=== PATIENT | female | born 1950 | race Caucasian/White ===

== ENCOUNTER → 2017-01-24 | Outpatient (CLI) | payer OTHER ==
[~2017-01-24] MED LIST: CEFD300C3 PO; CHOL2000 PO; DIGO0.122 PO; DOCU100C31 PO; DXY100 PO; FRRG PO; FRRS300 PO; FRS/40 PO; FURO-85 PO; INSUINJ13 SC; LISI-725 PO; LNX125 PO; LSN20 PO; LSX20 PO; LSX40 PO; MRLP17X PO; MULT-506 PO; NVLG SQ; NVLGI7030 SC; OMEG10007 PO; RIVA1TAB4 PO; TRAM-10 PO; TRAZ50TA35 PO; ULT50 PO; ULT50X PO; XRL20 PO
[2017-01-24 18:49] LABS: ALT/SGPT 28 U/L (12-78); AST/SGOT 14 U/L (15-37); BLOOD UREA NITROGEN 12 mg/dl (7-18); BUN/CREATININE RATIO 15.2 (10-20); CALCIUM 9.9 mg/dl (8.5-10.1); CARBON DIOXIDE 28 mmol/L (21-32); CHLORIDE 106 mmol/L (98-107); CREATININE 0.81 mg/dl (0.60-1.20); GLUCOSE 103 mg/dl (70-99); POTASSIUM 3.9 mmol/L (3.5-5.1); SODIUM 141 mmol/L (136-145)
[2017-01-24 19:00] LABS: ALKALINE PHOSPHATASE 111 U/L (45-117); CHOLESTEROL 243 mg/dl (0-200); CHOLESTEROL/HDL RATIO 4.2; HDL CHOLESTEROL 58 mg/dl; LDL CHOLESTEROL CALCULATED 152 mg/dl; TRIGLYCERIDES 167 mg/dl (0-150); VERY LOW DENSITY LIPOPROT CALC 33 mg/dl
[2017-01-25 06:51] LABS: ESTIMATED AVERAGE GLUCOSE 212 mg/dl; HA1C FLAG Normal (Normal)
== END | disposition home or self-care (01) ==
LOC: C.LABPBG 12:40
PROVIDERS: ATTEND Nurse Practitioner Family
DX: E11.65 Type 2 diabetes mellitus with hyperglycemia (principal); E78.5 Hyperlipidemia, unspecified

== ENCOUNTER → 2017-02-13 | Outpatient (CLI) | payer OTHER ==
[~2017-02-13] MED LIST changes: -FRRG PO
[2017-02-13 13:58] LABS: BLOOD UREA NITROGEN 14 mg/dl (7-18); BUN/CREATININE RATIO 18.6 (10-20); CALCIUM 9.4 mg/dl (8.5-10.1); CARBON DIOXIDE 28 mmol/L (21-32); CHLORIDE 104 mmol/L (98-107); CREATININE 0.74 mg/dl (0.60-1.20); GLUCOSE 120 mg/dl (70-99); POTASSIUM 4.2 mmol/L (3.5-5.1); SODIUM 140 mmol/L (136-145)
== END | disposition home or self-care (01) ==
LOC: C.LAB1850 11:51
PROVIDERS: ATTEND Internal Medicine Interventional Cardiology
DX: R60.0 Localized edema (principal)

== ENCOUNTER → 2017-02-20 | Outpatient (CLI) | payer OTHER ==
[2017-02-20 11:58] LABS: BLOOD UREA NITROGEN 27 mg/dl (7-18); BUN/CREATININE RATIO 31.9 (10-20); CALCIUM 9.2 mg/dl (8.5-10.1); CARBON DIOXIDE 32 mmol/L (21-32); CHLORIDE 102 mmol/L (98-107); CREATININE 0.86 mg/dl (0.60-1.20); GLUCOSE 118 mg/dl (70-99); POTASSIUM 3.8 mmol/L (3.5-5.1); SODIUM 140 mmol/L (136-145)
== END | disposition home or self-care (01) ==
LOC: C.LAB 10:09
PROVIDERS: ATTEND Physician Assistant
DX: R60.0 Localized edema (principal)

== ENCOUNTER 2017-03-01 05:12 | Inpatient (IN) | payer OTHER ==
[2017-01-30 11:38] VITALS: BMI 34.0
--- NOTE | 2017-01-30 11:58 | PAT Medication Instructions ---
Service Date Jan 30, 2017. Current Home Medication List Cholecalciferol (Vitamin D3), 1 CAP PO QAM Digoxin (Lanoxin), 0.125 MG PO QAM Fish Oil ([place]-3), 1 CAP PO QAM Furosemide (Lasix), 20 MG PO QAM Insulin Aspart 70/30 (Novolog Mix 70/30), 16 SC BID Lisinopril (Zestril), 20 MG PO QAM Multivitamin (Multivitamin), 1 TAB PO QAM Rivaroxaban (Xarelto), 20 MG PO QAM Tramadol (Ultram), 50 MG PO Q8H PRN for Pain Medication Instructions For Your Scheduled Surgery - Hold the following medications 2 weeks prior to surgery: Fish Oil ([place]-3), 1 CAP PO QAM - Hold the following medications 3 days prior to surgery per Cardiology instructions: Rivaroxaban (Xarelto), 20 MG PO QAM - Hold the following medications the morning of surgery: Cholecalciferol (Vitamin D3), 1 CAP PO QAM Furosemide (Lasix), 20 MG PO QAM Lisinopril (Zestril), 20 MG PO QAM Multivitamin (Multivitamin), 1 TAB PO QAM - Take the following medications the morning of surgery with a sip of water OTHERWISE NOTHING TO EAT OR DRINK AFTER MIDNIGHT: Digoxin (Lanoxin), 0.125 MG PO QAM Tramadol (Ultram), 50 MG PO Q8H PRN for Pain (may take if needed up to 4 hours prior to surgery) - For Insulin Dependent Diabetic patients: Test blood sugar A.M. of surgery. - If Blood Sugar is GREATER THAN 150, take HALF of your regular dose of: Insulin Aspart 70/30 (Novolog Mix 70/30) - If Blood Sugar is LESS THAN 150, do not take any: Insulin Aspart 70/30 (Novolog Mix 70/30) - Take the following medications as scheduled the night before surgery: Tramadol (Ultram), 50 MG PO Q8H PRN for Pain Insulin Aspart 70/30 (Novolog Mix 70/30), 16 SC BID If you have any questions please call us at [phone] or [phone] or [phone]
[2017-01-30 12:39] LABS: BASO % 0.3 %; BASO ABS # 0.02 K/uL (0-0.2); COMPLETE YES; EOS % 3.8 %; HEMATOCRIT 37.7 % (37-47); IG% 0.4 %; LYMPH ABS # 1.69 K/uL (1.2-3.4); MEAN CELL VOLUME 84.3 fL (80-100); MEAN CORPUSCULAR HGB CONC 33.2 g/dl (32-36); MEAN PLATELET VOLUME 9.2 fL (7.4-10.4); MONO % 7.6 %; NEUT % 64.9 %; PLATELET COUNT 278 K/uL (130-400); RED BLOOD COUNT 4.47 M/uL (4.2-5.4); WHITE BLOOD COUNT 7.36 K/uL (4.8-10.8)
[2017-01-30 12:49] LABS: INR 1.1 (0.9-1.1); PARTIAL THROMBOPLASTIN RATIO 1.1; PROTHROMBIN TIME (PATIENT) 11.5 SECONDS (9.0-12.0)
[2017-01-30 14:16] LABS: ESTIMATED AVERAGE GLUCOSE 223 mg/dl; HA1C FLAG Normal (Normal)
--- NOTE | 2017-02-22 19:09 | HISTORY & PHYSICAL EXAMINATION ---
DATE OF ADMISSION: 03/01/2017 CHIEF COMPLAINT: Right hip pain. HISTORY OF PRESENT ILLNESS: The patient is a 66-year-old female with multiple underlying medical comorbidities who is now about 5 months out from a left hip replacement. Her left hip is doing great. She has not had any pain since the day we put it in. She continues to be disabled by right hip pain and discomfort. She uses a walker as a result. She has some knee pain as well but the hip is most bothersome for her. She would really like to have her right hip replaced. The patient does have a history of chronic A fib with chronic lower extremity swelling heart failure and diabetes. She is followed by Dr. Xiong. She did lose a lot of weight, about 70 pounds or so, but still significantly obese. PAST MEDICAL HISTORY: 1. Chronic atrial fibrillation followed by Dr. Xiong and on Xarelto. 2. Hypertension. 3. Elevated cholesterol. 4. Congestive heart failure. 5. Diabetes on insulin. 6. Sleep apnea with CPAP machine 7. Low back pain. 8. Obesity with a BMI of 35. ALLERGIES: SULFA AND PENICILLIN. Rash is the reaction. PAST SURGICAL HISTORY: Left hip replacement on 09/11/2016. CURRENT MEDICINES: 1. Xarelto 20 mg. 2. Januvia 100 mg b.i.d. 3. Digoxin 125 mcg a day. 4. Lantus insulin 25 units once a day. 5. Tramadol. SOCIAL HISTORY: 66-year-old white female. She lives by herself. Does not smoke. FAMILY HISTORY: Significant for heart disease and diabetes. REVIEW OF SYSTEMS: Significant for diabetes. Denies any current chest pain or shortness of breath. No history of DVT or PE. She is on Xarelto. PHYSICAL EXAMINATION: GENERAL: Elderly female who looks older than her stated age. HEENT: Benign. NECK: Supple. No lymphadenopathy. LUNGS: Clear to auscultation. HEART: Has an irregularly irregular rhythm. ABDOMEN: Soft, nontender, nondistended. EXTREMITIES: Grossly neurovascularly intact except as follows. Examination of the right hip reveals the patient walks with a walker. She has a significant limp on the right side. Leg lengths are pretty equal. She has stiffness and pain with any type of hip motion. Very minimal hip motion. X-RAYS: X-rays of the right hip reveal advanced arthritis. She has complete loss of her joint space. She has cystic change to the femoral head and acetabulum. ASSESSMENT: 66-year-old white female with multiple comorbidities with a history of A fib with advanced right hip arthritis status post left total hip replacement 5 months ago and doing well. She would like to have her right hip replaced. PLAN: We are going to take her to the operating room and do a right total hip replacement. The risks and benefits of this procedure were explained to the patient including but not limited to DVT, PE, , infection, neurological injury, vascular injury, bleeding problem, pain, limited range of motion, stiffness, dislocation, fracture, leg length inequality, nerve palsy, etc. The patient understands and desires to proceed. Informed consent was obtained. We talked about her holding her Xarelto 3-5 days preop old holding the lisinopril the morning of surgery. She will take her digoxin. Will cover with sliding scale insulin coverage. Will consult Dr. Xiong to follow her in the hospital. Will start her back on her Xarelto 24 hours postop. She should bring his CPAP machine to the hospital. I will see her back 2 weeks postop. As far as discharge plans, she is hoping to be discharged to rehab.
[2017-03-01] VITALS (10 sets, daily range): BP systolic 107–178; BP diastolic 66–80; PULSE 72–96; TEMP 36.4–37.6; O2SAT 94–100; Ht 160 cm; Wt 88.7 kg
[~2017-03-01] VITALS: Ht 160 cm; Wt 88.7 kg
[~2017-03-01 05:12] MED LIST changes: -CEFD300C3 PO; -CHOL2000 PO; -DOCU100C31 PO; -DXY100 PO; -FRRS300 PO; -FRS/40 PO; -INSUINJ13 SC; -LNX125 PO; -LSN20 PO; -LSX20 PO; -LSX40 PO; -MRLP17X PO; -MULT-506 PO; -NVLG SQ; -OMEG10007 PO; -TRAZ50TA35 PO; -ULT50 PO; -ULT50X PO; -XRL20 PO
[2017-03-01] MEDS ORDERED: GABAPENTIN 300 MG CAP PO SCH (06:00)
[2017-03-01] MEDS ORDERED: METOCLOPRAMIDE HCL 10 MG TAB PO SCH (06:00)
[2017-03-01] MEDS ORDERED: LACTATED RINGER'S 1000ML 500 ML IV ONE (06:00)
[2017-03-01] MEDS ORDERED: FAMOTIDINE 20 MG TAB PO SCH (06:00)
[2017-03-01] MEDS ORDERED: TRANEXAMIC ACID INJ 1,000 MG in SODIUM CHLORIDE 0.9% 100ML 100 ML IV SCH (06:00)
[2017-03-01] MEDS ORDERED: SCOPOLAMINE 1.5 MG TDSY TD SCH (06:00)
[2017-03-01] MEDS ORDERED: LACTATED RINGER'S 1000ML 1,000 ML IV SCH ×2 (06:00)
[2017-03-01] MEDS ORDERED: ACETAMINOPHEN 500 MG TAB PO SCH (06:00)
[2017-03-01] MEDS ORDERED: CLINDAMYCIN 600 MG/54 ML D5W 54 ML IV SCH (06:00)
[2017-03-01] MEDS ORDERED: FRS/40 PO (06:04)
[2017-03-01] MEDS ORDERED: FENTANYL CITRATE INJ 50 MCG/1 ML 2 ML VIAL ONE ×2 (06:11→08:33)
[2017-03-01] MEDS ORDERED: MIDAZOLAM HCL 1 MG/ML 2ML VIAL ONE ×4 (06:14→09:29)
[2017-03-01] MEDS ORDERED: MoRPHine SULFATE PF 1 MG/ML 10 ML AMP/VIAL ONE (06:19)
[2017-03-01] MEDS ORDERED: BACITRACIN 50000 UNIT VIAL ONE ×2 (06:28→09:57)
[2017-03-01] MEDS ORDERED: BUPIVACAINE/EPINEPHRINE 0.5% MPF 1:200,000 30 ML VIAL ONE (06:28)
[2017-03-01] MEDS ORDERED: BUPIVACAINE 0.5 % 5 MG/1 ML PF 10ML VIAL ONE (06:34)
--- NOTE | 2017-03-01 06:46 | History & Physical Bridge Note ---
H&P Re-Evaluation Bridge Note: I have examined the patient, reviewed the History & Physical and in the interval since the performance of the History & Physical I have noted the following changes of clinical significance: No changes noted
[2017-03-01] MEDS ORDERED: EpHEDrine SULFATE 50MG/5ML SYR ONE (07:24)
[2017-03-01] MEDS ORDERED: SODIUM CHLORIDE 0.9% 1000ML 1,000 ML IV PRN (08:13)
[2017-03-01] MEDS ORDERED: NALOXONE HCL INJ 0.08 MG in SYRINGE 1.8 ML IV PRN (08:13)
[2017-03-01] MEDS ORDERED: NALOXONE HCL INJ 1 MG in SODIUM CHLORIDE 0.9% 1000ML 1,000 ML IV PRN ×4 (08:13)
[2017-03-01] MEDS ORDERED: LACTATED RINGER'S 1000ML 500 ML IV PRN (08:13)
[2017-03-01] MEDS ORDERED: NO NARCOTICS OR SEDATIVES SCH (08:15)
[2017-03-01] MEDS ORDERED: MoRPHine SULFATE PF 1 MG/ML 10 ML AMP/VIAL EPI PRN (08:15)
[2017-03-01] MEDS ORDERED: DiphenhydrAMINE HCL 50 MG/ML VIAL IV PRN (08:15)
[2017-03-01] MEDS ORDERED: ONDANSETRON INJ 2 MG/ML 2 ML VIAL IV PRN ×3 (08:15→10:45)
[2017-03-01] MEDS ORDERED: ATROPINE SULFATE 0.1 MG/ML 5ML SYR IV PRN (08:15)
[2017-03-01] MEDS ORDERED: PROMETHAZINE HCL INJ 12.5 MG in SODIUM CHLORIDE 0.9% 50ML 50 ML IV PRN ×4 (08:15)
[2017-03-01] MEDS ORDERED: MEPERIDINE HCL 25 MG/ML CARP IV PRN ×2 (08:15)
[2017-03-01] MEDS ORDERED: EpHEDrine SULFATE INJ 50 MG/ML AMP IV PRN (08:15)
[2017-03-01] MEDS ORDERED: NALOXONE HCL 0.4 MG/1 ML VIAL/CARP IV PRN (08:15)
[2017-03-01] MEDS ORDERED: CLINDAMYCIN PHOS 150 MG/ML 2 ML VIAL ONE (10:17)
--- NOTE | 2017-03-01 10:23 | DIAGNOSTIC IMAGING REPORT ---
INTRAOPERATIVE RIGHT FEMUR 7 VIEWS CLINICAL HISTORY: Fracture COMPARISON STUDY: None FLUOROSCOPY TIME: 20 seconds. 7 fluoroscopic spot images are provided for interpretation.. FINDINGS: There are postsurgical changes of a right hip arthroplasty. The proximal aspect of the femoral prosthesis and acetabulum are not included on the study. There is a lateral femoral metallic plate with multiple proximal cerclage wires and transversely oriented distal screws. IMPRESSION: Intraoperative radiographs as described above. Electronically signed by: Terrell Garcia M.D. 03/01/2017 10:22 AM Dictated Date/Time: 03/01/2017 10:20 AM
--- NOTE | 2017-03-01 10:43 | [facility] Post Operative Brief Note ---
Immediate Operative Summary Operative Date March 01, 2017. Pre-Operative Diagnosis Right Hip Degenerative Joint Disease Post-Operative Diagnosis Same as preop Procedure(s) Performed Right Total Hip Arthroplasty Uncemented + Open Reduction Internal Fixation of Periprosthetic Femur Fracture Surgeon Dr. Zhong Support Manager Surgeon(s) Aadm Rudd PA-C Estimated Blood Loss 500 ml Findings Right Hip DJD Fluids (cc crystalloids) 1300 cc Specimens A. Right Femoral Head Drains HMV Right Hip and thigh Anesthesia Spinal Complication(s) None
[2017-03-01] MEDS ORDERED: GLUCOSE 10 TABS/TUBE PO PRN (10:45)
[2017-03-01] MEDS ORDERED: METOCLOPRAMIDE HCL INJ 5 MG/ML 2 ML VIAL IV PRN (10:45)
[2017-03-01] MEDS ORDERED: BISACODYL 10 MG SUPP PR PRN (10:45)
[2017-03-01] MEDS ORDERED: ALUMINUM/MAGNESIUM/SIMETH (MAALOX MAX) 30 ML UDC PO PRN (10:45)
[2017-03-01] MEDS ORDERED: GLUCOSE 40% GEL 15 GM TUBE PO PRN (10:45)
[2017-03-01] MEDS ORDERED: MAGNESIUM HYDROXIDE SUSP 30 ML UDC PO PRN (10:45)
[2017-03-01] MEDS ORDERED: ZOLPIDEM TARTRATE 5 MG TAB PO PRN (10:45)
[2017-03-01] MEDS ORDERED: GLUCAGON FOR INJ 1 MG VIAL SQ PRN (10:45)
[2017-03-01] MEDS ORDERED: DEXTROSE 50% 50 ML SYR IV PRN (10:45)
[2017-03-01] MEDS ORDERED: TRAMADOL HCL 50 MG TAB PO PRN (10:45)
--- NOTE | 2017-03-01 11:25 | DIAGNOSTIC IMAGING REPORT ---
SINGLE VIEW PELVIS; 2 VIEWS RIGHT FEMUR CLINICAL HISTORY: Postoperative examination. FINDINGS: An AP portable view of the pelvis with AP and crosstable lateral views of the right femur are compared to studies dated 08/09/2015 and pelvic x-ray dated 09/11/2016. The skeletal structures are osteopenic. The bony pelvis appears intact. Bilateral hip arthroplasties are in near-anatomic alignment. There as been buttress plate fixation of a spiral fracture through the mid femoral shaft at and below the level of the tip of the femoral arthroplasty. The buttress plate is along the lateral cortex, and the fracture fragments are in near-anatomic alignment. There are cerclage wires around the proximal aspect of the buttress plate. At least 6 cortical lag screw transfixes the distal aspect of the buttress plate. There are expected postoperative changes in the right thigh including skin clips, subcutaneous gas, soft tissue edema, and surgical drains. The right knee joint appears maintained noting arthritic change. Atherosclerotic calcification is noted in the femoral artery bilaterally. A Wang catheter is in place. Sclerotic change is present in the sacroiliac joints. IMPRESSION: 1. There are postoperative changes from buttress plate fixation of a right femoral diaphyseal fracture as detailed above. The fragments are in near-anatomic alignment in the orthopedic hardware appears intact. 2. No new fracture is seen. 3. Bilateral hip arthroplasties are in near-anatomic alignment. Electronically signed by: Abel Aguayo M.D. 03/01/2017 11:24 AM Dictated Date/Time: 03/01/2017 11:19 AM
--- NOTE | 2017-03-01 11:36 | Anesthesiology Progress Note ---
Anesthesia Post Op Note Date & Time March 01, 2017 at 11:35 Vital Signs Pain Intensity: 0 Vital Signs Past 12 Hours Date Time Temp Pulse Resp B/P Pulse Ox O2 Delivery O2 Flow Rate FiO2 03/01/17 11:21 131/58 03/01/17 11:19 73 16 03/01/17 11:19 73 16 98 03/01/17 11:18 36.3 76 16 131/58 100 Nasal Cannula 2 03/01/17 11:16 132/57 03/01/17 11:14 74 12 100 03/01/17 11:14 74 12 03/01/17 11:11 125/60 03/01/17 11:09 78 10 99 03/01/17 11:09 77 10 03/01/17 11:06 138/68 03/01/17 11:04 78 23 03/01/17 11:04 78 23 99 03/01/17 11:03 77 25 03/01/17 11:03 77 25 100 03/01/17 11:01 133/55 03/01/17 10:58 76 13 100 03/01/17 10:58 77 13 03/01/17 10:56 105/80 03/01/17 10:53 80 14 100 03/01/17 10:53 79 14 03/01/17 10:51 97/62 03/01/17 10:48 81 13 03/01/17 10:48 80 13 100 03/01/17 10:46 105/66 03/01/17 10:44 97/60 03/01/17 10:43 79 15 100 03/01/17 10:43 79 15 03/01/17 10:43 36.2 78 15 97/60 100 Mask 10 03/01/17 05:38 37.0 89 20 178/66 98 Room Air Notes Mental Status: alert / awake / arousable, participated in evaluation Pt Amnestic to Procedure: Yes Nausea / Vomiting: adequately controlled Pain: adequately controlled Airway Patency, RR, SpO2: stable & adequate BP & HR: stable & adequate Hydration State: stable & adequate Anesthetic Complications: no major complications apparent
[2017-03-01] MEDS: SODIUM CHLORIDE 0.9% 1000ML 1,000 ML IV SCH ×2 (11:50→22:10)
--- NOTE | 2017-03-01 12:52 | Medical Consult ---
Consultation Date of Consultation: March 01, 2017. Attending Physician: Art Zhong M.D. Reason for Consultation: Medical Management History of Present Illness Ms. Yates is a 66 y/o female with PMHx of Paroxysmal Atrial Fibrillation, T2DM - IDDM, Possible Diastolic CHF with Chronic Lower Extremity Edema (possible mixed etiology of lymphedema and insufficiency, HTN, HLD, SANDRA on CPAP who is S/ P R MIGUEL with intraoperative ORIF 2/[address] Zhong on 03/01. HPI limited as patient is still drowsy from anesthesia. She awakes to tactile stimulation, makes eye contact, and falls back asleep. Per son, last surgery patient did not fully recover from anesthesia until the evening after surgery. Medical history confirmed by son at bedside. Xarelto has been held since 02/22 in preparation for surgery. He states he A Fib is controlled and predominantly in NSR. She is currently NSR with adequate rate control. Outpatient records reviewed as well, she had a recent Lasix increase from 20 to 40 mg daily for orthopnea and lower extremity edema. She did improve with increased dosing but suggest PND and SANDRA as culprit with chronic insufficiency and lymphedema as cause of edema. She was previously on Januvia for DM control but this interfered with her A Fib per son and is only on insulin 70/30 with 18 units AMPM. She follows with endocrinology for DM maintenance. Past Medical/Surgical History 1. Paroxysmal Atrial Fibrillation 2. HTN 3. HLD 4. T2DM IDDM 5. SANDRA on CPAP Family History Deferred as patient sleeping and cannot contribute to exam. Social History Smoking Status: Never Smoker Drug Use: none Marital Status: Occupation Status: retired Allergies Coded Allergies: Acetaminophen (Verified Allergy, Mild, MUSCLE SHAKES AND PASSES OUT, ) Codeine (Verified Allergy, Mild, MUSCLE SHAKES AND PASSES OUT, 03/01/17) Adhesives (Verified Allergy, Unknown, local skin irritation, 03/01/17) paper tape is okay per pt Carvedilol (Unverified Allergy, Unknown, per cardio note , 03/01/17) Diltiazem (Unverified Allergy, Unknown, MUSCLE SHAKES AND CANT WALK, ) Meloxicam (Verified Allergy, Unknown, MUSCLE CRAMPS AND SHAKE AND CANT WALK, 03/01/17) Metoprolol (Unverified Allergy, Unknown, per cardio note , 03/01/17) Omeprazole (Unverified Allergy, Unknown, per cardio note , 03/01/17) Penicillins (Verified Allergy, Unknown, FEVER, 03/01/17) Sulfa Antibiotics (Unverified Allergy, Unknown, per cardio note , 03/01/17) Metformin (Verified Adverse Reaction, Unknown, DIARRHEA/ HAIR FELL OUT, ) Current Inpatient Medications Current Inpatient Medications Medications (Trade) Dose Ordered Sig/Isaac Route Start Time Stop Time Status Last Admin Dose Admin Lactated Ringer's 1,000 ml @ 15 mls/hr Q24H IV 03/01/17 06:00 03/01/17 18:00 03/01/17 06:26 15 MLS/HR Lactated Ringer's 1,000 ml @ 60 mls/hr [id number] IV 03/01/17 06:00 03/01/17 22:39 Clindamycin Phosphate (Cleocin 600mg/ 54ml D5W) 54 ml @ 100 mls/hr PREOP IV 03/01/17 06:00 03/01/17 18:00 03/01/17 06:57 100 MLS/HR Famotidine (Pepcid Tab) 20 mg PREOP PO 03/01/17 06:00 03/01/17 18:00 03/01/17 06:24 20 MG Gabapentin (Neurontin Cap) 300 mg PREOP PO 03/01/17 06:00 03/01/17 18:00 03/01/17 06:24 300 MG Metoclopramide HCl (Reglan Tab) 10 mg PREOP PO 03/01/17 06:00 03/01/17 18:00 03/01/17 06:24 10 MG Scopolamine (Transderm-Scop Patch) 1.5 mg PREOP TD 03/01/17 06:00 03/01/17 15:00 03/01/17 06:24 1.5 MG Miscellaneous (Remove Transderm-Scop Patch) 1 ea Q72H N/A 03/04/17 06:00 03/04/17 06:01 Miscellaneous Information (Check Scopolamine Patch Placement) 1 ea QS N/A 03/01/17 16:00 03/03/17 05:59 Ondansetron HCl (Zofran Inj) 4 mg ONE PRN IV 03/01/17 08:15 03/01/17 13:00 Atropine Sulfate (Atropine Sulfate 0.1MG/Ml Inj) 0.5 mg Q1M PRN IV 03/01/17 08:15 03/01/17 13:00 Meperidine HCl 25 mg 25 mg Q10M PRN IV 03/01/17 08:15 03/01/17 13:00 Promethazine HCl/ Sodium Chloride (Phenergan Inj/ Nss 50ml) 50.5 ml @ 202 mls/hr ONE PRN IV 03/01/17 08:15 03/01/17 13:00 Naloxone HCl (Narcan Inj) 0.1 mg UD PRN IV 03/01/17 08:15 03/02/17 00:00 Diphenhydramine HCl 12.5 mg 12.5 mg Q6H PRN IV 03/01/17 08:15 03/02/17 00:00 Naloxone HCl/ Sodium Chloride (Narcan Inj/Nss 1000ml) 1,002.5 ml @ 50 mls/hr Q20H3M PRN IV 03/01/17 08:13 03/02/17 00:00 Ondansetron HCl 4 mg 4 mg Q6H PRN IV 03/01/17 08:15 03/02/17 00:00 Promethazine HCl 12.5 mg/Sodium Chloride 50.5 ml @ 200 mls/hr Q6H PRN IV 03/01/17 08:15 03/02/17 00:00 Naloxone HCl/ Sodium Chloride (Narcan Inj/Nss 1000ml) 1,002.5 ml @ 50 mls/hr Q20H3M PRN IV 03/01/17 08:13 03/02/17 00:00 Meperidine HCl (Demerol Inj) 25 mg Q15M PRN IV 03/01/17 08:15 03/02/17 00:00 Miscellaneous Information (Dc Intraspinal Morphine) 1 ea TODAY@0000 N/A 03/02/17 00:00 03/02/17 00:01 Miscellaneous Information 1 ea 1 ea UD N/A 03/01/17 08:15 03/02/17 00:00 Naloxone HCl 0.08 mg/Syringe 2 ml @ 1 mls/min Q2M PRN IV 03/01/17 08:13 03/02/17 00:00 Lactated Ringer's (Lr 1000ml) 500 ml @ 999 mls/hr Q31M PRN IV 03/01/17 08:13 03/02/17 00:00 Ephedrine Sulfate (EpHEDrine SULFATE INJ) 10 mg Q5M PRN IV 03/01/17 08:15 03/02/17 00:00 Morphine Sulfate TODAY PRN EPI 03/01/17 08:15 03/02/17 00:00 Sodium Chloride 1,000 ml @ 15 mls/hr Q24H PRN IV 03/01/17 08:13 03/02/17 00:00 Sodium Chloride 1,000 ml @ 125 mls/hr Q8H IV 03/01/17 10:43 03/02/17 10:42 03/01/17 11:50 125 MLS/HR Clindamycin Phosphate/Dextrose (Cleocin Iv/ Dextrose Add-[place] 50ML) 54 ml @ 100 mls/hr Q8H IV 03/01/17 18:00 03/02/17 02:33 Acetaminophen (Tylenol Tab) 1,000 mg Q8H PO 03/01/17 14:00 03/31/17 13:59 Magnesium Hydroxide (Milk Of Magnesia Susp) 30 ml Q6H PRN PO 03/01/17 10:45 03/31/17 10:44 Bisacodyl (Dulcolax Supp) 10 mg DAILY PRN NE 03/01/17 10:45 03/31/17 10:44 Docusate Sodium (coLACE CAP) 100 mg BID PO 03/01/17 21:00 03/31/17 20:59 Al Hydrox/Mg Hydrox/Simethicone (Maalox Max Susp) 15 ml Q4H PRN PO 03/01/17 10:45 03/31/17 10:44 Zolpidem Tartrate (Ambien Tab) 5 mg HSZ PRN PO 03/01/17 10:45 03/31/17 10:44 Future hold Multivitamins (Multivitamin Tab) 1 tab QAM PO 03/02/17 09:00 04/01/17 08:59 Ondansetron HCl (Zofran Inj) 4 mg Q6H PRN IV 03/01/17 10:45 03/31/17 10:44 Future hold Metoclopramide HCl (Reglan Inj) 10 mg Q6H PRN IV 03/01/17 10:45 03/31/17 10:44 Ferrous Gluconate (Ferrous Gluconate Tab) 324 mg TIDM PO 03/01/17 12:30 03/31/17 12:29 Pantoprazole Sodium (Protonix Tab) 40 mg QAM PO 03/02/17 09:00 04/01/17 08:59 Tramadol HCl (Ultram Tab) 1 TABLET FOR PAIN RATING... Q4H PRN PO 03/02/17 00:00 04/01/17 00:00 Digoxin (Lanoxin Tab) 0.125 mg DAILY@1600 PO 03/01/17 16:00 03/31/17 15:59 Furosemide (Lasix Tab) 40 mg DAILY PO 03/02/17 09:00 04/01/17 08:59 Cholecalciferol (Vitamin D Tab) 2,000 inter.unit QAM PO 03/02/17 09:00 04/01/17 08:59 Insulin Human Regular (novoLIN-R) SLIDING SCALE ACHS SC 03/01/17 12:45 03/31/17 12:44 Glucose (Glucose 40% Gel) 15-30 GRAMS 15 GRAMS... UD PRN PO 03/01/17 10:45 03/31/17 10:44 Glucose (Glucose Chew Tab) 4-8 Tablets 4 Tabl... UD PRN PO 03/01/17 10:45 03/31/17 10:44 Dextrose (Dextrose 50% 50ML Syringe) 25-50ML OF 50% DW IV FOR... UD PRN IV 03/01/17 10:45 03/31/17 10:44 Glucagon (Glucagon Inj) 1 mg UD PRN SQ 03/01/17 10:45 03/31/17 10:44 Rivaroxaban (Xarelto Tab) 10 mg DAILY PO 03/02/17 11:00 04/01/17 10:59 UNV Hydromorphone HCl (Dilaudid Inj) 1 mg Q1H PRN IV 03/02/17 00:00 03/16/17 00:00 Review of Systems ROS deferred as patient currently drowsy after surgery. She responds to verbal and tactile stimulation but quickly falls back asleep. Physical Exam Date Time Temp Pulse Resp B/P Pulse Ox O2 Delivery O2 Flow Rate FiO2 03/01/17 12:33 36.4 72 16 114/68 100 Nasal Cannula 2.0 03/01/17 12:26 100 Nasal Cannula 2.0 03/01/17 12:19 74 16 107/70 94 2.0 03/01/17 11:21 131/58 03/01/17 11:19 73 16 03/01/17 11:19 73 16 98 03/01/17 11:18 36.3 76 16 131/58 100 Nasal Cannula 2 03/01/17 11:16 132/57 03/01/17 11:14 74 12 100 03/01/17 11:14 74 12 03/01/17 11:11 125/60 03/01/17 11:09 78 10 99 03/01/17 11:09 77 10 03/01/17 11:06 138/68 03/01/17 11:04 78 23 03/01/17 11:04 78 23 99 03/01/17 11:03 77 25 03/01/17 11:03 77 25 100 03/01/17 11:01 133/55 03/01/17 10:58 76 13 100 03/01/17 10:58 77 13 03/01/17 10:56 105/80 03/01/17 10:53 80 14 100 03/01/17 10:53 79 14 03/01/17 10:51 97/62 03/01/17 10:48 81 13 03/01/17 10:48 80 13 100 03/01/17 10:46 105/66 03/01/17 10:44 97/60 03/01/17 10:43 79 15 100 03/01/17 10:43 79 15 03/01/17 10:43 36.2 78 15 97/60 100 Mask 10 03/01/17 05:38 37.0 89 20 178/66 98 Room Air General Appearance: WD/WN, no apparent distress Head: normocephalic, atraumatic Eyes: sclerae normal Neck: supple, no JVD, trachea midline Respiratory/Chest: lungs clear, no respiratory distress, no accessory muscle use, + decreased breath sounds, + pertinent finding (difficulty exam as patient is drowsy/asleep; currently snoring which alters proper examination) Cardiovascular: regular rate, rhythm, no gallop, no murmur Abdomen/GI: normal bowel sounds, non tender (no withdrawaling or grimacing with palpation), soft Extremities/Musculoskelatal: + swelling (bilateral lower extremity edema appears mixed nonpitting and pitting 1-2+; adequate cap refill; normal temperature; R hip with drain with blood - dressing clean/dry/intact) Neurologic/Psych: + pertinent finding (drowsy/sedated) Skin: normal color, warm/dry Laboratory Results Last 24 Hours Test 03/01/17 05:48 03/01/17 10:51 Bedside Glucose 133 mg/dl 194 mg/dl Assessment & Plan Ms. Yates is a 66 y/o female with PMHx of Paroxysmal Atrial Fibrillation, T2DM - IDDM, Possible Diastolic CHF with Chronic Lower Extremity Edema (possible mixed etiology of lymphedema and insufficiency, HTN, HLD, SANDRA on CPAP who is S/ P R MIGUEL with intraoperative ORIF 2/[address] Zhong on 03/01. S/P R MIGUEL with ORIF 2/2 Periprosthetic Fx - Dr. Zhong on 03/01: - Pain Management, PT/OT, DVT prophylaxis per primary -- Did decrease fluids to 75 mL/hr to gently hydrate overnight and continue Lasix in AM if kidney function supports - no signs of failure currently but low threshold for diuretic use if necessary - DVT Prophylaxis: Xarelto 10 mg daily Paroxysmal Atrial Fibrillation on Xarelto: Currently NSR with Rate Control - Will await AM BMP to evaluate kidney function - CHADSVASC score 5 - would recommend therapeutic dosing for Xarelto given co- morbidities that places her at high stroke risk -- However must be balanced with bleeding risk post-surgery - will discuss with Dr. Zhong - Digoxin 125 mcg daily - per cards note has failed BB therapy as she was unable to maintain rate control with it T2DM - IDDM: - Hold 70/30 insulin - SSI goal 120-160, correction factor 35, carb ratio 12 - BSG Q6H with lethargic/not eating then resume ACHS Possible Diastolic CHF with Chronic Lower Extremity Edema: - Echo - 2014 - EF 60-65% with no wall motion abnormality - does have edema and orthopnea prior to admission - question multifactorial etiologies - Lasix 40 mg daily to start tomorrow - as long as BP supports this SANDRA on CPAP: Patient may use own CPAP HTN: - Hold Lisinopril at this time - may be resumed in AM pending labs Disposition: Per Primary Thank you for the consultation. We will continue to follow Pt seen/examined independently - orders and consultation reviewed and discussed with PA Post hop hip replacement with intraop femoral fracture Pt w/Hx DM and PAF - questionable history of diastolic CHF OE Pt is somnolent post sedation S1,2 R Poor effort - limited lung exam - no wheezing/crackles NT, NT Pulses palpable in LEs P: Sliding scale Q6H - change to ACHS when meal schedule is regular IVF provided post - op - watch vol status due to possible CHF histroy - can resume Lasix in 24 H if labs unchanged and pt is euvolemic Regarding her PAF - resume Xarelto at earliest time post-op
[2017-03-01] MEDS ORDERED: HydrALAZINE HCL 20 MG/ML VIAL IV. PRN (13:30)
[2017-03-01] MEDS: ACETAMINOPHEN 500 MG TAB PO SCH ×2 (14:00→22:00)
[2017-03-01] MEDS: FERROUS GLUCONATE 324 MG TAB PO SCH ×2 (14:06→19:33)
[2017-03-01] MEDS: INSULIN HUMAN REGULAR SC SCH ×3 (14:07→22:36)
--- NOTE | 2017-03-01 15:48 | OPERATIVE REPORT ---
DATE OF OPERATION: 03/01/2017 SURGEON: Art Zhong MD [employer] AGENT: CAYLA [place] PREOPERATIVE DIAGNOSIS: Right hip degenerative joint disease. POSTOPERATIVE DIAGNOSES: 1. Right hip degenerative joint disease. 2. Right periprosthetic femur fracture. PROCEDURES PERFORMED: 1. Right uncemented total hip arthroplasty. 2. ORIF of right periprosthetic femur fracture. COMPLICATIONS: Right periprosthetic femur fracture. ESTIMATED BLOOD LOSS: 500 mL. FLUID REPLACEMENT: 1300 mL crystalloid fluid replacement. ANESTHESIA: Spinal. DRAINS: A Hemovac right hip and leg x2. OPERATIVE INDICATIONS: The patient is a 66-year-old, debilitated lady who has had a long history of bilateral hip DJD. She had been using a walker for the past 2+ years. She underwent a left hip replacement 5-6 months ago and has done extremely well. She is limited by her right hip. X-rays reveal advanced hip DJD and she elected to proceed with operative treatment. OPERATIVE FINDINGS: Operative findings revealed advanced right hip DJD. She had grade 4 [id number] disease of the femoral head and acetabulum. She had extensive arthritic change. The cancellous bone density seemed quite poor, but the cortical bone appeared quite thick. OPERATIVE IMPLANTS: Total hip implants consisted of: 1. A Biomet G7 size 50 mm acetabular shell. 2. An apex hole eliminator. 3. A 6.5 cancellous acetabular screws, 1 of 35 mm length and 1 of 20 mm in length. 4. A highly cross-linked polyethylene liner with a 50 mm outer diameter and another 32 mm inner diameter. 5. A DePuy size 13.5 small stature AML femoral stem. 6. A +5/32 mm metal articular ball. ORIF of the femur implants consisted of: 1. A Synthes 16 hole curved broad-based 4.5 LCDC Locking plate. 2. A 4.5 fully threaded cortical screws x2. 3. A 5.0 locking screws x4. 4. Synthes 1.7 mm cables x8. 5. Synthes buttons x6. OPERATIVE PROCEDURE: The patient taken to the operating room, identified and placed on the operating table in supine position. All contact areas were appropriately padded. IV antibiotics were provided by anesthesia team. A spinal anesthetic had been implemented in the holding area. Wang catheter was placed in a sterile fashion. The patient was then placed in the left lateral decubitus position. An axillary roll was placed. Stlberg hip positioner was used for positioning. The right hip and leg were then prepped and draped in the usual sterile fashion. A posterolateral approach to the right hip was then performed through a curvilinear incision centered over the greater trochanter. Sharp dissection was carried out through the subcutaneous tissues down to the level of the IT band and gluteal fascia. The IT band and gluteal fascia was incised longitudinally in line with skin incision. The underlying greater trochanteric bursa was excised. The piriformis and external rotators were tagged and taken off the posterior aspect of the femur. Great care was taken throughout the procedure to protect the sciatic nerve at all times. Posterior capsulotomy was then performed leaving a large flap for later repair. Hip was internally rotated and dislocated. Femoral neck osteotomy cut was made with final cut about 7 mm above the lesser trochanter. Femoral head was removed and sent for pathology. The femur was retracted anteriorly. Attention was then drawn to the acetabulum. The acetabular labrum was excised. The pulvinar fat was excised. Sequential reaming of the acetabulum was then performed beginning with a size 43 and progressing up to 49. A 50 mm Biomet G7 acetabular shell was then placed in about 40 degrees of lateral opening and 20 degrees of anteversion. It was fixed with two 6.5 cancellous acetabular screws. A trial liner was placed. Attention was then drawn to the femur. The proximal femur was entered with a cookie cutter followed by canal finder and lateralizing reamer. The cancellous bone was quite soft. We began reaming at a size 10. We started getting pretty good chatter at 12. I reamed up to a 13. I broached beginning with a size 10.5 small broach and progressing up to 13.5 small broach. I could still countersink this. I contemplated using a large, but I placed this in the femur without attempting even to place it and it just seemed like it would be too large and risk fracture. Therefore, we went back to the 13.5 small broach and countersink it slightly. I did resect a little bit more the neck and then used the calcar reamer to use to smoothen off the calcar. We then trialed the hip and the +5 articular ball provided full stability and full extension and external rotation and flexion to 90 degrees, internal rotation to 50+ degrees. Leg lengths appeared appropriately. We elected to place these implants. All trial implants were removed. An apex hole eliminator was placed. Highly cross-linked polyethylene liner was placed. A 13.5 small stature AML femoral stem was placed. We impacted this into position. Upon internally rotating the femur to put the head on, the femur cracked. There was clear rotation of the upper component and it was no longer stable. X-ray was brought and on x-ray the fracture appeared to be just at the tip of the stem. I spent some time considering how to best address this situation. Considering that the femoral component looked to be extremely well fixed and impacted and the fracture was distal to the stem and at the isthmus I did not feel taking the implant out and planning for a longer stem implant would likely provide clear definitive beneficial fixation. Considering this, we elected to proceed with ORIF of the femur fracture with plate and screws. I felt I had good fixation in the proximal femur with the implant. The lateral exposure was then extended distally. The IT band incision was extended distally. The vastus lateralis was retracted anteriorly. I was then able to anatomically reduce the fracture and hold it with some reduction clamps. I placed 2 Synthes 1.7 mm cables around this to hold it reduced. I then contoured an 18 holed curved Synthes locking plate to the lateral aspect of the femur. I fixed it distally with two 4.5 fully threaded cortical screws. I then fixed it proximally with a single 4.5 cortical screw. I then fixed the femur fracture to the proximal plate with 4 additional cerclage cables placed through Synthes buttons. I then removed the cortical screw as it was no longer tight and placed another Synthes button with an additional 1.7 mm cable. I then fixed the fracture distally with four 5.0 fully threaded locking screws. I then placed 1 cable around the mid aspect of this construct which was right at the mid portion of the fracture line to just provide some additional stability. This was also placed through a button. Some final x-rays were obtained. Attention was then drawn toward closing. The fracture was anatomically aligned and reduced. The wound was irrigated with copious amounts of normal saline. I did inject locally with 60 mL of 0.5% Marcaine with epinephrine. I did place 2 Hemovac drains in the depth of the wound. The posterior capsule and external rotators were repaired through drill holes in the posterior trochanter with #2 Ti-Cron suture. The IT band and was then closed with #1 PDS suture in a running fashion. The subcutaneous tissues were then closed in 2 layers with #1 Vicryl suture in a buried interrupted fashion followed by 2-0 Dexon suture in a subcuticular fashion. The skin was then stapled. Sterile dressing of Xeroform, 4 x 4, sterile ABD pad and Medipore tape was applied. The patient was then transferred to the recovery room in stable condition. The patient tolerated the procedure well with no complications. All needle and sponge counts were correct at the end of the operation. I attest to the content of the Intraoperative Record and any orders documented therein. Any exceptions are noted below. CARLEYD
[2017-03-01] MEDS: CHECK SCOPOLAMINE PATCH PLACEMENT SCH ×2 (16:08→22:10)
[2017-03-01] MEDS: DIGOXIN 0.125 MG TAB PO SCH (16:09)
--- NOTE | 2017-03-01 17:48 | PROGRESS NOTE ---
DATE: 03/01/2017 SUBJECTIVE: A 66-year-old white female postop from a right total hip replacement complicated by periprosthetic femur fracture treated with plate and cables. She is doing well. She denies any pain. She is awake, alert, appropriate and oriented. No chest pain or shortness of breath. Remarkably denies any leg pain. OBJECTIVE: VITAL SIGNS: Temperature 36.6. Vital signs stable. PHYSICAL EXAMINATION: GENERAL: Reveals a pleasant elderly female. I did have to wake her when I went, but she was easily arousable, alert and oriented. LUNGS: Clear to auscultation. HEART: Regular rate and rhythm. ABDOMEN: Soft, nontender, nondistended. EXTREMITIES: Grossly neurologically intact except as follows: Examination of the right leg reveals the leg to be well aligned. Leg lengths 3 equal. Hip is located. She can dorsiflex and plantarflex her foot appropriately. She is neurologically intact. X-RAYS: X-rays of the right femur and hip from the recovery room were reviewed. It shows an uncemented total hip arthroplasty. The hip is located. The fracture looks to be well fixed with the plate and cables. ASSESSMENT: A 66-year-old white female with multiple underlying comorbidities including atrial fibrillation and diabetes postop from a right total hip replacement complicated by periprosthetic femur fracture and treated with a plate and cerclage cables. She is doing well. Remarkably, she did not have any pain. She is neurologically intact. Hip is located. I did have in-depth discussion with her son in the recovery room regarding the fracture and the treatment. I once again had a discussion with the patient along with her son/significant other was in a wheelchair in the room this afternoon. The patient was completely unfazed regarding the issue and certainly seems to understand and all questions were answered. PLAN: 1. DVT prophylaxis including thigh-high TEDs, SCDs, and we will put her back on her Xarelto starting tomorrow. We will start her on prophylactic dose. She is not in AFib now, but we will put her back on it. We will resume her standard dose over the next couple days. 2. PT/OT. She has been nonweightbearing right leg. It would be okay for her to touch weightbear slightly for the next 6 weeks. 3. IV antibiotics x24 hours. 4. Pain control, doing well with current pain regimen. 5. Mild hypertension. We will check her meds and make sure she is back on all her meds. 6. Diabetes. We will resume insulin sliding scale coverage. 7. Disposition. She went to [facility] last time. She will hope to go there again this time. ADDENDUM: Regarding this patient's periprosthetic femur fracture at the time of surgery, I think were probably multiple confounding variables, although I feel it was completely unpredictable. Looking at her x-rays, her cortices were thick on both the anterior and posterior aspects. Most likely when we machined the femur to fit the implant, we did ream some of the bone and weakened in that fashion. We did not excessively ream this as we only reamed about a millimeter of bone. Her cancellous bone was fairly porous at the time of surgery, but x-rays showed her cortical thickening to be remarkably strong. She has clearly been limited weightbearing for the last 2 years as she has had to use a walker to get around due to arthritis and likely contributed to her bone fragility. Once again, I think this is extremely difficult to predict based on her radiographs. In addition, she had a similar surgery with the same implant size on her other side without a problem. Once again, this was discussed with the patient and her significant other/son, I believe who was in a wheelchair and all questions were answered. DEANGELO
[2017-03-01] MEDS: CLINDAMYCIN IV 600 MG in DEXTROSE 5% ADD-VANTAGE 50ML 50 ML IV SCH (19:33)
[2017-03-01] MEDS: DOCUSATE SODIUM 100 MG CAP PO SCH (20:34)
[2017-03-02] VITALS (9 sets, daily range): BP systolic 110–155; BP diastolic 65–90; PULSE 87–101; TEMP 36.6–37.7; O2SAT 94–99
[2017-03-02] MEDS ORDERED: HYDROmorphone INJ 0.5 MG/0.5 ML SYR IV PRN
[2017-03-02] MEDS ORDERED: DC INTRASPINAL MORPHINE SCH
[2017-03-02] MEDS: CLINDAMYCIN IV 600 MG in DEXTROSE 5% ADD-VANTAGE 50ML 50 ML IV SCH (01:09)
[2017-03-02] MEDS: HYDROmorphone INJ 1 MG/ML SYR IV PRN ×2 (01:45→05:20)
[2017-03-02] MEDS: ACETAMINOPHEN 500 MG TAB PO SCH ×4 (05:15→21:15)
[2017-03-02 05:40] LABS: BASO % 0.2 %; BASO ABS # 0.02 K/uL (0-0.2); EOS % 0.1 %; HEMATOCRIT 30.5 % (37-47); IG% 0.6 %; LYMPH % 8.6 %; LYMPH ABS # 1.08 K/uL (1.2-3.4); MEAN CELL VOLUME 87.1 fL (80-100); MEAN CORPUSCULAR HGB CONC 32.1 g/dl (32-36); MEAN PLATELET VOLUME 9.6 fL (7.4-10.4); MONO % 9.2 %; NEUT % 81.3 %; PLATELET COUNT 236 K/uL (130-400); WHITE BLOOD COUNT 12.54 K/uL (4.8-10.8)
[2017-03-02 06:05] LABS: BUN/CREATININE RATIO 15.3 (10-20); CALCIUM 7.6 mg/dl (8.5-10.1); CREATININE 0.77 mg/dl (0.60-1.20); POTASSIUM 4.2 mmol/L (3.5-5.1)
[2017-03-02 06:16] LABS: COMPLETE YES
--- NOTE | 2017-03-02 08:35 | PROGRESS NOTE ---
DATE: 03/02/2017 DATE: 03/02/2017. SUBJECTIVE: A 66-year-old white female postop day 1 from a right total hip replacement complicated by periprosthetic fracture and ORIF. She is doing pretty well. Has started having some pain in her thigh. She took some pain pills and seems to be doing okay. No chest pain or shortness of breath. Not feeling dizzy or lightheaded. OBJECTIVE: VITAL SIGNS: Temperature 37.7. Vital signs stable. PHYSICAL EXAMINATION: GENERAL: Reveals a healthy pleasant, middle-aged female. She is sitting up in bed, looks reasonably comfortable. LUNGS: Clear to auscultation. HEART: Regular rate and rhythm. ABDOMEN: Soft, nontender, nondistended. EXTREMITY EXAMINATION: Grossly neurovascularly intact as follows: Examination of the right leg reveals the dressing to be clean, dry and intact. Leg is well aligned. She can dorsiflex and plantarflex her foot appropriately. LABORATORY DATA: Hemoglobin 9.8, hematocrit 30.5. White cell count 12.54. Electrolytes are stable. ASSESSMENT: A 66-year-old white female postop day 1 from right total hip replacement complicated by periprosthetic femur fracture. She is doing pretty well. Pain seems to be pretty well controlled. She is anemic, but asymptomatic. We will continue to follow her H\T\H. PLAN: 1. DVT prophylaxis including thigh-high TEDs, SCDs. We will start her back on prophylaxis Xarelto today. We will likely bump that up on discharge to a therapeutic dose, but for the next day or two we will stick with prophylactic dose. If she goes into Afib we may increase the dose sooner. 2. PT/OT. She is really touch weightbearing only in the right lower extremity. 3. Pain control. Doing pretty well with current pain regimen. 4. Disposition. She is hoping to be discharged to [facility] for a brief rehab stay after recovery in the hospital.
[2017-03-02] MEDS: FUROSEMIDE 40 MG TAB PO SCH (08:37)
[2017-03-02] MEDS: PANTOprazole SOD 40 MG TAB PO SCH (08:37)
[2017-03-02] MEDS: CHECK SCOPOLAMINE PATCH PLACEMENT SCH ×3 (08:37→22:21)
[2017-03-02] MEDS: DOCUSATE SODIUM 100 MG CAP PO SCH ×2 (08:38→20:34)
[2017-03-02] MEDS: RIVAROXABAN 10 MG TAB PO SCH (08:38)
[2017-03-02] MEDS: FERROUS GLUCONATE 324 MG TAB PO SCH ×3 (08:38→17:45)
[2017-03-02] MEDS: LISINOPRIL 20 MG TAB PO SCH (08:38)
[2017-03-02] MEDS: CHOLECALCIFEROL 1000 INTER.UNIT TAB PO SCH (08:40)
[2017-03-02] MEDS: MULTIVITAMIN TAB PO SCH (08:40)
[2017-03-02] MEDS: INSULIN HUMAN REGULAR SC SCH (08:52)
[2017-03-02] MEDS: TRAMADOL HCL 50 MG TAB PO PRN ×3 (08:53→20:35)
[2017-03-02] MEDS ORDERED: MULTIVITAMIN TAB PO SCH (09:00)
[2017-03-02] MEDS ORDERED: INSULIN GLARGINE SOLOSTAR 100 UNITS/ML 3 ML PEN SQ ONE (13:22)
[2017-03-02] MEDS: INSULIN ASPART 100 UNITS/ML 3 ML PEN SC SCH ×3 (13:39→20:51)
[2017-03-02] MEDS ORDERED: INSULIN GLARGINE SOLOSTAR 100 UNITS/ML 3 ML PEN SC ONE (16:00)
[2017-03-02] MEDS: DIGOXIN 0.125 MG TAB PO SCH (16:25)
--- NOTE | 2017-03-02 19:56 | Progress Note ---
Subjective Date of Service: March 02, 2017. Subjective Pt evaluation today including: conversation w/ patient, physical exam, chart review, lab review, review of inpatient medication list having some pain but notes that it's reasonably controlled doesn't want escalation in dosing or anything of that sort we were asked to revisit due to high sugars. notes that sugars have been high lately - uses 70/30 and dosing increased from 16 BID to 18 BID. notes that she tends to run high frequently. current A1c reviewed with pt. notes taht previously she had it around 7.4. then she ran into lots of troubles with low sugars on the 70/30. extensive discussion on normal insulin physiology and pharmacology of different insulins Review of Systems ros otherwise negative except for as above Objective Vital Signs Date Time Temp Pulse Resp B/P Pulse Ox O2 Delivery O2 Flow Rate FiO2 03/02/17 18:58 36.6 101 16 155/90 94 Room Air 03/02/17 16:25 88 03/02/17 16:00 Room Air 03/02/17 15:56 36.8 96 27 140/70 96 Room Air 03/02/17 11:53 37.1 87 22 152/66 95 Room Air 03/02/17 10:33 99 03/02/17 09:20 97 Room Air 03/02/17 09:04 95 Room Air 03/02/17 09:00 Room Air CPAP 03/02/17 08:32 37.6 96 24 110/65 97 Nasal Cannula 2.5 03/02/17 03:30 37.7 94 15 141/75 99 Nasal Cannula 2.0 03/01/17 23:20 37.6 96 20 129/72 99 Nasal Cannula 2.0 03/01/17 22:05 Nasal Cannula 03/01/17 20:36 37.5 95 18 124/72 99 Nasal Cannula 2.0 Physical Exam General Appearance: no apparent distress Eyes: EOMI ENT: hearing grossly normal Neck: trachea midline Respiratory/Chest: no respiratory distress, no accessory muscle use Neurologic/Psychiatric: electorate officer II-XII nml as tested, alert, normal mood/affect Skin: normal color, warm/dry Laboratory Results Last 24 Hours Test 03/01/17 22:24 03/02/17 05:20 03/02/17 08:06 03/02/17 11:49 Bedside Glucose 285 mg/dl 233 mg/dl 289 mg/dl White Blood Count 12.54 K/uL Red Blood Count 3.50 M/uL Hemoglobin 9.8 g/dL Hematocrit 30.5 % Mean Corpuscular Volume 87.1 fL Mean Corpuscular Hemoglobin 28.0 pg Mean Corpuscular Hemoglobin Concent 32.1 g/dl Platelet Count 236 K/uL Mean Platelet Volume 9.6 fL Neutrophils (%) (Auto) 81.3 % Lymphocytes (%) (Auto) 8.6 % Monocytes (%) (Auto) 9.2 % Eosinophils (%) (Auto) 0.1 % Basophils (%) (Auto) 0.2 % Neutrophils # (Auto) 10.21 K/uL Lymphocytes # (Auto) 1.08 K/uL Monocytes # (Auto) 1.15 K/uL Eosinophils # (Auto) 0.01 K/uL Basophils # (Auto) 0.02 K/uL RDW Standard Deviation 49.5 fL RDW Coefficient of Variation 15.4 % Immature Granulocyte % (Auto) 0.6 % Immature Granulocyte # (Auto) 0.07 K/uL Sodium Level 137 mmol/L Potassium Level 4.2 mmol/L Chloride Level 106 mmol/L Carbon Dioxide Level 25 mmol/L Anion Gap 6.0 mmol/L Blood Urea Nitrogen 12 mg/dl Creatinine 0.77 mg/dl Est Creatinine Clear Calc Drug Dose 74.9 ml/min Estimated GFR () 92.6 Estimated GFR (Non- 79.9 BUN/Creatinine Ratio 15.3 Random Glucose 206 mg/dl Calcium Level 7.6 mg/dl Test 03/02/17 17:14 Bedside Glucose 305 mg/dl Assessment and Plan S/P R MIGUEL with ORIF 2/2 Periprosthetic Fx - Dr. Zhong on 03/01: - Pain Management, PT/OT, DVT prophylaxis per primary - DVT Prophylaxis: Xarelto 10 mg daily - pain under reasonable control Paroxysmal Atrial Fibrillation on Xarelto: Currently NSR with Rate Control - CHADSVASC score 5 - would recommend therapeutic dosing for Xarelto for assisted; currently dosing per orthopedics to best balance need for anticoagulation against risk of bleeding -- that said once possible, would move to full dosing given afib and chads-vasc risk - Digoxin 125 mcg daily - per cards note has failed BB therapy as she was unable to maintain rate control with it - rates acceptable T2DM - IDDM: - extensive discussion with pt - has been on 70/30 mostly because that's what she's been on. is open to basal/bolus and more physiologic regimen. discussed four shots a day w basal bolus vs two w 70/30 but she notes that she has to get up at 5am for her first dose anyway, and when she was under better control she had lows (typically seemed to be around when the long acting portion would peak ) -- given that she's amenable and has a reasonable understanding of the rationale - will give trial to basal bolus while still inpatient - was on 36 total units a day - and uncontrolled A1c - will increase to 30 basal (lantus) and log w carb ratio 1:8 (rule of 500 for 60 total units would be 1:8.33 -- suspect that she'll need tighter carb ratio but this will be a reasonable starting point) - at discharge would anticipate a transition to "soft carb counting" with postprandial glucoses as judgement on efficacy of mealtime insulin; if still on about 60 total units a day, would then put the "center point" for carb counting at about 10 units AC Possible Diastolic CHF with Chronic Lower Extremity Edema: - Echo - 2015 - EF 60-65% with no wall motion abnormality - does have edema and orthopnea prior to admission - question multifactorial etiologies - Lasix 40 mg daily - tolerating well SANDRA on CPAP: CPAP HS HTN: - resumed lisinopril. BP still somewhat up, but does appear to be having some pain (she doesnt want anything more done for this, but may be driving BP some) - continue to follow Disposition: Per Primary
[2017-03-02] MEDS ORDERED: ULT50X PO (20:48)
--- NOTE | 2017-03-02 20:51 | Discharge Instructions ---
Discharge Instructions Date of Service March 02, 2017. Admission Reason for Admission: Right Hip Osteoarthritis Discharge Discharge Diagnosis / Problem: Right Hip Replacment + ORIF Right Dawn- prosthetic Femur Fracture Discharge Goals Goal(s): Decrease discomfort, Improve function, Increase independence, Improve disease control, Therapeutic intervention Activity Recommendations Activity Level: Assistance Required Therapies: Physical Therapy, Occupational Therapy Weightbearing Status: Right toe touch (Toe-touch WB right leg for 6 weeks) . Additional Information Patient informed of condition: Yes Advance Directives: No DNR: No Level of Care: Acute Rehab Communicable Disease: No Prognosis: Improving Instructions / Follow-Up Instructions / Follow-Up Follow-up with Ortho 2 weeks Post-op Total Hip Precautions TTWB right leg for 6 weeks Current Hospital Diet Patient's current hospital diet: Diabetes Type 2 Diet Discharge Diet Recommended Diet: Diabetes Type 2 Diet Procedures Procedures Performed: Right Total Hip Arthroplasty Uncemented + Open Reduction Internal Fixation of Periprosthetic Femur Fracture Pending Studies Studies pending at discharge: no Laboratory Results Hemoglobin A1c Test 01/30/17 12:13 Range/Units Estimated Average Glucose 223 mg/dl Hemoglobin A1c 9.4 H 4.5-5.6 % Lipid Panel Test 01/24/17 12:43 Range/Units Triglycerides Level 167 H 0-150 mg/dl Cholesterol Level 243 H 0-200 mg/dl HDL Cholesterol 58 mg/dl Cholesterol/HDL Ratio 4.2 LDL Cholesterol, Calculated 152 mg/dl Medical Emergencies . Who to Call and When: Medical Emergencies: If at any time you feel your situation is an emergency, please call 911 immediately. . Non-Emergent Contact Non-Emergency issues call your: Surgeon . . "Provider Documentation" section prepared by Art Zhong. . Core Measure Problem Core Measures: None
[2017-03-03] MEDS: TRAMADOL HCL 50 MG TAB PO PRN ×4 (02:10→20:44)
[2017-03-03 06:54] LABS: HEMATOCRIT 26.9 % (37-47); MEAN CELL VOLUME 83.5 fL (80-100); MEAN CORPUSCULAR HEMOGLOBIN 28.6 pg (25-34); MEAN CORPUSCULAR HGB CONC 34.2 g/dl (32-36); MEAN PLATELET VOLUME 9.8 fL (7.4-10.4); PLATELET COUNT 256 K/uL (130-400); RED BLOOD COUNT 3.22 M/uL (4.2-5.4); WHITE BLOOD COUNT 15.22 K/uL (4.8-10.8)
[2017-03-03 06:55] VITALS: BP 153/73; PULSE 95; TEMP 36.8; O2SAT 97
[2017-03-03 08:05] VITALS: BP 159/79; PULSE 93
[2017-03-03 08:19] VITALS: O2SAT 97
--- NOTE | 2017-03-03 08:29 | PROGRESS NOTE ---
DATE: 03/03/2017 SUBJECTIVE: A 66-year-old white female postop day #2 from right total hip replacement complicated by periprosthetic fracture and ORIF. She is doing pretty well. Some pain but manageable. No chest pain or shortness of breath. Not feeling dizzy or lightheaded. OBJECTIVE: VITAL SIGNS: Temperature 36.8. Vital signs stable. PHYSICAL EXAMINATION: GENERAL: Reveals a pleasant elderly female. She was sitting on a bedside commode when I visited her this morning. EXTREMITIES: Examination of the right hip and leg reveals the leg lengths to be equal. Her incisions are all well approximated. There is no significant drainage. She can dorsiflex and plantarflex her foot appropriately. She is neurologically intact. LABORATORY DATA: Hemoglobin 9.2, hematocrit 26.9. White cell count 15.22. ASSESSMENT: A 66-year-old white female postop day #2 from a right total knee replacement complicated by periprosthetic femur fracture and open reduction internal fixation of the femur. She is doing pretty well. She is anemic, but relatively asymptomatic. She continued to be in sinus rhythm on exam today. PLAN: 1. DVT prophylaxis including thigh-high TEDs, SCDs, and Xarelto. We will keep her on prophylactic dose for now. We will discharge her on the full strength dose likely when she leaves. 2. PT and OT. She is touch weightbearing only right lower extremity. 3. Pain control, doing pretty well with current pain regimen. 4. Medical management as per the medicine service. 5. Disposition. She is hoping to be discharged to [facility] for a very brief rehab stay. 6. Anemia. She is relatively asymptomatic, we will continue iron supplementation. Try and avoid blood transfusion if possible. MTDD
[2017-03-03] MEDS: PANTOprazole SOD 40 MG TAB PO SCH (08:49)
[2017-03-03] MEDS: DOCUSATE SODIUM 100 MG CAP PO SCH ×2 (08:50→20:43)
[2017-03-03] MEDS: MULTIVITAMIN TAB PO SCH (08:50)
[2017-03-03] MEDS: LISINOPRIL 20 MG TAB PO SCH (08:50)
[2017-03-03] MEDS: FERROUS GLUCONATE 324 MG TAB PO SCH ×3 (08:50→18:08)
[2017-03-03] MEDS: FUROSEMIDE 40 MG TAB PO SCH (08:50)
[2017-03-03] MEDS: CHOLECALCIFEROL 1000 INTER.UNIT TAB PO SCH (08:50)
[2017-03-03] MEDS: INSULIN ASPART 100 UNITS/ML 3 ML PEN SC SCH ×4 (08:55→20:48)
[2017-03-03] MEDS: INSULIN GLARGINE SOLOSTAR 100 UNITS/ML 3 ML PEN SQ SCH ×2 (08:56→20:47)
[2017-03-03] MEDS ORDERED: INSULIN GLARGINE SOLOSTAR 100 UNITS/ML 3 ML PEN SQ SCH (09:00)
[2017-03-03 10:17] VITALS: BP 146/77
[2017-03-03] MEDS: RIVAROXABAN 10 MG TAB PO SCH (11:09)
[2017-03-03] MEDS: ACETAMINOPHEN 500 MG TAB PO SCH ×2 (12:38→18:44)
[2017-03-03] MEDS ORDERED: POLYETHYLENE (MIRALAX) 17 GM PACK PO ONE (13:15)
[2017-03-03] MEDS ORDERED: POLYETHYLENE (MIRALAX) 17 GM PACK PO PRN (13:15)
[2017-03-03] MEDS ORDERED: INSULIN GLARGINE SOLOSTAR 100 UNITS/ML 3 ML PEN SC ONE (13:15)
--- NOTE | 2017-03-03 13:23 | Progress Note ---
Subjective Date of Service: March 03, 2017. Subjective Pt evaluation today including: conversation w/ patient, physical exam, chart review, lab review, review of inpatient medication list ongoing pain - notes that it's mostly incisional and then cramping kind of pain because it hurts to move so then she keeps the leg still but then it hurts because of being still. notes (and family reiterates) that she's probably not asking for pain meds as often as she needs. feeling some nausea as well, not eating as much ros otherwise negative except for as above Review of Systems ros otherwise negative except for as above Objective Vital Signs Date Time Temp Pulse Resp B/P Pulse Ox O2 Delivery O2 Flow Rate FiO2 03/03/17 08:19 97 Nasal Cannula 2.0 03/03/17 08:05 93 159/79 03/03/17 06:55 36.8 95 17 153/73 97 Nasal Cannula 2.0 03/02/17 23:35 36.6 89 18 135/72 97 Nasal Cannula 2.0 03/02/17 19:58 Room Air 03/02/17 18:58 36.6 101 16 155/90 94 Room Air 03/02/17 16:25 88 03/02/17 16:00 Room Air 03/02/17 15:56 36.8 96 27 140/70 96 Room Air Physical Exam General Appearance: no apparent distress Eyes: EOMI ENT: hearing grossly normal Neck: trachea midline Respiratory/Chest: no respiratory distress, no accessory muscle use Extremities: + pertinent finding (RLE long incision c/d/i no erythema) 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, alert Skin: normal color, warm/dry Laboratory Results Last 24 Hours Test 03/02/17 17:14 03/02/17 20:34 03/03/17 02:08 03/03/17 06:06 Bedside Glucose 305 mg/dl 261 mg/dl 235 mg/dl White Blood Count 15.22 K/uL Red Blood Count 3.22 M/uL Hemoglobin 9.2 g/dL Hematocrit 26.9 % Mean Corpuscular Volume 83.5 fL Mean Corpuscular Hemoglobin 28.6 pg Mean Corpuscular Hemoglobin Concent 34.2 g/dl RDW Standard Deviation 46.2 fL RDW Coefficient of Variation 14.9 % Platelet Count 256 K/uL Mean Platelet Volume 9.8 fL Test 03/03/17 08:09 03/03/17 12:01 Bedside Glucose 240 mg/dl 262 mg/dl Assessment and Plan S/P R MIGUEL with ORIF 2/2 Periprosthetic Fx - Dr. 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 is open to basal/bolus and more physiologic regimen. discussed four shots a day w basal bolus vs two w 70/30 but she notes that she has to get up at 5am for her first dose anyway, and when she was under better control she had lows (typically seemed to be around when the long acting portion would peak) -- given that she's amenable and has a reasonable understanding of the rationale - will give trial to basal bolus while still inpatient - transitioned to 30 lantus, 1:8 carb for log (with probable 10 units as " center point" for soft carb counting after discharge) -- but hasn't been eating much, therefore not nearly 50/50 between basal and bolus right now - and sugars running too high --> for now while poor PO will increase basal for sugar control , but once she's eating better, would likely stay with around 30 units basal and ~1:6-8 carb (or a center point of 10 AC for soft carb counting) and follow - adjust as necessary - 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 BP continues to be somewhat up, but does appear to be having some pain - continue to follow - if BP still up when pain better, will need to adjust meds nausea -likely multifactorial w pain/meds/situation - but also no BM since admission - miralax, follow pain -is using pain meds some, but appearing to try to hold off a reasonable amount as well, reiterated importance of staying ahead of pain hypocalcemia -check vitamin D leukocytosis -likely steroid effect and stress effect, no s/s infection - continue to follow anemia -asymptomatic, continue to follow Disposition: Per Primary
[2017-03-03 15:27] VITALS: BP 138/67; PULSE 92; TEMP 36.9; O2SAT 96
[2017-03-03] MEDS: DIGOXIN 0.125 MG TAB PO SCH (15:30)
[2017-03-03 22:55] VITALS: BP 124/60; PULSE 91; TEMP 36.9; O2SAT 94
[2017-03-04] VITALS (8 sets, daily range): BP systolic 103–153; BP diastolic 60–74; PULSE 84–120; TEMP 36.4–36.9; O2SAT 94–97
[2017-03-04 05:08] LABS: COMPLETE YES; EOS % 0.5 %; HEMATOCRIT 27.6 % (37-47); IG% 0.3 %; LYMPH % 10.9 %; LYMPH ABS # 1.36 K/uL (1.2-3.4); MEAN CELL VOLUME 83.6 fL (80-100); MEAN CORPUSCULAR HEMOGLOBIN 28.8 pg (25-34); MEAN CORPUSCULAR HGB CONC 34.4 g/dl (32-36); MEAN PLATELET VOLUME 9.4 fL (7.4-10.4); MONO % 8.4 %; NEUT % 79.9 %; PLATELET COUNT 258 K/uL (130-400); WHITE BLOOD COUNT 12.43 K/uL (4.8-10.8)
[2017-03-04 05:36] LABS: BUN/CREATININE RATIO 22.4 (10-20); CALCIUM 8.4 mg/dl (8.5-10.1); CREATININE 0.65 mg/dl (0.60-1.20); POTASSIUM 3.5 mmol/L (3.5-5.1)
--- NOTE | 2017-03-04 08:00 | PROGRESS NOTE ---
DATE: 03/04/2017 SUBJECTIVE: A 66-year-old white female postop day 3 from a right total hip replacement complicated by periprosthetic femur fracture with ORIF. She is doing pretty well. Pain seems to be getting better. No new complaints. No chest pain or shortness of breath. OBJECTIVE: VITAL SIGNS: Temperature 36.9. Vital signs stable. GENERAL: Reveals a pleasant, elderly female. She is lying in bed and looks comfortable. EXTREMITIES: Examination of the right leg reveals the leg to be well aligned. Her incision is clean, dry and intact. No significant drainage. Some moderate swelling. She is neurologically intact. LABORATORY DATA: Hemoglobin 9.5, hematocrit 27.6. White cell count 12.43. Electrolytes are stable. ASSESSMENT: A 66-year-old white female postop day 3 from a right total hip replacement complicated by periprosthetic femur fracture, doing pretty well. Pain is controlled. Hemoglobin is stable. She is neurologically intact. PLAN: 1. DVT prophylaxis including thigh-high TEDs, SCDs, and Xarelto. We will keep at this prophylactic dose until discharge. 2. PT/OT. She is touch weightbearing only right lower extremity. Total hip precautions. 3. Pain control, doing well with current pain regimen. 4. Medical management as per the medicine service. 5. Disposition: Plan to discharge to rehab.
[2017-03-04] MEDS: DOCUSATE SODIUM 100 MG CAP PO SCH ×2 (08:23→21:43)
[2017-03-04] MEDS: FERROUS GLUCONATE 324 MG TAB PO SCH ×3 (08:24→17:47)
[2017-03-04] MEDS: CHOLECALCIFEROL 1000 INTER.UNIT TAB PO SCH (08:24)
[2017-03-04] MEDS: LISINOPRIL 20 MG TAB PO SCH (08:25)
[2017-03-04] MEDS: FUROSEMIDE 40 MG TAB PO SCH (08:26)
[2017-03-04] MEDS: MULTIVITAMIN TAB PO SCH (08:26)
[2017-03-04] MEDS: PANTOprazole SOD 40 MG TAB PO SCH (08:26)
[2017-03-04] MEDS: INSULIN GLARGINE SOLOSTAR 100 UNITS/ML 3 ML PEN SQ SCH ×2 (08:33→21:44)
[2017-03-04] MEDS: INSULIN ASPART 100 UNITS/ML 3 ML PEN SC SCH ×4 (08:33→21:38)
[2017-03-04] MEDS ORDERED: POLYETHYLENE (MIRALAX) 17 GM PACK PO SCH (09:00)
[2017-03-04] MEDS ORDERED: POTASSIUM CHLORIDE 10 MEQ TABCR PO STA (09:11)
[2017-03-04] MEDS: TRAMADOL HCL 50 MG TAB PO PRN ×3 (09:29→23:51)
[2017-03-04] MEDS ORDERED: ERGOCALCIFEROL 50,000 INTER.UNIT CAP PO SCH (09:30)
[2017-03-04] MEDS: RIVAROXABAN 10 MG TAB PO SCH (11:26)
[2017-03-04] MEDS: ACETAMINOPHEN 500 MG TAB PO SCH ×2 (13:39→21:45)
[2017-03-04] MEDS: DIGOXIN 0.125 MG TAB PO SCH (15:59)
--- NOTE | 2017-03-04 16:25 | DIAGNOSTIC IMAGING REPORT ---
KUB HISTORY: Abdominal distention. ileus? COMPARISON: None. FINDINGS: Mildly distended gas-filled loops of large and small bowel seen throughout the abdomen. Bilateral total hip arthroplasties. Moderate stool within the proximal colon. No renal calculi. No ureteral calculi. No pneumoperitoneum or pneumatosis. IMPRESSION: Mildly distended gas-filled loops of large and small bowel seen throughout the abdomen. This favors an ileus. Electronically signed by: Asael Putnam M.D. 03/04/2017 4:24 PM Dictated Date/Time: 03/04/2017 4:23 PM
[2017-03-04] MEDS ORDERED: BISACODYL 5 MG TABEC PO SCH (16:30)
[2017-03-04] MEDS: POLYETHYLENE (MIRALAX) 17 GM PACK PO SCH (21:43)
--- NOTE | 2017-03-05 01:02 | Progress Note ---
Subjective Date of Service: March 04, 2017. Subjective Pt evaluation today including: conversation w/ patient, physical exam, chart review, lab review, review of studies (KUB x-ray), conversation w/ vocational rehab consultant ( ortho - Dr. Zhong), review of inpatient medication list Pain: hip pain; abdominal fullness PO Intake: tolerated breakfast, but could not eat lunch due to fullness/early satiety Voiding: no voiding problems no vomiting today but had such yesterday some nausea today early satiety, abdominal bloating and fullness passing flatus but no BM since prior to surgery this AM had rapid heart beat typical for past episodes of PAF Review of Systems Constitutional: No fever Respiratory: No dyspnea on exertion, No shortness of breath Cardiac: No chest pain Abdomen: + constipation, + see HPI, No GI bleeding Objective Vital Signs Date Time Temp Pulse Resp B/P Pulse Ox O2 Delivery O2 Flow Rate FiO2 03/04/17 22:44 36.9 84 17 103/62 96 Room Air 03/04/17 15:59 88 03/04/17 15:50 94 Room Air 03/04/17 15:30 36.4 84 18 117/69 94 Room Air 03/04/17 07:51 36.9 95 16 97 Room Air CPAP 03/04/17 07:20 95 03/04/17 07:10 112 03/04/17 07:05 97 Room Air CPAP 03/04/17 07:05 120 Physical Exam General Appearance: no apparent distress ENT: pharynx normal Neck: no JVD Respiratory/Chest: lungs clear, no respiratory distress, no accessory muscle use Cardiovascular: regular rate, rhythm, no gallop, no murmur Abdomen: normal bowel sounds, non tender, no organomegaly, + distended ( moderate, with tympany to percussion ) Extremities: no pedal edema Neurologic/Psychiatric: alert, oriented x 3 Laboratory Results Last 24 Hours Test 03/04/17 05:01 03/04/17 08:07 03/04/17 11:44 03/04/17 16:57 White Blood Count 12.43 K/uL Red Blood Count 3.30 M/uL Hemoglobin 9.5 g/dL Hematocrit 27.6 % Mean Corpuscular Volume 83.6 fL Mean Corpuscular Hemoglobin 28.8 pg Mean Corpuscular Hemoglobin Concent 34.4 g/dl Platelet Count 258 K/uL Mean Platelet Volume 9.4 fL Neutrophils (%) (Auto) 79.9 % Lymphocytes (%) (Auto) 10.9 % Monocytes (%) (Auto) 8.4 % Eosinophils (%) (Auto) 0.5 % Basophils (%) (Auto) 0.0 % Neutrophils # (Auto) 9.93 K/uL Lymphocytes # (Auto) 1.36 K/uL Monocytes # (Auto) 1.04 K/uL Eosinophils # (Auto) 0.06 K/uL Basophils # (Auto) 0.00 K/uL RDW Standard Deviation 46.8 fL RDW Coefficient of Variation 15.0 % Immature Granulocyte % (Auto) 0.3 % Immature Granulocyte # (Auto) 0.04 K/uL Sodium Level 140 mmol/L Potassium Level 3.5 mmol/L Chloride Level 105 mmol/L Carbon Dioxide Level 28 mmol/L Anion Gap 7.0 mmol/L Blood Urea Nitrogen 15 mg/dl Creatinine 0.65 mg/dl Est Creatinine Clear Calc Drug Dose 88.7 ml/min Estimated GFR () 106.5 Estimated GFR (Non- 91.9 BUN/Creatinine Ratio 22.4 Random Glucose 106 mg/dl Calcium Level 8.4 mg/dl Magnesium Level 2.3 mg/dl 25-Hydroxy Vitamin D Total 15.5 ng/ml Bedside Glucose 118 mg/dl 163 mg/dl 142 mg/dl Test 03/04/17 20:45 Bedside Glucose 130 mg/dl Assessment and Plan 66yo female - 1. abd distension 2nd to ileus - cut diet to clears. gave supplemental K to increase K level to near 4. mag was normal. increase miralax to BID dosing. dulcolax suppos was not effective; gave dulcolax po x 1 this afternoon. ambulate as tolerated. 2. tachycardia - EKG w/o a. fib or other dysrhythmia. cont digoxin. 3. vitamin D def - ergocalciferol 31354 U twice weekly x 8 weeks. 4. T2DM - controlled 5. HTN - controlled 6. mild acute blood loss anemia - cont ferrous sulfate supplementation 7. DVT proph - xarelto spoke with Dr. Zhong re: ileus agree with decision to keep patient hospitalized for further monitoring Continued [facility] stay due to: inadequate po fluid intake, ambulation difficulties , other (ileus ) Discharge planning: rehab hospital
[2017-03-05] MEDS: ACETAMINOPHEN 500 MG TAB PO SCH ×3 (05:18→21:12)
[2017-03-05] MEDS: TRAMADOL HCL 50 MG TAB PO PRN ×2 (05:28→13:31)
[2017-03-05 07:01] LABS: BUN/CREATININE RATIO 25.3 (10-20); CALCIUM 8.4 mg/dl (8.5-10.1); CREATININE 0.52 mg/dl (0.60-1.20)
[2017-03-05 07:07] VITALS: BP 125/69; PULSE 86; TEMP 36.4; O2SAT 95
[2017-03-05 07:40] VITALS: O2SAT 95
[2017-03-05] MEDS: DOCUSATE SODIUM 100 MG CAP PO SCH ×2 (08:54→21:02)
[2017-03-05] MEDS: MULTIVITAMIN TAB PO SCH (08:54)
[2017-03-05] MEDS: LISINOPRIL 20 MG TAB PO SCH (08:54)
[2017-03-05] MEDS: FUROSEMIDE 40 MG TAB PO SCH (08:54)
[2017-03-05] MEDS: FERROUS GLUCONATE 324 MG TAB PO SCH ×3 (08:54→18:11)
[2017-03-05] MEDS: PANTOprazole SOD 40 MG TAB PO SCH (08:55)
[2017-03-05] MEDS: CHOLECALCIFEROL 1000 INTER.UNIT TAB PO SCH (08:56)
[2017-03-05] MEDS: POLYETHYLENE (MIRALAX) 17 GM PACK PO SCH ×2 (08:56→21:02)
[2017-03-05] MEDS ORDERED: BISACODYL 5 MG TABEC PO ONE (09:00)
[2017-03-05] MEDS: INSULIN ASPART 100 UNITS/ML 3 ML PEN SC SCH ×4 (09:07→21:11)
[2017-03-05] MEDS: INSULIN GLARGINE SOLOSTAR 100 UNITS/ML 3 ML PEN SQ SCH (09:08)
--- NOTE | 2017-03-05 10:27 | Hospitalist Progress Note ---
Hospitalist Progress Note Date of Service March 05, 2017. (Carolina Jaffe ., URSULAC) Subjective Pt evaluation today including: conversation w/ patient, physical exam, chart review, lab review, review of studies, review of inpatient medication list Voiding: no voiding problems, no incontinence Patient admits to mild right hip pain- she worked w/ PT this AM. She admits to flatus, but no BM yet. She admits to mild abdominal discomfort. She is tolerating clear liquid diet. Patient denies any fever, chills, sweats, lightheadedness, dizziness, vision changes, CP, palpitations, edema, SOB, wheezing, cough, nausea, vomiting, diarrhea, urinary symptoms, melena, numbness/ tingling, weakness, anxiety/depression, active bleeding, or new skin discoloration/changes. (Carolina Jaffe ., CAYLA-C) Medications Current Inpatient Medications Medications (Trade) Dose Ordered Sig/Isaac Route Start Time Stop Time Status Last Admin Dose Admin Acetaminophen (Tylenol Tab) 1,000 mg Q8H PO 03/01/17 14:00 03/31/17 13:59 Magnesium Hydroxide (Milk Of Magnesia Susp) 30 ml Q6H PRN PO 03/01/17 10:45 03/31/17 10:44 03/05/17 05:28 30 ML Bisacodyl (Dulcolax Supp) 10 mg DAILY PRN DC 03/01/17 10:45 03/31/17 10:44 03/04/17 13:04 10 MG Docusate Sodium (coLACE CAP) 100 mg BID PO 03/01/17 21:00 03/31/17 20:59 03/05/17 08:54 100 MG Al Hydrox/Mg Hydrox/Simethicone (Maalox Max Susp) 15 ml Q4H PRN PO 03/01/17 10:45 03/31/17 10:44 Zolpidem Tartrate (Ambien Tab) 5 mg HSZ PRN PO 03/01/17 10:45 03/31/17 10:44 Future hold Multivitamins (Multivitamin Tab) 1 tab QAM PO 03/02/17 09:00 04/01/17 08:59 03/05/17 08:54 1 TAB Ondansetron HCl (Zofran Inj) 4 mg Q6H PRN IV 03/01/17 10:45 03/31/17 10:44 Future hold 03/02/17 17:51 4 MG Metoclopramide HCl (Reglan Inj) 10 mg Q6H PRN IV 03/01/17 10:45 03/31/17 10:44 Ferrous Gluconate (Ferrous Gluconate Tab) 324 mg TIDM PO 03/01/17 12:30 03/31/17 12:29 03/05/17 08:54 324 MG Pantoprazole Sodium (Protonix Tab) 40 mg QAM PO 03/02/17 09:00 04/01/17 08:59 03/05/17 08:55 40 MG Tramadol HCl (Ultram Tab) 1 TABLET FOR PAIN RATING... Q4H PRN PO 03/02/17 00:00 04/01/17 00:00 03/05/17 05:28 50 MG Digoxin (Lanoxin Tab) 0.125 mg DAILY@1600 PO 03/01/17 16:00 03/31/17 15:59 03/04/17 15:59 0.125 MG Furosemide (Lasix Tab) 40 mg DAILY PO 03/02/17 09:00 04/01/17 08:59 03/05/17 08:54 40 MG Cholecalciferol (Vitamin D Tab) 2,000 inter.unit QAM PO 03/02/17 09:00 04/01/17 08:59 03/05/17 08:56 2,000 INTER.UNIT Glucose (Glucose 40% Gel) 15-30 GRAMS 15 GRAMS... UD PRN PO 03/01/17 10:45 03/31/17 10:44 Glucose (Glucose Chew Tab) 4-8 Tablets 4 Tabl... UD PRN PO 03/01/17 10:45 03/31/17 10:44 Dextrose (Dextrose 50% 50ML Syringe) 25-50ML OF 50% DW IV FOR... UD PRN IV 03/01/17 10:45 03/31/17 10:44 Glucagon (Glucagon Inj) 1 mg UD PRN SQ 03/01/17 10:45 03/31/17 10:44 Rivaroxaban (Xarelto Tab) 10 mg DAILY@1100 PO 03/02/17 11:00 04/01/17 10:59 03/04/17 11:26 10 MG Hydromorphone HCl (Dilaudid Inj) 1 mg Q1H PRN IV 03/02/17 00:00 03/16/17 00:00 03/02/17 05:20 1 MG Hydralazine HCl (HydrALAZINE INJ) 10 mg Q6 PRN IV. 03/01/17 13:30 03/31/17 13:29 Lisinopril (Zestril Tab) 20 mg QAM PO 03/02/17 09:00 04/01/17 08:59 03/05/17 08:54 20 MG Insulin Aspart (novoLOG ASPART) SLIDING SCALE G... ACHS SC 03/02/17 17:15 04/01/17 17:14 03/05/17 09:07 4 UNITS Insulin Glargine (Lantus Solostar Pen) 30 unit DAILY SQ 03/03/17 09:00 04/02/17 08:59 03/05/17 09:08 30 UNIT Insulin Glargine (Lantus Solostar Pen) 10 unit HS SQ 03/03/17 21:00 04/02/17 20:59 03/04/17 21:44 10 UNIT Polyethylene (Miralax Powder Packet) 17 gm DAILY PRN PO 03/03/17 13:15 04/02/17 13:14 Ergocalciferol (Vitamin D Cap) 50,000 interunit MoTh@0900 PO 03/04/17 09:30 04/03/17 09:29 03/04/17 10:02 50,000 INTERUNIT Polyethylene (Miralax Powder Packet) 17 gm BID PO 03/04/17 21:00 04/03/17 20:59 03/05/17 08:56 17 GM (Carolina Jaffe, RSIHI) Objective Vital Signs Date Time Temp Pulse Resp B/P Pulse Ox O2 Delivery O2 Flow Rate FiO2 03/05/17 07:40 95 Room Air CPAP 03/05/17 07:07 36.4 86 15 125/69 95 Room Air 03/04/17 23:20 Room Air 03/04/17 22:44 36.9 84 17 103/62 96 Room Air 03/04/17 15:59 88 03/04/17 15:50 94 Room Air 03/04/17 15:30 36.4 84 18 117/69 94 Room Air (Carolina Jaffe ., PA-C) Physical Exam General Appearance: no apparent distress Eyes: normal inspection, PERRL ENT: hearing grossly normal Neck: supple Respiratory/Chest: lungs clear, no respiratory distress, no accessory muscle use Cardiovascular: regular rate, rhythm Abdomen: + abnormal bowel sounds (high pitch ), + distended Extremities: no pedal edema, no calf tenderness, + pertinent finding (SCDs on ) Neurologic/Psychiatric: alert, normal mood/affect, oriented x 3 Skin: normal color, warm/dry, no rash (Carolina Jaffe, PA-C) Laboratory Results Last 24 Hours Test 03/04/17 11:44 03/04/17 16:57 03/04/17 20:45 03/05/17 06:10 Bedside Glucose 163 mg/dl 142 mg/dl 130 mg/dl Sodium Level 138 mmol/L Potassium Level 4.0 mmol/L Chloride Level 105 mmol/L Carbon Dioxide Level 27 mmol/L Anion Gap 6.0 mmol/L Blood Urea Nitrogen 13 mg/dl Creatinine 0.52 mg/dl Est Creatinine Clear Calc Drug Dose 110.9 ml/min Estimated GFR () 114.6 Estimated GFR (Non- 98.9 BUN/Creatinine Ratio 25.3 Random Glucose 70 mg/dl Calcium Level 8.4 mg/dl Test 03/05/17 08:22 Bedside Glucose 80 mg/dl (Carolina Jaffe ., PA-C) Assessment and Plan Ms. Yates is a 66 y/o female with PMHx of Paroxysmal Atrial Fibrillation, T2DM - IDDM, Possible Diastolic CHF with Chronic Lower Extremity Edema (possible mixed etiology of lymphedema and insufficiency, HTN, HLD, SANDRA on CPAP who is S/ P R MIGUEL with intraoperative ORIF 2/[address] Zhong on 03/01. Postop ileus: - KUB 03/04- Mildly distended gas-filled loops of large and small bowel seen throughout the abdomen. This favors an ileus. - MiraLX BID, Colace 100 mg BID, Dulcolax 10 mg daily PRN, Milk of Mag q6 hrs PRN - Liquid diet- will advance as tolerated S/P R MIGUEL with ORIF 2/2 Periprosthetic Fx - Dr. Zhong on 03/01: Pain Management , PT/OT, DVT prophylaxis per primary team Hypokalemia- RESOLVED: Repleted w/ 40 mEq KCL supplement T2DM- CONTROLLED: Lantus 30 u daily and 10 u HS w/ sliding insulin scale Possible diastolic CHF with chronic lower extremity edema: - Echo - 2015 - EF 60-65% with no wall motion abnormality - does have edema and orthopnea prior to admission - question multifactorial etiologies - Lasix 40 mg daily h/o paroxysmal a.fib- RATE CONTROLLED: Digoxin 125 mcg daily and Xarelto 20 mg daily SANDRA: CPAP HS HTN- CONTROLLED: - Lisinopril 20 mg daily - Hydralazine 10 mg IV PRN Hypocalcemia - Vitamin D level low - Ergocalciferol 98068 U twice weekly x 8 weeks. Leukocytosis: No s/s of infection Anemia- STABLE: Continue Ferrous Sulfate supplement GI Prophylaxis: Maalox PRN, IV Zofran PRN, Colace and/or Milk of Mag PRN, MiraLAX DVT Prophylaxis: Xarelto Code Status: LEVEL I, FULL Disposition: Per primary team- planning for [facility] (Carolina Jaffe ., PA-C) Attending Attestation: Pt seen/examined, chart reviewed, care plan d/w CAYLA Jaffe. I agree w/ the bee components of her documentation. Passing flatus but no BM. No vomiting. Occasional nausea. Tolerating clears. Staff report she is reluctant to get OOB. VSS no fever gen - nad abd - distended - about the same as yesterday; BS+; NT, no HSM A/P: Post-op ileus - no significant change with exception of more flatus today. Cont dulcolax BID. Cont miralax and colace BID. AMBULATE as much as possible. Keep K and mag normal. Cont clears. Will follow. Brandt You MD (Brandt You MD)
[2017-03-05] MEDS: RIVAROXABAN 10 MG TAB PO SCH (12:09)
--- NOTE | 2017-03-05 13:33 | PROGRESS NOTE ---
DATE: 03/05/2017 SUBJECTIVE: A 66-year-old white female postop day #4 from a right total hip replacement, complicated by periprosthetic femur fracture and a subsequent ORIF. She is doing pretty well. Pain is controlled. She has not had a bowel movement yet. Very minimal abdominal discomfort. She says she is passing gas, a lot of it. OBJECTIVE: VITAL SIGNS: Temperature 36.4. Vital signs stable. GENERAL: Physical examination reveals a pleasant elderly female. She is lying in bed and looks comfortable. ABDOMEN: She does have a large abdomen. No significant tenderness to palpation of her abdomen. EXTREMITIES: Examination of the right leg reveals the dressing to be clean, dry and intact. There is no drainage. Leg is well aligned. She is neurologically intact. Hip is located. ASSESSMENT: A 66-year-old white female 4 days out from right total hip replacement, complicated by periprosthetic femur fracture and ORIF. She is doing pretty well orthopedically. She is ready for discharge, but has not had a bowel movement yet. Medicine service feels that she has an ileus and needs further management for that. PLAN: 1. DVT prophylaxis including thigh-high TEDs, SCDs, and she is on Xarelto. 2. PT/OT. She is to touch weightbearing only, right lower extremity. Total hip precautions. 3. Medical management as per the medicine service. 4. Disposition: She is orthopedically stable and acceptable for discharge any time if medically stable. Her abdominal exam is fairly benign. We will leave that up to the medicine service's judgment.
[2017-03-05] MEDS ORDERED: BISACODYL 5 MG TABEC PO PRN (14:00)
[2017-03-05 15:11] VITALS: BP 145/77; PULSE 97; TEMP 37.3; O2SAT 94
[2017-03-05 15:30] VITALS: O2SAT 94
[2017-03-05] MEDS: DIGOXIN 0.125 MG TAB PO SCH (16:19)
[2017-03-05 22:55] VITALS: BP 145/73; PULSE 92; TEMP 36.9; O2SAT 93
[2017-03-06] MEDS: TRAMADOL HCL 50 MG TAB PO PRN ×2 (00:13→10:23)
[2017-03-06] MEDS: ACETAMINOPHEN 500 MG TAB PO SCH ×2 (04:52→12:41)
[2017-03-06 07:15] VITALS: BP 146/71; PULSE 94; TEMP 37.1; O2SAT 92
[2017-03-06] MEDS ORDERED: BISACODYL 5 MG TABEC PO ONE (07:45)
[2017-03-06] MEDS: DOCUSATE SODIUM 100 MG CAP PO SCH (08:40)
[2017-03-06] MEDS: FERROUS GLUCONATE 324 MG TAB PO SCH ×3 (08:40→17:16)
[2017-03-06] MEDS: FUROSEMIDE 40 MG TAB PO SCH (08:41)
[2017-03-06] MEDS: POLYETHYLENE (MIRALAX) 17 GM PACK PO SCH (08:41)
[2017-03-06] MEDS: MULTIVITAMIN TAB PO SCH (08:42)
[2017-03-06] MEDS: PANTOprazole SOD 40 MG TAB PO SCH (08:42)
[2017-03-06] MEDS: CHOLECALCIFEROL 1000 INTER.UNIT TAB PO SCH (08:42)
[2017-03-06] MEDS: INSULIN ASPART 100 UNITS/ML 3 ML PEN SC SCH ×3 (08:44→17:16)
[2017-03-06] MEDS ORDERED: INSULIN GLARGINE SOLOSTAR 100 UNITS/ML 3 ML PEN SQ SCH (09:00)
--- NOTE | 2017-03-06 09:15 | DIAGNOSTIC IMAGING REPORT ---
KUB HISTORY: postop ileus f/u COMPARISON: KUB 03/02/2017. FINDINGS: Bilateral total hip arthroplasties. Slight improvement in the mildly distended gas-filled loops largest small bowel seen throughout the abdomen. This suggests a resolving ileus. No renal calculi. No ureteral calculi. No pneumoperitoneum or pneumatosis. IMPRESSION: Improvement in the suspected ileus. Electronically signed by: Asael Putnam M.D. 03/06/2017 9:14 AM Dictated Date/Time: 03/06/2017 9:13 AM
[2017-03-06] MEDS: LISINOPRIL 20 MG TAB PO SCH (10:04)
--- NOTE | 2017-03-06 10:05 | Hospitalist Progress Note ---
Hospitalist Progress Note Date of Service March 06, 2017. (Carolina Jaffe ., PABonnieC) Subjective Pt evaluation today including: conversation w/ patient, physical exam, chart review, lab review, review of studies, review of inpatient medication list Voiding: no voiding problems, no incontinence Patient states she is feeling well this AM. She just completed physical therapy ; states she did well. Minimal pain. She is tolerating clear liquid diet. Her abdominal pain is improving; less distention and discomfort. She continues to pass flatus, no BM postop. KUB on showing improvement. Patient complains of RLE calf discomfort. Moderate tenderness to palpation of distal/medial calf region. +ttp of anterior RLE plata region. Patient states pain feels like muscle spasms. Discomfort/tightness improves w/ movement. No swelling/color changes noted. No history of DVT/PE. Low suspicion of DVT given patient have been receiving Xarelto postop, pain decreases w/ movement, and no swelling/color changes of extremity. Patient denies any fever, chills, sweats, lightheadedness, dizziness, vision changes, CP, palpitations, edema, SOB, wheezing, cough, abdominal pain, nausea, vomiting, diarrhea, urinary symptoms, melena, numbness/tingling, weakness, anxiety/depression, active bleeding, or new skin discoloration/changes. (Carolina Jaffe ., PA-C) Medications Current Inpatient Medications Medications (Trade) Dose Ordered Sig/Isaac Route Start Time Stop Time Status Last Admin Dose Admin Acetaminophen (Tylenol Tab) 1,000 mg Q8H PO 03/01/17 14:00 03/31/17 13:59 Magnesium Hydroxide (Milk Of Magnesia Susp) 30 ml Q6H PRN PO 03/01/17 10:45 03/31/17 10:44 03/05/17 05:28 30 ML Bisacodyl (Dulcolax Supp) 10 mg DAILY PRN AK 03/01/17 10:45 03/31/17 10:44 03/04/17 13:04 10 MG Docusate Sodium (coLACE CAP) 100 mg BID PO 03/01/17 21:00 03/31/17 20:59 03/06/17 08:40 100 MG Al Hydrox/Mg Hydrox/Simethicone (Maalox Max Susp) 15 ml Q4H PRN PO 03/01/17 10:45 03/31/17 10:44 Zolpidem Tartrate (Ambien Tab) 5 mg HSZ PRN PO 03/01/17 10:45 03/31/17 10:44 Future hold Multivitamins (Multivitamin Tab) 1 tab QAM PO 03/02/17 09:00 04/01/17 08:59 03/06/17 08:42 1 TAB Ondansetron HCl (Zofran Inj) 4 mg Q6H PRN IV 03/01/17 10:45 03/31/17 10:44 Future hold 03/02/17 17:51 4 MG Metoclopramide HCl (Reglan Inj) 10 mg Q6H PRN IV 03/01/17 10:45 03/31/17 10:44 Ferrous Gluconate (Ferrous Gluconate Tab) 324 mg TIDM PO 03/01/17 12:30 03/31/17 12:29 03/06/17 08:40 324 MG Pantoprazole Sodium (Protonix Tab) 40 mg QAM PO 03/02/17 09:00 04/01/17 08:59 03/06/17 08:42 40 MG Tramadol HCl (Ultram Tab) 1 TABLET FOR PAIN RATING... Q4H PRN PO 03/02/17 00:00 04/01/17 00:00 03/06/17 00:13 100 MG Digoxin (Lanoxin Tab) 0.125 mg DAILY@1600 PO 03/01/17 16:00 03/31/17 15:59 03/05/17 16:19 0.125 MG Furosemide (Lasix Tab) 40 mg DAILY PO 03/02/17 09:00 04/01/17 08:59 03/06/17 08:41 40 MG Cholecalciferol (Vitamin D Tab) 2,000 inter.unit QAM PO 03/02/17 09:00 04/01/17 08:59 03/06/17 08:42 2,000 INTER.UNIT Glucose (Glucose 40% Gel) 15-30 GRAMS 15 GRAMS... UD PRN PO 03/01/17 10:45 03/31/17 10:44 Glucose (Glucose Chew Tab) 4-8 Tablets 4 Tabl... UD PRN PO 03/01/17 10:45 03/31/17 10:44 Dextrose (Dextrose 50% 50ML Syringe) 25-50ML OF 50% DW IV FOR... UD PRN IV 03/01/17 10:45 03/31/17 10:44 Glucagon (Glucagon Inj) 1 mg UD PRN SQ 03/01/17 10:45 03/31/17 10:44 Rivaroxaban (Xarelto Tab) 10 mg DAILY@1100 PO 03/02/17 11:00 04/01/17 10:59 03/05/17 12:09 10 MG Hydromorphone HCl (Dilaudid Inj) 1 mg Q1H PRN IV 03/02/17 00:00 03/16/17 00:00 03/02/17 05:20 1 MG Hydralazine HCl (HydrALAZINE INJ) 10 mg Q6 PRN IV. 03/01/17 13:30 03/31/17 13:29 Lisinopril (Zestril Tab) 20 mg QAM PO 03/02/17 09:00 04/01/17 08:59 03/05/17 08:54 20 MG Insulin Aspart (novoLOG ASPART) SLIDING SCALE G... ACHS SC 03/02/17 17:15 04/01/17 17:14 03/05/17 21:11 1 UNITS Insulin Glargine (Lantus Solostar Pen) 10 unit HS SQ 03/03/17 21:00 04/02/17 20:59 Future Hold 03/04/17 21:44 10 UNIT Polyethylene (Miralax Powder Packet) 17 gm DAILY PRN PO 03/03/17 13:15 04/02/17 13:14 Ergocalciferol (Vitamin D Cap) 50,000 interunit MoTh@0900 PO 03/04/17 09:30 04/03/17 09:29 03/04/17 10:02 50,000 INTERUNIT Polyethylene (Miralax Powder Packet) 17 gm BID PO 03/04/17 21:00 04/03/17 20:59 03/06/17 08:41 17 GM Bisacodyl (Dulcolax Tab) 5 mg TID PRN PO 03/05/17 14:00 04/04/17 13:59 Insulin Glargine (Lantus Solostar Pen) 20 unit DAILY SQ 03/06/17 09:00 04/05/17 08:59 03/06/17 08:47 20 UNIT (Carolina Jaffe PA-C) Objective Vital Signs Date Time Temp Pulse Resp B/P Pulse Ox O2 Delivery O2 Flow Rate FiO2 03/06/17 07:40 Room Air 03/06/17 07:15 37.1 94 17 146/71 92 Room Air 03/06/17 00:05 Room Air 03/05/17 22:55 36.9 92 16 145/73 93 Room Air 03/05/17 16:19 88 03/05/17 15:30 94 Room Air 03/05/17 15:11 37.3 97 16 145/77 94 Room Air (Carolina Jaffe PA-C) Physical Exam General Appearance: no apparent distress, + obese Eyes: normal inspection, PERRL ENT: hearing grossly normal Neck: supple Respiratory/Chest: lungs clear, no respiratory distress, no accessory muscle use Cardiovascular: regular rate, rhythm Abdomen: normal bowel sounds, non tender, soft Extremities: no pedal edema, + calf tenderness (ttp noted to distal/medial right calf region ), + pertinent finding (ttp noted to anterior right plata region) Neurologic/Psychiatric: alert, normal mood/affect, oriented x 3 Skin: normal color, warm/dry, no rash (Carolina Jaffe, CAYLA-C) Laboratory Results Last 24 Hours Test 03/05/17 11:34 03/05/17 17:18 03/05/17 21:07 03/06/17 02:08 Bedside Glucose 108 mg/dl 98 mg/dl 190 mg/dl 121 mg/dl Test 03/06/17 08:03 Bedside Glucose 113 mg/dl (Carolina Jafef PA-C) Assessment and Plan Ms. Yates is a 66 y/o female with PMHx of Paroxysmal Atrial Fibrillation, T2DM - IDDM, Possible Diastolic CHF with Chronic Lower Extremity Edema (possible mixed etiology of lymphedema and insufficiency, HTN, HLD, SANDRA on CPAP who is S/ P R MIGUEL with intraoperative ORIF 2/[address] Zhong on 03/01. Postop ileus: - KUB 03/04- Mildly distended gas-filled loops of large and small bowel seen throughout the abdomen. This favors an ileus. -- Repeat KUB 03/06- Improvement in the suspected ileus. - MiraLX BID, Colace 100 mg BID, Dulcolax 10 mg daily PRN, Milk of Mag q6 hrs PRN - Dulcolax suppository x1 on 03/06 - Liquid diet- advance as tolerated RLE discomfort, likely secondary to muscle spasm vs. DVT: Will touch base w/ Dr. Zhong w/ opinion on Venous US S/P R MIGUEL with ORIF 2/2 Periprosthetic Fx - Dr. Zhong on 03/01: Pain Management , PT/OT, DVT prophylaxis per primary team Hypokalemia- RESOLVED: Repleted w/ 40 mEq KCL supplement T2DM- CONTROLLED INPATIENT: - Lantus 30 u daily and 10 u HS w/ sliding insulin scale -- Titrating Lantus coverage as needed for liquid diet- resume above once diet tolerated - ha1c 9.4% on 01/30 Possible diastolic CHF with chronic lower extremity edema: - Echo - 2014 - EF 60-65% with no wall motion abnormality - does have edema and orthopnea prior to admission - question multifactorial etiologies - Lasix 40 mg daily h/o paroxysmal a.fib- RATE CONTROLLED: - Digoxin 125 mcg daily - Xarelto 20 mg daily decreased to 10 mg daily per orthopedics recommendations-- > resume 20 mg when OK by orthopedics SANDRA: CPAP HS HTN- CONTROLLED: - Lisinopril 20 mg daily - Hydralazine 10 mg IV PRN Hypocalcemia - Vitamin D level low - Ergocalciferol 58925 U twice weekly x 8 weeks (started on 03/04) Leukocytosis: No s/s of infection Anemia- STABLE: Continue Ferrous Sulfate supplement GI Prophylaxis: Maalox PRN, IV Zofran PRN, Colace and/or Milk of Mag PRN, MiraLAX DVT Prophylaxis: Xarelto Code Status: LEVEL I, FULL Disposition: Per primary team- [facility] - If patient has BM this afternoon and tolerates advancing diet, she will be stable for discharge. (Carolina Jaffe ., PABonnieC) Attending Attestation: Pt seen/examined, chart reviewed, care plan d/w CAYLA Jaffe. I agree w/ the bee components of her documentation. Pt finally had a large BM this afternoon. Denies nausea/emesis Tolerating diet No other complaints VSS no fever gen - nad abd - distension much better, BS+, NT, no HSM, soft ext - mild edema of right thigh, but b/l calves symmetric; no palpable cords in either calf; pulses 2+ b/l A/P: Post-op ileus - resolved. Upon transfer to rehab recommend aggressive bowel regimen. Can advance diet as tolerated. Cramps of right calf - already improved w/o intervention. Exam is stable. From medical standpoint can d/c to rehab. Brandt You MD (Brandt You MD)
[2017-03-06] MEDS: RIVAROXABAN 10 MG TAB PO SCH (10:23)
[2017-03-06] MEDS ORDERED: BISACODYL 10 MG SUPP PR ONE (11:45)
--- NOTE | 2017-03-06 13:39 | Consultant Recommendations ---
Gas Plant Dispatcher Recommendations Date of Service March 06, 2017. Gas Plant Dispatcher Recommendations Ms. Yates is a 66 y/o female with PMHx of Paroxysmal Atrial Fibrillation, T2DM - IDDM, Possible Diastolic CHF with Chronic Lower Extremity Edema (possible mixed etiology of lymphedema and insufficiency, HTN, HLD, SANDRA on CPAP who is S/ P R MIGUEL with intraoperative ORIF 2/[address] Zhong on 03/01. S/P R MIGUEL with ORIF 2/2 Periprosthetic Fx - Dr. Zhong on 03/01: Management/ recommendations per ortho Postop ileus- RESOLVED- large BM on 03/06 and advanced to full diet RLE discomfort, likely secondary to muscle spasm vs. DVT: - No indication for venous US- unlikely DVT given presentation and already on DVT prophylaxis/treatment of Xarelto- Discussed w/ Dr. Zhong T2DM- CONTROLLED INPATIENT: - Lantus 30 u daily and 10 u HS w/ sliding insulin scale -- Titrating Lantus coverage as needed for liquid diet- resume above once diet tolerated - ha1c 9.4% on 01/30 Possible diastolic CHF with chronic lower extremity edema: Lasix 40 mg daily h/o paroxysmal a.fib- RATE CONTROLLED: - Digoxin 125 mcg daily - Xarelto 20 mg daily decreased to 10 mg daily per orthopedics recommendations-- > resume 20 mg when OK by orthopedics SANDRA: CPAP HS HTN- CONTROLLED: Lisinopril 20 mg daily Hypocalcemia - Vitamin D level low - Ergocalciferol 66762 U twice weekly x 8 weeks (started on 03/04) Anemia- STABLE: Continue Ferrous Sulfate supplement Attending Attestation: I agree with these safety consultant recommendations as outlined by CAYLA Jaffe. Brandt You MD
[2017-03-06 15:19] VITALS: BP 153/74; PULSE 92; TEMP 36.4; O2SAT 96
[2017-03-06] MEDS: DIGOXIN 0.125 MG TAB PO SCH (15:51)
--- NOTE | 2017-03-06 18:54 | PROGRESS NOTE ---
DATE: 03/06/2017 SUBJECTIVE: A 66-year-old white female postop day 5 from a right total hip replacement complicated by periprosthetic femur fracture. She is doing well. Pain seems to be getting better daily. Therapy is going reasonably well. She did have a bowel movement this afternoon. OBJECTIVE: VITAL SIGNS: Temperature 36.4. Vital signs stable. PHYSICAL EXAMINATION: GENERAL: Reveals a pleasant, middle-aged female. The patient is lying in bed, looks pretty comfortable. EXTREMITIES: Examination of the right leg reveals the wound to be clean, dry and intact. There is no drainage. Her leg lengths are equal. She is neurologically intact. ASSESSMENT: A 66-year-old white female postoperative day 5 from a right total hip replacement complicated by periprosthetic femur fracture. The patient has been in the hospital for the past 2 days due to concerns with ileus. She has had a bowel movement. She is passing quite a bit of gas. PLAN: 1. DVT prophylaxis including thigh-high TEDs, SCDs, and she is back on as Xarelto. We will put her back up to her therapeutic dose discharge. 2. PT/OT. She is touch weightbearing only right lower extremity. 3. Pain control, doing well with current pain regimen. 4. Medical management as per the medicine service. 5. Disposition: Plan to discharge to [facility], I believe, later this evening.
--- NOTE | 2017-03-13 11:06 | DISCHARGE SUMMARY ---
ADMITTING PHYSICIAN AND SURGEON: Dr. Zhong. ADMITTING DIAGNOSIS: Right hip degenerative joint disease. SURGERY PERFORMED: 1. Right total hip arthroplasty. 2. ORIF of a right periprosthetic femur fracture. SECONDARY DIAGNOSES: Chronic atrial fibrillation, hypertension, elevated cholesterol, congestive heart failure, diabetes, sleep apnea, low back pain, obesity. CONSULTS: Dr. Avila postoperative medical management. HISTORY AND PHYSICAL EXAMINATION: Well documented in the patient's chart. HOSPITAL COURSE: The patient was admitted on 03/01/2017 underwent total hip arthroplasty. This was complicated by an intraoperative periprosthetic femur fracture which she did undergo open reduction internal fixation of. She tolerated this procedure well. She was transferred to the PACU postoperatively and later to the orthopedic floor for further care. She was given clindamycin for antibiotic prophylaxis, NOAH stockings, SCDs and Xarelto for DVT prophylaxis. Her hemoglobin, hematocrit and vital signs were monitored throughout her hospital stay and remained stable. She developed some postoperative anemia, did not require any blood transfusions. On postoperative day 3, she had not had a bowel movement yet. Medicine service felt that she had an ileus and she remained in the hospital at that time 2 more days until she did have a bowel movement. There were no further complications during her hospital stay. By postoperative day 5, she was tolerating a diabetic diet. Pain was controlled with oral pain medicine. She was participating in physical therapy and had no signs or symptoms of deep vein thrombosis. On postop day 5, she was transferred to a rehab facility. She was given postoperative and instructions including concluding to continue her home medication, continue physical therapy. She was given instructions to be toe touch weightbearing right lower extremity for 6 weeks postoperatively. She should continue total hip precautions, NOAH stockings. Follow up in 10-12 days or sooner if any problems or concerns.
[2017-06-03] MEDS ORDERED: CHOL2000 PO (09:52)
[2017-06-03] MEDS ORDERED: OMEG10007 PO (16:03)
[2017-06-03] MEDS ORDERED: MULT-506 PO (16:03)
[2017-07-10] MEDS ORDERED: LSX20 PO (12:22)
[2017-07-10] MEDS ORDERED: INSUINJ13 SC (12:22)
[2017-07-10] MEDS ORDERED: XRL20 PO (12:22)
[2017-07-10] MEDS ORDERED: DXY100 PO (12:22)
[2017-07-10] MEDS ORDERED: CEFD300C3 PO (12:22)
[2017-07-10] MEDS ORDERED: FRRS300 PO (12:22)
[2017-07-10] MEDS ORDERED: DOCU100C31 PO (12:29)
[2017-07-10] MEDS ORDERED: MRLP17X PO (12:29)
== END 2017-03-06 19:55 | DRG 470 ==
LOC: ENRESERVTM → ENRESERVDT → C.ACU 05:12 → C.3E 06:35
PROVIDERS: ADMIT Orthopaedic Surgery Sports Medicine; ATTEND Orthopaedic Surgery Sports Medicine
PROC: 0QS604Z Reposition Right Upper Femur with Internal Fixation Device, Open Approach (ICD-10-PCS; principal; 2017-03-01 07:00)
PROC: 0SR902Z Replacement of Right Hip Joint with Metal on Polyethylene Synthetic Substitute, Open Approach (ICD-10-PCS; principal; 2017-03-01 07:00)
DX: M16.11 Unilateral primary osteoarthritis, right hip (principal); M96.661 Fracture of femur following insertion of orthopedic implant, joint prosthesis, or bone plate, right leg; I50.30 Unspecified diastolic (congestive) heart failure; K56.7 Ileus, unspecified; D62 Acute posthemorrhagic anemia; I48.2 Chronic atrial fibrillation; E11.9 Type 2 diabetes mellitus without complications; I10 Essential (primary) hypertension; Z79.4 Long term (current) use of insulin; E66.9 Obesity, unspecified; Z68.35 Body mass index [BMI] 35.0-35.9, adult; Z96.642 Presence of left artificial hip joint; Z88.0 Allergy status to penicillin; Z88.2 Allergy status to sulfonamides; E78.5 Hyperlipidemia, unspecified; G47.33 Obstructive sleep apnea (adult) (pediatric); I48.0 Paroxysmal atrial fibrillation; E83.51 Hypocalcemia; E87.6 Hypokalemia; Y79.2 Prosthetic and other implants, materials and accessory orthopedic devices associated with adverse incidents; Y92.234 Operating room of hospital as the place of occurrence of the external cause

== ENCOUNTER → 2017-05-09 | Outpatient (CLI) | payer OTHER ==
[~2017-05-09] MED LIST changes: +CEFD300C3 PO; +CHOL2000 PO; +DOCU100C31 PO; +DXY100 PO; +FRRS300 PO; +FRS/40 PO; -FURO-85 PO; +INSUINJ13 SC; +LNX125 PO; +LSN20 PO; +LSX20 PO; +LSX40 PO; +MRLP17X PO; +MULT-506 PO; +OMEG10007 PO; +TRAZ50TA35 PO; +ULT50 PO; +ULT50X PO; +XRL20 PO
[2017-05-09 16:00] LABS: BLOOD UREA NITROGEN 17 mg/dl (7-18); BUN/CREATININE RATIO 18.7 (10-20); CARBON DIOXIDE 30 mmol/L (21-32); CHLORIDE 102 mmol/L (98-107); GLUCOSE 177 mg/dl (70-99); POTASSIUM 4.4 mmol/L (3.5-5.1); SODIUM 140 mmol/L (136-145)
[2017-05-10 08:20] LABS: ESTIMATED AVERAGE GLUCOSE 203 mg/dl; HA1C FLAG Normal (Normal)
== END | disposition home or self-care (01) ==
LOC: C.LAB1850 13:38
PROVIDERS: ATTEND Nurse Practitioner Family
DX: E11.65 Type 2 diabetes mellitus with hyperglycemia (principal); I10 Essential (primary) hypertension; E55.9 Vitamin D deficiency, unspecified

== ENCOUNTER 2017-06-03 19:09 | Emergency (ER) | payer OTHER ==
[~2017-06-03] VITALS: Ht 160 cm; Wt 90.7 kg
[~2017-06-03 19:09] MED LIST changes: -CEFD300C3 PO; -DOCU100C31 PO; -DXY100 PO; -FRRS300 PO; -INSUINJ13 SC; -LNX125 PO; -LSN20 PO; -LSX20 PO; -LSX40 PO; -MRLP17X PO; -TRAZ50TA35 PO; -ULT50 PO; -XRL20 PO
[2017-06-03 19:20] VITALS: TEMP 36.4
[2017-06-03] MEDS ORDERED: FUROSEMIDE 40 MG/4 ML VIAL IV STA (20:39)
[2017-06-03 21:07] VITALS: Ht 160 cm; Wt 90.7 kg
--- NOTE | 2017-06-03 21:12 | DIAGNOSTIC IMAGING REPORT ---
CHEST ONE VIEW PORTABLE HISTORY: Short of breath. COMPARISON: Chest 09/11/2016. FINDINGS: No focal lung consolidations to suggest pneumonia. No evidence for pulmonary edema. No pleural effusions. No pneumothorax. The heart is normal in size. Slight prominence to the superior mediastinum remains unchanged and is likely due to the normal vascular structures. IMPRESSION: No significant change compared to the prior study. No acute process. Electronically signed by: Asael Putnam M.D. 06/03/2017 9:11 PM Dictated Date/Time: 06/03/2017 9:10 PM
--- NOTE | 2017-06-03 21:19 | EMERGENCY ROOM VISIT NOTE ---
History Report prepared by Delfina: Elana Barajas Under the Supervision of: Dr. Arash Luong M.D. First contact with patient: 20:34 Chief Complaint: SWELLING TO EXTREMITY Stated Complaint: FLUID IN THE LEGS History of Present Illness The patient is a 67 year old female who presents to the Emergency Room with complaints of constant bilateral leg swelling beginning 1 week ago. The patient states that she had hip surgery recently and began noticing leg swelling last week that has worsened. She complains of redness to the legs and shortness of breath with laying down. She notes that she is on Xarelto and Lasix. The patient states that her Digoxin dose was recently increased to 125mcg. Source of History: patient Onset: 1 week ago Position: leg (bilateral) Quality: other (swelling) Timing: constant Modifying Factors (Worsening): other (laying down) Associated Symptoms: + SOB Note: Pt complains of leg redness. Review of Systems See HPI for pertinent positives & negatives. A total of 10 systems reviewed and were otherwise negative. 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 Family History No significant family history Social History Smoking Status: Never Smoker Alcohol Use: none Drug Use: none Marital Status: Occupation Status: retired Current/Historical Medications Scheduled Cholecalciferol (Vitamin D3), 2,000 INTER.UNIT PO QAM Digoxin (Digoxin), 0.125 MG PO QAM Fish Oil ([place]-3), 1 CAP PO QAM Furosemide (Furosemide), 40 MG PO DAILY Insulin Aspart Protamine & Asp (Novolog Mix 70/30 Prefill), 18 UNITS SC BID Lisinopril (Lisinopril), 20 MG PO QAM Multivitamin (Multivitamin), 1 TAB PO QAM Rivaroxaban (Xarelto), 20 MG PO QAM Scheduled PRN Tramadol HCl (Tramadol HCl), 50-100 MG PO Q4H PRN for Pain Allergies Coded Allergies: Adhesives (Verified Allergy, Unknown, local skin irritation, 06/03/17) paper tape is okay per pt Carvedilol (Unverified Allergy, Unknown, per cardio note , 06/03/17) Diltiazem (Unverified Allergy, Unknown, MUSCLE SHAKES AND CANT WALK, ) Meloxicam (Verified Allergy, Unknown, MUSCLE CRAMPS AND SHAKE AND CANT WALK, 06/03/17) Metoprolol (Unverified Allergy, Unknown, per cardio note , 06/03/17) Omeprazole (Unverified Allergy, Unknown, per cardio note , 06/03/17) Penicillins (Verified Allergy, Unknown, FEVER, 06/03/17) Sulfa Antibiotics (Unverified Allergy, Unknown, per cardio note , 06/03/17) Codeine (Verified Adverse Reaction, Mild, MUSCLE SHAKES AND PASSES OUT, ) Metformin (Verified Adverse Reaction, Unknown, DIARRHEA/ HAIR FELL OUT, ) Physical Exam Vital Signs Date Time Temp Pulse Resp B/P (MAP) Pulse Ox O2 Delivery O2 Flow Rate FiO2 06/04/17 00:29 90 18 183/88 97 06/03/17 23:28 86 18 175/87 96 Room Air 06/03/17 22:44 95 Room Air 06/03/17 22:00 75 19 175/87 95 06/03/17 19:20 36.4 90 20 189/74 95 Room Air Physical Exam GENERAL: Patient is a healthy-appearing well-nourished female HEAD: Normocephalic atraumatic EYES: Ocular movements intact pupils equal and react to light OROPHARYNX mucous membranes are moist no exudates present no erythema or edema present NECK: Supple no nuchal rigidity CHEST: Good equal expansion LUNGS: Clear and equal to auscultation CARDIAC: Normal S1 and S2 ABDOMEN: Soft nontender no guarding BACK: No CVA tenderness EXTREMITIES: No pain upon palpation normal muscle strength in all groups no clubbing cyanosis. 2+ pitting edema up to the mid thigh. NEURO: Patient is following commands and answering questions appropriately. Alert and oriented x3 Cranial Nerves 2-12 grossly intact Medical Decision & Procedures ER Provider Diagnostic Interpretation: Radiology results as stated below per my review and radiologist interpretation: CHEST ONE VIEW PORTABLE FINDINGS: No focal lung consolidations to suggest pneumonia. No evidence for pulmonary edema. No pleural effusions. No pneumothorax. The heart is normal in size. Slight prominence to the superior mediastinum remains unchanged and is likely due to the normal vascular structures. IMPRESSION: No significant change compared to the prior study. No acute process. Electronically signed by: Asael Putnam M.D. 06/03/2017 9:11 PM Dictated Date/Time: 06/03/2017 9:10 PM US VENOUS BILATERAL LOWER EXTREMITIES: Study limited by body habitus. Calf veins not well seen likely due to edema. No evidence of DVT within the right or left lower extremity. Laboratory Results 06/03/17 22:25 Red Blood Count 4.35, Mean Corpuscular Volume 80.2, Mean Corpuscular Hemoglobin 26.7, Mean Corpuscular Hemoglobin Concent 33.2, Mean Platelet Volume 9.2, Neutrophils (%) (Auto) 70.6, Lymphocytes (%) (Auto) 19.8, Monocytes (%) (Auto) 7.5, Eosinophils (%) (Auto) 1.4, Basophils (%) (Auto) 0.1, Neutrophils # (Auto) 5.94, Lymphocytes # (Auto) 1.67, Monocytes # (Auto) 0.63, Eosinophils # (Auto) 0.12, Basophils # (Auto) 0.01 06/03/17 22:25 Test 06/03/17 21:42 06/03/17 22:25 Urine Color YELLOW Urine Appearance CLEAR (CLEAR) Urine pH 6.5 (4.5-7.5) Urine Specific [place] 1.013 (1.000-1.030) Urine Protein NEG (NEG) Urine Glucose (UA) 3+ (NEG) Urine Ketones NEG (NEG) Urine Occult Blood TRACE (NEG) Urine Nitrite NEG (NEG) Urine Bilirubin NEG (NEG) Urine Urobilinogen NEG (NEG) Urine Leukocyte Esterase TRACE (NEG) Urine WBC (Auto) 10-30 /hpf (0-5) Urine RBC (Auto) 0-4 /hpf (0-4) Urine Hyaline Casts (Auto) 0 /lpf (0-5) Urine Epithelial Cells (Auto) >30 /lpf (0-5) Urine Bacteria (Auto) 1+ (NEG) White Blood Count 8.42 K/uL (4.8-10.8) Red Blood Count 4.35 M/uL (4.2-5.4) Hemoglobin 11.6 g/dL (12.0-16.0) Hematocrit 34.9 % (37-47) Mean Corpuscular Volume 80.2 fL (80-100) Mean Corpuscular Hemoglobin 26.7 pg (25-34) Mean Corpuscular Hemoglobin Concent 33.2 g/dl (32-36) Platelet Count 296 K/uL (130-400) Mean Platelet Volume 9.2 fL (7.4-10.4) Neutrophils (%) (Auto) 70.6 % Lymphocytes (%) (Auto) 19.8 % Monocytes (%) (Auto) 7.5 % Eosinophils (%) (Auto) 1.4 % Basophils (%) (Auto) 0.1 % Neutrophils # (Auto) 5.94 K/uL (1.4-6.5) Lymphocytes # (Auto) 1.67 K/uL (1.2-3.4) Monocytes # (Auto) 0.63 K/uL (0.11-0.59) Eosinophils # (Auto) 0.12 K/uL (0-0.5) Basophils # (Auto) 0.01 K/uL (0-0.2) RDW Standard Deviation 43.8 fL (36.4-46.3) RDW Coefficient of Variation 14.8 % (11.5-14.5) Immature Granulocyte % (Auto) 0.6 % Immature Granulocyte # (Auto) 0.05 K/uL (0.00-0.02) Anion Gap 7.0 mmol/L (3-11) Est Creatinine Clear Calc Drug Dose 72.9 ml/min Estimated GFR () 89.1 Estimated GFR (Non- 76.9 BUN/Creatinine Ratio 18.7 (10-20) Calcium Level 8.8 mg/dl (8.5-10.1) Total Bilirubin 0.1 mg/dl (0.2-1) Aspartate Amino Transf (AST/SGOT) 11 U/L (15-37) Alanine Aminotransferase (ALT/SGPT) 18 U/L (12-78) Alkaline Phosphatase 154 U/L (45-117) Total Creatine Kinase 48 U/L (26-192) Creatine Kinase MB 0.5 ng/ml (0.5-3.6) Creatine Kinase MB Ratio 1.0 (0-3.0) Troponin I < 0.015 ng/ml (0-0.045) Pro-B-Type Natriuretic Peptide 171 pg/ml (0-900) Total Protein 7.1 gm/dl (6.4-8.2) Albumin 3.1 gm/dl (3.4-5.0) Globulin 4.0 gm/dl (2.5-4.0) Albumin/Globulin Ratio 0.8 (0.9-2) Digoxin Level 0.6 ng/ml (0.8-2.0) Labs reviewed by ED physician. Medications Administered Medications (Trade) Dose Ordered Sig/Isaac Route Start Time Stop Time Status Last Admin Dose Admin Furosemide (Lasix Inj) 40 mg NOW STAT IV 06/03/17 20:39 06/03/17 20:42 DC 06/03/17 22:37 40 MG ECG Indication: SOB/dyspnea Rate (beats per minute): 89 Rhythm: sinus rhythm Findings: no acute ischemic change, no ectopy ED Course 2033: Past medical records reviewed. The patient was evaluated in room B10. A complete history and physical examination was performed. 2038: Lasix Inj 40mg IV. 2226: I reevaluated and updated the patient 0017: Upon reexamination the patient is doing well. I discussed results and treatment plan with the patient. She verbalizes agreement and understanding. The patient is ready for discharge. Medical Decision Differential diagnosis: Etiologies such as infections, reactive airway disease, pneumonia, pneumothorax , COPD, CHF, cardiac ischemia, pulmonary embolism, musculoskeletal, gastrointestinal, as well as others were entertained. This is a 67-year-old female who presents emergency department complaining of bilateral leg swelling. On my examination the patient does not have any evidence of cellulitis and in addition is afebrile and does not have an elevation in her white blood count cell count. She has no evidence of congestive heart failure on chest x-ray and is not hypoxic and is not requiring oxygen. Based on these findings I felt the patient could be safely discharged home for follow-up with her primary care physician. Both patient and family were in agreement with the treatment plan. Medication Reconcilliation Current Medication List: was personally reviewed by me Blood Pressure Screening Patient's blood pressure: Elevated blood pressure Blood pressure disposition: Referred to PCP Impression Primary Impression: Localized swelling of both lower legs Scribe Attestation The scribe's documentation has been prepared under my direction and personally reviewed by me in its entirety. I confirm that the note above accurately reflects all work, treatment, procedures, and medical decision making performed by me. Departure Information Dispostion Home / Self-Care Referrals Dane Valerio M.D. (PCP) Forms HOME CARE DOCUMENTATION FORM, IMPORTANT VISIT INFORMATION, WORK / SCHOOL INSTRUCTIONS Patient Instructions ED Leg Swelling Bilateral, My [facility] Additional Instructions Follow up with DR Balderas's office You were found to have an elevated blood pressure today (>120 sytolic or >90 diastolic). Per medicare guidelines, you need to follow up with this blood pressure screening with your Primary Care Physician (PCP). For a new PCP call [phone]. You have been examined and treated today on an emergency basis only. This is not a substitute for, or an effort to provide, complete comprehensive medical care. It is impossible to recognize and treat all injuries or illnesses in a single emergency department visit. It is therefore important that you follow up closely with Dr Valerio. Call as soon as possible for an appointment. Thank you for your time and consideration. I look forward to speaking with you again soon. Please don't hesitate to call us if you have any questions.
[2017-06-03] MEDS ORDERED: INSUINJ13 SC (22:01)
[2017-06-03] MEDS ORDERED: ULT50 PO (22:01)
[2017-06-03] MEDS ORDERED: XRL20 PO (22:01)
[2017-06-03] MEDS ORDERED: LNX125 PO (22:01)
[2017-06-03] MEDS ORDERED: LSN20 PO (22:01)
[2017-06-03] MEDS ORDERED: LSX40 PO (22:01)
[2017-06-03 22:16] LABS: URINE APPEARANCE CLEAR (CLEAR); URINE BILIRUBIN NEG (NEG); URINE COLOR YELLOW; URINE NITRITE NEG (NEG); URINE PH 6.5 (4.5-7.5); URINE SPECIFIC GRAVITY 1.013 (1.000-1.030); UROBILINOGEN NEG (NEG)
[2017-06-03 22:17] LABS: MANUAL MICROSCOPIC REQUIRED? NO; REVIEW REQ? YES
[2017-06-03 22:26] LABS: URINE EPITHELIAL CELL AUTO >30 /lpf (0-5)
[2017-06-03 22:34] LABS: BASO % 0.1 %; BASO ABS # 0.01 K/uL (0-0.2); COMPLETE YES; EOS % 1.4 %; HEMATOCRIT 34.9 % (37-47); IG% 0.6 %; LYMPH % 19.8 %; LYMPH ABS # 1.67 K/uL (1.2-3.4); MEAN CELL VOLUME 80.2 fL (80-100); MEAN CORPUSCULAR HEMOGLOBIN 26.7 pg (25-34); MEAN CORPUSCULAR HGB CONC 33.2 g/dl (32-36); MEAN PLATELET VOLUME 9.2 fL (7.4-10.4); MONO % 7.5 %; NEUT % 70.6 %; PLATELET COUNT 296 K/uL (130-400); RED BLOOD COUNT 4.35 M/uL (4.2-5.4); WHITE BLOOD COUNT 8.42 K/uL (4.8-10.8)
[2017-06-03 22:44] VITALS: O2SAT 95
[2017-06-03 22:52] LABS: ALT/SGPT 18 U/L (12-78); BLOOD UREA NITROGEN 15 mg/dl (7-18); BUN/CREATININE RATIO 18.7 (10-20); CALCIUM 8.8 mg/dl (8.5-10.1); CARBON DIOXIDE 27 mmol/L (21-32); CHLORIDE 102 mmol/L (98-107); CREATININE 0.79 mg/dl (0.60-1.20); GLUCOSE 270 mg/dl (70-99); POTASSIUM 4.3 mmol/L (3.5-5.1); SODIUM 136 mmol/L (136-145)
[2017-06-03 22:57] LABS: ALB/GLOB RATIO 0.8 (0.9-2); ALKALINE PHOSPHATASE 154 U/L (45-117); AST/SGOT 11 U/L (15-37)
[2017-06-04 00:29] VITALS: BP 183/88; PULSE 90; O2SAT 97
--- NOTE | 2017-06-04 06:51 | DIAGNOSTIC IMAGING REPORT ---
BILATERAL LOWER EXTREMITY VENOUS DOPPLER HISTORY: Pt c/o b/l leg swelling. Symptoms are acute in nature. COMPARISON STUDY: None. FINDINGS: There is normal compressibility, flow, and augmentation within the bilateral lower extremity deep venous systems. This study however is somewhat limited secondary to patient body habitus. Additionally, the calf vessels are not well seen bilaterally secondary to soft tissue swelling. IMPRESSION: Mildly limited exam as above without sonographic evidence of deep venous thrombosis identified within either lower extremity. Mild nonspecific soft tissue swelling involves the lower legs bilaterally. Electronically signed by: Manoj Avelar M.D. 06/04/2017 6:49 AM Dictated Date/Time: 06/04/2017 6:47 AM
[2017-07-10] MEDS ORDERED: XRL20 PO (12:22)
[2017-07-10] MEDS ORDERED: CEFD300C3 PO (12:22)
[2017-07-10] MEDS ORDERED: DXY100 PO (12:22)
[2017-07-10] MEDS ORDERED: INSUINJ13 SC (12:22)
[2017-07-10] MEDS ORDERED: LSX20 PO (12:22)
[2017-07-10] MEDS ORDERED: FRRS300 PO (12:22)
[2017-07-10] MEDS ORDERED: MRLP17X PO (12:29)
[2017-07-10] MEDS ORDERED: DOCU100C31 PO (12:29)
== END 2017-06-04 00:30 | disposition home or self-care (01) ==
LOC: C.EDB 19:10
DX: R22.43 Localized swelling, mass and lump, lower limb, bilateral (principal); I48.91 Unspecified atrial fibrillation; M16.0 Bilateral primary osteoarthritis of hip; Z79.899 Other long term (current) drug therapy; Z88.2 Allergy status to sulfonamides; Z88.5 Allergy status to narcotic agent; Z88.8 Allergy status to other drugs, medicaments and biological substances

== ENCOUNTER 2017-07-07 09:52 | Inpatient (IN) | payer OTHER ==
[~2017-07-07] VITALS: Ht 160 cm; Wt 86.6 kg
[~2017-07-07 09:52] MED LIST changes: -DIGO0.122 PO; -FRS/40 PO; +INSUINJ13 SC; -LISI-725 PO; +LNX125 PO; +LSN20 PO; +LSX40 PO; -NVLGI7030 SC; -RIVA1TAB4 PO; -TRAM-10 PO; +ULT50 PO; -ULT50X PO; +XRL20 PO
[2017-07-07] MEDS ORDERED: TRAZ50TA35 PO (10:12)
[2017-07-07] MEDS ORDERED: FUROSEMIDE 40 MG/4 ML VIAL IV STA (10:30)
--- NOTE | 2017-07-07 10:38 | EMERGENCY ROOM VISIT NOTE ---
History Report prepared by Delfina: Ronnie Lynne Under the Supervision of: Dr. Peterson Nunes M.D. First contact with patient: 10:25 Chief Complaint: SHORTNESS OF BREATH Stated Complaint: A-FIB, SWELLING TO LEGS, LEG PAIN Nursing Triage Summary: triage note: pt reports for the past two days she has had shortness of breath and bilat leg swelling. History of Present Illness The patient is a 67 year old female who presents to the Emergency Room with complaints of shortness of breath that began 2 days ago. Her shortness of breath worsens when she lies down. She has a history of pedal edema that never moves past her ankles, for which she takes Lasix. However, a couple of days ago , her legs began to worsen with the swelling moving up to her knees. The patient notes that her abdomen is swollen as well. She is also experiencing leg pain secondary to the swelling. She started Trazodone 2 weeks ago. 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 She is also taking Xarelto for her atrial fibrillation. She denies any chest pain or fevers. Source of History: patient Onset: 2 days ago Position: other (Respiratory System) Symptom Intensity: moderate Quality: other (Shortness of breath) Timing: worsening Modifying Factors (Worsening): rest (Lying flat) Associated Symptoms: No fevers, No chest pain Note: She is having swelling to her abdomen and bilateral lower extremities. She is also having bilateral leg pain. Review of Systems All systems have been listed, reviewed, and are negative other than those previously mentioned. Please see Additional Medical History Sheet. 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 Family History No significant family history Social History Smoking Status: Never Smoker Smokeless Tobacco Use: No Alcohol Use: none Drug Use: none Marital Status: Occupation Status: retired Current/Historical Medications Scheduled Cholecalciferol (Vitamin D3), 2,000 INTER.UNIT PO QAM Digoxin (Digoxin), 0.125 MG PO QAM Fish Oil ([place]-3), 1 CAP PO QAM Furosemide (Furosemide), 40 MG PO DAILY Insulin Aspart Protamine & Asp (Novolog Mix 70/30 Prefill), 18 UNITS SC BID Lisinopril (Lisinopril), 20 MG PO QAM Multivitamin (Multivitamin), 1 TAB PO QAM Rivaroxaban (Xarelto), 20 MG PO QAM Trazodone Hcl (Trazodone), 25 MG PO HS Scheduled PRN Tramadol HCl (Tramadol HCl), 50-100 MG PO Q4H PRN for Pain Allergies Coded Allergies: Adhesives (Verified Allergy, Unknown, local skin irritation, 06/03/17) paper tape is okay per pt Carvedilol (Verified Allergy, Unknown, per cardio note , 07/07/17) Diltiazem (Verified Allergy, Unknown, MUSCLE SHAKES AND CANT WALK, 07/07/17 ) Meloxicam (Verified Allergy, Unknown, MUSCLE CRAMPS AND SHAKE AND CANT WALK, 06/03/17) Metoprolol (Verified Allergy, Unknown, per cardio note , 07/07/17) Omeprazole (Verified Allergy, Unknown, per cardio note , 07/07/17) Penicillins (Verified Allergy, Unknown, FEVER, 06/03/17) Sulfa Antibiotics (Verified Allergy, Unknown, per cardio note , 07/07/17) Codeine (Verified Adverse Reaction, Mild, MUSCLE SHAKES AND PASSES OUT, ) Metformin (Verified Adverse Reaction, Unknown, DIARRHEA/ HAIR FELL OUT, ) Physical Exam Vital Signs Date Time Temp Pulse Resp B/P (MAP) Pulse Ox O2 Delivery O2 Flow Rate FiO2 07/07/17 11:50 95 Room Air 07/07/17 11:27 88 18 151/68 95 Room Air 07/07/17 11:22 78 26 07/07/17 11:17 76 22 07/07/17 11:12 78 23 07/07/17 11:07 87 20 07/07/17 11:02 82 22 07/07/17 10:57 84 21 07/07/17 10:52 81 26 94 07/07/17 10:47 82 28 94 07/07/17 10:42 83 22 97 07/07/17 10:37 83 22 95 07/07/17 10:32 83 16 97 07/07/17 10:27 85 20 99 07/07/17 10:22 80 26 95 07/07/17 10:19 83 07/07/17 09:58 36.6 83 20 175/67 97 Room Air Physical Exam GENERAL: Patient awake, alert, oriented x 3. Patient follows commands. Patient does not appear toxic. Patient is adequately hydrated and well- nourished. SKIN: No erythema, pallor, cyanosis or rash HEENT: Normal head, pupils equal, reactive to light and accommodation. Ears normal. Oral cavity and posterior pharynx appear normal. Neck: Without adenopathy, no neck vein distention. LUNGS: Clear to auscultation. No wheezes, no rales, no rhonchi. HEART: No murmurs. No gallops. No rubs ABDOMEN: Soft and nontender. Small inguinal hernia. EXTREMITIES: 4+ pretibial edema to above her bilateral knees. Well healed scar to the lateral aspect of the right upper leg. Some mild tenderness to her bilateral legs. No signs of trauma. NEUROLOGIC: Cranial nerves II-XII within normal limits. No gross motor sensory function deficits. Medical Decision & Procedures ER Provider Diagnostic Interpretation: Radiology results as stated below per my review and radiologist interpretation: CHEST 2 VIEWS ROUTINE CLINICAL HISTORY: CHF dyspnea COMPARISON STUDY: 06/03/2017 FINDINGS: The bones soft tissues and hemidiaphragms are normal. The cardiomediastinal silhouette is normal. The lungs are clear. The pulmonary vasculature is normal. IMPRESSION: Negative chest. The above report was generated using voice recognition software. It may contain grammatical, syntax or spelling errors. Electronically signed by: Dony Juarez M.D. 07/07/2017 11:52 AM Dictated Date/Time: 07/07/2017 11:52 AM Laboratory Results 07/07/17 11:05 Red Blood Count 4.54, Mean Corpuscular Volume 78.9, Mean Corpuscular Hemoglobin 26.2, Mean Corpuscular Hemoglobin Concent 33.2, Mean Platelet Volume 9.3, Neutrophils (%) (Auto) 67.2, Lymphocytes (%) (Auto) 21.6, Monocytes (%) (Auto) 8.2, Eosinophils (%) (Auto) 2.2, Basophils (%) (Auto) 0.4, Neutrophils # (Auto) 4.48, Lymphocytes # (Auto) 1.44, Monocytes # (Auto) 0.55, Eosinophils # (Auto) 0.15, Basophils # (Auto) 0.03 07/07/17 11:05 07/07/17 12:03 Test 9/24/17 11:05 07/07/17 11:30 07/07/17 12:01 07/07/17 12:03 White Blood Count 6.68 K/uL (4.8-10.8) Red Blood Count 4.54 M/uL (4.2-5.4) Hemoglobin 11.9 g/dL (12.0-16.0) Hematocrit 35.8 % (37-47) Mean Corpuscular Volume 78.9 fL (80-100) Mean Corpuscular Hemoglobin 26.2 pg (25-34) Mean Corpuscular Hemoglobin Concent 33.2 g/dl (32-36) Platelet Count 305 K/uL (130-400) Mean Platelet Volume 9.3 fL (7.4-10.4) Neutrophils (%) (Auto) 67.2 % Lymphocytes (%) (Auto) 21.6 % Monocytes (%) (Auto) 8.2 % Eosinophils (%) (Auto) 2.2 % Basophils (%) (Auto) 0.4 % Neutrophils # (Auto) 4.48 K/uL (1.4-6.5) Lymphocytes # (Auto) 1.44 K/uL (1.2-3.4) Monocytes # (Auto) 0.55 K/uL (0.11-0.59) Eosinophils # (Auto) 0.15 K/uL (0-0.5) Basophils # (Auto) 0.03 K/uL (0-0.2) RDW Standard Deviation 48.3 fL (36.4-46.3) RDW Coefficient of Variation 16.7 % (11.5-14.5) Immature Granulocyte % (Auto) 0.4 % Immature Granulocyte # (Auto) 0.03 K/uL (0.00-0.02) Anion Gap 7.0 mmol/L (3-11) Est Creatinine Clear Calc Drug Dose 78.4 ml/min Estimated GFR () 96.5 Estimated GFR (Non- 83.2 BUN/Creatinine Ratio 20.1 (10-20) Calcium Level 9.1 mg/dl (8.5-10.1) Total Bilirubin 0.4 mg/dl (0.2-1) Alanine Aminotransferase (ALT/SGPT) 19 U/L (12-78) Alkaline Phosphatase 182 U/L (45-117) Troponin I < 0.015 ng/ml (0-0.045) Total Protein 7.6 gm/dl (6.4-8.2) Albumin 3.4 gm/dl (3.4-5.0) Globulin 4.2 gm/dl (2.5-4.0) Albumin/Globulin Ratio 0.8 (0.9-2) Hepatitis C Antibody Screen NEG (NEG) Urine Color YELLOW Urine Appearance CLEAR (CLEAR) Urine pH 7.0 (4.5-7.5) Urine Specific [place] 1.014 (1.000-1.030) Urine Protein NEG (NEG) Urine Glucose (UA) TRACE (NEG) Urine Ketones NEG (NEG) Urine Occult Blood NEG (NEG) Urine Nitrite NEG (NEG) Urine Bilirubin NEG (NEG) Urine Urobilinogen NEG (NEG) Urine Leukocyte Esterase SMALL (NEG) Urine WBC (Auto) 1-5 /hpf (0-5) Urine RBC (Auto) 0-4 /hpf (0-4) Urine Hyaline Casts (Auto) 0 /lpf (0-5) Urine Epithelial Cells (Auto) >30 /lpf (0-5) Urine Bacteria (Auto) NEG (NEG) Prothrombin Time 10.3 SECONDS (9.0-12.0) Prothromb Time International Ratio 1.0 (0.9-1.1) Activated Partial Thromboplast Time 28.0 SECONDS (21.0-31.0) Partial Thromboplastin Ratio 1.1 Aspartate Amino Transf (AST/SGOT) 13 U/L (15-37) C-Reactive Protein 1.99 mg/dl (0-0.29) Thyroid Stimulating Hormone (TSH) 2.230 uIu/ml (0.300-4.500) Laboratory results as stated above per my review. Medications Administered Medications (Trade) Dose Ordered Sig/Isaac Route Start Time Stop Time Status Last Admin Dose Admin Furosemide (Lasix Inj) 40 mg NOW STAT IV 07/07/17 10:30 07/07/17 10:33 DC 07/07/17 11:00 40 MG ECG Indication: SOB/dyspnea Rate (beats per minute): 81 Rhythm: normal sinus Findings: no acute ischemic change, no ectopy ED Course 1025: Past medical records reviewed. The patient was evaluated in room C6. A complete history and physical examination was performed. 1030: Ordered Lasix Inj 40 mg IV 1224: Upon reevaluation, the patient is resting. I discussed today's findings with her. She verbalized agreement of the treatment plan. I spoke with Dr. Barron of the [facility] to evaluate the patient for further management. Medical Decision I considered multiple diagnoses including congestive heart failure, peripheral edema, and metabolic disorder. The patient is here with marked peripheral edema. Multiple labs, EKG and imaging were obtained. Please see above. The patient does not have rales and her chest x-ray does not reveal significant failure. The patient was given IV Lasix. The patient is unable to walk without significant distress. I believe this requires further evaluation in the hospital. She will probably require further IV diuretics. I discussed care with the patient, her and with the hospitalist. Medication Reconcilliation Current Medication List: was personally reviewed by me Blood Pressure Screening Patient's blood pressure: Elevated blood pressure The patient's blood pressure will be addressed during her inpatient stay. Consults Time Called: 1220 Consulting Physician: Dr. Barron - [facility] [place] Returned Call: 1224 Discussed the patient's case with him. The patient will be evaluated for further management. Impression Primary Impression: Peripheral edema Scribe Attestation The scribe's documentation has been prepared under my direction and personally reviewed by me in its entirety. I confirm that the note above accurately reflects all work, treatment, procedures, and medical decision making performed by me. Departure Information Dispostion Being Evaluated By Hospitalist Referrals Dane Valerio M.D. (PCP) Patient Instructions My [facility]
[2017-07-07 11:24] LABS: BASO % 0.4 %; BASO ABS # 0.03 K/uL (0-0.2); COMPLETE YES; EOS % 2.2 %; HEMATOCRIT 35.8 % (37-47); IG% 0.4 %; LYMPH % 21.6 %; LYMPH ABS # 1.44 K/uL (1.2-3.4); MEAN CELL VOLUME 78.9 fL (80-100); MEAN CORPUSCULAR HEMOGLOBIN 26.2 pg (25-34); MEAN CORPUSCULAR HGB CONC 33.2 g/dl (32-36); MEAN PLATELET VOLUME 9.3 fL (7.4-10.4); MONO % 8.2 %; NEUT % 67.2 %; PLATELET COUNT 305 K/uL (130-400); RED BLOOD COUNT 4.54 M/uL (4.2-5.4); WHITE BLOOD COUNT 6.68 K/uL (4.8-10.8)
--- NOTE | 2017-07-07 11:54 | DIAGNOSTIC IMAGING REPORT ---
CHEST 2 VIEWS ROUTINE CLINICAL HISTORY: CHF dyspnea COMPARISON STUDY: 06/03/2017 FINDINGS: The bones soft tissues and hemidiaphragms are normal. The cardiomediastinal silhouette is normal. The lungs are clear. The pulmonary vasculature is normal. IMPRESSION: Negative chest. The above report was generated using voice recognition software. It may contain grammatical, syntax or spelling errors. Electronically signed by: Dony Juarez M.D. 07/07/2017 11:52 AM Dictated Date/Time: 07/07/2017 11:52 AM
[2017-07-07 11:57] LABS: URINE APPEARANCE CLEAR (CLEAR); URINE BILIRUBIN NEG (NEG); URINE COLOR YELLOW; URINE EPITHELIAL CELL AUTO >30 /lpf (0-5); URINE NITRITE NEG (NEG); URINE SPECIFIC GRAVITY 1.014 (1.000-1.030); UROBILINOGEN NEG (NEG); ZZURINE CULT IF INDIC CATH NO
[2017-07-07 12:02] LABS: ALB/GLOB RATIO 0.8 (0.9-2); ALKALINE PHOSPHATASE 182 U/L (45-117); ALT/SGPT 19 U/L (12-78); BLOOD UREA NITROGEN 15 mg/dl (7-18); BUN/CREATININE RATIO 20.1 (10-20); CALCIUM 9.1 mg/dl (8.5-10.1); CARBON DIOXIDE 29 mmol/L (21-32); CHLORIDE 100 mmol/L (98-107); CREATININE 0.74 mg/dl (0.60-1.20); GLUCOSE 202 mg/dl (70-99); SODIUM 136 mmol/L (136-145)
[2017-07-07 12:05] LABS: MANUAL MICROSCOPIC REQUIRED? NO; REVIEW REQ? NO
[2017-07-07 12:35] LABS: PARTIAL THROMBOPLASTIN RATIO 1.1; PROTHROMBIN TIME (PATIENT) 10.3 SECONDS (9.0-12.0)
[2017-07-07 12:36] LABS: POTASSIUM 4.3 mmol/L (3.5-5.1)
[2017-07-07] MEDS ORDERED: ONDANSETRON INJ 2 MG/ML 2 ML VIAL IV PRN (12:45)
[2017-07-07] MEDS ORDERED: ACETAMINOPHEN 325 MG TAB PO PRN (12:45)
[2017-07-07] MEDS ORDERED: ENOXAPARIN 40 MG/0.4 ML SYR SQ SCH (12:45)
[2017-07-07] MEDS ORDERED: DEXTROSE 50% 50 ML SYR IV PRN (13:00)
[2017-07-07] MEDS ORDERED: GLUCOSE 40% GEL 15 GM TUBE PO PRN (13:00)
[2017-07-07] MEDS ORDERED: GLUCOSE 10 TABS/TUBE PO PRN (13:00)
[2017-07-07] MEDS ORDERED: GLUCAGON FOR INJ 1 MG VIAL SQ PRN (13:00)
--- NOTE | 2017-07-07 13:08 | History and Physical ---
History & Physical Date & Time of Service: Jul 07, 2017 at 12:51 Chief Complaint: A-Fib, Swelling To Legs, Leg Pain Primary Care Physician: Dane Valerio M.D. History of Present Illness Source: patient, family (son) Pt is a 67 yo female who presents to the ER with complaints of worsening bilateral lower extremity edema for past 3 days. Pt does states she has a hx of swelling in both legs but states it has almost doubled in size in past 3 days. Pt denies any falls, trauma to her legs. Pt has had right hip surgery in her right leg in February 2017. Pt reports also pain in both legs as well in addition to worsening shortness of breath. Pt denies any long car trips. Pt is still taking her xarelto for her atrial fibrillation. Pt states some chills but denies chest pain, palpitations, N/V/D, abd pain. Past Medical/Surgical History Medical Problems: (1) Arthritis Status: Chronic (2) Atrial fibrillation Status: Chronic Family History No significant family history Social History Smoking Status: Never Smoker Smokeless Tobacco Use: No Alcohol Use: none Drug Use: none Marital Status: Housing status: lives alone Occupational Status: retired Multi-Drug Resistant Organisms History of MDRO: No Allergies Coded Allergies: Adhesives (Verified Allergy, Unknown, local skin irritation, 06/03/17) paper tape is okay per pt Carvedilol (Verified Allergy, Unknown, per cardio note , 07/07/17) Diltiazem (Verified Allergy, Unknown, MUSCLE SHAKES AND CANT WALK, 07/07/17 ) Meloxicam (Verified Allergy, Unknown, MUSCLE CRAMPS AND SHAKE AND CANT WALK, 06/03/17) Metoprolol (Verified Allergy, Unknown, per cardio note , 07/07/17) Omeprazole (Verified Allergy, Unknown, per cardio note , 07/07/17) Penicillins (Verified Allergy, Unknown, FEVER, 06/03/17) Sulfa Antibiotics (Verified Allergy, Unknown, per cardio note , 07/07/17) Codeine (Verified Adverse Reaction, Mild, MUSCLE SHAKES AND PASSES OUT, ) Metformin (Verified Adverse Reaction, Unknown, DIARRHEA/ HAIR FELL OUT, ) Home Medications Scheduled Cholecalciferol (Vitamin D3), 2,000 INTER.UNIT PO QAM Digoxin (Digoxin), 0.125 MG PO QAM Fish Oil (Surveyor-3), 1 CAP PO QAM Furosemide (Furosemide), 40 MG PO DAILY Insulin Aspart Protamine & Asp (Novolog Mix 70/30 Prefill), 18 UNITS SC BID Lisinopril (Lisinopril), 20 MG PO QAM Multivitamin (Multivitamin), 1 TAB PO QAM Rivaroxaban (Xarelto), 20 MG PO QAM Trazodone Hcl (Trazodone), 25 MG PO HS Scheduled PRN Tramadol HCl (Tramadol HCl), 50-100 MG PO Q4H PRN for Pain Review of Systems Constitutional: + chills, + weakness, No fever, No sweats Respiratory: + shortness of breath, + dyspnea on exertion, No cough, No sputum , No wheezing Cardiovascular: + edema, No chest pain, No orthopnea, No PND Abdomen: No pain, No nausea, No vomiting, No diarrhea Musculoskeletal: + swelling, + calf pain, No joint pain, No muscle pain Genitourinary - Female: No dysuria, No urinary frequency, No urinary urgency, No urinary incontinence Neurologic: No memory loss, No paralysis, No numbness/tingling Psychiatric: No depression symptoms, No anhedonism, No anxiety, No insomnia Endocrine: No fatigue, No excessive thirst Hematologic / Lymphatic: No abnormal bleeding/bruising, No clotting problems Integumentary: No rash, No itch Allergic / Immunologic: No environmental allergies, No seasonal allergies, No pet sensitivities, No food allergies Physical Exam Vital Signs Date Time Temp Pulse Resp B/P (MAP) Pulse Ox O2 Delivery O2 Flow Rate FiO2 07/07/17 11:50 95 Room Air 07/07/17 10:19 83 07/07/17 09:58 36.6 83 20 175/67 97 Room Air General Appearance: WD/WN, no apparent distress Head: normocephalic, atraumatic Eyes: normal inspection, PERRL, EOMI, sclerae normal Neck: supple, no adenopathy, thyroid normal, no JVD Respiratory/Chest: chest non-tender, lungs clear, normal breath sounds, no respiratory distress Cardiovascular: regular rate, rhythm, no gallop, no JVD, no murmur Abdomen/GI: normal bowel sounds, non tender, soft, no organomegaly Back: normal inspection, no CVA tenderness, no muscle spasm, normal range of motion Extremities/Musculoskelatal: normal inspection, no calf tenderness, normal capillary refill, + pedal edema Neurologic/Psych: no motor/sensory deficits, alert, normal mood/affect, oriented x 3 Skin: normal color, warm/dry, no rash Lymphatic: no adenopathy Diagnostics Laboratory Results Results Past 24 Hours Test 07/07/17 11:05 07/07/17 11:30 07/07/17 12:01 07/07/17 12:03 Range/Units White Blood Count 6.68 4.8-10.8 K/uL Red Blood Count 4.54 4.2-5.4 M/uL Hemoglobin 11.9 12.0-16.0 g/dL Hematocrit 35.8 37-47 % Mean Corpuscular Volume 78.9 80-100 fL Mean Corpuscular Hemoglobin 26.2 25-34 pg Mean Corpuscular Hemoglobin Concent 33.2 32-36 g/dl Platelet Count 305 130-400 K/uL Mean Platelet Volume 9.3 7.4-10.4 fL Neutrophils (%) (Auto) 67.2 % Lymphocytes (%) (Auto) 21.6 % Monocytes (%) (Auto) 8.2 % Eosinophils (%) (Auto) 2.2 % Basophils (%) (Auto) 0.4 % Neutrophils # (Auto) 4.48 1.4-6.5 K/uL Lymphocytes # (Auto) 1.44 1.2-3.4 K/uL Monocytes # (Auto) 0.55 0.11-0.59 K/uL Eosinophils # (Auto) 0.15 0-0.5 K/uL Basophils # (Auto) 0.03 0-0.2 K/uL RDW Standard Deviation 48.3 36.4-46.3 fL RDW Coefficient of Variation 16.7 11.5-14.5 % Immature Granulocyte % (Auto) 0.4 % Immature Granulocyte # (Auto) 0.03 0.00-0.02 K/uL Sodium Level 136 136-145 mmol/L Potassium Level 4.3 3.5-5.1 mmol/L Chloride Level 100 98-107 mmol/L Carbon Dioxide Level 29 21-32 mmol/L Anion Gap 7.0 3-11 mmol/L Blood Urea Nitrogen 15 7-18 mg/dl Creatinine 0.74 0.60-1.20 mg/dl Est Creatinine Clear Calc Drug Dose 78.4 ml/min Estimated GFR () 96.5 Estimated GFR (Non- 83.2 BUN/Creatinine Ratio 20.1 10-20 Random Glucose 202 70-99 mg/dl Calcium Level 9.1 8.5-10.1 mg/dl Total Bilirubin 0.4 0.2-1 mg/dl Aspartate Amino Transf (AST/SGOT) 13 15-37 U/L Alanine Aminotransferase (ALT/SGPT) 19 12-78 U/L Alkaline Phosphatase 182 45-117 U/L Troponin I < 0.015 0-0.045 ng/ml Total Protein 7.6 6.4-8.2 gm/dl Albumin 3.4 3.4-5.0 gm/dl Globulin 4.2 2.5-4.0 gm/dl Albumin/Globulin Ratio 0.8 0.9-2 Urine Color YELLOW Urine Appearance CLEAR CLEAR Urine pH 7.0 4.5-7.5 Urine Specific [place] 1.014 1.000-1.030 Urine Protein NEG NEG Urine Glucose (UA) TRACE NEG Urine Ketones NEG NEG Urine Occult Blood NEG NEG Urine Nitrite NEG NEG Urine Bilirubin NEG NEG Urine Urobilinogen NEG NEG Urine Leukocyte Esterase SMALL NEG Urine WBC (Auto) 1-5 0-5 /hpf Urine RBC (Auto) 0-4 0-4 /hpf Urine Hyaline Casts (Auto) 0 0-5 /lpf Urine Epithelial Cells (Auto) >30 0-5 /lpf Urine Bacteria (Auto) NEG NEG Prothrombin Time 10.3 9.0-12.0 SECONDS Prothromb Time International Ratio 1.0 0.9-1.1 Activated Partial Thromboplast Time 28.0 21.0-31.0 SECONDS Partial Thromboplastin Ratio 1.1 Test 07/07/17 12:49 Range/Units Impression Assessment and Plan Pt is a 67 yo female who presents to ER with worsening bilateral lower extremity edema x 3 days with associated chills and shortness of breath Bilateral lower extremity edema likely element of chronic venous insufficiency vs developing cellulitis No leukocytosis or fevers noted Will start on doxycycline 100 mg IV BID Will get US lower ext to rule out DVT, but unlikely in both extremities Pt can not tolerate compression stockings at this time, unlikely diuretics to be helpful Atrial fibrillation Currently in NSR Cont home meds of xarelto and digoxin HTN uncontrolled Cont lisinopril Start hydralazine 10 mg IV q 4 hrs PRN DM II Start on ISS SANDRA Cont CPAP at night Pt is DNR VTE Prophylaxis VTE Risk Assessment Done? Y/N: Yes Risk Level: Moderate
[2017-07-07] MEDS ORDERED: HydrALAZINE HCL 20 MG/ML VIAL IV. PRN (13:15)
[2017-07-07 13:18] LABS: C-REACTIVE PROTEIN 1.99 mg/dl (0-0.29); THYROID STIMULATING HORMONE 2.23 uIu/ml (0.300-4.500)
[2017-07-07 13:21] VITALS: O2SAT 95; BMI 35.9
--- NOTE | 2017-07-07 14:11 | DIAGNOSTIC IMAGING REPORT ---
VENOUS DOPPLER LW EXT BILA HISTORY: Pain. Edema. extensive swelling both legs COMPARISON STUDY: 06/03/2017 FINDINGS: There is normal compressibility, flow, and augmentation within the bilateral lower extremity deep venous systems. IMPRESSION: No DVT within the right or left lower extremity. Soft tissue edema The above report was generated using voice recognition software. It may contain grammatical, syntax or spelling errors. Electronically signed by: Dony Juarez M.D. 07/07/2017 2:10 PM Dictated Date/Time: 07/07/2017 2:09 PM
[2017-07-07] MEDS ORDERED: IV FLUIDS COMPLETED PRN (15:45)
[2017-07-07] MEDS: DOXYCYCLINE IV 100 MG in DEXTROSE 5% 100ML 100 ML IV SCH (15:55)
[2017-07-07] MEDS: TRAMADOL HCL 50 MG TAB PO PRN (15:55)
[2017-07-07 16:17] VITALS: BP 166/70; PULSE 66; TEMP 36.6; O2SAT 95
[2017-07-07] MEDS: INSULIN ASPART 100 UNITS/ML 3 ML PEN SC SCH ×2 (17:18→20:33)
[2017-07-07] MEDS: TRAZODONE HCL 50 MG TAB PO SCH (20:33)
[2017-07-07] MEDS ORDERED: DOXYCYCLINE HYCLATE 100 MG CAP PO SCH (21:00)
[2017-07-08 00:18] VITALS: BP 124/68; PULSE 96; TEMP 36.8; O2SAT 94
[2017-07-08] MEDS: TRAMADOL HCL 50 MG TAB PO PRN (01:17)
[2017-07-08] MEDS: DOXYCYCLINE IV 100 MG in DEXTROSE 5% 100ML 100 ML IV SCH ×2 (04:45→16:21)
[2017-07-08 07:18] LABS: ESTIMATED AVERAGE GLUCOSE 260 mg/dl; HA1C FLAG Normal (Normal)
[2017-07-08 07:49] VITALS: BP 137/67; PULSE 88; TEMP 36.5; O2SAT 92
[2017-07-08] MEDS: MULTIVITAMIN TAB PO SCH (08:02)
[2017-07-08] MEDS: LISINOPRIL 20 MG TAB PO SCH (08:03)
[2017-07-08] MEDS: CHOLECALCIFEROL 1000 INTER.UNIT TAB PO SCH (08:04)
[2017-07-08] MEDS: INSULIN ASPART 100 UNITS/ML 3 ML PEN SC SCH ×4 (08:08→21:05)
[2017-07-08] MEDS ORDERED: FUROSEMIDE 40 MG TAB PO SCH (09:00)
[2017-07-08] MEDS ORDERED: PERFLUTREN LIPID MICROSPHERE (DEFINITY) IV ONE (10:04)
[2017-07-08 10:21] VITALS: BMI 35.9
[2017-07-08 10:49] LABS: BASO % 0.1 %; BASO ABS # 0.01 K/uL (0-0.2); COMPLETE YES; EOS % 2.1 %; IG% 0.3 %; LYMPH % 25.5 %; MEAN CELL VOLUME 79.8 fL (80-100); MEAN CORPUSCULAR HEMOGLOBIN 25.9 pg (25-34); MEAN CORPUSCULAR HGB CONC 32.5 g/dl (32-36); MEAN PLATELET VOLUME 9.5 fL (7.4-10.4); MONO % 8.8 %; NEUT % 63.2 %; PLATELET COUNT 310 K/uL (130-400); RED BLOOD COUNT 4.01 M/uL (4.2-5.4); WHITE BLOOD COUNT 7.46 K/uL (4.8-10.8)
[2017-07-08 11:04] LABS: BUN/CREATININE RATIO 22.8 (10-20); CALCIUM 8.6 mg/dl (8.5-10.1); CREATININE 0.7 mg/dl (0.60-1.20); MAGNESIUM 2.1 mg/dl (1.8-2.4); POTASSIUM 4.3 mmol/L (3.5-5.1)
[2017-07-08 11:33] VITALS: BP 138/78; PULSE 87; O2SAT 93
[2017-07-08] MEDS ORDERED: INSULIN GLARGINE SOLOSTAR 100 UNITS/ML 3 ML PEN SC SCH (12:30)
[2017-07-08] MEDS ORDERED: FUROSEMIDE INJ 20 MG in SYRINGE 0 ML IV ONE (12:30)
[2017-07-08] MEDS: CEFTRIAXONE SOD INJ 1 GM in DEXTROSE 5% ADD-VANTAGE 50ML 50 ML IV SCH ×2 (12:39→16:13)
[2017-07-08 13:00] LABS: FERRITIN 35.1 ng/ml (8.0-388.0)
[2017-07-08 14:56] VITALS: BP 155/71; PULSE 86; TEMP 36.5; O2SAT 96
--- NOTE | 2017-07-08 15:34 | Medical Student: [facility] ---
Med Student Progress Note Date of Service Jul 08, 2017. Subjective Pt evaluation today including: conversation w/ patient, physical exam, chart review, lab review, review of studies, review of inpatient medication list Pain: legs PO Intake: normal Voiding: no voiding problems This is 67 year-old female with hx of Afib, HTN, DM type 2, and SANDRA presented to the ER on 07/07 with worsening bilateral lower extremity edema for the past 3 days. Pt has hx of leg swelling but never this bad. Pt denies falls or trauma except for the right hip surgery in February 2017. She also complained of SOB especially with lying down or walking up ramp. She also had some episodes of feeling chills and warm but denies fever, n/v, or abd pain. CXR was negative, Doppler was negative for DVT and positive for soft tissue edema. In addition to home meds, patient was started on doxy to cover cellulitis, and hydralazine was added to help with elevated BP. Today, pt stated that she felt better, and the swelling is significantly better. Still have leg pain, which gets better with walking. She still has SOB and dry cough with laying down or walking up ramp/stairs. She has a chill bout last night which last for 1 hour. No documented fever. ROS is negative for ALSTON, chest pain, abd pain, normal bm (1 yesterday, no blood), and normal urination. Review of Systems Constitutional: + chills, No fever Respiratory: + cough, + shortness of breath (with laying down), + dyspnea on exertion, No sputum Cardiac: No chest pain Abdomen: No nausea, No vomiting, No diarrhea, No constipation Female : No dysuria Objective Vital Signs Date Time Temp Pulse Resp B/P (MAP) Pulse Ox O2 Delivery O2 Flow Rate FiO2 07/08/17 11:33 87 93 07/08/17 08:00 Room Air 07/08/17 07:49 36.5 88 18 137/67 (90) 92 Room Air 07/08/17 00:18 36.8 96 18 124/68 (86) 94 Room Air 07/08/17 00:05 Room Air 07/07/17 20:05 Room Air 07/07/17 16:17 36.6 66 18 166/70 (102) 95 07/07/17 16:00 Room Air Physical Exam General Appearance: no apparent distress, + obese Respiratory/Chest: lungs clear, normal breath sounds, no respiratory distress Cardiovascular: regular rate, rhythm, no murmur Abdomen: non tender, soft, + pertinent finding (ventral hernia) Extremities: + swelling (erythematous, warm to touch.) Neurologic/Psychiatric: alert, normal mood/affect, oriented x 3 Skin: warm/dry Laboratory Results Last 24 Hours Test 07/07/17 16:27 07/08/17 05:25 07/08/17 05:45 07/08/17 07:41 Bedside Glucose 201 mg/dl 211 mg/dl Sodium Level 140 mmol/L Potassium Level 4.3 mmol/L Chloride Level 105 mmol/L Carbon Dioxide Level 32 mmol/L Anion Gap 3.0 mmol/L Blood Urea Nitrogen 16 mg/dl Creatinine 0.70 mg/dl Est Creatinine Clear Calc Drug Dose 82.8 ml/min Estimated GFR () 103.2 Estimated GFR (Non- 89.0 BUN/Creatinine Ratio 22.8 Random Glucose 200 mg/dl Estimated Average Glucose 260 mg/dl Hemoglobin A1c 10.7 % Calcium Level 8.6 mg/dl Magnesium Level 2.1 mg/dl Total Bilirubin 0.4 mg/dl Direct Bilirubin 0.1 mg/dl Aspartate Amino Transf (AST/SGOT) 12 U/L Alanine Aminotransferase (ALT/SGPT) 17 U/L Alkaline Phosphatase 146 U/L Total Protein 6.1 gm/dl Albumin 2.7 gm/dl White Blood Count 7.46 K/uL Red Blood Count 4.01 M/uL Hemoglobin 10.4 g/dL Hematocrit 32.0 % Mean Corpuscular Volume 79.8 fL Mean Corpuscular Hemoglobin 25.9 pg Mean Corpuscular Hemoglobin Concent 32.5 g/dl Platelet Count 310 K/uL Mean Platelet Volume 9.5 fL Neutrophils (%) (Auto) 63.2 % Lymphocytes (%) (Auto) 25.5 % Monocytes (%) (Auto) 8.8 % Eosinophils (%) (Auto) 2.1 % Basophils (%) (Auto) 0.1 % Neutrophils # (Auto) 4.71 K/uL Lymphocytes # (Auto) 1.90 K/uL Monocytes # (Auto) 0.66 K/uL Eosinophils # (Auto) 0.16 K/uL Basophils # (Auto) 0.01 K/uL RDW Standard Deviation 48.8 fL RDW Coefficient of Variation 16.7 % Immature Granulocyte % (Auto) 0.3 % Immature Granulocyte # (Auto) 0.02 K/uL Test 07/08/17 11:33 07/08/17 11:58 07/08/17 12:50 Bedside Glucose 224 mg/dl Iron Level 71 mcg/dl Total Iron Binding Capacity 300 mcg/dl Transferrin 224 mg/dl Transferrin % Saturation 23 % Ferritin 35.1 ng/ml Pro-B-Type Natriuretic Peptide 1361 pg/ml Vitamin B12 Level 1241 pg/mL Folate 19.20 ng/mL Digoxin Level 0.5 ng/ml Medications Current Inpatient Medications Medications (Trade) Dose Ordered Sig/Isaac Route Start Time Stop Time Status Last Admin Dose Admin Acetaminophen (Tylenol Tab) 650 mg Q4H PRN PO 07/07/17 12:45 08/06/17 12:44 Ondansetron HCl (Zofran Inj) 4 mg Q6H PRN IV 07/07/17 12:45 08/06/17 12:44 Insulin Aspart (novoLOG ASPART) SLIDING SCALE If C... ACHS SC 07/07/17 16:30 08/06/17 16:29 07/08/17 12:41 4 UNITS Glucose (Glucose 40% Gel) 15-30 GRAMS 15 GRAMS... UD PRN PO 07/07/17 13:00 08/06/17 12:59 Glucose (Glucose Chew Tab) 4-8 Tablets 4 Tabl... UD PRN PO 07/07/17 13:00 08/06/17 12:59 Dextrose (Dextrose 50% 50ML Syringe) 25-50ML OF 50% DW IV FOR... UD PRN IV 07/07/17 13:00 08/06/17 12:59 Glucagon (Glucagon Inj) 1 mg UD PRN SQ 07/07/17 13:00 08/06/17 12:59 Digoxin (Lanoxin Tab) 0.125 mg DAILY@1600 PO 07/08/17 16:00 08/07/17 15:59 Furosemide (Lasix Tab) 40 mg DAILY PO 07/08/17 09:00 08/07/17 08:59 07/08/17 08:03 40 MG Lisinopril (Zestril Tab) 20 mg QAM PO 07/08/17 09:00 08/07/17 08:59 07/08/17 08:03 20 MG Multivitamins (Multivitamin Tab) 1 tab QAM PO 07/08/17 09:00 08/07/17 08:59 07/08/17 08:02 1 TAB Rivaroxaban (Xarelto Tab) 20 mg QDD PO 07/08/17 17:00 08/07/17 16:59 Trazodone HCl (Desyrel Tab) 25 mg HS PO 07/07/17 21:00 08/06/17 20:59 07/07/17 20:33 25 MG Cholecalciferol (Vitamin D Tab) 2,000 inter.unit QAM PO 07/08/17 09:00 08/07/17 08:59 07/08/17 08:04 2,000 INTER.UNIT Doxycycline Hyclate 100 mg/ Dextrose 110 ml @ 50 mls/hr Q12H IV 07/07/17 16:00 07/17/17 15:59 07/08/17 04:45 50 MLS/HR Hydralazine HCl (HydrALAZINE INJ) 10 mg Q4 PRN IV. 07/07/17 13:15 08/06/17 13:14 Miscellaneous (Iv Fluids Completed) 1 ea PRN PRN N/A 07/07/17 15:45 07/07/18 15:44 Ceftriaxone Sodium 1 gm/ Dextrose 50 ml @ 100 mls/hr Q24H IV 07/08/17 12:30 07/18/17 12:14 07/08/17 12:39 100 MLS/HR Insulin Glargine (Lantus Solostar Pen) 10 units DAILY SC 07/08/17 12:30 08/07/17 12:29 07/08/17 12:41 10 UNITS Tramadol HCl (Ultram Tab) 100 mg Q4H PRN PO 07/08/17 12:45 08/06/17 12:59 Assessment and Plan Assessment and Plan: This is 67 year-old female with hx of Afib, HTN, DM type 2, and SANDRA presented to the ER on 07/07 with worsening bilateral lower extremity edema for the past 3 days. Patient also has SOB and cough with laying down and with exertion. Ddx for SOB with swelling extremities b/l - heart problem (CHF), cellulitis, chronic venous insufficiency.None of these ddx is ruled out based on patient's presentations. Fluid overload - CHF? I/O net -2710. Symptoms improved. - Repeat Echo - pending result. Last echo was in 2014 which showed normal ventricle with normal systolic function. - Check pBNP - Continue Lasix 40mg PO. Add Lasix 20mg injection. Cellulitis vs. chronic venous insufficiency Swelling improved. Pt has chills but no fever or elevated WBC. Pt is following Dr. Araujo as outpt for chronic venous insufficiency - Continue doxy. Add rocephin to cover strep - MRSA nasal swab - Consult cardiology. - Recommend feet elevation and stocking. Anemia Hgb is 11.9. Since surgery in February 2017, pt hgb is never back to baseline - Check iron studies -Fe, TIBC. - Check B12 and folate. - Check fecal Hemoccult Paroxysmal Afib Normal EKG - sinus rhythm, regular rate. - Continue home med- digoxin and xarelto - digoxin level checked - 0.5 (low) HTN - Continue lisinopril and hydralazine DMII not well-controlled. A1C is 10.7 - Continue novolog sliding scale
[2017-07-08 16:00] VITALS: O2SAT 96
[2017-07-08] MEDS: DIGOXIN 0.125 MG TAB PO SCH (16:23)
[2017-07-08] MEDS: RIVAROXABAN 20 MG TAB PO SCH (16:57)
--- NOTE | 2017-07-08 17:06 | ECHOCARDIOGRAM REPORT ---
*NOTICE TO RECEIVING DEMOCRAT AGENCY This information is strictly Confidential and protected under [place] law. [place] law prohibits you from making any further disclosure of this information unless further disclosure is expressly permitted by the written consent of the person to whom it pertains or is authorized by law. A general authorization for the release of medical or other information is not sufficient for this purpose. Hospital accepts no responsibility if the information is made available to any other person, INCLUDING THE PATIENT. Interpretation Summary * Name: LINDSEY HESS Study Date: 07/08/2017 09:26 AM BP: 137/67 mmHg * Patient Location: [facility]\S\N282\S\1 HR: 88 * : 1950 (M/d/yyyy) Gender: Female Height: 63 in * Age: 67 yrs Ethnicity: CA Weight: 202 lb * Ordering Physician: Chayo Snow * Performed By: Jeannie Long * * Reason For Study: CHF * BSA: 1.9 m2 * -- Conclusions -- * 1. Normal LV size, mild concentric LVH. * 2. Normal LV function. LVEF 65-70%. No regional wall motion abnormalities. * 3. Normal RV size and function * 4. No significant valvular pathology. * 5. Compared with prior study on 01/14/2015: No significant changes. Procedure Details * A complete two-dimensional transthoracic echocardiogram was performed (2D, M-mode, Doppler and color flow Doppler). * A contrast injection of Definity was performed to improve assessment of LV function. * Contrast was injected into an intravenous site in the left arm. * One vial of Definity ultrasound contrast was diluted in normal saline to a total volume of 10 ml. A total of '2' ml of solution was administered during imaging. * Lot # [id number] of Definity utilized for procedure. * Expiration date 07/31. * The attending nurse who injected the contrast agent was MUNA ANN RN. Left Ventricle * The left ventricle is normal in size. * There is mild concentric left ventricular hypertrophy. * Ejection Fraction = 65-70%. Right Ventricle * The right ventricle is grossly normal size. * The right ventricular systolic function is normal as assessed by tricuspid annular plane systolic excursion (TAPSE) (normal >1.5 cm). Atria * The left atrial size is normal. * Right atrial size is normal. * No ASD detected; PFO is not assessed. Mitral Valve * There is mild mitral annular calcification. * There is no mitral valve stenosis. * Significant mitral regurgitation is absent. Tricuspid Valve * Significant tricuspid regurgitation is absent. Aortic Valve * The aortic valve opens well. * No hemodynamically significant valvular aortic stenosis. * There is no significant aortic regurgitation. Pulmonic Valve * The pulmonary valve is inadequately visualized, but the Doppler data is adequate for interpretation. * Pulmonic stenosis is absent. * There is no significant pulmonary regurgitation. Great Vessels * The aortic root and proximal ascending aorta are normal sized. Pericardium/Pleural * There is no pericardial effusion. Great Vessels * IVC < 2.1, <50% change with respiration. Est RA 8 mmHg MMode 2D Measurements and Calculations IVSd 1.2 cm IVSs 1.2 cm LVIDd 3.4 cm LVIDs 1.9 cm LVPWd 1.0 cm LVPWs 1.7 cm IVS/LVPW 1.1 FS 45.5 % EDV(Teich) 47.3 ml ESV(Teich) 10.4 ml EF(Teich) 77.9 % EDV(cubed) 39.1 ml ESV(cubed) 6.3 ml EF(cubed) 83.8 % % IVS thick 1.9 % % LVPW thick 66.8 % LV mass(C)d 115.4 grams LV mass(C)dI 59.4 grams/m\S\2 LV mass(C)s 86.5 grams LV mass(C)sI 44.5 grams/m\S\2 SV(Teich) 36.9 ml SI(Teich) 19.0 ml/m\S\2 SV(cubed) 32.8 ml SI(cubed) 16.9 ml/m\S\2 ACS 1.4 cm asc Aorta Diam 2.6 cm LVOT diam 1.8 cm LVOT area 2.5 cm\S\2 LVAd ap4 31.9 cm\S\2 LVLd ap4 8.1 cm EDV(MOD-sp4) 102.2 ml EDV(sp4-el) 106.6 ml LVAs ap4 13.2 cm\S\2 LVLs ap4 6.1 cm ESV(MOD-sp4) 23.3 ml ESV(sp4-el) 24.2 ml EF(MOD-sp4) 77.2 % EF(sp4-el) 77.3 % LVAd ap2 33.4 cm\S\2 LVLd ap2 8.1 cm EDV(MOD-sp2) 111.4 ml EDV(sp2-el) 117.2 ml LVAs ap2 14.3 cm\S\2 LVLs ap2 6.4 cm ESV(MOD-sp2) 25.7 ml ESV(sp2-el) 26.9 ml EF(MOD-sp2) 77.0 % EF(sp2-el) 77.0 % LVLd %diff -0.54 % EDV(MOD-bp) 106.9 ml LVLs %diff 4.8 % ESV(MOD-bp) 25.2 ml EF(MOD-bp) 76.4 % SV(MOD-sp4) 78.9 ml SI(MOD-sp4) 40.6 ml/m\S\2 SV(MOD-sp2) 85.7 ml SI(MOD-sp2) 44.1 ml/m\S\2 SV(MOD-bp) 81.6 ml SI(MOD-bp) 42.0 ml/m\S\2 SV(sp4-el) 82.4 ml SI(sp4-el) 42.4 ml/m\S\2 SV(sp2-el) 90.3 ml SI(sp2-el) 46.5 ml/m\S\2 Doppler Measurements and Calculations MV E max cora 125.1 cm/sec MV A max cora 97.6 cm/sec MV E/A 1.3 MV dec time 0.23 sec Ao V2 max 150.1 cm/sec Ao max PG 9.0 mmHg Ao max PG (full) 2.2 mmHg LUIS MANUEL(V,A) 2.1 cm\S\2 LUIS MANUEL(V,D) 2.1 cm\S\2 LV V1 max PG 6.8 mmHg LV V1 max 130.7 cm/sec PA V2 max 84.7 cm/sec PA max PG 2.9 mmHg
--- NOTE | 2017-07-08 18:09 | Cardiology Consultation ---
Cardiology Consultation Date of Consultation: Jul 08, 2017. Attending Physician: Gwendolyn Reason for Consultation: Lower extremity edema Pt evaluation today including: conversation w/ patient, physical exam, chart review, lab review, review of studies, review of inpatient medication list History of Present Illness Mrs. Yates is a pleasant 67-year-old woman with a history of paroxysmal atrial fibrillation on anticoagulation, hypertension, morbid obesity, obstructive sleep apnea on CPAP, type 2 diabetes on insulin here today, osteoarthritis post right MIGUEL 02/2017, and chronic lower extremity edema here with worsened lower extremity swelling over last several days. as a new Patient known to me from outpatient setting. Seen last 01/2017 due to her lower extremity swelling. Trial of increased diuretics, compression stockings and reflux ultrasound to evaluate for CVI recommended. Difficulty tolerating compression stockings. Has not been able to get venous reflux ultrasound to date. Walking almost everyday 75-100 feet post her MIGUEL. Patient also followed by Dr. Xiong for her atrial fibrillation and has been tried on multiple rate control agents, now maintained on digoxin with Xarelto for anticoagulation. Her prior cardiac workup includes an echocardiogram in January 2015 which showed normal biventricular function with an EF of 60-65% and a normal estimated CVP at that time. Lower extremity ultrasound in June of 2015 was negative for DVT and a dobutamine stress echo was negative for ischemia at 88% max predicted heart rate in March of 2015. Patient readmitted yesterday after states that size of her legs "tripled" over a few days. This was associated with increased redness and pain. Denies shortness of breath, chest pain, palpitations. Denies fevers, chills. Started on IV abx for possible cellulitis, continued home lasix. Venous reflux ultrasound negative for DVT. Echo from today unchanged from prior. 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 Family History No significant family history No family history blood clots, premature coronary artery disease sudden cardiac Social History Smoking Status: Never Smoker History of Alcohol Use: No Review of Systems Respiratory: + cough, + shortness of breath (with laying down), + dyspnea on exertion, No sputum Cardiac: No chest pain 10 point review of systems was completed and was otherwise negative unless stated in HPI Allergies Coded Allergies: Adhesives (Verified Allergy, Unknown, local skin irritation, 8/21/17) paper tape is okay per pt Carvedilol (Verified Allergy, Unknown, per cardio note , 07/07/17) Diltiazem (Verified Allergy, Unknown, MUSCLE SHAKES AND CANT WALK, 07/07/17 ) Meloxicam (Verified Allergy, Unknown, MUSCLE CRAMPS AND SHAKE AND CANT WALK, 06/03/17) Metoprolol (Verified Allergy, Unknown, per cardio note , 07/07/17) Omeprazole (Verified Allergy, Unknown, per cardio note , 07/07/17) Penicillins (Verified Allergy, Unknown, FEVER, 06/03/17) Sulfa Antibiotics (Verified Allergy, Unknown, per cardio note , 07/07/17) Codeine (Verified Adverse Reaction, Mild, MUSCLE SHAKES AND PASSES OUT, ) Metformin (Verified Adverse Reaction, Unknown, DIARRHEA/ HAIR FELL OUT, ) Medications Current Inpatient Medications Medications (Trade) Dose Ordered Sig/Isaac Route Start Time Stop Time Status Last Admin Dose Admin Acetaminophen (Tylenol Tab) 650 mg Q4H PRN PO 07/07/17 12:45 08/06/17 12:44 Ondansetron HCl (Zofran Inj) 4 mg Q6H PRN IV 07/07/17 12:45 08/06/17 12:44 Insulin Aspart (novoLOG ASPART) SLIDING SCALE If C... ACHS SC 07/07/17 16:30 08/06/17 16:29 07/08/17 17:30 11 UNITS Glucose (Glucose 40% Gel) 15-30 GRAMS 15 GRAMS... UD PRN PO 07/07/17 13:00 08/06/17 12:59 Glucose (Glucose Chew Tab) 4-8 Tablets 4 Tabl... UD PRN PO 07/07/17 13:00 08/06/17 12:59 Dextrose (Dextrose 50% 50ML Syringe) 25-50ML OF 50% DW IV FOR... UD PRN IV 07/07/17 13:00 08/06/17 12:59 Glucagon (Glucagon Inj) 1 mg UD PRN SQ 07/07/17 13:00 08/06/17 12:59 Digoxin (Lanoxin Tab) 0.125 mg DAILY@1600 PO 07/08/17 16:00 08/07/17 15:59 07/08/17 16:23 0.125 MG Furosemide (Lasix Tab) 40 mg DAILY PO 07/08/17 09:00 08/07/17 08:59 07/08/17 08:03 40 MG Lisinopril (Zestril Tab) 20 mg QAM PO 07/08/17 09:00 08/07/17 08:59 07/08/17 08:03 20 MG Multivitamins (Multivitamin Tab) 1 tab QAM PO 07/08/17 09:00 08/07/17 08:59 07/08/17 08:02 1 TAB Rivaroxaban (Xarelto Tab) 20 mg QDD PO 07/08/17 17:00 08/07/17 16:59 07/08/17 16:57 20 MG Trazodone HCl (Desyrel Tab) 25 mg HS PO 07/07/17 21:00 08/06/17 20:59 07/07/17 20:33 25 MG Cholecalciferol (Vitamin D Tab) 2,000 inter.unit QAM PO 07/08/17 09:00 08/07/17 08:59 07/08/17 08:04 2,000 INTER.UNIT Doxycycline Hyclate 100 mg/ Dextrose 110 ml @ 50 mls/hr Q12H IV 07/07/17 16:00 07/17/17 15:59 07/08/17 16:21 50 MLS/HR Hydralazine HCl (HydrALAZINE INJ) 10 mg Q4 PRN IV. 07/07/17 13:15 08/06/17 13:14 Miscellaneous (Iv Fluids Completed) 1 ea PRN PRN N/A 07/07/17 15:45 07/07/18 15:44 Ceftriaxone Sodium 1 gm/ Dextrose 50 ml @ 100 mls/hr Q24H IV 07/08/17 12:30 07/18/17 12:14 07/08/17 16:13 100 MLS/HR Insulin Glargine (Lantus Solostar Pen) 10 units DAILY SC 07/08/17 12:30 08/07/17 12:29 07/08/17 12:41 10 UNITS Tramadol HCl (Ultram Tab) 100 mg Q4H PRN PO 07/08/17 12:45 08/06/17 12:59 Physical Exam Vital Signs Past 12 Hours Date Time Temp Pulse Resp B/P (MAP) Pulse Ox O2 Delivery O2 Flow Rate FiO2 07/08/17 16:23 76 07/08/17 14:56 36.5 86 18 155/71 (99) 96 Room Air 07/08/17 11:33 87 93 07/08/17 08:00 Room Air 07/08/17 07:49 36.5 88 18 137/67 (90) 92 Room Air General: Comfortable, no acute distress, obese Eyes: Sclerae anicteric, extraocular movements intact HENT: Oropharynx clear mucous membranes moist Neck: Supple, no lymphadenopathy, no thyromegaly. Lungs: Few crackles at bases which cleared with deep inspiration, no rhonchi or wheezes Cardiac: Regular rate and rhythm, no murmurs, rubs or gallops. JVD difficult to assess. 2-3+ lower extremity edema to knees bilaterally. Positive telangiectasias and reticular veins most notable at the feet. Mild erythema bilaterally right>left to mid plata Vascular: Normal carotid upstrokes, no bruits. 2+ radial DP pulses palpable. Abdomen: Soft, nontender, nondistended positive bowel sounds. No hepatosplenomegaly Musculoskeletal: Normal gait. No joint deformities Skin: No rashes or lesions. Neuro: Cranial nerves 2-12 grossly intact, remainder exam nonfocal Psych: Alert orient x3, normal affect and mood Data Laboratory Results: Last 24 Hours Test 07/08/17 05:25 07/08/17 05:45 07/08/17 07:41 07/08/17 11:33 Sodium Level 140 mmol/L Potassium Level 4.3 mmol/L Chloride Level 105 mmol/L Carbon Dioxide Level 32 mmol/L Anion Gap 3.0 mmol/L Blood Urea Nitrogen 16 mg/dl Creatinine 0.70 mg/dl Est Creatinine Clear Calc Drug Dose 82.8 ml/min Estimated GFR () 103.2 Estimated GFR (Non- 89.0 BUN/Creatinine Ratio 22.8 Random Glucose 200 mg/dl Estimated Average Glucose 260 mg/dl Hemoglobin A1c 10.7 % Calcium Level 8.6 mg/dl Magnesium Level 2.1 mg/dl Total Bilirubin 0.4 mg/dl Direct Bilirubin 0.1 mg/dl Aspartate Amino Transf (AST/SGOT) 12 U/L Alanine Aminotransferase (ALT/SGPT) 17 U/L Alkaline Phosphatase 146 U/L Total Protein 6.1 gm/dl Albumin 2.7 gm/dl White Blood Count 7.46 K/uL Red Blood Count 4.01 M/uL Hemoglobin 10.4 g/dL Hematocrit 32.0 % Mean Corpuscular Volume 79.8 fL Mean Corpuscular Hemoglobin 25.9 pg Mean Corpuscular Hemoglobin Concent 32.5 g/dl Platelet Count 310 K/uL Mean Platelet Volume 9.5 fL Neutrophils (%) (Auto) 63.2 % Lymphocytes (%) (Auto) 25.5 % Monocytes (%) (Auto) 8.8 % Eosinophils (%) (Auto) 2.1 % Basophils (%) (Auto) 0.1 % Neutrophils # (Auto) 4.71 K/uL Lymphocytes # (Auto) 1.90 K/uL Monocytes # (Auto) 0.66 K/uL Eosinophils # (Auto) 0.16 K/uL Basophils # (Auto) 0.01 K/uL RDW Standard Deviation 48.8 fL RDW Coefficient of Variation 16.7 % Immature Granulocyte % (Auto) 0.3 % Immature Granulocyte # (Auto) 0.02 K/uL Bedside Glucose 211 mg/dl 224 mg/dl Test 07/08/17 11:58 07/08/17 12:50 07/08/17 16:32 Iron Level 71 mcg/dl Total Iron Binding Capacity 300 mcg/dl Transferrin 224 mg/dl Transferrin % Saturation 23 % Ferritin 35.1 ng/ml Pro-B-Type Natriuretic Peptide 1361 pg/ml Vitamin B12 Level 1241 pg/mL Folate 19.20 ng/mL Digoxin Level 0.5 ng/ml Bedside Glucose 270 mg/dl Imaging: Venous Duplex - No DVT Echo - Normal LV/RV size and function. Est CVP ~8 EKG: Normal sinus rhythm Assessment & Plan 1. Bilateral lower extremity edema 2. Suspected chronic venous insufficiency 3. Possible cellulitis versus stasis dermatitis 4. Paroxysmal atrial fibrillation 5. Type 2 DM 6. Morbid obesity/SANDRA Lower extremity edema is chronic and today after antibiotics/home diuretics does not appear to be that far off from baseline. No evidence of DVT or new heart failure to explain acute worsening. Chronic edema seems secondary to a mix of venous insufficiency and lymphedema. Going forward -- -- CVP borderline-elevated on Echo -- would give an extra dose of lasix today. -- Continue abx for possible cellulitis per primary team -- As an outpatient resume prior compression stockings -- Venous reflux ultrasound as an outpatient. -- Following that study follow-up with me to discuss possible venous ablation and/or referral for lymphedema PT/pump From a cardiovascular standpoint OK for discharge when medical issues stable.
[2017-07-08] MEDS: TRAZODONE HCL 50 MG TAB PO SCH (21:06)
--- NOTE | 2017-07-08 23:23 | Hospitalist Progress Note ---
Hospitalist Progress Note Date of Service Jul 08, 2017. Subjective Pt evaluation today including: conversation w/ patient, conversation w/ family Pt feeling much better today. Her leg swelling and redness has improved greatly with IV diuresis. Still with SOB with lying flat. Reports she is followed by Serge Garibay as an outpt for possible venous reflux vs lymphedema. She has been unable to get her compression stockings on due to problems with her hip/bending over. No CP. She reports need to move her legs constantly at bedtime for the last 2 months Constitutional: + chills, No fever Respiratory: + shortness of breath Cardiovascular: No chest pain All Other Systems: Reviewed and Negative Objective Vital Signs Date Time Temp Pulse Resp B/P (MAP) Pulse Ox O2 Delivery O2 Flow Rate FiO2 07/08/17 16:23 76 07/08/17 14:56 36.5 86 18 155/71 (99) 96 Room Air 07/08/17 11:33 87 93 07/08/17 08:00 Room Air 07/08/17 07:49 36.5 88 18 137/67 (90) 92 Room Air 07/08/17 00:18 36.8 96 18 124/68 (86) 94 Room Air 07/08/17 00:05 Room Air Physical Exam General Appearance: WD/WN, no apparent distress, + obese Eyes: normal inspection, sclerae normal ENT: hearing grossly normal Neck: trachea midline Respiratory/Chest: lungs clear, normal breath sounds, no respiratory distress, no accessory muscle use Cardiovascular: regular rate, rhythm, no murmur, + pertinent finding (3+ pitting edema legs to knees bilat with very mild erythema and warmth to legs) Abdomen: normal bowel sounds, non tender, soft (and obese) Extremities: no calf tenderness Neurologic/Psychiatric: alert, normal mood/affect, oriented x 3 Skin: no rash Laboratory Results Last 24 Hours Test 07/08/17 05:25 07/08/17 05:45 07/08/17 07:41 07/08/17 11:33 Sodium Level 140 mmol/L Potassium Level 4.3 mmol/L Chloride Level 105 mmol/L Carbon Dioxide Level 32 mmol/L Anion Gap 3.0 mmol/L Blood Urea Nitrogen 16 mg/dl Creatinine 0.70 mg/dl Est Creatinine Clear Calc Drug Dose 82.8 ml/min Estimated GFR () 103.2 Estimated GFR (Non- 89.0 BUN/Creatinine Ratio 22.8 Random Glucose 200 mg/dl Estimated Average Glucose 260 mg/dl Hemoglobin A1c 10.7 % Calcium Level 8.6 mg/dl Magnesium Level 2.1 mg/dl Total Bilirubin 0.4 mg/dl Direct Bilirubin 0.1 mg/dl Aspartate Amino Transf (AST/SGOT) 12 U/L Alanine Aminotransferase (ALT/SGPT) 17 U/L Alkaline Phosphatase 146 U/L Total Protein 6.1 gm/dl Albumin 2.7 gm/dl White Blood Count 7.46 K/uL Red Blood Count 4.01 M/uL Hemoglobin 10.4 g/dL Hematocrit 32.0 % Mean Corpuscular Volume 79.8 fL Mean Corpuscular Hemoglobin 25.9 pg Mean Corpuscular Hemoglobin Concent 32.5 g/dl Platelet Count 310 K/uL Mean Platelet Volume 9.5 fL Neutrophils (%) (Auto) 63.2 % Lymphocytes (%) (Auto) 25.5 % Monocytes (%) (Auto) 8.8 % Eosinophils (%) (Auto) 2.1 % Basophils (%) (Auto) 0.1 % Neutrophils # (Auto) 4.71 K/uL Lymphocytes # (Auto) 1.90 K/uL Monocytes # (Auto) 0.66 K/uL Eosinophils # (Auto) 0.16 K/uL Basophils # (Auto) 0.01 K/uL RDW Standard Deviation 48.8 fL RDW Coefficient of Variation 16.7 % Immature Granulocyte % (Auto) 0.3 % Immature Granulocyte # (Auto) 0.02 K/uL Bedside Glucose 211 mg/dl 224 mg/dl Test 07/08/17 11:58 07/08/17 12:50 07/08/17 16:32 07/08/17 20:59 Iron Level 71 mcg/dl Total Iron Binding Capacity 300 mcg/dl Transferrin 224 mg/dl Transferrin % Saturation 23 % Ferritin 35.1 ng/ml Pro-B-Type Natriuretic Peptide 1361 pg/ml Vitamin B12 Level 1241 pg/mL Folate 19.20 ng/mL Digoxin Level 0.5 ng/ml Bedside Glucose 270 mg/dl 176 mg/dl Assessment and Plan This is 67 year-old female with hx of Paroxysmal Afib on Xarelto, HTN, DM type 2, obesity, chronic venous insufficiency, and SANDRA who presented to the ER on with worsening bilateral lower extremity edema and pain worsening over the past 3 days. Patient also has SOB and cough with lying down and with exertion. She was admitted for peripheral edema, SOB, and bilateral leg cellulitis vs stasis dermatitis. Bilateral lower extremity edema likely element of chronic venous insufficiency vs developing cellulitis. ECHO not consistent with CHF, proBNP is slightly elevated, CXR no Pulm edema No leukocytosis or fevers noted Was started on doxycycline 100 mg IV BID and is improving, but is also diuresing which could be causing improvement -added on Rocephin to better cover for Strep US lower ext negative for DVTs bilaterally Pt can not tolerate compression stockings at this time -ECHO without evidence of CHF, is essentially normal -continue diuresis, elevation, compression stockings when able to -Appreciate Cardio consultation--> f/u as outpt and will get Venous reflux study Paroxysmal Atrial fibrillation Currently in NSR Cont home meds of xarelto for AC and digoxin for rate control -digoxin level here low at 0.5 HTN improved control today Cont lisinopril -hydralazine 10 mg IV q 4 hrs PRN DM II-HgbA1C here 10.7%, seen by CDE. -started Lantus while inpatient along with bolus SSI -needs improved control with Endo as outpt-moved up Endo appt for sooner after discharge SANDRA Cont CPAP at night Anemia-microcytic. Most likely Fe-deficient with low MCV and elevated RDW. Had colonoscopy about 3 yrs ago, not due for 2 more years Hgb is 11.9-->10.4 today. Since hip surgery in February 2017, pt hgb is never back to baseline - iron studies are normal - B12 and folate are normal - Check fecal Hemoccult -start low dose Fe supplementation upon dc RLS-newly diagnosed here -Fe supplementation may improve these symptoms DVT Proph- Xarelto Dispo- to home in 1-2 days DNR
[2017-07-08 23:32] VITALS: BP 133/57; PULSE 78; TEMP 36.8; O2SAT 96
[2017-07-09] MEDS: DOXYCYCLINE IV 100 MG in DEXTROSE 5% 100ML 100 ML IV SCH ×2 (04:27→15:34)
[2017-07-09 05:57] LABS: BASO % 0.4 %; BASO ABS # 0.03 K/uL (0-0.2); COMPLETE YES; EOS % 2.8 %; HEMATOCRIT 33.3 % (37-47); IG% 0.3 %; LYMPH % 27.1 %; LYMPH ABS # 2.03 K/uL (1.2-3.4); MEAN CELL VOLUME 79.5 fL (80-100); MEAN CORPUSCULAR HEMOGLOBIN 26.5 pg (25-34); MEAN CORPUSCULAR HGB CONC 33.3 g/dl (32-36); MEAN PLATELET VOLUME 9.1 fL (7.4-10.4); NEUT % 61.4 %; PLATELET COUNT 307 K/uL (130-400); RED BLOOD COUNT 4.19 M/uL (4.2-5.4); WHITE BLOOD COUNT 7.49 K/uL (4.8-10.8)
[2017-07-09 06:22] LABS: BUN/CREATININE RATIO 20.8 (10-20); CALCIUM 8.6 mg/dl (8.5-10.1); CREATININE 0.71 mg/dl (0.60-1.20); POTASSIUM 3.7 mmol/L (3.5-5.1)
[2017-07-09 07:50] VITALS: BP 149/73; PULSE 90; TEMP 36.7; O2SAT 94
[2017-07-09] MEDS: LISINOPRIL 20 MG TAB PO SCH (08:30)
[2017-07-09] MEDS: MULTIVITAMIN TAB PO SCH (08:30)
[2017-07-09] MEDS: CHOLECALCIFEROL 1000 INTER.UNIT TAB PO SCH (08:31)
[2017-07-09] MEDS: INSULIN ASPART 100 UNITS/ML 3 ML PEN SC SCH ×4 (08:37→21:08)
[2017-07-09] MEDS ORDERED: INSULIN GLARGINE SOLOSTAR 100 UNITS/ML 3 ML PEN SC SCH (09:00)
[2017-07-09] MEDS ORDERED: FUROSEMIDE INJ 40 MG in SYRINGE 0 ML IV SCH (09:00)
[2017-07-09 14:58] VITALS: BP 145/79; PULSE 108; TEMP 36.7; O2SAT 96
[2017-07-09] MEDS: DIGOXIN 0.125 MG TAB PO SCH (15:36)
[2017-07-09] MEDS: TRAMADOL HCL 50 MG TAB PO PRN ×3 (16:12→21:05)
[2017-07-09] MEDS: RIVAROXABAN 20 MG TAB PO SCH (17:41)
[2017-07-09] MEDS ORDERED: FERROUS SULFATE 325 MG TAB PO ONE (18:15)
--- NOTE | 2017-07-09 18:36 | Medical Student: [facility] ---
Med Student Progress Note Date of Service Jul 09, 2017. Subjective Pt evaluation today including: conversation w/ patient, physical exam, chart review, lab review, review of studies, review of inpatient medication list Pain: none PO Intake: normal Voiding: no voiding problems This is 67 year-old female with hx of Afib, HTN, DM type 2, and SANDRA presented to the ER on 07/07 with worsening bilateral lower extremity edema for the past 3 days along with SOB and cough when lying down. Today, pt was about to take a walk when I came in. Pt uses a cane to assist with walking. Gait is steady. Pt stated that she felt better. Swelling is better but not back to normal yet. Last night, she does not have a lot of pain and had a relatively good night. Pt stated that the SOB seems to resolve when she lays down. Pt had echo yesterday, which shows no change since 2014. Dr. Araujo also saw pt yesterday, who follow pt as outpatient for chronic venous insufficiency. Pt is well-diuresed. Denies ALSTON, chest pain, abd pain, normal bm ( 1 yesterday, no blood), and normal urination. Review of Systems Constitutional: No fever, No chills Respiratory: + dyspnea on exertion, No cough, No shortness of breath Cardiac: No chest pain Abdomen: No pain, No nausea, No vomiting Musculoskeletal: + joint pain, + swelling Female : No dysuria Objective Vital Signs Date Time Temp Pulse Resp B/P (MAP) Pulse Ox O2 Delivery O2 Flow Rate FiO2 07/09/17 07:50 36.7 90 18 149/73 (98) 94 Room Air 07/09/17 00:05 Room Air 07/08/17 23:32 36.8 78 18 133/57 (82) 96 Room Air 07/08/17 16:23 76 07/08/17 16:00 96 Room Air 07/08/17 14:56 36.5 86 18 155/71 (99) 96 Room Air 07/08/17 11:33 87 93 Physical Exam General Appearance: no apparent distress, + obese ENT: hearing grossly normal Respiratory/Chest: lungs clear, normal breath sounds, no respiratory distress Cardiovascular: regular rate, rhythm, no murmur Abdomen: non tender, soft, + hernia (ventral) Extremities: non-tender, + swelling (hard, 3+, no significant change compared to yesterday, warmth to touch, mild erythema), + pertinent finding (normal and equal pedal pulse bilaterally) Neurologic/Psychiatric: alert, normal mood/affect, oriented x 3 Laboratory Results Last 24 Hours Test 07/08/17 11:33 07/08/17 11:58 07/08/17 12:50 07/08/17 16:32 Bedside Glucose 224 mg/dl 270 mg/dl Iron Level 71 mcg/dl Total Iron Binding Capacity 300 mcg/dl Transferrin 224 mg/dl Transferrin % Saturation 23 % Ferritin 35.1 ng/ml Pro-B-Type Natriuretic Peptide 1361 pg/ml Vitamin B12 Level 1241 pg/mL Folate 19.20 ng/mL Digoxin Level 0.5 ng/ml Test 07/08/17 20:59 07/09/17 05:30 07/09/17 07:38 Bedside Glucose 176 mg/dl 171 mg/dl White Blood Count 7.49 K/uL Red Blood Count 4.19 M/uL Hemoglobin 11.1 g/dL Hematocrit 33.3 % Mean Corpuscular Volume 79.5 fL Mean Corpuscular Hemoglobin 26.5 pg Mean Corpuscular Hemoglobin Concent 33.3 g/dl Platelet Count 307 K/uL Mean Platelet Volume 9.1 fL Neutrophils (%) (Auto) 61.4 % Lymphocytes (%) (Auto) 27.1 % Monocytes (%) (Auto) 8.0 % Eosinophils (%) (Auto) 2.8 % Basophils (%) (Auto) 0.4 % Neutrophils # (Auto) 4.60 K/uL Lymphocytes # (Auto) 2.03 K/uL Monocytes # (Auto) 0.60 K/uL Eosinophils # (Auto) 0.21 K/uL Basophils # (Auto) 0.03 K/uL RDW Standard Deviation 48.4 fL RDW Coefficient of Variation 16.8 % Immature Granulocyte % (Auto) 0.3 % Immature Granulocyte # (Auto) 0.02 K/uL Sodium Level 137 mmol/L Potassium Level 3.7 mmol/L Chloride Level 102 mmol/L Carbon Dioxide Level 28 mmol/L Anion Gap 7.0 mmol/L Blood Urea Nitrogen 15 mg/dl Creatinine 0.71 mg/dl Est Creatinine Clear Calc Drug Dose 79.5 ml/min Estimated GFR () 101.4 Estimated GFR (Non- 87.5 BUN/Creatinine Ratio 20.8 Random Glucose 167 mg/dl Calcium Level 8.6 mg/dl Magnesium Level 2.0 mg/dl Medications Current Inpatient Medications Medications (Trade) Dose Ordered Sig/Isaac Route Start Time Stop Time Status Last Admin Dose Admin Acetaminophen (Tylenol Tab) 650 mg Q4H PRN PO 07/07/17 12:45 08/06/17 12:44 Ondansetron HCl (Zofran Inj) 4 mg Q6H PRN IV 07/07/17 12:45 08/06/17 12:44 Insulin Aspart (novoLOG ASPART) SLIDING SCALE If C... ACHS SC 07/07/17 16:30 08/06/17 16:29 07/08/17 21:05 2 UNITS Glucose (Glucose 40% Gel) 15-30 GRAMS 15 GRAMS... UD PRN PO 07/07/17 13:00 08/06/17 12:59 Glucose (Glucose Chew Tab) 4-8 Tablets 4 Tabl... UD PRN PO 07/07/17 13:00 08/06/17 12:59 Dextrose (Dextrose 50% 50ML Syringe) 25-50ML OF 50% DW IV FOR... UD PRN IV 07/07/17 13:00 08/06/17 12:59 Glucagon (Glucagon Inj) 1 mg UD PRN SQ 07/07/17 13:00 08/06/17 12:59 Digoxin (Lanoxin Tab) 0.125 mg DAILY@1600 PO 07/08/17 16:00 08/07/17 15:59 07/08/17 16:23 0.125 MG Lisinopril (Zestril Tab) 20 mg QAM PO 07/08/17 09:00 08/07/17 08:59 07/08/17 08:03 20 MG Multivitamins (Multivitamin Tab) 1 tab QAM PO 07/08/17 09:00 08/07/17 08:59 07/08/17 08:02 1 TAB Rivaroxaban (Xarelto Tab) 20 mg QDD PO 07/08/17 17:00 08/07/17 16:59 07/08/17 16:57 20 MG Trazodone HCl (Desyrel Tab) 25 mg HS PO 07/07/17 21:00 08/06/17 20:59 07/08/17 21:06 25 MG Cholecalciferol (Vitamin D Tab) 2,000 inter.unit QAM PO 07/08/17 09:00 08/07/17 08:59 07/08/17 08:04 2,000 INTER.UNIT Doxycycline Hyclate 100 mg/ Dextrose 110 ml @ 50 mls/hr Q12H IV 07/07/17 16:00 07/17/17 15:59 07/09/17 04:27 50 MLS/HR Hydralazine HCl (HydrALAZINE INJ) 10 mg Q4 PRN IV. 07/07/17 13:15 08/06/17 13:14 Miscellaneous (Iv Fluids Completed) 1 ea PRN PRN N/A 07/07/17 15:45 07/07/18 15:44 Ceftriaxone Sodium 1 gm/ Dextrose 50 ml @ 100 mls/hr Q24H IV 07/08/17 12:30 07/18/17 12:14 07/08/17 16:13 100 MLS/HR Tramadol HCl (Ultram Tab) 100 mg Q4H PRN PO 07/08/17 12:45 08/06/17 12:59 07/09/17 00:00 100 MG Furosemide 40 mg/ Syringe 4 ml @ 4 mls/min QAM IV 07/09/17 09:00 08/08/17 08:59 Insulin Glargine (Lantus Solostar Pen) 15 units DAILY SC 07/09/17 09:00 08/07/17 12:29 Assessment and Plan Assessment and Plan: This is 67 year-old female with hx of Afib, HTN, DM type 2, and SANDRA presented to the ER on 07/07 with worsening bilateral lower extremity edema for the past 3 days. Patient also has SOB and cough with laying down and with exertion. Ddx for SOB with swelling extremities b/l - heart problem (CHF), cellulitis, chronic venous insufficiency. Fluid overload - CHF? I/O net -1477. Symptoms improved. Echo repeated - no change from last echo in 2014 (normal LV and RV function and size, mild LV concentric hypertrophy). Last echo was in 2014 which showed normal ventricle with normal systolic function. No wall motion abnormalities. pBNP checked - elevated. CXR was negative for congestion. CHF seems unlikely. - Continue Lasix 40mg PO. Lasix 40mL IV BID. Plan on transition to Lasix PO tomorrow. Cellulitis vs. chronic venous insufficiency Swelling improved. No fever overnight, no WBC elevation. Pt is following Dr. Araujo as outpt for chronic venous insufficiency. PE of LE - hard, 3+ swelling, mild erythema and warmth to touch. Chronic venous insufficiency is most likely, however, could not rule out cellulitis due to pt's high risk. Dr. Araujo recommended resuming compression stockings as outpt and planing for venous reflux U/S outpt. - Continue doxy and Rocephin to cover staph and strep well. Plan on transition to Abx PO tomorrow. Anemia Hgb is 11.1 today (up from 10.4 yesterday). Since surgery in February 2017, pt hgb is never back to baseline. Iron studies checked - normal. B12 and folate are normal. - Continue monitor with daily CBC. - Start ferrous sulfate 325mg Paroxysmal Afib Monitor strip - sinus rhythm - Continue home med- digoxin and xarelto - digoxin level checked - 0.5 (low) HTN - Continue lisinopril and hydralazine prn DMII not well-controlled. A1C is 10.7. Discussed on round with Dr. Snow - Increase basal lantus to 18 units.
[2017-07-09] MEDS ORDERED: DOCUSATE SODIUM/SENNA 50/8.6MG TAB PO ONE (19:15)
[2017-07-09] MEDS: TRAZODONE HCL 50 MG TAB PO SCH (21:01)
[2017-07-09] MEDS: FUROSEMIDE INJ 40 MG in SYRINGE 0 ML IV SCH (21:02)
[2017-07-10 00:06] VITALS: BP 131/72; PULSE 88; TEMP 36.3; O2SAT 91
--- NOTE | 2017-07-10 00:54 | Hospitalist Progress Note ---
Hospitalist Progress Note Date of Service Jul 09, 2017. Subjective Pt evaluation today including: conversation w/ patient Pt feeling better, walking around halls today, not SOB. Leg swelling about the same. Requesting stool softener. Overall doing better Constitutional: No fever Cardiovascular: No chest pain All Other Systems: Reviewed and Negative Objective Vital Signs Date Time Temp Pulse Resp B/P (MAP) Pulse Ox O2 Delivery O2 Flow Rate FiO2 07/10/17 00:06 36.3 88 18 131/72 (91) 91 Room Air 07/10/17 00:00 Room Air 07/09/17 16:10 Room Air 07/09/17 15:36 98 07/09/17 14:58 36.7 108 18 145/79 (101) 96 Room Air 07/09/17 09:53 Room Air 07/09/17 07:50 36.7 90 18 149/73 (98) 94 Room Air Physical Exam General Appearance: WD/WN, no apparent distress, + obese Eyes: normal inspection, sclerae normal ENT: hearing grossly normal Neck: trachea midline Respiratory/Chest: lungs clear, normal breath sounds, no respiratory distress, no accessory muscle use Cardiovascular: regular rate, rhythm, + pertinent finding (2+ pitting edema legs to mid tibia bilat, improved from yesterday, very mild erythema and warmth of distal legs bilat improved from previous) Abdomen: normal bowel sounds, non tender, soft Extremities: no calf tenderness Neurologic/Psychiatric: alert, normal mood/affect Skin: warm/dry Laboratory Results Last 24 Hours Test 07/09/17 05:30 07/09/17 07:38 07/09/17 11:41 07/09/17 16:29 White Blood Count 7.49 K/uL Red Blood Count 4.19 M/uL Hemoglobin 11.1 g/dL Hematocrit 33.3 % Mean Corpuscular Volume 79.5 fL Mean Corpuscular Hemoglobin 26.5 pg Mean Corpuscular Hemoglobin Concent 33.3 g/dl Platelet Count 307 K/uL Mean Platelet Volume 9.1 fL Neutrophils (%) (Auto) 61.4 % Lymphocytes (%) (Auto) 27.1 % Monocytes (%) (Auto) 8.0 % Eosinophils (%) (Auto) 2.8 % Basophils (%) (Auto) 0.4 % Neutrophils # (Auto) 4.60 K/uL Lymphocytes # (Auto) 2.03 K/uL Monocytes # (Auto) 0.60 K/uL Eosinophils # (Auto) 0.21 K/uL Basophils # (Auto) 0.03 K/uL RDW Standard Deviation 48.4 fL RDW Coefficient of Variation 16.8 % Immature Granulocyte % (Auto) 0.3 % Immature Granulocyte # (Auto) 0.02 K/uL Sodium Level 137 mmol/L Potassium Level 3.7 mmol/L Chloride Level 102 mmol/L Carbon Dioxide Level 28 mmol/L Anion Gap 7.0 mmol/L Blood Urea Nitrogen 15 mg/dl Creatinine 0.71 mg/dl Est Creatinine Clear Calc Drug Dose 79.5 ml/min Estimated GFR () 101.4 Estimated GFR (Non- 87.5 BUN/Creatinine Ratio 20.8 Random Glucose 167 mg/dl Calcium Level 8.6 mg/dl Magnesium Level 2.0 mg/dl Bedside Glucose 171 mg/dl 220 mg/dl 157 mg/dl Test 07/09/17 20:20 Bedside Glucose 311 mg/dl Assessment and Plan This is 67 year-old female with hx of Paroxysmal Afib on Xarelto, HTN, DM type 2, obesity, chronic venous insufficiency, and SANDRA who presented to the ER on with worsening bilateral lower extremity edema and pain worsening over the past 3 days. Patient also has SOB and cough with lying down and with exertion. She was admitted for peripheral edema, SOB, and bilateral leg cellulitis vs stasis dermatitis. Bilateral lower extremity edema likely element of chronic venous insufficiency vs cellulitis. ECHO not consistent with CHF, proBNP is slightly elevated, CXR no Pulm edema No leukocytosis or fevers noted US lower ext negative for DVTs bilaterally Was started on doxycycline 100 mg IV BID and is improving, but is also diuresing which could be causing improvement -added on Rocephin to better cover for Strep--> will transition to po keflex and doxy tomorrow Pt can not tolerate compression stockings at this time -ECHO without evidence of CHF, is essentially normal -continue diuresis with IV lasix and increase to bid,continue limb elevation, compression stockings when able to -Appreciate Cardio consultation--> f/u as outpt and will get Venous reflux study Paroxysmal Atrial fibrillation Currently in NSR Cont home meds of xarelto for AC and digoxin for rate control -digoxin level here low at 0.5 HTN improved control today Cont lisinopril -hydralazine 10 mg IV q 4 hrs PRN DM II-HgbA1C here 10.7%, seen by CDE. -started Lantus while inpatient along with bolus SSI -needs improved control with Endo as outpt-moved up Endo appt for sooner after discharge--> should go out on Lantus if willing-will need education, pen needles SANDRA Cont CPAP at night Anemia-microcytic. Most likely Fe-deficient with low MCV and elevated RDW. Had colonoscopy about 3 yrs ago, not due for 2 more years Hgb is 11.9-->10.4 today. Since hip surgery in February 2017, pt hgb is never back to baseline - iron studies are normal which is not fitting with the picture, ferritin low normal at 35, doubt lead poisoning or thalassemia - B12 and folate are normal - Check fecal Hemoccult -start low dose Fe supplementation along with stool softener -follow CBC as outpt RLS-newly diagnosed here -Fe supplementation may improve these symptoms DVT Proph- Xarelto Dispo- to home likely tomorrow DNR
[2017-07-10] MEDS: DOXYCYCLINE IV 100 MG in DEXTROSE 5% 100ML 100 ML IV SCH (03:32)
[2017-07-10 07:19] VITALS: BP 139/72; PULSE 83; TEMP 36.5; O2SAT 93
[2017-07-10] MEDS ORDERED: FERROUS SULFATE 325 MG TAB PO SCH (08:00)
[2017-07-10 08:12] LABS: BASO % 0.3 %; BASO ABS # 0.02 K/uL (0-0.2); COMPLETE YES; EOS % 2.8 %; HEMATOCRIT 37.3 % (37-47); IG% 0.4 %; LYMPH % 24.2 %; LYMPH ABS # 1.82 K/uL (1.2-3.4); MEAN CORPUSCULAR HEMOGLOBIN 26.7 pg (25-34); MEAN CORPUSCULAR HGB CONC 33.8 g/dl (32-36); MONO % 7.4 %; NEUT % 64.9 %; PLATELET COUNT 331 K/uL (130-400); RED BLOOD COUNT 4.72 M/uL (4.2-5.4); WHITE BLOOD COUNT 7.52 K/uL (4.8-10.8)
[2017-07-10 08:37] LABS: BUN/CREATININE RATIO 19.6 (10-20); CALCIUM 9.4 mg/dl (8.5-10.1); CREATININE 0.81 mg/dl (0.60-1.20); MAGNESIUM 2.1 mg/dl (1.8-2.4)
[2017-07-10] MEDS ORDERED: INSULIN GLARGINE SOLOSTAR 100 UNITS/ML 3 ML PEN SC SCH (09:00)
[2017-07-10] MEDS: CHOLECALCIFEROL 1000 INTER.UNIT TAB PO SCH (09:27)
[2017-07-10] MEDS: LISINOPRIL 20 MG TAB PO SCH (09:27)
[2017-07-10] MEDS: MULTIVITAMIN TAB PO SCH (09:27)
[2017-07-10] MEDS: FUROSEMIDE INJ 40 MG in SYRINGE 0 ML IV SCH (09:28)
[2017-07-10] MEDS: INSULIN ASPART 100 UNITS/ML 3 ML PEN SC SCH ×2 (09:31→12:41)
[2017-07-10] MEDS ORDERED: FUROSEMIDE 40 MG TAB PO ONE (10:00)
[2017-07-10] MEDS ORDERED: CEFDINIR 300 MG CAP PO SCH (11:00)
[2017-07-10] MEDS ORDERED: FRRS300 PO (12:22)
[2017-07-10] MEDS ORDERED: CEFD300C3 PO (12:22)
[2017-07-10] MEDS ORDERED: XRL20 PO (12:22)
[2017-07-10] MEDS ORDERED: LSX20 PO (12:22)
[2017-07-10] MEDS ORDERED: DXY100 PO (12:22)
[2017-07-10] MEDS ORDERED: INSUINJ13 SC (12:22)
[2017-07-10 12:27] VITALS: Ht 160 cm; Wt 86.6 kg
--- NOTE | 2017-07-10 12:27 | Discharge Instructions ---
Discharge Instructions Date of Service Jul 10, 2017. Admission Reason for Admission: Leg swelling, cellulitis Discharge Discharge Diagnosis / Problem: Leg swelling, cellulitis legs Discharge Goals Goal(s): Improve disease control, Diagnostic testing, Therapeutic intervention Activity Recommendations Activity Limitations: as noted below Lifting Limitations: gradually increase as tolerated Shower/Bathe: no limitations . Instructions / Follow-Up Instructions / Follow-Up You were admitted with worsening leg swelling which is likely due to a problem with your veins in the legs. You were given lasix through the IV to help with the swelling and your home dose will be increased to lasix 40mg in AM and 20mg in the afternoon. You were also treated for a cellulitis or skin infection of th elegs which was related to your leg swelling. Please finish out the full course of two different antibiotics. Please wear your compression stockings daily. Follow up with your PCP within 1-2 weeks, and with Cardiology for a Venous reflux ultrasound of the legs followed by an office visit. Please also follow up with Endocrine for your uncontrolled diabetes. We increased your insulin to 20 units twice a day. Current Hospital Diet Patient's current hospital diet: AHA Diet (Heart Healthy), Diabetes Type 2 Diet Discharge Diet Recommended Diet: AHA Diet (Heart Healthy), Diabetes Type 2 Diet Procedures Procedures Performed: Echocardiogram-no heart failure Venous Doppler bilateral lower extremities-negative for DVT Chest xray-normal Pending Studies Studies pending at discharge: no Laboratory Results Last 24 Hours Test 07/09/17 16:29 07/09/17 20:20 07/10/17 07:40 07/10/17 07:54 Bedside Glucose 157 mg/dl 311 mg/dl 221 mg/dl White Blood Count 7.52 K/uL Red Blood Count 4.72 M/uL Hemoglobin 12.6 g/dL Hematocrit 37.3 % Mean Corpuscular Volume 79.0 fL Mean Corpuscular Hemoglobin 26.7 pg Mean Corpuscular Hemoglobin Concent 33.8 g/dl Platelet Count 331 K/uL Mean Platelet Volume 9.0 fL Neutrophils (%) (Auto) 64.9 % Lymphocytes (%) (Auto) 24.2 % Monocytes (%) (Auto) 7.4 % Eosinophils (%) (Auto) 2.8 % Basophils (%) (Auto) 0.3 % Neutrophils # (Auto) 4.88 K/uL Lymphocytes # (Auto) 1.82 K/uL Monocytes # (Auto) 0.56 K/uL Eosinophils # (Auto) 0.21 K/uL Basophils # (Auto) 0.02 K/uL RDW Standard Deviation 48.5 fL RDW Coefficient of Variation 16.8 % Immature Granulocyte % (Auto) 0.4 % Immature Granulocyte # (Auto) 0.03 K/uL Sodium Level 134 mmol/L Potassium Level 4.0 mmol/L Chloride Level 100 mmol/L Carbon Dioxide Level 26 mmol/L Anion Gap 8.0 mmol/L Blood Urea Nitrogen 16 mg/dl Creatinine 0.81 mg/dl Est Creatinine Clear Calc Drug Dose 69.3 ml/min Estimated GFR () 86.5 Estimated GFR (Non- 74.6 BUN/Creatinine Ratio 19.6 Random Glucose 203 mg/dl Calcium Level 9.4 mg/dl Magnesium Level 2.1 mg/dl Test 07/10/17 11:37 Bedside Glucose 222 mg/dl Hemoglobin A1c Test 07/08/17 05:25 Range/Units Estimated Average Glucose 260 mg/dl Hemoglobin A1c 10.7 H 4.5-5.6 % Medical Emergencies . Who to Call and When: Medical Emergencies: If at any time you feel your situation is an emergency, please call 911 immediately. . Non-Emergent Contact Non-Emergency issues call your: Primary Care Provider, Marine Consultant Call Non-Emergent contact if: you have a fever, your pain is not controlled, your pain is worsening, your pain is unusual for you, your pain is concerning you, you have any medication questions leg swelling worsens or you have worsening shortness of breath . . "Provider Documentation" section prepared by Chayo Snow. . VTE Core Measure Inpt VTE Proph given/why not?: Other Anticoagulation (Xarelto)
--- NOTE | 2017-07-10 12:27 | Medical Student: [facility] ---
Med Student Progress Note Date of Service Jul 10, 2017. Subjective Pt evaluation today including: conversation w/ patient, physical exam, chart review, lab review, review of studies, review of inpatient medication list Pain: none PO Intake: normal Voiding: no voiding problems This is 67 year-old female with hx of Afib, HTN, DM type 2, and SANDRA presented to the ER on 07/07 with worsening bilateral lower extremity edema for the past 3 days along with SOB and cough when lying down. Today, pt is happy that her swelling lessens and legs are back to their normal size. Pt uses a cane to assist with walking. Gait is steady. She still has cough when laying down with mild SOB. This morning while going to the bathroom, patient gets a coughing spell which brings up clear sputum. Denies dizziness with ambulation. Pt is well-diuresed. Denies ALSTON, chest pain, abd pain, and normal urination. No bm yet. Review of Systems Constitutional: No fever, No chills Respiratory: + cough, + sputum (clear) Cardiac: No chest pain Abdomen: + constipation, No pain, No nausea, No vomiting Female : No dysuria Objective Vital Signs Date Time Temp Pulse Resp B/P (MAP) Pulse Ox O2 Delivery O2 Flow Rate FiO2 07/10/17 09:48 Room Air 07/10/17 07:19 36.5 83 18 139/72 (94) 93 Room Air 07/10/17 00:06 36.3 88 18 131/72 (91) 91 Room Air 07/10/17 00:00 Room Air 07/09/17 16:10 Room Air 07/09/17 15:36 98 07/09/17 14:58 36.7 108 18 145/79 (101) 96 Room Air Physical Exam General Appearance: no apparent distress, + obese ENT: hearing grossly normal Respiratory/Chest: normal breath sounds, no respiratory distress, + crackles ( fine crackles on all lung rodríguez) Cardiovascular: regular rate, rhythm, no murmur Abdomen: normal bowel sounds, non tender, soft, + hernia (ventral) Extremities: + swelling (2+, better compared to yesterday, less erythematous and cool to touch.) Neurologic/Psychiatric: alert, normal mood/affect, oriented x 3 Skin: normal color Laboratory Results Last 24 Hours Test 07/09/17 11:41 07/09/17 16:29 07/09/17 20:20 07/10/17 07:40 Bedside Glucose 220 mg/dl 157 mg/dl 311 mg/dl 221 mg/dl Test 07/10/17 07:54 White Blood Count 7.52 K/uL Red Blood Count 4.72 M/uL Hemoglobin 12.6 g/dL Hematocrit 37.3 % Mean Corpuscular Volume 79.0 fL Mean Corpuscular Hemoglobin 26.7 pg Mean Corpuscular Hemoglobin Concent 33.8 g/dl Platelet Count 331 K/uL Mean Platelet Volume 9.0 fL Neutrophils (%) (Auto) 64.9 % Lymphocytes (%) (Auto) 24.2 % Monocytes (%) (Auto) 7.4 % Eosinophils (%) (Auto) 2.8 % Basophils (%) (Auto) 0.3 % Neutrophils # (Auto) 4.88 K/uL Lymphocytes # (Auto) 1.82 K/uL Monocytes # (Auto) 0.56 K/uL Eosinophils # (Auto) 0.21 K/uL Basophils # (Auto) 0.02 K/uL RDW Standard Deviation 48.5 fL RDW Coefficient of Variation 16.8 % Immature Granulocyte % (Auto) 0.4 % Immature Granulocyte # (Auto) 0.03 K/uL Sodium Level 134 mmol/L Potassium Level 4.0 mmol/L Chloride Level 100 mmol/L Carbon Dioxide Level 26 mmol/L Anion Gap 8.0 mmol/L Blood Urea Nitrogen 16 mg/dl Creatinine 0.81 mg/dl Est Creatinine Clear Calc Drug Dose 69.3 ml/min Estimated GFR () 86.5 Estimated GFR (Non- 74.6 BUN/Creatinine Ratio 19.6 Random Glucose 203 mg/dl Calcium Level 9.4 mg/dl Magnesium Level 2.1 mg/dl Medications Current Inpatient Medications Medications (Trade) Dose Ordered Sig/Isaac Route Start Time Stop Time Status Last Admin Dose Admin Acetaminophen (Tylenol Tab) 650 mg Q4H PRN PO 07/07/17 12:45 08/06/17 12:44 Ondansetron HCl (Zofran Inj) 4 mg Q6H PRN IV 07/07/17 12:45 08/06/17 12:44 Insulin Aspart (novoLOG ASPART) SLIDING SCALE If C... ACHS MA 07/07/17 16:30 08/06/17 16:29 07/10/17 09:31 8 UNITS Glucose (Glucose 40% Gel) 15-30 GRAMS 15 GRAMS... UD PRN PO 07/07/17 13:00 08/06/17 12:59 Glucose (Glucose Chew Tab) 4-8 Tablets 4 Tabl... UD PRN PO 07/07/17 13:00 08/06/17 12:59 Dextrose (Dextrose 50% 50ML Syringe) 25-50ML OF 50% DW IV FOR... UD PRN IV 07/07/17 13:00 08/06/17 12:59 Glucagon (Glucagon Inj) 1 mg UD PRN SQ 07/07/17 13:00 08/06/17 12:59 Digoxin (Lanoxin Tab) 0.125 mg DAILY@1600 PO 07/08/17 16:00 08/07/17 15:59 07/09/17 15:36 0.125 MG Lisinopril (Zestril Tab) 20 mg QAM PO 07/08/17 09:00 08/07/17 08:59 07/10/17 09:27 20 MG Multivitamins (Multivitamin Tab) 1 tab QAM PO 07/08/17 09:00 08/07/17 08:59 07/10/17 09:27 1 TAB Rivaroxaban (Xarelto Tab) 20 mg QDD PO 07/08/17 17:00 08/07/17 16:59 07/09/17 17:41 20 MG Trazodone HCl (Desyrel Tab) 25 mg HS PO 07/07/17 21:00 08/06/17 20:59 07/09/17 21:01 25 MG Cholecalciferol (Vitamin D Tab) 2,000 inter.unit QAM PO 07/08/17 09:00 08/07/17 08:59 07/10/17 09:27 2,000 INTER.UNIT Hydralazine HCl (HydrALAZINE INJ) 10 mg Q4 PRN IV. 07/07/17 13:15 08/06/17 13:14 Miscellaneous (Iv Fluids Completed) 1 ea PRN PRN N/A 07/07/17 15:45 07/07/18 15:44 Tramadol HCl (Ultram Tab) 100 mg Q4H PRN PO 07/08/17 12:45 10/24/17 12:59 07/09/17 21:05 100 MG Insulin Glargine (Lantus Solostar Pen) 17 units DAILY SC 07/10/17 09:00 08/07/17 12:29 07/10/17 09:32 17 UNITS Ferrous Sulfate (Feosol Tab) 325 mg BIDM PO 07/10/17 08:00 08/09/17 07:59 07/10/17 09:27 325 MG Furosemide (Lasix Tab) 40 mg QAM PO 07/11/17 09:00 08/10/17 08:59 Doxycycline Hyclate (Vibramycin Cap) 100 mg BID PO 07/10/17 21:00 07/20/17 20:59 Cefdinir (Omnicef Cap) 300 mg BID PO 07/10/17 11:00 07/20/17 10:59 07/10/17 11:01 300 MG Assessment and Plan Assessment and Plan: This is 67 year-old female with hx of Afib, HTN, DM type 2, and SANDRA presented to the ER on 07/07 with worsening bilateral lower extremity edema for 3 days prior. Patient also has SOB and cough with laying down and with exertion. Ddx for SOB with swelling extremities b/l - heart problem (CHF), cellulitis, chronic venous insufficiency. Fluid overload - CHF? I/O net -2975. Leg swelling is lessened. Patient feels like they are back to their normal size. Ambulation ok with the cane. Echo repeated - no change from last echo in 2014 (normal LV and RV function and size, mild LV concentric hypertrophy). Last echo was in 2014 which showed normal ventricle with normal systolic function. No wall motion abnormalities. pBNP checked - elevated. CXR was negative for congestion. CHF seems unlikely. - Transition Lasix IV to Lasix 40mg PO Am and 20mg PO pm daily. - Follow with Dr. Araujo and PCP as outpatient. Patient will have home nurse visit. Cellulitis vs. chronic venous insufficiency Legs swelling has improved. Patient feels like they are back to their normal size. Ambulation ok with the cane. LEs are less erythematous and cool to touch. No fever overnight, no WBC elevation. Pt is following Dr. Araujo as outpt for chronic venous insufficiency. Chronic venous insufficiency is most likely, however, could not rule out cellulitis due to pt's high risk. - Transition to Cefdinir 300mg BID and doxy 100mg BID for 4 more days for a total of 7days (started on abx on 07/07) - Dr. Araujo recommended resuming compression stockings as outpt and planing for venous reflux U/S outpt. Hyponatremia Sodium level drops to 134 (from 136 yesterday). Mg and Ca are normal. However, glucose is 202. Corrected sodium is 136. Anemia Hgb is back to normal 12.6 (from 11.1 yesterday). Since surgery in February 2017, pt hgb is never back to baseline. Iron studies checked - normal. B12 and folate are normal. - Continue ferrous sulfate 325mg. - Continue taking miralax and stool softener as outpatient for constipation. Paroxysmal Afib - stable - Continue home med- digoxin and xarelto - digoxin level checked - 0.5 (low) HTN - Continue lisinopril and hydralazine prn DMII not well-controlled. A1C is 10.7. Pt will follow up with PCP as outpatient for further medication adjustments. - During rounds, pt prefers to stay on novolog and increase home dose rather than switch to lantus. Will adjust home dose of novolog. - Patient will see family educator. Discharge planning: home with home health
[2017-07-10] MEDS ORDERED: MRLP17X PO (12:29)
[2017-07-10] MEDS ORDERED: DOCU100C31 PO (12:29)
[2017-07-10] MEDS ORDERED: NURSING VERBAL MED ORDER ONE (13:00)
[2017-07-10] MEDS ORDERED: INSULIN ASPART 100 UNITS/ML 3 ML PEN SC ONE (13:00)
[2017-07-10 13:09] VITALS: BP 139/72; PULSE 83; TEMP 36.5; O2SAT 93
[2017-07-10] MEDS ORDERED: FUROSEMIDE 20 MG TAB PO SCH (15:00)
[2017-07-10] MEDS ORDERED: DOXYCYCLINE HYCLATE 100 MG CAP PO SCH (21:00)
[2017-07-11] MEDS ORDERED: FUROSEMIDE 40 MG TAB PO SCH (09:00)
== END 2017-07-10 14:17 | disposition home or self-care (01) | DRG 300 ==
LOC: C.EDC 10:01 → C.MED 12:45 → ENRESERV 13:17 → OBSVTOIN 07-08 11:59
PROVIDERS: ADMIT Hospitalist; ATTEND Family Medicine
DX: I87.2 Venous insufficiency (chronic) (peripheral) (principal); L03.115 Cellulitis of right lower limb; L03.116 Cellulitis of left lower limb; Z66 Do not resuscitate; I48.91 Unspecified atrial fibrillation; M19.90 Unspecified osteoarthritis, unspecified site; I10 Essential (primary) hypertension; E11.9 Type 2 diabetes mellitus without complications; G47.33 Obstructive sleep apnea (adult) (pediatric); Z96.642 Presence of left artificial hip joint; E66.01 Morbid (severe) obesity due to excess calories; D50.9 Iron deficiency anemia, unspecified; G25.81 Restless legs syndrome; Z68.33 Body mass index [BMI] 33.0-33.9, adult

== ENCOUNTER → 2017-08-01 | Outpatient (CLI) | payer OTHER ==
[~2017-08-01] MED LIST changes: +CEFD300C3 PO; +DOCU100C31 PO; +DXY100 PO; +FRRS300 PO; +LSX20 PO; -LSX40 PO; +MRLP17X PO; +TRAZ50TA35 PO
[2017-08-01 18:03] LABS: BLOOD UREA NITROGEN 35 mg/dl (7-18); BUN/CREATININE RATIO 34.7 (10-20); CALCIUM 9.2 mg/dl (8.5-10.1); CARBON DIOXIDE 30 mmol/L (21-32); CHLORIDE 92 mmol/L (98-107); GLUCOSE 292 mg/dl (70-99); POTASSIUM 4.4 mmol/L (3.5-5.1); SODIUM 129 mmol/L (136-145)
== END | disposition home or self-care (01) ==
LOC: C.LABSPEC 16:44
PROVIDERS: ATTEND Internal Medicine
DX: I10 Essential (primary) hypertension (principal)

== ENCOUNTER → 2017-08-05 | Outpatient (CLI) | payer OTHER ==
[~2017-08-05] MED LIST changes: +FURO-85 PO
[2017-08-05 17:44] LABS: BLOOD UREA NITROGEN 21 mg/dl (7-18); BUN/CREATININE RATIO 23.6 (10-20); CALCIUM 8.7 mg/dl (8.5-10.1); CARBON DIOXIDE 28 mmol/L (21-32); CHLORIDE 94 mmol/L (98-107); CREATININE 0.87 mg/dl (0.60-1.20); GLUCOSE 347 mg/dl (70-99); POTASSIUM 4.4 mmol/L (3.5-5.1); SODIUM 130 mmol/L (136-145)
[2017-08-05 17:54] LABS: BETA-HYDROXYBUTYRATE 1.35 mg/dL (0.2-2.81)
== END | disposition home or self-care (01) ==
LOC: C.LABSPEC 15:25
PROVIDERS: ATTEND Internal Medicine
DX: R79.9 Abnormal finding of blood chemistry, unspecified (principal); I10 Essential (primary) hypertension

== ENCOUNTER 2017-08-27 11:27 | Observation (INO) | payer OTHER ==
[~2017-08-27] VITALS: Ht 160 cm; Wt 90.9 kg
[~2017-08-27 11:27] MED LIST changes: -DOCU100C31 PO; -FURO-85 PO
[2017-08-27] MEDS ORDERED: FURO-85 PO ×2 (12:12)
--- NOTE | 2017-08-27 12:21 | EMERGENCY ROOM VISIT NOTE ---
History Report prepared by Delfina: Kalli Ledezma Under the Supervision of: Dr. Mark Tinoco M.D. First contact with patient: 12:00 Chief Complaint: RESPIRATORY PROBLEMS Stated Complaint: HEART PROBLEMS, FLUID ON LEGS History of Present Illness The patient is a 67 year old white female with a past medical history of atrial fibrillation who presents to the ED with a cc of shortness of breath beginning this morning. Positive chills, shaking, nausea, heart fluttering, increased feet swelling, weight gain. She currently rates her discomfort as an 8/10 in severity. The patient states that she is on 4 mg of Lasix in the morning and 20 mg of Lasix in the afternoon. She denies taking any extra Lasix recently. The patient states that she is unable to walk very far without becoming short of breath. She denies any increased salt in her diet. The patient states that she has been compliant with her Xarelto use. Source of History: patient Onset: this morning Position: other (global) Symptom Intensity: 8/10 Quality: other (shortness of breath) Timing: other (persistent) Associated Symptoms: + chills, + nausea Note: Associated Symptoms: shaking, heart fluttering, increased feet swelling, weight gain. Review of Systems See HPI for pertinent positives and negatives. A total of ten systems were reviewed and were otherwise negative. 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 Family History No significant family history Social History Smoking Status: Never Smoker Alcohol Use: none Drug Use: none Marital Status: Occupation Status: retired Current/Historical Medications Scheduled Cholecalciferol (Vitamin D3), 2,000 INTER.UNIT PO QAM Digoxin (Digoxin), 0.125 MG PO QAM Ferrous Sulfate (Ferrous Sulfate), 325 MG PO BIDM Fish Oil ([place]-3), 1 CAP PO QAM Furosemide (Lasix), 20 MG PO UD Furosemide (Lasix), 40 MG PO QAM Insulin Aspart Protamine & Asp (Novolog Mix 70/30 Prefill), 20 UNITS SC BID Lisinopril (Lisinopril), 20 MG PO QAM Multivitamin (Multivitamin), 1 TAB PO QAM Rivaroxaban (Xarelto), 20 MG PO QDD Trazodone Hcl (Trazodone), 25 MG PO HS Scheduled PRN Polyethylene (Miralax), 17 GM PO DAILY PRN for Constipation Tramadol HCl (Tramadol HCl), 50-100 MG PO Q4H PRN for Pain Allergies Coded Allergies: Adhesives (Verified Allergy, Unknown, local skin irritation, 08/27/17) paper tape is okay per pt Carvedilol (Verified Allergy, Unknown, per cardio note , 08/27/17) Diltiazem (Verified Allergy, Unknown, MUSCLE SHAKES AND CANT WALK, ) Meloxicam (Verified Allergy, Unknown, MUSCLE CRAMPS AND SHAKE AND CANT WALK, 08/27/17) Metoprolol (Verified Allergy, Unknown, per cardio note , 08/27/17) Omeprazole (Verified Allergy, Unknown, per cardio note , 08/27/17) Penicillins (Verified Allergy, Unknown, FEVER, 08/27/17) Sulfa Antibiotics (Verified Allergy, Unknown, per cardio note , 08/27/17) Codeine (Verified Adverse Reaction, Mild, MUSCLE SHAKES AND PASSES OUT, ) Metformin (Verified Adverse Reaction, Unknown, DIARRHEA/ HAIR FELL OUT, ) Physical Exam Vital Signs Date Time Temp Pulse Resp B/P (MAP) Pulse Ox O2 Delivery O2 Flow Rate FiO2 08/27/17 13:42 92 20 145/49 99 Room Air 08/27/17 13:04 89 20 180/62 99 Room Air 08/27/17 12:13 91 08/27/17 12:00 99 Room Air 08/27/17 12:00 99 Room Air 08/27/17 11:29 36.5 88 20 181/81 99 Room Air Physical Exam GENERAL: Awake, alert, well-appearing, NAD HENT: Normocephalic, atraumatic. Poor dentition. EYES: Normal conjunctiva. Sclera non-icteric. NECK: Supple. No nuchal rigidity. FROM. RESPIRATORY: CTAB, no rhonchi, wheezing, crackles CARDIAC: RRR, no MRG ABDOMEN: Soft, NTND, BS+ MSK: No chest wall TTP, massive 4+ lower extremity pitting edema, compartments are soft. NEURO: GCS 15, CN 2-12 intact, moves all 4s on command SKIN: No rash or jaundice noted. Medical Decision & Procedures ER Provider Diagnostic Interpretation: X-ray: Per my interpretation, radiologist review. CHEST ONE VIEW PORTABLE HISTORY: EVALUATE RESPIRATORY DISTRESS.DYSPNEA COMPARISON: Chest 07/07/2017. FINDINGS: The lungs are clear. Cardiac silhouette is normal in size. No pleural effusions. No pneumothorax. IMPRESSION: No acute process. Electronically signed by: Asael Puntam M.D. 08/27/2017 12:49 PM Dictated Date/Time: 08/27/2017 12:38 PM Laboratory Results 08/27/17 12:05 Red Blood Count 4.15, Mean Corpuscular Volume 81.4, Mean Corpuscular Hemoglobin 26.7, Mean Corpuscular Hemoglobin Concent 32.8, Mean Platelet Volume 9.1, Neutrophils (%) (Auto) 71.6, Lymphocytes (%) (Auto) 18.7, Monocytes (%) (Auto) 7.7, Eosinophils (%) (Auto) 1.5, Basophils (%) (Auto) 0.2, Neutrophils # (Auto) 6.34, Lymphocytes # (Auto) 1.66, Monocytes # (Auto) 0.68, Eosinophils # (Auto) 0.13, Basophils # (Auto) 0.02 Test 08/27/17 11:53 08/27/17 12:05 08/27/17 12:15 Urine Color YELLOW Urine Appearance CLEAR (CLEAR) Urine pH 5.0 (4.5-7.5) Urine Specific [place] 1.014 (1.000-1.030) Urine Protein NEG (NEG) Urine Glucose (UA) NEG (NEG) Urine Ketones NEG (NEG) Urine Occult Blood NEG (NEG) Urine Nitrite NEG (NEG) Urine Bilirubin NEG (NEG) Urine Urobilinogen NEG (NEG) Urine Leukocyte Esterase MODERATE (NEG) Urine WBC (Auto) 5-10 /hpf (0-5) Urine RBC (Auto) 0-4 /hpf (0-4) Urine Hyaline Casts (Auto) 0 /lpf (0-5) Urine Epithelial Cells (Auto) >30 /lpf (0-5) Urine Bacteria (Auto) NEG (NEG) White Blood Count 8.86 K/uL (4.8-10.8) Red Blood Count 4.15 M/uL (4.2-5.4) Hemoglobin 11.1 g/dL (12.0-16.0) Hematocrit 33.8 % (37-47) Mean Corpuscular Volume 81.4 fL (80-100) Mean Corpuscular Hemoglobin 26.7 pg (25-34) Mean Corpuscular Hemoglobin Concent 32.8 g/dl (32-36) Platelet Count 328 K/uL (130-400) Mean Platelet Volume 9.1 fL (7.4-10.4) Neutrophils (%) (Auto) 71.6 % Lymphocytes (%) (Auto) 18.7 % Monocytes (%) (Auto) 7.7 % Eosinophils (%) (Auto) 1.5 % Basophils (%) (Auto) 0.2 % Neutrophils # (Auto) 6.34 K/uL (1.4-6.5) Lymphocytes # (Auto) 1.66 K/uL (1.2-3.4) Monocytes # (Auto) 0.68 K/uL (0.11-0.59) Eosinophils # (Auto) 0.13 K/uL (0-0.5) Basophils # (Auto) 0.02 K/uL (0-0.2) RDW Standard Deviation 49.7 fL (36.4-46.3) RDW Coefficient of Variation 16.7 % (11.5-14.5) Immature Granulocyte % (Auto) 0.3 % Immature Granulocyte # (Auto) 0.03 K/uL (0.00-0.02) Prothrombin Time 10.5 SECONDS (9.0-12.0) Prothromb Time International Ratio 1.0 (0.9-1.1) Activated Partial Thromboplast Time 27.0 SECONDS (21.0-31.0) Partial Thromboplastin Ratio 1.0 Total Bilirubin 0.4 mg/dl (0.2-1) Aspartate Amino Transf (AST/SGOT) 16 U/L (15-37) Alanine Aminotransferase (ALT/SGPT) 20 U/L (12-78) Alkaline Phosphatase 182 U/L (45-117) Troponin I < 0.015 ng/ml (0-0.045) Pro-B-Type Natriuretic Peptide 144 pg/ml (0-900) Total Protein 7.7 gm/dl (6.4-8.2) Albumin 3.5 gm/dl (3.4-5.0) Globulin 4.2 gm/dl (2.5-4.0) Albumin/Globulin Ratio 0.8 (0.9-2) Bedside Lactic Acid Venous 1.40 mmol/L (0.90-1.70) Laboratory results reviewed by me Medications Administered Medications (Trade) Dose Ordered Sig/Isaac Route Start Time Stop Time Status Last Admin Dose Admin Furosemide (Lasix Inj) 40 mg NOW STAT IV 08/27/17 13:17 08/27/17 13:18 DC 08/27/17 13:42 40 MG Tramadol HCl (Ultram Tab) 50 mg Q4H PRN PO 08/27/17 15:30 09/26/17 15:29 08/28/17 03:52 50 MG ECG Indication: SOB/dyspnea Rate (beats per minute): 90 Rhythm: normal sinus Findings: other (normal intervals, normal axis, no STS or TWI) ED Course 1213: The patient was evaluated in room C11B. A complete history and physical exam was performed. 1317: Ordered Lasix Inj 40 mg IV. 1324: I reevaluated the patient and she is resting. I discussed the exam findings with her and I discussed the treatment plan. She verbalized complete understanding and agreement. She will be evaluated for further treatment. 1340: I discussed the patients case with Dr. You [facility]. He is going to evaluate the patient for further treatment. Medical Decision Differential diagnosis: Etiologies such as infections, reactive airway disease, pneumonia, pneumothorax , COPD, CHF, cardiac ischemia, pulmonary embolism, musculoskeletal, gastrointestinal, as well as others were entertained. The patient is a 67 year old white female with a past medical history of atrial fibrillation who presents to the ED with a cc of shortness of breath beginning this morning. Patient was seen and evaluated the bedside. Patient was complaining of some fluttering her heart and feels that she is put on a fair amount of weight in her lower extremities. Patient is complaining some dyspnea on exertion which she says typically she 40 feet now struggles to get out of bed. Patient did have a recent admission for similar symptoms where she had a normal cardiac echo. Patient was supposed to continue with compression stockings as well as diuresis. Patient states that she takes 40 mg of Lasix in the morning and 20 in the evening. On exam patient is well-appearing does not require oxygen is not tachypneic. Patient does have very large lower extremities. She has 4+ pitting edema and legs that are very disproportionate to the rest of her body. Patient had blood work that was completed along with an EKG and a chest x-ray. Patient's EKG did show normal sinus this time. Patient does take Xarelto for history of A. fib. Patient's chest x-ray does not show any consolidation or edema. Patient's blood work fairly unremarkable this time. I did speak with the hospitalist given the concerns that the patient would likely not be suitable candidate for rehabilitation given her very large lower extremity swelling. They're agreeable with this plan of care and the patient was admitted for further evaluation and treatment. Medication Reconcilliation Current Medication List: was personally reviewed by me Blood Pressure Screening Patient's blood pressure: Elevated blood pressure Blood pressure disposition: Referred to PCP (to hospitalist) Consults Time Called: 1318 Consulting Physician: CARLOS Morel Returned Call: 1340 I discussed the patients case with CARLOS Morel. He is going to evaluate the patient for further treatment. Impression Primary Impression: Lymphedema of lower extremity Additional Impression: Dyspnea on exertion Scribe Attestation The scribe's documentation has been prepared under my direction and personally reviewed by me in its entirety. I confirm that the note above accurately reflects all work, treatment, procedures, and medical decision making performed by me. Departure Information Dispostion Being Evaluated By Hospitalist Referrals Dane Valerio M.D. (PCP) Problem Qualifiers Primary Impression: Lymphedema of lower extremity Laterality: bilateral Qualified Codes: I89.0 - Lymphedema, not elsewhere classified
[2017-08-27 12:36] LABS: BASO % 0.2 %; BASO ABS # 0.02 K/uL (0-0.2); COMPLETE YES; EOS % 1.5 %; HEMATOCRIT 33.8 % (37-47); IG% 0.3 %; LYMPH % 18.7 %; LYMPH ABS # 1.66 K/uL (1.2-3.4); MEAN CELL VOLUME 81.4 fL (80-100); MEAN CORPUSCULAR HEMOGLOBIN 26.7 pg (25-34); MEAN CORPUSCULAR HGB CONC 32.8 g/dl (32-36); MEAN PLATELET VOLUME 9.1 fL (7.4-10.4); MONO % 7.7 %; NEUT % 71.6 %; PLATELET COUNT 328 K/uL (130-400); RED BLOOD COUNT 4.15 M/uL (4.2-5.4); WHITE BLOOD COUNT 8.86 K/uL (4.8-10.8)
[2017-08-27 12:41] LABS: PROTHROMBIN TIME (PATIENT) 10.5 SECONDS (9.0-12.0)
[2017-08-27 12:43] LABS: ALT/SGPT 20 U/L (12-78); BLOOD UREA NITROGEN 16 mg/dl (7-18); BUN/CREATININE RATIO 19.7 (10-20); CALCIUM 9.3 mg/dl (8.5-10.1); CARBON DIOXIDE 26 mmol/L (21-32); CHLORIDE 99 mmol/L (98-107); CREATININE 0.81 mg/dl (0.60-1.20); GLUCOSE 207 mg/dl (70-99); POTASSIUM 3.9 mmol/L (3.5-5.1); SODIUM 135 mmol/L (136-145)
[2017-08-27 12:48] LABS: ALB/GLOB RATIO 0.8 (0.9-2); ALKALINE PHOSPHATASE 182 U/L (45-117); AST/SGOT 16 U/L (15-37)
--- NOTE | 2017-08-27 12:51 | DIAGNOSTIC IMAGING REPORT ---
CHEST ONE VIEW PORTABLE HISTORY: EVALUATE RESPIRATORY DISTRESS.DYSPNEA COMPARISON: Chest 07/07/2017. FINDINGS: The lungs are clear. Cardiac silhouette is normal in size. No pleural effusions. No pneumothorax. IMPRESSION: No acute process. Electronically signed by: Asael Putnam M.D. 08/27/2017 12:49 PM Dictated Date/Time: 08/27/2017 12:38 PM
[2017-08-27 13:09] LABS: URINE APPEARANCE CLEAR (CLEAR); URINE BILIRUBIN NEG (NEG); URINE COLOR YELLOW; URINE EPITHELIAL CELL AUTO >30 /lpf (0-5); URINE NITRITE NEG (NEG); URINE SPECIFIC GRAVITY 1.014 (1.000-1.030); UROBILINOGEN NEG (NEG)
[2017-08-27 13:13] LABS: MANUAL MICROSCOPIC REQUIRED? NO; REVIEW REQ? NO
[2017-08-27] MEDS ORDERED: FUROSEMIDE 40 MG/4 ML VIAL IV STA (13:17)
[2017-08-27] MEDS ORDERED: NITROGLYCERIN 0.4 MG SL PER TAB CHARGE SL PRN (15:30)
[2017-08-27] MEDS ORDERED: ACETAMINOPHEN 325 MG TAB PO PRN (15:30)
[2017-08-27] MEDS ORDERED: POLYETHYLENE (MIRALAX) 17 GM PACK PO PRN (15:30)
[2017-08-27] MEDS ORDERED: MAGNESIUM HYDROXIDE SUSP 30 ML UDC PO PRN (15:30)
[2017-08-27] MEDS ORDERED: ALUMINUM/MAGNESIUM/SIMETH (MAALOX MAX) 30 ML UDC PO PRN (15:30)
[2017-08-27] MEDS ORDERED: ONDANSETRON INJ 2 MG/ML 2 ML VIAL IV PRN (15:30)
--- NOTE | 2017-08-27 15:43 | History and Physical ---
History & Physical Date & Time of Service: Aug 27, 2017 at 15:02 Chief Complaint: Heart Problems, Fluid On Legs Primary Care Physician: Dane Valerio M.D. History of Present Illness Source: patient, family ([facility]), hospital records 67yo female with history of obesity and chronic LE edema presents with 1-2 weeks of worsening LE edema (on top of her baseline amount), 10-15 pounds of weight gain in the last 1-2 weeks, abdominal swelling, and dyspnea on exertion. She also reports orthopnea. This is despite taking lasix 40mg every AM and 20mg every PM. She was scheduled to see Dr. Araujo from cardiology for vein work on her legs but her appointment was apparently rescheduled to some time in the future. Her legs are so edematous & heavy that it is hard for her to walk. She reports compliance with her xarelto which she takes for paroxysmal a. fib. No prior h/ o VTE. Past Medical/Surgical History PMH: Paroxysmal Atrial fibrillation HTN DM type 2 Obesity Chronic venous insufficiency SANDRA Anemia-microcytic- Fe-deficient Restless legs syndrome PSH: b/l hip replacements Family History mother - CHF and [place] father - unknown health also with family h/o a. 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) Multi-Drug Resistant Organisms History of MDRO: No Allergies Coded Allergies: Adhesives (Verified Allergy, Unknown, local skin irritation, 08/27/17) paper tape is okay per pt Carvedilol (Verified Allergy, Unknown, per cardio note , 08/27/17) Diltiazem (Verified Allergy, Unknown, MUSCLE SHAKES AND CANT WALK, ) Meloxicam (Verified Allergy, Unknown, MUSCLE CRAMPS AND SHAKE AND CANT WALK, 08/27/17) Metoprolol (Verified Allergy, Unknown, per cardio note , 08/27/17) Omeprazole (Verified Allergy, Unknown, per cardio note , 08/27/17) Penicillins (Verified Allergy, Unknown, FEVER, 08/27/17) Sulfa Antibiotics (Verified Allergy, Unknown, per cardio note , 08/27/17) Codeine (Verified Adverse Reaction, Mild, MUSCLE SHAKES AND PASSES OUT, ) Metformin (Verified Adverse Reaction, Unknown, DIARRHEA/ HAIR FELL OUT, ) Home Medications Scheduled Cholecalciferol (Vitamin D3), 2,000 INTER.UNIT PO QAM Digoxin (Digoxin), 0.125 MG PO QAM Ferrous Sulfate (Ferrous Sulfate), 325 MG PO BIDM Fish Oil ([place]-3), 1 CAP PO QAM Furosemide (Lasix), 20 MG PO UD Furosemide (Lasix), 40 MG PO QAM Insulin Aspart Protamine & Asp (Novolog Mix 70/30 Prefill), 20 UNITS SC BID Lisinopril (Lisinopril), 20 MG PO QAM Multivitamin (Multivitamin), 1 TAB PO QAM Rivaroxaban (Xarelto), 20 MG PO QDD Trazodone Hcl (Trazodone), 25 MG PO HS Scheduled PRN Polyethylene (Miralax), 17 GM PO DAILY PRN for Constipation Tramadol HCl (Tramadol HCl), 50-100 MG PO Q4H PRN for Pain Review of Systems Constitutional: + chills, + fatigue, + problem reported (weight gain), No fever Eyes: No worsening of vision ENT: + nasal symptoms, No hearing loss, No sore throat, No trouble swallowing Respiratory: + dyspnea on exertion, No cough, No sputum, No wheezing, No dyspnea at rest, No hemoptysis Cardiovascular: + chest pain (occasional, when she leans downward), + orthopnea , + edema, No PND, No claudication, No palpitations Abdomen: + diarrhea (x 2 days), No pain, No nausea, No vomiting, No constipation, No GI bleeding Musculoskeletal: + swelling, No joint pain, No muscle pain Genitourinary - Female: + dysuria (1x a few days ago; none since) Neurologic: No memory loss, No numbness/tingling Psychiatric: + depression symptoms, + anxiety Endocrine: + fatigue Hematologic / Lymphatic: No abnormal bleeding/bruising Integumentary: + rash (on shins) Physical Exam Vital Signs Date Time Temp Pulse Resp B/P (MAP) Pulse Ox O2 Delivery O2 Flow Rate FiO2 08/27/17 13:42 92 20 145/49 99 Room Air 08/27/17 13:04 89 20 180/62 99 Room Air 08/27/17 12:13 91 08/27/17 12:00 99 Room Air 08/27/17 12:00 99 Room Air 08/27/17 11:29 36.5 88 20 181/81 99 Room Air General Appearance: no apparent distress, + obese Head: normocephalic, atraumatic Eyes: PERRL ENT: TMs normal, pharynx normal Neck: supple, no adenopathy, no JVD Respiratory/Chest: no respiratory distress, no accessory muscle use, + rales ( scant dry rales bases) Cardiovascular: regular rate, rhythm, no gallop, no murmur, normal peripheral pulses Abdomen/GI: normal bowel sounds, non tender, soft, no organomegaly, + hernia (? ventral vs diasthesis recti) Extremities/Musculoskelatal: + pedal edema, + swelling (severe swelling/ lymphedema of both legs, mildly worse on right; edema is severe especially from the ankles to the knees) Neurologic/Psych: no motor/sensory deficits, alert, normal reflexes, oriented x 3, + pertinent finding (throughout the visit it appeared she was having motor tics vs myoclonus) Skin: + pertinent finding (large scar, right lateral thigh; venous stasis changes with dermatitis/scale/pink skin covering much of the lower legs; varicose veins present on both legs) Diagnostics Laboratory Results Results Past 24 Hours Test 08/27/17 11:53 08/27/17 12:05 08/27/17 12:15 Range/Units Urine Color YELLOW Urine Appearance CLEAR CLEAR Urine pH 5.0 4.5-7.5 Urine Specific [place] 1.014 1.000-1.030 Urine Protein NEG NEG Urine Glucose (UA) NEG NEG Urine Ketones NEG NEG Urine Occult Blood NEG NEG Urine Nitrite NEG NEG Urine Bilirubin NEG NEG Urine Urobilinogen NEG NEG Urine Leukocyte Esterase MODERATE NEG Urine WBC (Auto) 5-10 0-5 /hpf Urine RBC (Auto) 0-4 0-4 /hpf Urine Hyaline Casts (Auto) 0 0-5 /lpf Urine Epithelial Cells (Auto) >30 0-5 /lpf Urine Bacteria (Auto) NEG NEG White Blood Count 8.86 4.8-10.8 K/uL Red Blood Count 4.15 4.2-5.4 M/uL Hemoglobin 11.1 12.0-16.0 g/dL Hematocrit 33.8 37-47 % Mean Corpuscular Volume 81.4 80-100 fL Mean Corpuscular Hemoglobin 26.7 25-34 pg Mean Corpuscular Hemoglobin Concent 32.8 32-36 g/dl Platelet Count 328 130-400 K/uL Mean Platelet Volume 9.1 7.4-10.4 fL Neutrophils (%) (Auto) 71.6 % Lymphocytes (%) (Auto) 18.7 % Monocytes (%) (Auto) 7.7 % Eosinophils (%) (Auto) 1.5 % Basophils (%) (Auto) 0.2 % Neutrophils # (Auto) 6.34 1.4-6.5 K/uL Lymphocytes # (Auto) 1.66 1.2-3.4 K/uL Monocytes # (Auto) 0.68 0.11-0.59 K/uL Eosinophils # (Auto) 0.13 0-0.5 K/uL Basophils # (Auto) 0.02 0-0.2 K/uL RDW Standard Deviation 49.7 36.4-46.3 fL RDW Coefficient of Variation 16.7 11.5-14.5 % Immature Granulocyte % (Auto) 0.3 % Immature Granulocyte # (Auto) 0.03 0.00-0.02 K/uL Prothrombin Time 10.5 9.0-12.0 SECONDS Prothromb Time International Ratio 1.0 0.9-1.1 Activated Partial Thromboplast Time 27.0 21.0-31.0 SECONDS Partial Thromboplastin Ratio 1.0 Sodium Level 135 136-145 mmol/L Potassium Level 3.9 3.5-5.1 mmol/L Chloride Level 99 98-107 mmol/L Carbon Dioxide Level 26 21-32 mmol/L Anion Gap 10.0 3-11 mmol/L Blood Urea Nitrogen 16 7-18 mg/dl Creatinine 0.81 0.60-1.20 mg/dl Est Creatinine Clear Calc Drug Dose 73.5 ml/min Estimated GFR () 86.5 Estimated GFR (Non- 74.6 BUN/Creatinine Ratio 19.7 10-20 Random Glucose 207 70-99 mg/dl Calcium Level 9.3 8.5-10.1 mg/dl Total Bilirubin 0.4 0.2-1 mg/dl Aspartate Amino Transf (AST/SGOT) 16 15-37 U/L Alanine Aminotransferase (ALT/SGPT) 20 12-78 U/L Alkaline Phosphatase 182 45-117 U/L Troponin I < 0.015 0-0.045 ng/ml Pro-B-Type Natriuretic Peptide 144 0-900 pg/ml Total Protein 7.7 6.4-8.2 gm/dl Albumin 3.5 3.4-5.0 gm/dl Globulin 4.2 2.5-4.0 gm/dl Albumin/Globulin Ratio 0.8 0.9-2 Bedside Lactic Acid Venous 1.40 0.90-1.70 mmol/L Diagnostic Radiology cxr - no pulmonary edema or other infiltrates EKG EKG - my reading - NSR, no ST segment changes Impression Assessment and Plan 67yo female with obesity, paroxysmal Atrial fibrillation on chronic xarelto, HTN, T2DM, venous insufficiency, and SANDRA who presents with worsening LE edema. This has been accompanied by orthopnea, PND, and dyspnea on exertion. She reports compliance with her lasix (40mg AM, 20mg afternoon) along with fluid /salt restriction. 1. LE edema - her exam seems most c/w severe lymphedema. I suspect venous insufficiency is playing a very large role. Despite her complaints of orthopnea /dyspnea her lung exam is normal, her chest x-ray is normal, and her O2 sats are high 90s in room air. She does not appear to be in acute CHF. Her most recent TSH was normal, she has no history of cirrhosis/liver disease, has no CKD , and has no proteinuria. Dopplers were checked today and showed no DVT either. She received lasix 40mg IV x 1 in the ER and will follow clinical response. Will resume IV lasix again tomorrow AM. I recommended she continue to see Dr. Araujo for potential work on her veins and also to see a lymphedema specialist. She mentioned she tried compression stockings but could not get them on. She will need custom fit ones. Of note - the patient had an admission in June to [facility] for similar fluid issues. ECHO at that time showed NORMAL IVC and RA pressure along with nl LV function and nl diastolic function. 2. h/o PAF - remains in NSR today. Cont xarelto. Cont digoxin. Recent dig level in June was acceptable. 3. T2DM - for easier administration hold the 70/30 insulin. In ivan use lantus 15 units BID + novolog with meals/HS. 4. DVT proph - xarelto. 5. HTN - controlled. 6. SANDRA - noted. 7. tic vs myoclonic jerking - during the exam today she had these frequently. She attributed this "to her heart." I explained that the tic/jerks were unrelated. She may need to see a neurologist for this in the future. 8. restless legs - her ferritin was only 35 in June 2017. She should continue to replace the iron as low iron stores will make restless legs worse. I am uncertain if this issue is contributing to #7 above or if it is separate. Level of Care Telemetry Resuscitation Status DO NOT RESUSCITATE VTE Prophylaxis Risk Level: Moderate Given or contraindicated: Other Anticoagulation Note patient placed on observation status Additional Copies To Dane Valerio M.D.; Spencer Araujo MD
[2017-08-27] MEDS ORDERED: DEXTROSE 50% 50 ML SYR IV PRN (15:45)
[2017-08-27] MEDS ORDERED: GLUCAGON FOR INJ 1 MG VIAL SQ PRN (15:45)
[2017-08-27] MEDS ORDERED: GLUCOSE 40% GEL 15 GM TUBE PO PRN (15:45)
[2017-08-27] MEDS ORDERED: GLUCOSE 10 TABS/TUBE PO PRN (15:45)
--- NOTE | 2017-08-27 16:38 | DIAGNOSTIC IMAGING REPORT ---
VENOUS DOPPLER LWR EXT BILA CLINICAL HISTORY: 67 years-old Female presenting with MASSIVE EDEMA; EVAL FOR DVT EITHER LEG. TECHNIQUE: Real-time grayscale and color and spectral Doppler ultrasound imaging of the veins of the bilateral lower extremities was performed. Compression and augmentation were also utilized. COMPARISON: 07/07/2017. FINDINGS: Right: Common femoral vein: Patent. Femoral vein: Patent. Greater saphenous vein: Patent. Popliteal vein: Patent. Calf veins: Limited visualization secondary to subcutaneous edema. Left: Common femoral vein: Patent. Femoral vein: Patent. Greater saphenous vein: Patent. Popliteal vein: Patent. Calf veins: Limited visualization secondary to subcutaneous edema. Other: None. IMPRESSION: No evidence of deep venous thrombosis. Electronically signed by: Dane Rodriguez M.D. 08/27/2017 4:36 PM Dictated Date/Time: 08/27/2017 4:34 PM
[2017-08-27] MEDS ORDERED: IV FLUIDS COMPLETED PRN (16:45)
[2017-08-27] MEDS: TRAMADOL HCL 50 MG TAB PO PRN ×2 (17:52→23:25)
[2017-08-27 17:56] VITALS: BP 169/88; PULSE 88; TEMP 36.5; O2SAT 97; Ht 160 cm; Wt 90.9 kg
[2017-08-27] MEDS: FERROUS SULFATE 325 MG TAB PO SCH (18:12)
[2017-08-27] MEDS: RIVAROXABAN 20 MG TAB PO SCH (18:12)
[2017-08-27] MEDS: INSULIN ASPART 100 UNITS/ML 3 ML PEN SC SCH ×2 (18:16→21:04)
[2017-08-27 20:00] VITALS: O2SAT 97
[2017-08-27 20:11] VITALS: BP 145/71; PULSE 89; TEMP 36.4; O2SAT 94
[2017-08-27] MEDS ORDERED: TRAZODONE HCL 50 MG TAB PO SCH (21:00)
[2017-08-27] MEDS: INSULIN GLARGINE SOLOSTAR 100 UNITS/ML 3 ML PEN SC SCH (21:05)
[2017-08-27 23:41] VITALS: BP 105/63; PULSE 82; TEMP 36.5; O2SAT 95
[2017-08-28] VITALS (7 sets, daily range): BP systolic 119–155; BP diastolic 72–78; PULSE 78–97; TEMP 36.4–36.8; O2SAT 93–97
[2017-08-28] MEDS: TRAMADOL HCL 50 MG TAB PO PRN ×2 (03:52→10:42)
[2017-08-28 06:27] LABS: BUN/CREATININE RATIO 20.1 (10-20); CALCIUM 8.5 mg/dl (8.5-10.1); CREATININE 0.75 mg/dl (0.60-1.20); MAGNESIUM 2.2 mg/dl (1.8-2.4); POTASSIUM 3.8 mmol/L (3.5-5.1)
[2017-08-28] MEDS: FERROUS SULFATE 325 MG TAB PO SCH ×2 (08:18→16:15)
[2017-08-28] MEDS: INSULIN ASPART 100 UNITS/ML 3 ML PEN SC SCH ×3 (08:22→17:22)
[2017-08-28] MEDS: INSULIN GLARGINE SOLOSTAR 100 UNITS/ML 3 ML PEN SC SCH (08:23)
[2017-08-28] MEDS ORDERED: FUROSEMIDE INJ 40 MG in SYRINGE 0 ML IV SCH (09:00)
[2017-08-28] MEDS ORDERED: CHOLECALCIFEROL 1000 INTER.UNIT TAB PO SCH (09:00)
[2017-08-28] MEDS ORDERED: LISINOPRIL 20 MG TAB PO SCH (09:00)
[2017-08-28] MEDS ORDERED: POTASSIUM CHLORIDE 20 MEQ TABCR PO SCH (09:00)
[2017-08-28] MEDS ORDERED: DIGOXIN 0.125 MG TAB PO SCH ×2 (09:00→16:00)
[2017-08-28] MEDS ORDERED: OMEGA-3 (PURIFIED FISH OIL) 1 GM CAP PO SCH (09:00)
[2017-08-28] MEDS ORDERED: MULTIVITAMIN TAB PO SCH (09:00)
--- NOTE | 2017-08-28 11:43 | Medical Student: [facility] ---
Med Student History & Physical Date & Time of Service: Aug 28, 2017 at 11:20 Chief Complaint: Dyspnea On Exertion, Lymphedema Of Lower Extremity Primary Care Physician: Dane Valerio M.D. History of Present Illness Source: patient Shawna is a 67-year-old woman with a history of chronic venous stasis and bilateral THAs who presented to the ED yesterday (08/27) with significant bilateral leg swelling. She states that this has been a problem intermittently for the past 6 months but got significantly worse starting about 2 weeks ago. At that point, her home health aid could not get her compression stockings on, and tried to wrap her legs, but this was uncomfortable as it "cut off circulation" in her feet. She says that she gained about 15 pounds since then, and her son finally convinced her to get seen at the ER. She has also had orthopnea as well as shortness of breath with exertion with palpitations. She was admitted for this same problem in late June, and she had a normal echo while she was here. Her CXR in the ED showed no signs of pleural effusion or pulmonary edema, with normal heart borders. US reveals no DVTs. EKG showed normal sinus rhythm. She is currently on Lasix BID, 40 mg AM and 20 PM, and she says she has taken her medications as instructed. She has Meals on Wheels and is on the low sodium plan, and states that she is very cautious about using salt when she cooks. Other pertinent medical history includes DMII, afib, and SANDRA. Today, she states that the swelling has gone down some. She is still feeling some slight shortness of breath when she walks, which she says is difficult to do because of the swelling. Admits to orthopnea but denies chest pain, nausea/ vomiting, fever/chills, palpitations. When I pressed her for more specifics on the timing of the swelling, she says it began after she had both of her hips replaced; L was 1 year ago, R was 6 months ago with complications. She was a bit vague when she described her use of compression hose and said that it is very difficult for her to put them on herself because she cannot bend over that far. 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) Allergies Coded Allergies: Adhesives (Verified Allergy, Unknown, local skin irritation, 08/27/17) paper tape is okay per pt Carvedilol (Verified Allergy, Unknown, per cardio note , 08/27/17) Diltiazem (Verified Allergy, Unknown, MUSCLE SHAKES AND CANT WALK, ) Meloxicam (Verified Allergy, Unknown, MUSCLE CRAMPS AND SHAKE AND CANT WALK, 08/27/17) Metoprolol (Verified Allergy, Unknown, per cardio note , 08/27/17) Omeprazole (Verified Allergy, Unknown, per cardio note , 08/27/17) Penicillins (Verified Allergy, Unknown, FEVER, 08/27/17) Sulfa Antibiotics (Verified Allergy, Unknown, per cardio note , 08/27/17) Codeine (Verified Adverse Reaction, Mild, MUSCLE SHAKES AND PASSES OUT, ) Metformin (Verified Adverse Reaction, Unknown, DIARRHEA/ HAIR FELL OUT, ) Medications Cholecalciferol (Vitamin D3), 2,000 INTER.UNIT PO QAM Digoxin (Digoxin), 0.125 MG PO QAM Ferrous Sulfate (Ferrous Sulfate), 325 MG PO BIDM Fish Oil ([place]-3), 1 CAP PO QAM Furosemide (Lasix), 20 MG PO UD Furosemide (Lasix), 40 MG PO QAM Insulin Aspart Protamine & Asp (Novolog Mix 70/30 Prefill), 20 UNITS SC BID Lisinopril (Lisinopril), 20 MG PO QAM Multivitamin (Multivitamin), 1 TAB PO QAM Polyethylene (Miralax), 17 GM PO DAILY PRN for Constipation Rivaroxaban (Xarelto), 20 MG PO QDD Tramadol HCl (Tramadol HCl), 50-100 MG PO Q4H PRN for Pain Trazodone Hcl (Trazodone), 25 MG PO HS Review of Systems Constitutional: + problem reported (weight gain), No fever, No chills Respiratory: + shortness of breath, + dyspnea on exertion, No cough, No wheezing Cardiovascular: + orthopnea, + edema, + palpitations (Had them in ED but not this morning), No chest pain, No claudication Abdomen: No nausea, No vomiting Musculoskeletal: + swelling, No calf pain Genitourinary - Female: No dysuria Neurologic: + numbness/tingling (Dorsum of feet bilaterally) Integumentary: No rash, No itch Physical Exam Vital Signs (24 Hours) Date Time Temp Pulse Resp B/P (MAP) Pulse Ox O2 Delivery O2 Flow Rate FiO2 08/28/17 07:21 36.5 82 18 152/72 (98) 95 Room Air 08/28/17 04:00 97 Room Air 08/28/17 03:22 36.4 85 16 153/72 (99) 93 Room Air 08/28/17 00:00 97 Room Air 08/27/17 23:41 36.5 82 18 105/63 (77) 95 Room Air 08/27/17 20:11 36.4 89 20 145/71 (95) 94 Room Air 08/27/17 20:00 97 Room Air 08/27/17 17:56 36.5 88 18 169/88 97 Room Air 08/27/17 15:50 83 18 179/85 97 Room Air 08/27/17 13:42 92 20 145/49 99 Room Air 08/27/17 13:04 89 20 180/62 99 Room Air 08/27/17 12:13 91 08/27/17 12:00 99 Room Air 08/27/17 12:00 99 Room Air 08/27/17 11:29 36.5 88 20 181/81 99 Room Air General Appearance: WD/WN, no apparent distress Head: normocephalic, atraumatic Eyes: normal inspection Neck: supple, no adenopathy Respiratory/Chest: chest non-tender, normal breath sounds, no respiratory distress, + wheezing (Slight wheeze in right lower lobe) Cardiovascular: regular rate, rhythm, no gallop Abdomen/GI: normal bowel sounds, non tender, soft Extremities/Musculoskelatal: + pedal edema, + pertinent finding (2-3+ pitting edema bilaterally, to mid-thigh) Neurologic/Psych: 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 as tested, alert, normal mood/affect Skin: warm/dry, no rash Diagnostics Laboratory Results Results Past 24 Hours Test 08/27/17 11:53 08/27/17 12:05 08/27/17 12:15 08/27/17 17:38 Range/Units Urine Color YELLOW Urine Appearance CLEAR CLEAR Urine pH 5.0 4.5-7.5 Urine Specific [place] 1.014 1.000-1.030 Urine Protein NEG NEG Urine Glucose (UA) NEG NEG Urine Ketones NEG NEG Urine Occult Blood NEG NEG Urine Nitrite NEG NEG Urine Bilirubin NEG NEG Urine Urobilinogen NEG NEG Urine Leukocyte Esterase MODERATE NEG Urine WBC (Auto) 5-10 0-5 /hpf Urine RBC (Auto) 0-4 0-4 /hpf Urine Hyaline Casts (Auto) 0 0-5 /lpf Urine Epithelial Cells (Auto) >30 0-5 /lpf Urine Bacteria (Auto) NEG NEG White Blood Count 8.86 4.8-10.8 K/uL Red Blood Count 4.15 4.2-5.4 M/uL Hemoglobin 11.1 12.0-16.0 g/dL Hematocrit 33.8 37-47 % Mean Corpuscular Volume 81.4 80-100 fL Mean Corpuscular Hemoglobin 26.7 25-34 pg Mean Corpuscular Hemoglobin Concent 32.8 32-36 g/dl Platelet Count 328 130-400 K/uL Mean Platelet Volume 9.1 7.4-10.4 fL Neutrophils (%) (Auto) 71.6 % Lymphocytes (%) (Auto) 18.7 % Monocytes (%) (Auto) 7.7 % Eosinophils (%) (Auto) 1.5 % Basophils (%) (Auto) 0.2 % Neutrophils # (Auto) 6.34 1.4-6.5 K/uL Lymphocytes # (Auto) 1.66 1.2-3.4 K/uL Monocytes # (Auto) 0.68 0.11-0.59 K/uL Eosinophils # (Auto) 0.13 0-0.5 K/uL Basophils # (Auto) 0.02 0-0.2 K/uL RDW Standard Deviation 49.7 36.4-46.3 fL RDW Coefficient of Variation 16.7 11.5-14.5 % Immature Granulocyte % (Auto) 0.3 % Immature Granulocyte # (Auto) 0.03 0.00-0.02 K/uL Prothrombin Time 10.5 9.0-12.0 SECONDS Prothromb Time International Ratio 1.0 0.9-1.1 Activated Partial Thromboplast Time 27.0 21.0-31.0 SECONDS Partial Thromboplastin Ratio 1.0 Sodium Level 135 136-145 mmol/L Potassium Level 3.9 3.5-5.1 mmol/L Chloride Level 99 98-107 mmol/L Carbon Dioxide Level 26 21-32 mmol/L Anion Gap 10.0 3-11 mmol/L Blood Urea Nitrogen 16 7-18 mg/dl Creatinine 0.81 0.60-1.20 mg/dl Est Creatinine Clear Calc Drug Dose 73.5 ml/min Estimated GFR () 86.5 Estimated GFR (Non- 74.6 BUN/Creatinine Ratio 19.7 10-20 Random Glucose 207 70-99 mg/dl Calcium Level 9.3 8.5-10.1 mg/dl Total Bilirubin 0.4 0.2-1 mg/dl Aspartate Amino Transf (AST/SGOT) 16 15-37 U/L Alanine Aminotransferase (ALT/SGPT) 20 12-78 U/L Alkaline Phosphatase 182 45-117 U/L Troponin I < 0.015 0-0.045 ng/ml Pro-B-Type Natriuretic Peptide 144 0-900 pg/ml Total Protein 7.7 6.4-8.2 gm/dl Albumin 3.5 3.4-5.0 gm/dl Globulin 4.2 2.5-4.0 gm/dl Albumin/Globulin Ratio 0.8 0.9-2 Bedside Lactic Acid Venous 1.40 0.90-1.70 mmol/L Bedside Glucose 209 70-90 mg/dl Test 08/27/17 20:32 08/28/17 05:36 08/28/17 07:24 Range/Units Bedside Glucose 179 185 70-90 mg/dl Sodium Level 138 136-145 mmol/L Potassium Level 3.8 3.5-5.1 mmol/L Chloride Level 106 98-107 mmol/L Carbon Dioxide Level 27 21-32 mmol/L Anion Gap 5.0 3-11 mmol/L Blood Urea Nitrogen 15 7-18 mg/dl Creatinine 0.75 0.60-1.20 mg/dl Est Creatinine Clear Calc Drug Dose 76.8 ml/min Estimated GFR () 94.9 Estimated GFR (Non- 81.9 BUN/Creatinine Ratio 20.1 10-20 Random Glucose 186 70-99 mg/dl Calcium Level 8.5 8.5-10.1 mg/dl Magnesium Level 2.2 1.8-2.4 mg/dl Impression Assessment and Plan Assessment/Plan: This is a 67-year-old female who presented to the ED 08/27 with severe bilateral lower extremity pitting edema. DDx includes venous stasis, lymphedema , complications from total hip replacements, CHF, SANDRA. Edema/venous stasis: -Compression hose as soon as able -Diuretics - currently on IV Lasix, consider switching to spironolactone? Diabetes: -Continue NovoLog - consider increasing dose as patient states she is not well- controlled on it -Continue Lantus, 15 units -Monitor blood glucose before meals A-fib: -Continue Xarelto -Repeat EKG SANDRA: -Continue CPAP and/or BiPAP use HTN: -Continue lisinopril Advanced Directives Existing Living Will: No Existing Power of System Software Developer: No Resuscitation Status DO NOT RESUSCITATE DVT Prophylaxis other (Xarelto)
[2017-08-28] MEDS: RIVAROXABAN 20 MG TAB PO SCH (16:15)
--- NOTE | 2017-08-28 16:38 | Discharge Instructions ---
Discharge Instructions Date of Service Aug 28, 2017. Admission Reason for Admission: Dyspnea On Exertion, Lymphedema Of Lower Extremity Discharge Discharge Diagnosis / Problem: venous stasis/lymphedema Discharge Goals Goal(s): Decrease discomfort, Learn about illness, Therapeutic intervention Activity Recommendations Activity Limitations: resume your previous activity (the more movement you're able to do the better) . Instructions / Follow-Up Instructions / Follow-Up venous stasis/lymphedema (for leg purposes, and for treatment/what this functionally means for you, the two terms can be used basically interchangeably) -as we discussed, venous stasis happens because veins are a low pressure system. to return blood to "central circulation" they get squeezed by muscle contractions, which moves blood upwards. as the blood moves up, one way valves keep the blood from flowing backwards. veins are mostly connective tissue and elastic tissue, with a little bit of muscle fiber mixed in. what happens with venous insufficiency is that due to a number of reasons (genetics, previous pregnancies, trauma that disrupts the veins) the elastic tissue in the hayes of the veins breaks down, and then the vein gets looser and floppier. because of that, the valves no longer touch, and fluid is able to "slosh" backwards when it is not getting squeezed up by muscles. as veins get stretched with more fluid, then they get leaky - and as they get leaky the fluid leaks out into the surrounding soft tissue causing the swelling you've been having -typically, and as you have noticed, diuretics don't do much to help with this, because diuretics work at the level of the kidney - which is at the far side of artery circulation. fluid from venous stasis is at the end of venous circulation. if i'm a drop of blood, to go from veins to kidneys, i have to go through progressively bigger veins, back to the right side of the heart when i then get pumped through the lungs, from the lungs to the left side of the heart , and from the left side of the heart out through arteries where i finally get to the kidneys. it's too much pull to be able to pull fluid that far forward - which is why you haven't seen much results from them (and why when you were on much higher dosing your kidneys also got upset -- it likely dried out the artery side but still wasn't really able to pull fluid forward much from the veins) ----since we're not seeing anything looking remotely like congestive heart failure, and you haven't seen any meaningful benefit from lasix (furosemide) - we'd suggest you stop it entirely for now. if you were to notice rapid weight gain, rapid worsening in swelling, or new shortness of breath (especially new shortness of breath with exertion or when you lay flat) - then it might be that you do truly need the diuretic (but this seems unlikely) -- if this were to happen we'd want you to resume the lasix and call dr ball or the ER ( depending on severity) right away management of venous stasis -the main management are modalities that get the fluid out of your legs and hold the veins together, and things that get the muscles to squeeze fluid forward: compression and movement compression -we'd recommend a more individualized regimen of compression for you since you' ve not been able to tolerate the "cookie cutter" approaches. most specifically , you'd likely benefit a lot from edema management with [facility] - the specific therapist recommended is Petrona Schrader -- [phone]. they usually do manual techniques to help move the fluid, and then compression wraps and taping individualized to you to help reduce "rebound" swelling -- over time this often is very helpful -if for whatever reason they're not able to see you, therapy clinics that specialize in edema management would be where you'd want to look movement -water walking actually combines compression (from the water pressure) and movement. further, with all your arthritis, the fact that being in water unweights you likely would allow you to move much better with less pain. definitely we would highly recommend that. typically [facility] that would be ideal. -outside of water walking, definitely the more walking/movement in general you' re able to do the more it will mobilize the fluids this will all take time, but be persistent. also once things start to get better, remember that you always have to "stay on it" with things like venous stasis, otherwise the situation usually backslides. Current Hospital Diet Patient's current hospital diet: Diabetes Type 2 Diet, Low Sodium Diet (2gm Na) Discharge Diet Recommended Diet: Low Sodium Diet (2gm Na), Diabetes Type 2 Diet Pending Studies Studies pending at discharge: no Laboratory Results Hemoglobin A1c Test 07/08/17 05:25 Range/Units Estimated Average Glucose 260 mg/dl Hemoglobin A1c 10.7 H 4.5-5.6 % Medical Emergencies . Who to Call and When: Medical Emergencies: If at any time you feel your situation is an emergency, please call 911 immediately. . Non-Emergent Contact Non-Emergency issues call your: Primary Care Provider . . "Provider Documentation" section prepared by Sherif Cruz. . VTE Core Measure Inpt VTE Proph given/why not?: Other Anticoagulation
--- NOTE | 2017-08-28 18:53 | Discharge Summary ---
Discharge Summary Date of Service Aug 28, 2017. Discharge Summary Admission Date: Aug 27, 2017 at 15:36 Discharge Date: Aug 28, 2017 Discharge Disposition: Home Principal Diagnosis: venous stasis edema Procedures: CXR without findings of CHF Last Resulted CBC 08/27/17 12:05 Red Blood Count 4.15, Mean Corpuscular Volume 81.4, Mean Corpuscular Hemoglobin 26.7, Mean Corpuscular Hemoglobin Concent 32.8, Mean Platelet Volume 9.1, Neutrophils (%) (Auto) 71.6, Lymphocytes (%) (Auto) 18.7, Monocytes (%) (Auto) 7.7, Eosinophils (%) (Auto) 1.5, Basophils (%) (Auto) 0.2, Neutrophils # (Auto) 6.34, Lymphocytes # (Auto) 1.66, Monocytes # (Auto) 0.68, Eosinophils # (Auto) 0.13, Basophils # (Auto) 0.02 Last Resulted BMP 08/28/17 05:36 recent echo reviewed without overtly abnormal findings Medication Reconciliation Continued Medications: Cholecalciferol (Vitamin D3) 2,000 Unit Cap 2000 INTER.UNIT PO QAM, CAP Digoxin (Digoxin) 0.125 Mg Tab 0.125 MG PO QAM Ferrous Sulfate (Ferrous Sulfate) 325 Mg Tab 325 MG PO BIDM for 30 Days, #60 TAB OTC Fish Oil ([place]-3) 1 Ea Cap 1 CAP PO QAM, CAP Insulin Aspart Protamine & Asp (Novolog Mix 70/30 Prefill) 1 Inj Inj 20 UNITS SC BID for 30 Days Lisinopril (Lisinopril) 20 Mg Tab 20 MG PO QAM Multivitamin (Multivitamin) Tab 1 TAB PO QAM, TAB Polyethylene (Miralax) 17 Gm Pow 17 GM PO DAILY PRN for Constipation for 30 Days Rivaroxaban (Xarelto) 20 Mg Tab 20 MG PO QDD for 30 Days should be taken with dinner Tramadol HCl (Tramadol HCl) 50 Mg Tab 50-100 MG PO Q4H PRN for Pain Trazodone Hcl (Trazodone) 50 Mg Tab 25 MG PO HS, TAB Discontinued Medications: Furosemide (Lasix) 20 Mg Tab 20 MG PO UD TAKES AT 1500 Furosemide (Lasix) 20 Mg Tab 40 MG PO QAM, TAB Discharge Exam Physical Exam: General Appearance: no apparent distress Eyes: EOMI ENT: hearing grossly normal Neck: trachea midline Respiratory/Chest: no respiratory distress, no accessory muscle use Extremities: + pedal edema (~3+ equal b/l no cords no erythema) 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 notes never had active CHF that she's aware of, and also recent echo reassuring from cardiomyopathy standpoint -notes that she's been on diuretics just for peripheral edema but she really doesn't notice it doing much - and notes that before when she was on higher dosing her creatinine would rise and/or she would feel really dehydrated -clinical situation/exam fits heavily w venous insufficiency/lymphedema -extensive d/w pt on pathophysiology, etiology, and management -movement (walking, water walking if at all possible) -compression (has not been able to tolerate regular Rx for compression - asked to refer to edema clinic - discussed how this would be different than prior compression and she expressed understnading and willingness to do this) -since no evidence of CHF and notes that diuretics have caused her problems before - will cautiously stop diuretics - outlined "red flag" symptoms to watch for, although doubt they will occur Total Time Spent: Greater than 30 minutes This includes examination of the patient, discharge planning, medication reconciliation, and communication with other providers. Discharge Instructions Please refer to the electronic Patient Visit Report (Discharge Instructions) for additional information. Additional Copies To Dane Valerio M.D.
== END 2017-08-28 17:30 | disposition home or self-care (01) ==
LOC: C.EDB 11:28 → C.MED 15:36 → ENRESERV 15:53
PROVIDERS: ADMIT Internal Medicine; ATTEND Family Medicine
DX: I87.2 Venous insufficiency (chronic) (peripheral) (principal); I48.0 Paroxysmal atrial fibrillation; I10 Essential (primary) hypertension; E11.9 Type 2 diabetes mellitus without complications; G47.33 Obstructive sleep apnea (adult) (pediatric); E66.9 Obesity, unspecified; Z79.899 Other long term (current) drug therapy; Z79.01 Long term (current) use of anticoagulants; Z96.643 Presence of artificial hip joint, bilateral; Z88.0 Allergy status to penicillin; Z88.5 Allergy status to narcotic agent; Z88.2 Allergy status to sulfonamides

== ENCOUNTER 2017-09-16 15:45 | Emergency (ER) | payer OTHER ==
[~2017-09-16] VITALS: Ht 160 cm; Wt 99.1 kg
[~2017-09-16 15:45] MED LIST changes: -CEFD300C3 PO; -DXY100 PO; -LSX20 PO
[2017-09-16 15:54] VITALS: TEMP 36.4; Ht 160 cm; Wt 99.1 kg
[2017-09-16] MEDS ORDERED: NVLG SQ (18:19)
--- NOTE | 2017-09-16 18:21 | EMERGENCY ROOM VISIT NOTE ---
History Report prepared by Delfina: Ariadna Méndez Under the Supervision of: Dr. Mark Tinoco M.D. First contact with patient: 17:28 Chief Complaint: SWELLING TO EXTREMITY Stated Complaint: SWELLING IN LEGS History of Present Illness The patient is a 67 year old white female with a past medical history of lymphedema, DVT on xarelto, DM2, a fib on digoxin who presents to the ED with a cc of worsening B/L LE swelling beginning this morning. She also has redness and some drainage of her right leg. The patient states she feels pressure and has fluid in her legs. She also notes the infections started traveling up her leg this morning. Was last seen here in August for similar symptoms. Denies SOB, CP. Patient does not use oxygen at home. Patient does have in home healthcare weekly to help. During her last stay she was assisted w/ obtaining custom fitted compression stockings to help. Source of History: patient Onset: this morning Position: leg (bilateral) Quality: other (swelling ) Timing: worsening Associated Symptoms: No chest pain, No SOB Note: redness and some drainage of her right leg. Review of Systems See HPI for pertinent positives and negatives. A total of ten systems were reviewed and were otherwise negative. Past Medical & Surgical Medical Problems: (1) A-fib (2) Arthritis (3) Atrial fibrillation (4) DM2 (diabetes mellitus, type 2) (5) DVT (deep venous thrombosis) (6) Left Hip DJD (7) Lymphedema (8) Right Hip DJD Family History No significant family history Social History Smoking Status: Never Smoker Alcohol Use: none Drug Use: none Marital Status: Occupation Status: retired Current/Historical Medications Scheduled Cholecalciferol (Vitamin D3), 2,000 INTER.UNIT PO QAM Digoxin (Digoxin), 0.125 MG PO QAM Ferrous Sulfate (Ferrous Sulfate), 325 MG PO BIDM Fish Oil ([place]-3), 1 CAP PO QAM Insulin Aspart (Novolog), 22 UNITS SQ DAILY Lisinopril (Lisinopril), 20 MG PO QAM Multivitamin (Multivitamin), 1 TAB PO QAM Rivaroxaban (Xarelto), 20 MG PO QDD Scheduled PRN Polyethylene (Miralax), 17 GM PO DAILY PRN for Constipation Tramadol HCl (Tramadol HCl), 50-100 MG PO Q4H PRN for Pain Allergies Coded Allergies: Adhesives (Verified Allergy, Unknown, local skin irritation, 09/16/17) paper tape is okay per pt Carvedilol (Verified Allergy, Unknown, per cardio note , 09/16/17) Diltiazem (Verified Allergy, Unknown, MUSCLE SHAKES AND CANT WALK, 09/16/17 ) Meloxicam (Verified Allergy, Unknown, MUSCLE CRAMPS AND SHAKE AND CANT WALK, 09/16/17) Metoprolol (Verified Allergy, Unknown, per cardio note , 09/16/17) Omeprazole (Verified Allergy, Unknown, per cardio note , 09/16/17) Penicillins (Verified Allergy, Unknown, FEVER, 09/16/17) Sulfa Antibiotics (Verified Allergy, Unknown, per cardio note , 09/16/17) Codeine (Verified Adverse Reaction, Mild, MUSCLE SHAKES AND PASSES OUT, ) Metformin (Verified Adverse Reaction, Unknown, DIARRHEA/ HAIR FELL OUT, ) Physical Exam Vital Signs Date Time Temp Pulse Resp B/P (MAP) Pulse Ox O2 Delivery O2 Flow Rate FiO2 09/16/17 20:46 89 18 158/75 97 Room Air 09/16/17 19:12 83 20 164/78 100 Room Air 09/16/17 19:08 87 09/16/17 18:30 86 18 98 Room Air 09/16/17 15:54 36.4 78 20 188/63 93 Room Air Physical Exam GENERAL: Awake, alert, well-appearing, NAD HENT: Normocephalic, atraumatic. EYES: Normal conjunctiva. Sclera non-icteric. NECK: Supple. No nuchal rigidity. FROM. RESPIRATORY: CTAB, no rhonchi, wheezing, crackles CARDIAC: RRR, no MRG ABDOMEN: Soft, NTND, BS+ MSK: No chest wall TTP. Severe nonpitting LE swelling with some trace redness to the medial aspects of the distal thighs. NEURO: GCS 15, CN 2-12 intact, moves all 4s on command SKIN: No rash or jaundice noted. Medical Decision & Procedures ER Provider Diagnostic Interpretation: Radiology results as stated below per my review and radiologist interpretation: SINGLE VIEW CHEST CLINICAL HISTORY: Generalized abdominal pain. FINDINGS: An AP, portable, upright chest radiograph is compared to study dated 08/27/2017. The examination is degraded by portable technique and apical lordotic positioning. The cardiomediastinal silhouette is unremarkable. There is mild atherosclerotic calcification of the thoracic aorta. The lungs and pleural spaces are clear. No pneumothorax is seen. The skeletal structures are osteopenic. Arthritic change is seen in the shoulders and thoracic spine. IMPRESSION: No active disease in the chest. Electronically signed by: Abel Aguayo M.D. 09/16/2017 6:24 PM Laboratory Results 09/16/17 20:15 Red Blood Count 3.98, Mean Corpuscular Volume 82.7, Mean Corpuscular Hemoglobin 26.9, Mean Corpuscular Hemoglobin Concent 32.5, Mean Platelet Volume 8.9, Neutrophils (%) (Auto) 73.0, Lymphocytes (%) (Auto) 18.4, Monocytes (%) (Auto) 7.1, Eosinophils (%) (Auto) 1.1, Basophils (%) (Auto) 0.2, Neutrophils # (Auto) 6.35, Lymphocytes # (Auto) 1.60, Monocytes # (Auto) 0.62, Eosinophils # (Auto) 0.10, Basophils # (Auto) 0.02 09/16/17 19:30 Test 09/16/17 19:00 09/16/17 19:30 09/16/17 20:15 Urine Color YELLOW Urine Appearance CLEAR (CLEAR) Urine pH 6.5 (4.5-7.5) Urine Specific [place] 1.010 (1.000-1.030) Urine Protein NEG (NEG) Urine Glucose (UA) NEG (NEG) Urine Ketones NEG (NEG) Urine Occult Blood NEG (NEG) Urine Nitrite NEG (NEG) Urine Bilirubin NEG (NEG) Urine Urobilinogen NEG (NEG) Urine Leukocyte Esterase SMALL (NEG) Urine WBC (Auto) 1-5 /hpf (0-5) Urine RBC (Auto) 0-4 /hpf (0-4) Urine Hyaline Casts (Auto) 0 /lpf (0-5) Urine Epithelial Cells (Auto) >30 /lpf (0-5) Urine Bacteria (Auto) NEG (NEG) Anion Gap 5.0 mmol/L (3-11) Est Creatinine Clear Calc Drug Dose 79.5 ml/min Estimated GFR () 93.4 Estimated GFR (Non- 80.6 BUN/Creatinine Ratio 15.9 (10-20) Calcium Level 9.2 mg/dl (8.5-10.1) Total Bilirubin 0.4 mg/dl (0.2-1) Direct Bilirubin mg/dl (0-0.2) Aspartate Amino Transf (AST/SGOT) U/L (15-37) Alanine Aminotransferase (ALT/SGPT) 25 U/L (12-78) Alkaline Phosphatase 150 U/L (45-117) Pro-B-Type Natriuretic Peptide 218 pg/ml (0-900) Total Protein 7.8 gm/dl (6.4-8.2) Albumin 3.2 gm/dl (3.4-5.0) Lipase 83 U/L (73-393) White Blood Count 8.71 K/uL (4.8-10.8) Red Blood Count 3.98 M/uL (4.2-5.4) Hemoglobin 10.7 g/dL (12.0-16.0) Hematocrit 32.9 % (37-47) Mean Corpuscular Volume 82.7 fL (80-100) Mean Corpuscular Hemoglobin 26.9 pg (25-34) Mean Corpuscular Hemoglobin Concent 32.5 g/dl (32-36) Platelet Count 303 K/uL (130-400) Mean Platelet Volume 8.9 fL (7.4-10.4) Neutrophils (%) (Auto) 73.0 % Lymphocytes (%) (Auto) 18.4 % Monocytes (%) (Auto) 7.1 % Eosinophils (%) (Auto) 1.1 % Basophils (%) (Auto) 0.2 % Neutrophils # (Auto) 6.35 K/uL (1.4-6.5) Lymphocytes # (Auto) 1.60 K/uL (1.2-3.4) Monocytes # (Auto) 0.62 K/uL (0.11-0.59) Eosinophils # (Auto) 0.10 K/uL (0-0.5) Basophils # (Auto) 0.02 K/uL (0-0.2) RDW Standard Deviation 48.1 fL (36.4-46.3) RDW Coefficient of Variation 15.8 % (11.5-14.5) Immature Granulocyte % (Auto) 0.2 % Immature Granulocyte # (Auto) 0.02 K/uL (0.00-0.02) Laboratory results reviewed by me Medications Administered Medications (Trade) Dose Ordered Sig/Isaac Route Start Time Stop Time Status Last Admin Dose Admin Acetaminophen/ Hydrocodone Bitart ([place] 5/325 Tab) 1 tab ONE STAT PO 09/16/17 20:27 09/16/17 20:28 DC 09/16/17 20:38 1 TAB Tramadol HCl (Ultram Tab) 50 mg NOW STAT PO 09/16/17 20:27 09/16/17 20:28 DC 09/16/17 20:38 50 MG ECG Indication: other (B/L LE swelling ) Rate (beats per minute): 84 Rhythm: normal sinus Findings: other (Normal axis. Normal intervals. No other STs or TWIs ) ED Course 1802: The patient was evaluated in room B3B. A complete history and physical exam was performed. 2134: I reevaluated the patient. Discussed results and discharge instructions: She verbalized understanding and agreement. The patient is ready for discharge. Medical Decision The patient is a 67 year old white female with a past medical history of lymphedema, DVT on Xarelto, DM2, a fib on digoxin who presents to the ED with a cc of worsening B/L LE swelling beginning this morning. Differential diagnosis: Etiologies such as DVT, musculoskeletal, infection, joint effusion, trauma, lymphedema, idiopathic, CHF, as well as others were entertained. Patient was seen and evaluated the bedside. Patient is 67-year-old who does have a prior history of DVT on Xarelto, diabetes type 2, A. fib on Xarelto and digoxin, hypertension who presents with a chief complaint of lower extremity swelling. Of note I did see this patient during her ED stay prior to her most recent hospital admission. I did discuss this patient with the hospitalist at that time as there was concern for very bad lower extremity swelling that made it difficult for the patient to walk. However, during the last visit in addition to the time before she was diagnosed with very bad venous insufficiency and lymphedema. Patient was given referrals and given additional instructions in order for her no help manage her symptoms at home. Patient is not tachypneic nor tachycardic nor hypoxic. Patient does not require any oxygen. Patient had a clear chest x-ray at that time. Patient's chest x-ray today is also clear. Patient was complaining of some mild redness to the lower extremities. I believe this is more related to the swelling as I do not believe it is cellulitic in nature. Patient did have blood work that was completed. Patient was given medications for pain control. WBC WNL. Did not believe that the patient required ultrasound studies the patient has chronic lymphedema and is currently on any blood thinning medication Xarelto. Given the patient's blood work and chest x-ray this is more likely related to venous insufficiency and lymphedema. I did discuss the patient with case management who recommended they further discuss her care with her and home health. I discussed with the patient and family member. Patient was agreeable to this plan of care. Furthermore I did discuss that the redness on her overlying skin did not believe to be cellulitic as of this is more related to the gross expansion of her subcutaneous tissue causing the redness. Patient was deemed suitable for outpatient follow-up and treatment. Patient was given strict follow -up, discharge, and return precautions. All questions were answered. Patient was deemed suitable for outpatient follow-up at this time. Patient agreed with the plan of care and was safely discharged home. Medication Reconcilliation Current Medication List: was personally reviewed by me Blood Pressure Screening Patient's blood pressure: Elevated blood pressure Blood pressure disposition: Referred to PCP Impression Primary Impression: Swelling of left extremity Additional Impressions: Swelling of right extremity Lymphedema Scribe Attestation The scribe's documentation has been prepared under my direction and personally reviewed by me in its entirety. I confirm that the note above accurately reflects all work, treatment, procedures, and medical decision making performed by me. Departure Information Dispostion Home / Self-Care Referrals Dane Valerio M.D. (PCP) Patient Instructions ED Lymphedema, My [facility] Additional Instructions Please return to the emergency department if you have worsening or recurrent symptoms not amenable to at-home treatment. Please call for a follow-up appointment with her primary care physician. Please take your medications as prescribed. If you have other concerns and/or complaints please feel free to also call your primary care physician's office or return the ED for further evaluation, management, and treatment. Please discuss with your in home health care about increasing your treatment to help with your lymphedema. You received narcotic or benzodiazepene medication while in the emergency room today. This is an addictive medication that may cause drowziness as well as constipation. Do not drive, operate heavy machinery, or drink alcohol under the influence of this medication. Take your medications as prescribed. You have been examined and treated today on an emergency basis only. This is not a substitute for, or an effort to provide, complete comprehensive medical care. It is impossible to recognize and treat all injuries or illnesses in a single emergency department visit. It is therefore important that you follow up closely with [facility], your PCP, and/or your specialist(s). Call as soon as possible for an appointment. Thank you for your time and consideration. I look forward to speaking with you again soon. Please don't hesitate to call us if you have any questions. Problem Qualifiers
--- NOTE | 2017-09-16 18:26 | DIAGNOSTIC IMAGING REPORT ---
SINGLE VIEW CHEST CLINICAL HISTORY: Generalized abdominal pain. FINDINGS: An AP, portable, upright chest radiograph is compared to study dated 08/27/2017. The examination is degraded by portable technique and apical lordotic positioning. The cardiomediastinal silhouette is unremarkable. There is mild atherosclerotic calcification of the thoracic aorta. The lungs and pleural spaces are clear. No pneumothorax is seen. The skeletal structures are osteopenic. Arthritic change is seen in the shoulders and thoracic spine. IMPRESSION: No active disease in the chest. Electronically signed by: Abel Aguayo M.D. 09/16/2017 6:24 PM Dictated Date/Time: 09/16/2017 6:24 PM
[2017-09-16 19:19] LABS: MANUAL MICROSCOPIC REQUIRED? NO; REVIEW REQ? NO; URINE APPEARANCE CLEAR (CLEAR); URINE BILIRUBIN NEG (NEG); URINE COLOR YELLOW; URINE EPITHELIAL CELL AUTO >30 /lpf (0-5); URINE NITRITE NEG (NEG); URINE PH 6.5 (4.5-7.5); UROBILINOGEN NEG (NEG)
[2017-09-16 20:26] LABS: BASO % 0.2 %; BASO ABS # 0.02 K/uL (0-0.2); COMPLETE YES; EOS % 1.1 %; HEMATOCRIT 32.9 % (37-47); IG% 0.2 %; LYMPH % 18.4 %; MEAN CELL VOLUME 82.7 fL (80-100); MEAN CORPUSCULAR HEMOGLOBIN 26.9 pg (25-34); MEAN CORPUSCULAR HGB CONC 32.5 g/dl (32-36); MEAN PLATELET VOLUME 8.9 fL (7.4-10.4); MONO % 7.1 %; PLATELET COUNT 303 K/uL (130-400); RED BLOOD COUNT 3.98 M/uL (4.2-5.4); WHITE BLOOD COUNT 8.71 K/uL (4.8-10.8)
[2017-09-16] MEDS ORDERED: TRAMADOL HCL 50 MG TAB PO STA (20:27)
[2017-09-16] MEDS ORDERED: HYDROCODONE/ACETAMOPHEN 5/325MG TAB PO STA (20:27)
[2017-09-16 20:56] LABS: ALKALINE PHOSPHATASE 150 U/L (45-117); ALT/SGPT 25 U/L (12-78); BLOOD UREA NITROGEN 12 mg/dl (7-18); BUN/CREATININE RATIO 15.9 (10-20); CALCIUM 9.2 mg/dl (8.5-10.1); CARBON DIOXIDE 25 mmol/L (21-32); CHLORIDE 101 mmol/L (98-107); CREATININE 0.76 mg/dl (0.60-1.20); GLUCOSE 140 mg/dl (70-99); SODIUM 131 mmol/L (136-145)
[2017-09-16 22:19] VITALS: BP 153/75; PULSE 86; O2SAT 98
== END 2017-09-16 22:21 | disposition home or self-care (01) ==
LOC: C.EDB 15:46
DX: R22.41 Localized swelling, mass and lump, right lower limb (principal); R22.42 Localized swelling, mass and lump, left lower limb; I89.0 Lymphedema, not elsewhere classified; I10 Essential (primary) hypertension; E11.9 Type 2 diabetes mellitus without complications; I48.91 Unspecified atrial fibrillation; Z86.718 Personal history of other venous thrombosis and embolism; Z79.4 Long term (current) use of insulin; Z79.899 Other long term (current) drug therapy; Z88.0 Allergy status to penicillin; Z88.2 Allergy status to sulfonamides; Z88.8 Allergy status to other drugs, medicaments and biological substances; Z91.09 Other allergy status, other than to drugs and biological substances

== ENCOUNTER 2017-09-27 04:40 | Emergency (ER) | payer OTHER ==
[~2017-09-27] VITALS: Ht 160 cm; Wt 102.3 kg
[~2017-09-27 04:40] MED LIST changes: -INSUINJ13 SC; +NVLG SQ; -TRAZ50TA35 PO
[2017-09-27 04:52] VITALS: TEMP 36.6; Ht 160 cm; Wt 102.3 kg
[2017-09-27] MEDS ORDERED: NVLG SQ ×2 (05:21→05:22)
[2017-09-27] MEDS ORDERED: POLY335019 PO (05:25)
[2017-09-27] MEDS ORDERED: FERR1TAB13 PO (05:28)
--- NOTE | 2017-09-27 05:31 | EMERGENCY ROOM VISIT NOTE ---
History Report prepared by Delfina: Radha Valdovinos Under the Supervision of: Dr. Andie Velasquez D.O. First contact with patient: 04:56 Chief Complaint: FALL Stated Complaint: RT. 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 The patient presents to the ED by EMS. The patient has a history of intermittent atrial fibrillation. She felt that she was in A fib tonight. She was sitting up on the sofa trying to calm herself down. When she stood up, her foot got caught on the sofa and she fell onto her right side onto carpet. She did feel a little lightheaded when she got up. She was able to walk herself to the bathroom with her cane, but had pain in her right hip. She also complains of pain in her right shoulder, arm, and leg. She denies any head injury or LOC. She denies any elbow pain, wrist pain, rib pain, back pain, neck pain, or abdominal pain. She has a history of arthritis. She has had bilateral hip replacements. She has a history of lymphedema. She is on Xarelto. She normally walks with a cane. 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 Pt denies elbow pain, wrist pain, rib pain. Review of Systems See HPI for pertinent positives & negatives. A total of 10 systems reviewed and were otherwise negative. Past Medical & Surgical Medical Problems: (1) A-fib (2) Arthritis (3) Atrial fibrillation (4) DM2 (diabetes mellitus, type 2) (5) DVT (deep venous thrombosis) (6) Left Hip DJD (7) Lymphedema (8) Right Hip DJD Family History No significant family history Social History Smoking Status: Never Smoker Alcohol Use: none Drug Use: none Marital Status: Occupation Status: retired Current/Historical Medications Scheduled Cholecalciferol (Vitamin D3), 2,000 INTER.UNIT PO QAM Digoxin (Digoxin), 0.125 MG PO QAM Ferrous Sulfate (Kp Ferrous Sulfate), 325 TAB PO BIDM Fish Oil (Everett-3), 1 CAP PO QAM Insulin Aspart (Novolog), 22 UNITS SQ QAM Insulin Aspart (Novolog), 24 UNITS SQ HS Lisinopril (Lisinopril), 20 MG PO QAM Multivitamin (Multivitamin), 1 TAB PO QAM Rivaroxaban (Xarelto), 20 MG PO QDD Scheduled PRN Polyethylene Glycol 3350 (Miralax), 17 GM PO DAILY PRN for Constipation Tramadol HCl (Tramadol HCl), 50-100 MG PO Q4H PRN for Pain Allergies Coded Allergies: Acetaminophen (Verified Allergy, Unknown, stomach sick, 09/27/17) Adhesives (Verified Allergy, Unknown, local skin irritation, 09/16/17) paper tape is okay per pt Carvedilol (Verified Allergy, Unknown, per cardio note , 09/16/17) Diltiazem (Verified Allergy, Unknown, MUSCLE SHAKES AND CANT WALK, 09/16/17 ) Meloxicam (Verified Allergy, Unknown, MUSCLE CRAMPS AND SHAKE AND CANT WALK, 09/16/17) Metoprolol (Verified Allergy, Unknown, per cardio note , 09/16/17) Omeprazole (Verified Allergy, Unknown, per cardio note , 09/16/17) Penicillins (Verified Allergy, Unknown, FEVER, 09/16/17) Sulfa Antibiotics (Verified Allergy, Unknown, per cardio note , 09/16/17) Codeine (Verified Adverse Reaction, Mild, MUSCLE SHAKES AND PASSES OUT, ) Metformin (Verified Adverse Reaction, Unknown, DIARRHEA/ HAIR FELL OUT, ) Physical Exam Vital Signs Date Time Temp Pulse Resp B/P (MAP) Pulse Ox O2 Delivery O2 Flow Rate FiO2 09/27/17 06:25 92 24 94 09/27/17 06:24 167/62 09/27/17 05:40 100 20 98 09/27/17 05:31 168/73 09/27/17 05:25 92 25 97 09/27/17 05:10 90 26 95 09/27/17 05:01 166/92 09/27/17 05:01 Room Air 09/27/17 04:55 89 27 98 Room Air 09/27/17 04:52 36.6 88 23 143/115 97 Room Air 09/27/17 04:50 143/115 09/27/17 04:50 89 Physical Exam GENERAL: alert, elderly appearing, well nourished, no distress, non-toxic EYE EXAM: normal conjunctiva, PERRL and EOM's grossly intact OROPHARYNX: no exudate, no erythema, lips, buccal mucosa, and tongue normal and mucous membranes are moist NECK: supple, no nuchal rigidity, no adenopathy, non-tender CHEST: No crepitus, no step off, no pain with palpation. LUNGS: Clear to auscultation. Normal chest wall mechanics HEART: regular, no murmurs, S1 normal and S2 normal ABDOMEN: abdomen soft, non-tender, normo-active bowel sounds, no masses, no rebound or guarding. BACK: Back is symmetrical on inspection and there is no deformity, no midline tenderness, no CVA tenderness. PELVIS: Stable. Pain over the lateral aspect of the right hip. No contusion or deformity. SKIN: no rashes and no bruising UPPER EXTREMITIES: Good pulses. No deformities. No effusions. Normal ROM with the exception of the right shoulder is mildly decreased secondary to pain. LOWER EXTREMITIES: Bilateral LE with chronic lymphedema. Mild erythema noted to bilateral distal lower extremities, chronic in appearance. No ulcers or sores. No vesicles. Normal pulses. No deformities or evidence of trauma in the lower extremities. NEURO EXAM: Normal sensorium, cranial nerves II-XII grossly intact, normal speech, no gross weakness of arms, no gross weakness of legs. Medical Decision & Procedures ER Provider Diagnostic Interpretation: Xray results have been interpreted by the radiologist and me. R SHOULDER MIN 2 VIEWS ROUTINE HISTORY: 67 years-old Female fall, pain acute right shoulder pain status post fall COMPARISON: Chest radiograph same day TECHNIQUE: 3 views of the right shoulder FINDINGS: The bones are mildly demineralized. Moderate to severe glenohumeral osteoarthritis with large marginal spur along the inferior margin of the head. Sclerosis with subcortical cystic change involves the greater tuberosity. Mild degenerative changes of the AC joint. No acute fracture or dislocation. Soft tissues are unremarkable. Imaged lung rodríguez appear clear. IMPRESSION: 1. Moderate to severe osteoarthritis of the glenohumeral joint without acute fracture or dislocation. 2. Mildly demineralized appearance of the bones. The above report was generated using voice recognition software. It may contain grammatical, syntax or spelling errors. Electronically signed by: Manoj Avelar M.D. 09/27/2017 6:28 AM Dictated Date/Time: 09/27/2017 6:26 AM CHEST ONE VIEW PORTABLE HISTORY: 67 years-old Female trauma acute chest trauma COMPARISON: Chest radiograph 09/16/2017 TECHNIQUE: Semiupright AP view of the chest FINDINGS: Cardiomediastinal and hilar silhouettes are within normal limits. No pneumothorax, pleural effusion, focal airspace consolidation or overt pulmonary edema. Minimal atelectasis/scarring of left lung base. Mild right hemidiaphragmatic elevation. Degenerative changes are seen within the bilateral shoulders and spine. Bones appear grossly intact. IMPRESSION: No acute process. The above report was generated using voice recognition software. It may contain grammatical, syntax or spelling errors. Electronically signed by: Manoj Avelar M.D. 09/27/2017 6:29 AM Dictated Date/Time: 09/27/2017 6:28 AM R PELVIS/UNILATERAL HIP 2-3VIEWS CLINICAL HISTORY: FALL, RIGHT HIP PAIN trauma. Pain. COMPARISON: 03/01/2017 DISCUSSION: Evidence for total bilateral hip arthroplasties. Longstem prosthetic right hip. Plate and multiple compression wires traversing a pre-existing oblique fracture mid femoral shaft. This appears to show partial healing compared to the prior study. There is no evidence for soft tissue swelling. No evidence for acetabular protrusion. IMPRESSION: Postoperative and degenerative change. Old partially healed fracture mid femoral shaft. No acute process specifically of the pelvis or hip. The above report was generated using voice recognition software. It may contain grammatical, syntax or spelling errors. Electronically signed by: Dony Juarez M.D. 09/27/2017 6:39 AM Dictated Date/Time: 09/27/2017 6:35 AM Laboratory Results 09/27/17 05:15 Red Blood Count 4.11, Mean Corpuscular Volume 82.5, Mean Corpuscular Hemoglobin 27.0, Mean Corpuscular Hemoglobin Concent 32.7, Mean Platelet Volume 9.3, Neutrophils (%) (Auto) 80.2, Lymphocytes (%) (Auto) 11.5, Monocytes (%) (Auto) 6.3, Eosinophils (%) (Auto) 1.2, Basophils (%) (Auto) 0.2, Neutrophils # (Auto) 8.83, Lymphocytes # (Auto) 1.27, Monocytes # (Auto) 0.69, Eosinophils # (Auto) 0.13, Basophils # (Auto) 0.02 09/27/17 05:15 Test 09/27/17 05:15 09/27/17 05:45 White Blood Count 11.01 K/uL (4.8-10.8) Red Blood Count 4.11 M/uL (4.2-5.4) Hemoglobin 11.1 g/dL (12.0-16.0) Hematocrit 33.9 % (37-47) Mean Corpuscular Volume 82.5 fL (80-100) Mean Corpuscular Hemoglobin 27.0 pg (25-34) Mean Corpuscular Hemoglobin Concent 32.7 g/dl (32-36) Platelet Count 372 K/uL (130-400) Mean Platelet Volume 9.3 fL (7.4-10.4) Neutrophils (%) (Auto) 80.2 % Lymphocytes (%) (Auto) 11.5 % Monocytes (%) (Auto) 6.3 % Eosinophils (%) (Auto) 1.2 % Basophils (%) (Auto) 0.2 % Neutrophils # (Auto) 8.83 K/uL (1.4-6.5) Lymphocytes # (Auto) 1.27 K/uL (1.2-3.4) Monocytes # (Auto) 0.69 K/uL (0.11-0.59) Eosinophils # (Auto) 0.13 K/uL (0-0.5) Basophils # (Auto) 0.02 K/uL (0-0.2) RDW Standard Deviation 46.4 fL (36.4-46.3) RDW Coefficient of Variation 15.3 % (11.5-14.5) Immature Granulocyte % (Auto) 0.6 % Immature Granulocyte # (Auto) 0.07 K/uL (0.00-0.02) Anion Gap 5.0 mmol/L (3-11) Est Creatinine Clear Calc Drug Dose 66.1 ml/min Estimated GFR () 73.2 Estimated GFR (Non- 63.1 BUN/Creatinine Ratio 14.8 (10-20) Calcium Level 9.0 mg/dl (8.5-10.1) Magnesium Level 2.0 mg/dl (1.8-2.4) Total Bilirubin 0.3 mg/dl (0.2-1) Aspartate Amino Transf (AST/SGOT) 13 U/L (15-37) Alanine Aminotransferase (ALT/SGPT) 17 U/L (12-78) Alkaline Phosphatase 144 U/L (45-117) Troponin I < 0.015 ng/ml (0-0.045) Total Protein 7.6 gm/dl (6.4-8.2) Albumin 3.2 gm/dl (3.4-5.0) Globulin 4.4 gm/dl (2.5-4.0) Albumin/Globulin Ratio 0.7 (0.9-2) Urine Color YELLOW Urine Appearance CLEAR (CLEAR) Urine pH 5.0 (4.5-7.5) Urine Specific Conroy 1.016 (1.000-1.030) Urine Protein NEG (NEG) Urine Glucose (UA) 2+ (NEG) Urine Ketones NEG (NEG) Urine Occult Blood NEG (NEG) Urine Nitrite NEG (NEG) Urine Bilirubin NEG (NEG) Urine Urobilinogen NEG (NEG) Urine Leukocyte Esterase NEG (NEG) Laboratory results per my review. Medications Administered Medications (Trade) Dose Ordered Sig/Isaac Route Start Time Stop Time Status Last Admin Dose Admin Fentanyl Citrate (Fentanyl Inj) 50 mcg NOW STAT IV 09/27/17 05:32 09/27/17 05:33 DC 09/27/17 05:52 50 MCG ECG Indication: palpitations Rate (beats per minute): 91 Rhythm: sinus rhythm Findings: PAC (occasional), no acute ischemic change, other (normal axis, normal intervals) ED Course 0458: The patient was evaluated in room B6. A complete history and physical exam was performed. 0532: Fentanyl Inj 50 mcg IV. 0735: Patient ambulatory to the bathroom with her cane under nursing supervision without difficulty. Patient states she is still having pain in her right hip and shoulder. Updated on all results area discussed with patient current living situation. Patient does live at home alone, has a therapist that comes in once a week to help with her lymphedema, however no other PT her home aids. Family is not close by. Patient does take tramadol daily for chronic pain, and states it does not work but she is uncomfortable taking any additional pain medication. Discussed with her concern for increased risk of recurrent fall given this environment, and that this is most concerning due to patient's use of Xarelto for her paroxysmal atrial fibrillation. Have a low suspicion for additional occult traumatic injury at this time, but do feel patient would benefit from additional help at home or placement in short-term rehabilitation. Asked case management to evaluate. 0800: Case management saw and discussed options with the patient and she is agreeable with placement in rehabilitation. Case management is going to contact the [facility] direct sales representative to come evaluate the patient when they arrive at 8:00. Medical Decision Differential diagnoses include major intracranial, cervical, spinal, thoracic, abdominal, pelvic and neurologic injury. Fracture, contusion, sprain, strain, laceration, abrasions included as well. Blood Pressure Screening Patient's blood pressure: Elevated blood pressure Blood pressure disposition: Elevated BP felt to be situational Impression Primary Impression: Fall Additional Impressions: Shoulder pain Hip pain Ambulatory dysfunction Accident due to mechanical fall without injury Lymphedema Scribe Attestation The scribe's documentation has been prepared under my direction and personally reviewed by me in its entirety. I confirm that the note above accurately reflects all work, treatment, procedures, and medical decision making performed by me. Departure Information Dispostion Still a Patient Referrals Dane Valerio M.D. (PCP) Patient Instructions My [facility] Problem Qualifiers Primary Impression: Fall Encounter type: initial encounter Qualified Codes: W19.XXXA - Unspecified fall, initial encounter Additional Impressions: Shoulder pain Chronicity: acute Laterality: right Qualified Codes: M25.511 - Pain in right shoulder Hip pain Laterality: right Qualified Codes: M25.551 - Pain in right hip Accident due to mechanical fall without injury Encounter type: initial encounter Qualified Codes: W19.XXXA - Unspecified fall, initial encounter
[2017-09-27] MEDS ORDERED: FENTANYL CITRATE INJ 50 MCG/1 ML 2 ML VIAL IV STA (05:32)
[2017-09-27 05:36] LABS: BASO % 0.2 %; BASO ABS # 0.02 K/uL (0-0.2); COMPLETE YES; EOS % 1.2 %; HEMATOCRIT 33.9 % (37-47); IG% 0.6 %; LYMPH % 11.5 %; LYMPH ABS # 1.27 K/uL (1.2-3.4); MEAN CELL VOLUME 82.5 fL (80-100); MEAN CORPUSCULAR HGB CONC 32.7 g/dl (32-36); MEAN PLATELET VOLUME 9.3 fL (7.4-10.4); MONO % 6.3 %; NEUT % 80.2 %; PLATELET COUNT 372 K/uL (130-400); RED BLOOD COUNT 4.11 M/uL (4.2-5.4); WHITE BLOOD COUNT 11.01 K/uL (4.8-10.8)
[2017-09-27 05:55] LABS: ALT/SGPT 17 U/L (12-78); AST/SGOT 13 U/L (15-37); BLOOD UREA NITROGEN 14 mg/dl (7-18); BUN/CREATININE RATIO 14.8 (10-20); CARBON DIOXIDE 28 mmol/L (21-32); CHLORIDE 98 mmol/L (98-107); CREATININE 0.93 mg/dl (0.60-1.20); GLUCOSE 280 mg/dl (70-99); POTASSIUM 4.4 mmol/L (3.5-5.1); SODIUM 131 mmol/L (136-145)
[2017-09-27 06:00] LABS: ALB/GLOB RATIO 0.7 (0.9-2); ALKALINE PHOSPHATASE 144 U/L (45-117)
[2017-09-27 06:18] LABS: URINE APPEARANCE CLEAR (CLEAR); URINE BILIRUBIN NEG (NEG); URINE COLOR YELLOW; URINE NITRITE NEG (NEG); URINE SPECIFIC GRAVITY 1.016 (1.000-1.030); UROBILINOGEN NEG (NEG)
[2017-09-27 06:22] LABS: MANUAL MICROSCOPIC REQUIRED? NO; REVIEW REQ? NO
--- NOTE | 2017-09-27 06:29 | DIAGNOSTIC IMAGING REPORT ---
R SHOULDER MIN 2 VIEWS ROUTINE HISTORY: 67 years-old Female fall, pain acute right shoulder pain status post fall COMPARISON: Chest radiograph same day TECHNIQUE: 3 views of the right shoulder FINDINGS: The bones are mildly demineralized. Moderate to severe glenohumeral osteoarthritis with large marginal spur along the inferior margin of the head. Sclerosis with subcortical cystic change involves the greater tuberosity. Mild degenerative changes of the AC joint. No acute fracture or dislocation. Soft tissues are unremarkable. Imaged lung rodríguez appear clear. IMPRESSION: 1. Moderate to severe osteoarthritis of the glenohumeral joint without acute fracture or dislocation. 2. Mildly demineralized appearance of the bones. The above report was generated using voice recognition software. It may contain grammatical, syntax or spelling errors. Electronically signed by: Manoj Avelar M.D. 09/27/2017 6:28 AM Dictated Date/Time: 09/27/2017 6:26 AM
--- NOTE | 2017-09-27 06:30 | DIAGNOSTIC IMAGING REPORT ---
CHEST ONE VIEW PORTABLE HISTORY: 67 years-old Female trauma acute chest trauma COMPARISON: Chest radiograph 09/16/2017 TECHNIQUE: Semiupright AP view of the chest FINDINGS: Cardiomediastinal and hilar silhouettes are within normal limits. No pneumothorax, pleural effusion, focal airspace consolidation or overt pulmonary edema. Minimal atelectasis/scarring of left lung base. Mild right hemidiaphragmatic elevation. Degenerative changes are seen within the bilateral shoulders and spine. Bones appear grossly intact. IMPRESSION: No acute process. The above report was generated using voice recognition software. It may contain grammatical, syntax or spelling errors. Electronically signed by: Manoj Avelar M.D. 09/27/2017 6:29 AM Dictated Date/Time: 09/27/2017 6:28 AM
[2017-09-27] MEDS ORDERED: ACETAMINOPHEN 325 MG TAB PO STA (06:33)
--- NOTE | 2017-09-27 06:40 | DIAGNOSTIC IMAGING REPORT ---
R PELVIS/UNILATERAL HIP 2-3VIEWS CLINICAL HISTORY: FALL, RIGHT HIP PAIN trauma. Pain. COMPARISON: 03/01/2017 DISCUSSION: Evidence for total bilateral hip arthroplasties. Longstem prosthetic right hip. Plate and multiple compression wires traversing a pre-existing oblique fracture mid femoral shaft. This appears to show partial healing compared to the prior study. There is no evidence for soft tissue swelling. No evidence for acetabular protrusion. IMPRESSION: Postoperative and degenerative change. Old partially healed fracture mid femoral shaft. No acute process specifically of the pelvis or hip. The above report was generated using voice recognition software. It may contain grammatical, syntax or spelling errors. Electronically signed by: Dony Juarez M.D. 09/27/2017 6:39 AM Dictated Date/Time: 09/27/2017 6:35 AM
[2017-09-27] MEDS ORDERED: NovoLIN-R INSULIN PER UNIT CHARGE SC STA (07:59)
[2017-09-27] MEDS ORDERED: LIDODERM (LIDOCAINE) PATCH 5% TD STA (07:59)
[2017-09-27 12:15] VITALS: PULSE 89; O2SAT 95
[2017-09-27 12:34] VITALS: BP 136/72
== END 2017-09-27 12:35 ==
LOC: EDBD 04:40 → C.EDB 04:42
DX: M25.511 Pain in right shoulder (principal); M25.551 Pain in right hip; W19.XXXA Unspecified fall, initial encounter; Y92.019 Unspecified place in single-family (private) house as the place of occurrence of the external cause; I89.0 Lymphedema, not elsewhere classified; R26.2 Difficulty in walking, not elsewhere classified; I48.0 Paroxysmal atrial fibrillation; M19.90 Unspecified osteoarthritis, unspecified site; E11.9 Type 2 diabetes mellitus without complications; Z86.718 Personal history of other venous thrombosis and embolism; Z79.01 Long term (current) use of anticoagulants; Z79.4 Long term (current) use of insulin; Z79.899 Other long term (current) drug therapy

== ENCOUNTER → 2017-10-09 | Outpatient (CLI) | payer OTHER ==
[~2017-10-09] MED LIST changes: +FERR1TAB13 PO; -FRRS300 PO; +LISI-726 PO; -LSN20 PO; -MRLP17X PO; +POLY335019 PO
--- NOTE | 2017-10-09 12:39 | DIAGNOSTIC IMAGING REPORT ---
CHEST 2 VIEWS ROUTINE CLINICAL HISTORY: 67 years-old Female presenting with R07.9 Chest [id number]. TECHNIQUE: PA and lateral views of the chest were obtained. COMPARISON: 09/27/2017 and 07/07/2017. FINDINGS: Atherosclerosis of the aortic arch. Cardiac silhouette normal in size. Lungs and pleural spaces clear. Anterior vertebral body height loss of one of the vertebral bodies at the thoracolumbar junction. This is unchanged from prior chest x-ray from June Upper abdomen normal. IMPRESSION: 1. No acute cardiopulmonary disease. Electronically signed by: Dane Rodriguez M.D. 10/09/2017 12:37 PM Dictated Date/Time: 10/09/2017 12:36 PM
[2017-10-10 04:42] LABS: HEMOGLOBIN A1C 9.9 % (4.5-5.6)
== END | disposition home or self-care (01) ==
LOC: C.RADBC 11:45
PROVIDERS: ATTEND Physician Assistant Medical
DX: E11.65 Type 2 diabetes mellitus with hyperglycemia (principal); R07.9 Chest pain, unspecified

== ENCOUNTER → 2017-11-13 | Outpatient (CLI) | payer OTHER ==
[~2017-11-13] MED LIST changes: -LISI-726 PO; +LSN20 PO
[2017-11-13 18:00] LABS: BLOOD UREA NITROGEN 20 mg/dl (7-18); CALCIUM 9.2 mg/dl (8.5-10.1); CARBON DIOXIDE 31 mmol/L (21-32); CREATININE 0.81 mg/dl (0.60-1.20); GLUCOSE 213 mg/dl (70-99); POTASSIUM 4.2 mmol/L (3.5-5.1); SODIUM 132 mmol/L (136-145)
[2017-11-13 18:04] LABS: BASO % 0.2 %; BASO ABS # 0.02 K/uL (0-0.2); EOS % 2.1 %; EOS ABS # 0.17 K/uL (0-0.5); HEMATOCRIT 39.5 % (37-47); HEMOGLOBIN 12.6 g/dL (12.0-16.0); IG# 0.02 K/uL (0.00-0.02); LYMPH % 20.1 %; LYMPH ABS # 1.66 K/uL (1.2-3.4); MEAN CELL VOLUME 82.3 fL (80-100); MEAN CORPUSCULAR HEMOGLOBIN 26.3 pg (25-34); MEAN CORPUSCULAR HGB CONC 31.9 g/dl (32-36); MEAN PLATELET VOLUME 9.7 fL (7.4-10.4); MONO % 7.4 %; MONO ABS # 0.61 K/uL (0.11-0.59); NEUT ABS # 5.79 K/uL (1.4-6.5); PLATELET COUNT 322 K/uL (130-400); RED CELL DISTRIBUTION WIDTH CV 15.9 % (11.5-14.5); RED CELL DISTRIBUTION WIDTH SD 47.7 fL (36.4-46.3); WHITE BLOOD COUNT 8.27 K/uL (4.8-10.8)
== END | disposition home or self-care (01) ==
LOC: C.LABSPEC 10:43
PROVIDERS: ATTEND Internal Medicine
DX: I10 Essential (primary) hypertension (principal); E11.9 Type 2 diabetes mellitus without complications; R06.09 Other forms of dyspnea

== ENCOUNTER → 2018-02-24 | Outpatient (CLI) | payer OTHER ==
[2018-02-24 17:00] LABS: ALBUMIN 3.3 gm/dl (3.4-5.0); ALT/SGPT 18 U/L (12-78); AST/SGOT 15 U/L (15-37); BLOOD UREA NITROGEN 16 mg/dl (7-18); CALCIUM 8.7 mg/dl (8.5-10.1); CARBON DIOXIDE 28 mmol/L (21-32); CREATININE 1.12 mg/dl (0.60-1.20); GLUCOSE 317 mg/dl (70-99); POTASSIUM 4.6 mmol/L (3.5-5.1); SODIUM 133 mmol/L (136-145)
[2018-02-24 17:05] LABS: ALKALINE PHOSPHATASE 160 U/L (45-117); CHOLESTEROL 200 mg/dl (0-200); LDL CHOLESTEROL CALCULATED 118 mg/dl; TOTAL PROTEIN 7.7 gm/dl (6.4-8.2)
[2018-02-24 17:53] LABS: CREATININE RANDOM URINE 73.7 mg/dl
[2018-02-25 06:36] LABS: HEMOGLOBIN A1C 12.9 % (4.5-5.6)
== END | disposition home or self-care (01) ==
LOC: C.LABPBG 14:04
PROVIDERS: ATTEND Nurse Practitioner Family
DX: I10 Essential (primary) hypertension (principal); E11.65 Type 2 diabetes mellitus with hyperglycemia; E55.9 Vitamin D deficiency, unspecified

== ENCOUNTER 2020-07-13 14:46 | Inpatient (IN) ==
[2020-07-13] MEDS ORDERED: SODIUM CHLORIDE 0.9% 1000ML 1,000 ML IV SCH (15:15)
[2020-07-13] MEDS ORDERED: OPTIRAY 320 125ml IV ONE (15:21)
--- NOTE | 2020-07-13 15:29 | CT Scan Report ---
CT SCAN OF THE BRAIN WITHOUT IV CONTRAST CLINICAL HISTORY: Change in mental status. Stroke like symptoms. COMPARISON STUDY: CT of the brain dated 08/09/2015. TECHNIQUE: Unenhanced axial CT scan of the brain is performed from the vertex to the skull base. A do se lowering technique was utilized adhering to the principles of ALARA. FINDINGS: Brain parenchyma: There are age-related involutional changes noting moderate subcortical and periven tricular microangiopathic change. There is no hemorrhage, mass effect, or evidence of acute territori al ischemia by CT criteria. Amador-white matter differentiation is preserved. No extra-axial fluid radha ection is seen. Ventricles, sulci, cisterns: Prominent secondary to involutional change. Intracranial vasculature: There is atherosclerotic calcification of the cavernous carotid arteries. Calvarium: Unremarkable. Sinuses and mastoids: There is evidence of previous paranasal sinus surgery. The visualized paranasal sinuses are clear. The mastoid air cells are well pneumatized. Orbits: The bony orbits are grossly intact. IMPRESSION: There is no hemorrhage, mass effect, or evidence of acute territorial ischemia by CT mily calixto. ACT 112: Negative or not required by law. Electronically signed by: Abel Aguayo M.D. 07/13/2020 3:27 PM
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
--- NOTE | 2020-07-13 15:33 | CT Scan Report ---
CT angio neck with con CLINICAL HISTORY: Stroke evaluation CONFUSION. COMPARISON STUDY: No previous studies for comparison. TECHNIQUE: CT angiography was performed from the aortic arch to the skull base. MIP imaging was perfo rmed. The patient was scanned in a dynamic helical fashion during intravenous administration of 119 c c of Optiray 320. A dose lowering technique was utilized adhering to the principles of ALARA. CT DOSE: 1200.78 mGy.cm Technique: CT angiogram of the carotid and vertebral arteries was obtained using intravenous contrast and 3-D reconstruction. NASCET criteria was utilized. Findings: The right carotid revealed no evidence of aneurysm and no evidence of dissection. There is no evidenc e of hemodynamic significant stenosis. The left carotid revealed no evidence of hemodynamic significant stenosis. There is no evidence of an eurysm. There is no evidence of dissection. Both internal carotids have a medial retropharyngeal course. There are mild atheromatous changes at b [facility] carotid bulbs. There is no evidence of hemodynamically significant vertebral stenosis. There is no evidence of verte bral dissection. Incidental note is made of a multinodular thyroid gland. IMPRESSION: No evidence of hemodynamically significant carotid or vertebral artery stenosis. No evidence of disse ction. ACT 112: Negative or not required by law. Electronically signed by: Terrell Garcia M.D. 07/13/2020 3:32 PM
--- NOTE | 2020-07-13 15:34 | CT Scan Report ---
CT ANGIOGRAM OF THE BRAIN CLINICAL HISTORY: Change in mental status. Stroke like symptoms. COMPARISON STUDY: Unenhanced CT of the brain performed concurrently on 07/13/2020. TECHNIQUE: Following the IV administration of 119 cc of Optiray 320, CT angiogram of the brain was pe rformed from the skull base to the vertex. Images are reviewed in the axial, sagittal, and coronal pl anes. 3-D MIPS images are created and assessed. IV contrast was administered without complication. A dose lowering technique was utilized adhering to the principles of ALARA. FINDINGS: Brain parenchyma: There is age-related involutional change noting moderate subcortical and periventri cular microangiopathic disease. There is no hemorrhage, mass effect, or evidence of acute territorial ischemia by CT criteria. There is no evidence of enhancing mass lesion on the angiogram phase images . No extra-axial fluid collection is seen. Amador-white matter differentiation is preserved. Ventricles, sulci, and cisterns: Prominent secondary to involutional change. CT angiogram of the brain: There is atherosclerotic calcification of the cavernous carotid arteries. There is a left posterior communicating artery. The internal carotid arteries are widely patent, as a re the anterior and middle cerebral arteries. The vertebrobasilar system and posterior cerebral arter ies are widely patent. The left vertebral artery is dominant. There is no aneurysm, high-grade stenos is, or focal vessel cutoff identified throughout the intracranial circulation. Dural sinuses: Clear as visualized. Orbits: The bony orbits are intact. The orbital contents are normal as visualized. Sinuses and mastoids: There is evidence of previous paranasal sinus surgery. There is trace mucosal t hickening within the maxillary antra. An 11 mm retention cyst is noted on the left. The mastoid air c ells are well pneumatized. Calvarium: Unremarkable. IMPRESSION: 1. There is no hemorrhage, mass effect, or evidence of acute territorial ischemia by CT criteria noti ng angiographic phase technique. 2. Unremarkable CT angiogram of the brain. ACT 112: Negative or not required by law. Electronically signed by: Abel Aguayo M.D. 07/13/2020 3:33 PM
[2020-07-13 15:48] LABS: Basophils # (auto) 0.02 K/uL (0-0.2); Basophils % (auto) 0.2 %; Eosinophils # (auto) 0.13 K/uL (0-0.5); Eosinophils % (auto) 1.3 %; Hematocrit (blood only) 38.6 % (37-47); Hemoglobin 12.9 g/dL (12.0-16.0); Immature Granulocytes # (auto) 0.03 K/uL (0.00-0.02); Immature Granulocytes % (auto) 0.3 %; Lymphocytes # (auto) 1.68 K/uL (1.2-3.4); Lymphocytes % (auto) 16.2 %; Mean Corpuscular Hemoglobin 28.8 pg (25-34); Mean Corpuscular Hgb Conc 33.4 g/dL (32-36); Mean Corpuscular Volume 86.2 fL (80-100); Mean Platelet Volume 9.8 fL (7.4-10.4); Monocytes # (auto) 0.71 K/uL (0.11-0.59); Monocytes % (auto) 6.9 %; Neutrophils # (auto) 7.77 K/uL (1.4-6.5); Neutrophils % (auto) 75.1 %; Platelet Count 236 K/uL (130-400); RDW Coefficient of Variation 14.8 % (11.5-14.5); RDW Standard Deviation 46.4 fL (36.4-46.3); Red Blood Count 4.48 M/uL (4.2-5.4); White Blood Count 10.34 K/uL (4.8-10.8)
[2020-07-13 16:01] LABS: Partial Thromboplastin Time 26.8 Seconds (21.0-31.0)
[2020-07-13 16:14] LABS: Alanine Aminotransferase 18 U/L (12-78); Albumin Globulin Ratio 0.7 (0.9-2); Albumin Level 2.8 gm/dl (3.4-5.0); Alkaline Phosphatase 122 U/L (45-117); Aspartate Aminotransferase 15 U/L (15-37); BUN Creatinine Ratio 21.4 (10-20); Bilirubin,Total 0.7 mg/dl (0.2-1); Blood Urea Nitrogen 19 mg/dl (7-18); Calcium 9.2 mg/dl (8.5-10.1); Carbon Dioxide 28 mmol/L (21-32); Chloride 101 mmol/L (98-107); Creatinine Clr Calc Pharmacy 66.8 ml/min; Est GFR (African American) 74.6; Est GFR (Non-African American) 64.3; Globulin 3.9 gm/dl (2.5-4.0); Glucose 309 mg/dl (70-99); Magnesium 2.1 mg/dl (1.8-2.4); Potassium 4.5 mmol/L (3.5-5.1); Sodium 134 mmol/L (136-145); Total Protein 6.7 gm/dl (6.4-8.2); Troponin I < 0.015 ng/ml (0-0.045)
[2020-07-13 16:28] LABS: Beta-Hydroxybutyrate 1.65 mg/dl (0.2-2.81)
--- NOTE | 2020-07-13 16:41 | XRay Report ---
XR chest 1V portable CLINICAL HISTORY: weak COMPARISON STUDY: December 06, 2019. FINDINGS: Lung volumes are normal. Lungs are clear. There is no pneumothorax or pleural effusion. Car diac size is stable. Mediastinal contours are normal. There is no evidence for pulmonary edema. IMPRESSION: No acute cardiopulmonary findings. ACT 112: Negative or not required by law. Electronically signed by: Juan Jose Gold M.D. 07/13/2020 4:40 PM
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
[2020-07-13] MEDS ORDERED: PHARMACIST DISCHARGE MED REC CONSULT PRN (17:46)
[2020-07-13] MEDS ORDERED: DEXTROSE 50% 50 ML SYRINGE IV PRN (17:46)
[2020-07-13] MEDS ORDERED: GLUCOSE 40% GEL 15 GM TUBE PO PRN (17:46)
[2020-07-13] MEDS ORDERED: GLUCAGON FOR INJ 1 MG VIAL SQ PRN (17:46)
[2020-07-13] MEDS ORDERED: GLUCOSE 10 TABS/TUBE PO PRN (17:46)
[2020-07-13] MEDS ORDERED: ACETAMINOPHEN 325 MG TAB PO PRN (17:46)
[2020-07-13] MEDS ORDERED: PHARMACY GLYCEMIC MGMT CONSULT PRN (18:25)
[2020-07-13] MEDS: SODIUM CHLORIDE 0.9% 1000ML 1,000 ML IV SCH (18:42)
[2020-07-13] MEDS ORDERED: ASPIRIN 81 MG CHEW PO ONE (19:00)
[2020-07-13] MEDS ORDERED: INSULIN HUMAN NPH SC ONE (19:15)
--- NOTE | 2020-07-13 20:26 | Magnetic Resonance Report ---
MRI OF THE BRAIN WITHOUT CONTRAST CLINICAL HISTORY: Stroke like S/S with normal CT/CTA head COMPARISON STUDY: Head CT and CTA of the head performed earlier today. TECHNIQUE: Utilizing a 1.5 [place]ita magnet and dedicated coil, multiplanar, multiecho imaging of the bra in was performed without IV contrast. FINDINGS: Exam is mildly compromised by motion artifact but remains diagnostic. Note is made of a sma ll to moderate size focus of restricted diffusion within the posterior left temporal lobe and the lef t parietal lobe. There is no mass effect. There is no hemorrhage. No additional foci of restricted di ffusion are noted. Ventricular system is unremarkable. The basilar cisterns are patent. There are no extra axial collections. Extensive white matter T2 hyperintense foci suggest small vessel disease. Ca lvarial signal is normal. There are postoperative findings within the sinuses. No intracranial masses are identified on this unenhanced examination. 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 No mass effect or hemorrhage. ACT 112: Negative or not required by law. Electronically signed by: Juan Jose Gold M.D. 07/13/2020 8:25 PM
[2020-07-13] MEDS: SOTALOL HCL 80 MG TAB PO SCH (20:50)
[2020-07-13] MEDS: INSULIN ASPART 100 UNITS/ML 3 ML PEN SC SCH ×2 (21:07→21:25)
[2020-07-14] MEDS: INSULIN ASPART 100 UNITS/ML 3 ML PEN SC SCH ×6 (00:56→21:34)
[2020-07-14] MEDS: SODIUM CHLORIDE 0.9% 1000ML 1,000 ML IV SCH ×2 (05:36→18:59)
--- NOTE | 2020-07-14 06:16 | Electrocardiogram Report ---
Test Reason : Blood Pressure : / mmHG Vent. Rate : 074 BPM Atrial Rate : 074 BPM P-R Int : 166 ms QRS Dur : 088 ms QT Int : 416 ms P-R-T Axes : -02 004 013 degrees QTc Int : 461 ms Normal sinus rhythm Normal ECG When compared with ECG of 06-DEC-2019 22:16, No significant change Confirmed by Asif Marcum ([id number]) on 07/14/2020 6:16:37 AM Referred By: REFERRED SELF Confirmed By:Asif Marcum
[2020-07-14 07:15] LABS: Basophils # (auto) 0.02 K/uL (0-0.2); Basophils % (auto) 0.2 %; Eosinophils # (auto) 0.18 K/uL (0-0.5); Eosinophils % (auto) 2.2 %; Hematocrit (blood only) 39.5 % (37-47); Hemoglobin 12.8 g/dL (12.0-16.0); Immature Granulocytes # (auto) 0.01 K/uL (0.00-0.02); Immature Granulocytes % (auto) 0.1 %; Lymphocytes # (auto) 1.69 K/uL (1.2-3.4); Lymphocytes % (auto) 20.7 %; Mean Corpuscular Hemoglobin 28.2 pg (25-34); Mean Corpuscular Hgb Conc 32.4 g/dL (32-36); Mean Platelet Volume 9.6 fL (7.4-10.4); Monocytes # (auto) 0.54 K/uL (0.11-0.59); Monocytes % (auto) 6.6 %; Neutrophils # (auto) 5.72 K/uL (1.4-6.5); Neutrophils % (auto) 70.2 %; Platelet Count 243 K/uL (130-400); RDW Standard Deviation 48.2 fL (36.4-46.3); Red Blood Count 4.54 M/uL (4.2-5.4); White Blood Count 8.16 K/uL (4.8-10.8)
[2020-07-14 08:11] LABS: BUN Creatinine Ratio 21.9 (10-20); Calcium 9.3 mg/dl (8.5-10.1); Creatinine Clr Calc Pharmacy 81.6 ml/min; Est GFR (Non-African American) 82.9; Potassium 3.9 mmol/L (3.5-5.1)
[2020-07-14] MEDS: CHOLECALCIFEROL 1,000 UNITS 25 MCG TAB PO SCH (08:24)
[2020-07-14] MEDS: MULTIVITAMIN TAB PO SCH (08:25)
[2020-07-14] MEDS: DIGOXIN 0.125 MG TAB PO SCH (08:26)
[2020-07-14] MEDS: TORSEMIDE 20 MG TAB PO SCH (08:26)
[2020-07-14] MEDS: SOTALOL HCL 80 MG TAB PO SCH ×2 (08:26→21:33)
[2020-07-14] MEDS: OMEGA-3 (PURIFIED FISH OIL) 1 GM CAP PO SCH (08:26)
[2020-07-14] MEDS: ATORVASTATIN 40 MG TAB PO SCH (08:26)
[2020-07-14] MEDS: ASPIRIN 81 MG ECTAB PO SCH (08:26)
[2020-07-14] MEDS: FLUTICASONE/VILANTEROL 100/25MCG 14 PUFFS/INHALER INH SCH (08:27)
[2020-07-14] MEDS ORDERED: lisinopriL 20 MG TAB PO SCH (09:00)
[2020-07-14 09:05] LABS: Estimated Average Glucose 258 mg/dl; Hemoglobin A1C 10.6 % (4.5-5.6)
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
[2020-07-14] MEDS: ALBUT/IPRATROP 3MG/0.5MG NEB 3 ML VIAL NEB PRN (13:37)
--- NOTE | 2020-07-14 14:38 | Pharmacy Report ---
Pharmacy Glycemic Short Note 2 - Date of Service July 14, 2020 - Glycemic Short BSG Results (Last 24 hours): 07/13/20 07/13/20 07/13/20 15:16 15:35 20:58 Glucose 309 H* POC Glucose 294 H 322 H* 07/13/20 07/13/20 07/14/20 21:00 21:03 00:26 Glucose POC Glucose 251 H 247 H 115 H 07/14/20 07/14/20 07/14/20 01:02 03:46 06:57 Glucose 114 H POC Glucose 106 H 145 H 07/14/20 07/14/20 07:24 11:42 Glucose POC Glucose 136 H 181 H OUTPATIENT ANTIDIABETIC REGIMEN: * Novolog 70/30 - 42 units with breakfast, 15 with lunch, 50 with dinner - per DM outpatient notes * 10.6% A1c 07/14/20 ASSESSMENT: * Patient with acute left posterior stroke, now with aphasia. Pharmacy consulted for glycemic management. Patient/family unable to verify home diabetes insulin regimen. Follows Endo outpatient and obtained insulin doses from their records * Fasting BSG this AM w/in range 145 mg/dL - only received 20 units of NPH yesterday * Lunch time BSG trending up as patient now eating - tightened. Will increase NPH to 30 units with dinner as I anticipate needs to increase with insulin. Will add overnight checks. Likely do BID dosing NPH tomorrow PLAN FOR INPATIENT GLYCEMIC CONTROL: * Hold outpatient oral diabetes medications * Basal insulin * NPH 30 units daily with dinner * Bolus insulin * NovoLog per scale ACHS or Q6hrs while NPO * Goal Range: Low 110 mg/dL - High 140 mg/dL * Correction Factor: 20 mg/dL/unit * Nutritional / Prandial insulin per carb ratio of 1 unit per 6 grams CHO consumed PLAN FOR DISCHARGE: * tbd
--- NOTE | 2020-07-14 15:39 | XCELERA ---
[id number]
--- NOTE | 2020-07-14 17:03 | Hospitalist Progress Note ---
Date of Service July 14, 2020 Assessment & Plan (1) Acute CVA (cerebrovascular accident): presented with altered mental status, she has expressive and receptive aphasia MRI brain shows left parietal stroke in MCA territory most likely etiology is ischemic but embolic cannot be ruled out risk factors are uncontrolled HTN, uncontrolled DM, dyslipidemia she takes Xarelto for afib for stroke protection echocardiogram with no intra-cardiac thrombus will ask cardiology tomorrow if Xarelto can be continued aspirin 81mg daily Lipitor 40mg daily, no role for high intensity statin better blood pressure control, she is on Lisinopril 20mg at home better DM control, HbA1c is 10.1, she is prescribed 70/30 Flexpen but it is expensive, she rations insulin to make it last longer PT/OT and speech therapy evaluations plan for rehab on discharge, could be ready by tomorrow (2) Aphasia due to acute stroke: consult speech therapy (3) Altered mental status: due to acute stroke mental status improved, she is not confused, she just has aphasia and gets frustrated (4) A-fib: continue Sotalol and digoxin continue Xarelto for anticoagulation etiology of stroke is ischemic, likely no need to change anticoagulation, ask cardiology tomorrow (5) DM2 (diabetes mellitus, type 2): needs better control will discuss options with DM educator and pharmacy at home she is on 70/30 flexpen that she says costs $600/month HbA1c is 10.1% (6) Hypertension: BP elevated in setting of acute stroke increase Lisinopril to 40mg tomorrow morning consider adding Norvasc 5mg daily if mean pressures still > 100 (7) Arthritis: (8) Lymphedema: (9) Polyneuropathy: (10) Obstructive sleep apnea: (11) Hyperlipidemia: (12) DVT prophylaxis: Admission and Anticipated Discharge Date Admission Date: July 13, 2020 Subjective patient still with receptive and expressive aphasia MRI brain shows left parietal infarct discussed with Dr. Batista, he feels this is ischemic, not embolic as even though she has afib she has been on Xarelto appropriately appreciate input from PT/OT, she needs rehab appreciate input from adaptive physical educator, she runs hyperglycemia because she rations insulin because it is so expensive will work on alternative insulin regimen that she can afford reviewed chart, reviewed labs, reviewed imaging Review of Systems Review of Systems: All systems reviewed & are unremarkable except as noted in Subjective Neurologic: + abnormal speech (receptive aphasia) Physical Exam Constitutional: WD/WN, vitals as above Eyes: PERRL, conjunctivae normal, anicteric sclerae ENMT: external ear and nose normal, oropharynx normal Neck: trachea midline, no thyromegaly Respiratory: normal respiratory effort, lungs clear to auscultation Cardiovascular: RRR, no murmur, no edema Gastrointestinal (Abdomen): normal bowel sounds, soft, nontender, no hepatosplenomegaly Musculoskeletal: no cyanosis or clubbing, extremities motor strength 5/5 Skin: no rashes, warm and dry Neurologic: CN's II-XI intact bilaterally, deep tendon reflexes 2+ bilaterally, moves all extremities and awake; no focal motor deficits Speech / Cognition: + abnormal speech, + expressive aphasia and + receptive aphasia Motor/Sensory: no tremor, normal movement and no pronator drift Psychiatric: Orientation: alert and oriented x 3 Lymphatic: no cervical or axillary lymphadenopathy Results & Data Results & Data ([facility]) Vital Signs (Past 12 Hours) Vital Signs Temp Pulse Pulse Resp BP Pulse Ox 07/14/20 15:20 36.8 C 62 24 157/56 H 95 07/14/20 13:38 18 97 07/14/20 12:22 36.7 C 62 20 165/74 H 96 07/14/20 08:26 61 07/14/20 07:57 36.7 C 61 16 160/80 H 98 07/14/20 07:49 63 Laboratory Results Laboratory Results - last 24 hr 07/14/20 07/14/20 07/14/20 00:26 01:02 03:46 WBC RBC Hgb Hct MCV MCH MCHC RDW Std Deviation RDW Coeff of Amish Plt Count MPV Immature Gran % (Auto) Neut % (Auto) Lymph % (Auto) [place] % (Auto) Eos % (Auto) Baso % (Auto) Neut # (Auto) Lymph # (Auto) [place] # (Auto) Eos # (Auto) Baso # (Auto) Immature Gran # (Auto) Sodium Potassium Chloride Carbon Dioxide Anion Gap BUN Creatinine Est Cr Clr Drug Dosing Est GFR ( Amer) Est GFR (Non-Af Amer) BUN/Creatinine Ratio Glucose POC Glucose 115 H 106 H 145 H Estimat Average Glucose Hemoglobin A1c Calcium Triglycerides Cholesterol LDL Cholesterol, Calc VLDL Cholesterol, Calc HDL Cholesterol Cholesterol/HDL Ratio Urine Color Urine Appearance Urine pH Ur Specific [place] Urine Protein Urine Glucose (UA) Urine Ketones Urine Blood Urine Nitrite Urine Bilirubin Urine Urobilinogen Ur Leukocyte Esterase Digoxin 07/14/20 07/14/20 07/14/20 06:57 06:57 06:57 WBC 8.16 RBC 4.54 Hgb 12.8 Hct 39.5 MCV 87.0 MCH 28.2 MCHC 32.4 RDW Std Deviation 48.2 H RDW Coeff of Amish 15.0 H Plt Count 243 MPV 9.6 Immature Gran % (Auto) 0.1 Neut % (Auto) 70.2 Lymph % (Auto) 20.7 [place] % (Auto) 6.6 Eos % (Auto) 2.2 Baso % (Auto) 0.2 Neut # (Auto) 5.72 Lymph # (Auto) 1.69 [place] # (Auto) 0.54 Eos # (Auto) 0.18 Baso # (Auto) 0.02 Immature Gran # (Auto) 0.01 Sodium 140 Potassium 3.9 Chloride 106 Carbon Dioxide 27 Anion Gap 7.0 BUN 16 Creatinine 0.73 Est Cr Clr Drug Dosing 81.6 Est GFR ( Amer) 96.0 Est GFR (Non-Af Amer) 82.9 BUN/Creatinine Ratio 21.9 H Glucose 114 H POC Glucose Estimat Average Glucose 258 Hemoglobin A1c 10.6 H Calcium 9.3 Triglycerides 73 Cholesterol 150 LDL Cholesterol, Calc 82 VLDL Cholesterol, Calc 15 HDL Cholesterol 53 Cholesterol/HDL Ratio 3 Urine Color Urine Appearance Urine pH Ur Specific [place] Urine Protein Urine Glucose (UA) Urine Ketones Urine Blood Urine Nitrite Urine Bilirubin Urine Urobilinogen Ur Leukocyte Esterase Digoxin 07/14/20 07/14/20 07/14/20 06:57 07:24 11:42 WBC RBC Hgb Hct MCV MCH MCHC RDW Std Deviation RDW Coeff of Amish Plt Count MPV Immature Gran % (Auto) Neut % (Auto) Lymph % (Auto) [place] % (Auto) Eos % (Auto) Baso % (Auto) Neut # (Auto) Lymph # (Auto) [place] # (Auto) Eos # (Auto) Baso # (Auto) Immature Gran # (Auto) Sodium Potassium Chloride Carbon Dioxide Anion Gap BUN Creatinine Est Cr Clr Drug Dosing Est GFR ( Amer) Est GFR (Non-Af Amer) BUN/Creatinine Ratio Glucose POC Glucose 136 H 181 H Estimat Average Glucose Hemoglobin A1c Calcium Triglycerides Cholesterol LDL Cholesterol, Calc VLDL Cholesterol, Calc HDL Cholesterol Cholesterol/HDL Ratio Urine Color Urine Appearance Urine pH Ur Specific [place] Urine Protein Urine Glucose (UA) Urine Ketones Urine Blood Urine Nitrite Urine Bilirubin Urine Urobilinogen Ur Leukocyte Esterase Digoxin < 0.1 L 07/14/20 07/14/20 07/14/20 16:10 16:57 21:01 WBC RBC Hgb Hct MCV MCH MCHC RDW Std Deviation RDW Coeff of Amish Plt Count MPV Immature Gran % (Auto) Neut % (Auto) Lymph % (Auto) [place] % (Auto) Eos % (Auto) Baso % (Auto) Neut # (Auto) Lymph # (Auto) [place] # (Auto) Eos # (Auto) Baso # (Auto) Immature Gran # (Auto) Sodium Potassium Chloride Carbon Dioxide Anion Gap BUN Creatinine Est Cr Clr Drug Dosing Est GFR ( Amer) Est GFR (Non-Af Amer) BUN/Creatinine Ratio Glucose POC Glucose 141 H 117 H Estimat Average Glucose Hemoglobin A1c Calcium Triglycerides Cholesterol LDL Cholesterol, Calc VLDL Cholesterol, Calc HDL Cholesterol Cholesterol/HDL Ratio Urine Color Yellow Urine Appearance Clear Urine pH 5.0 Ur Specific [place] 1.012 Urine Protein Negative Urine Glucose (UA) Negative Urine Ketones Negative Urine Blood Negative Urine Nitrite Negative Urine Bilirubin Negative Urine Urobilinogen Negative Ur Leukocyte Esterase Negative Digoxin Diagnostic Findings MRI brain IMPRESSION: Acute infarct within the posterior left MCA territory. No mass effect or hemorrhage. ECHOCARDIOGRAM EF normal, no valve disease, no intra-cardiac thrombus Medications Administered Current Inpatient Medications Acetaminophen (Acetaminophen 325 Mg Tab) 650 mg PO Q4H PRN PRN Reason: Pain or Fever Stop: 08/12/20 17:45 Albuterol (Albut/Ipratrop 3mg/0.5mg Neb 3 Ml Vial) 3 ml NEB Q2R PRN PRN Reason: Dyspnea Stop: 08/13/20 12:07 Last Admin: 07/14/20 13:37 Dose: 3 ml Documented by: Aspirin (Aspirin 81 Mg Ectab) 81 mg PO QAM [facility] Stop: 08/13/20 08:59 Last Admin: 07/14/20 08:26 Dose: 81 mg Documented by: Atorvastatin Calcium (Atorvastatin 40 Mg Tab) 40 mg PO QAM [facility] Stop: 08/13/20 08:59 Last Admin: 07/14/20 08:26 Dose: 40 mg Documented by: Dextrose (Dextrose 50% 50 Ml Syringe) 25 - 50 ml IV UD PRN; Protocol PRN Reason: Hypoglycemia Protocol Stop: 08/12/20 17:45 Digoxin (Digoxin 0.125 Mg Tab) 0.125 mg PO DAILY [facility] Stop: 08/13/20 08:59 Last Admin: 07/14/20 08:26 Dose: 0.125 mg Documented by: Fish Oil (Gaston-3 (Purified Fish Oil) 1 Gm Cap) 1 gm PO DAILY [facility] Stop: 08/13/20 08:59 Last Admin: 07/14/20 08:26 Dose: 1 gm Documented by: Fluticasone/Vilanterol (Fluticasone/Vilanterol 100/25mcg 14 Puffs/Inhaler) 1 puffs INH DAILY [facility]; Protocol Stop: 08/13/20 08:59 Last Admin: 07/14/20 08:27 Dose: 1 puffs Documented by: Glucagon (Glucagon For Inj 1 Mg Vial) 1 mg SQ UD PRN; Protocol PRN Reason: Hypoglycemia Protocol Stop: 08/12/20 17:45 Glucose (Glucose 10 Tabs/Tube) 4 - 8 tabs PO UD PRN; Protocol PRN Reason: Hypoglycemia Protocol Stop: 08/12/20 17:45 Glucose (Glucose 40% Gel 15 Gm Tube) 15 - 30 gm PO UD PRN; Protocol PRN Reason: Hypoglycemia Protocol Stop: 08/12/20 17:45 Sodium Chloride (Nss 1000ml) 1,000 mls @ 80 mls/hr IV .[id number] [facility] Stop: 08/12/20 17:45 Last Admin: 07/14/20 18:59 Dose: 80 mls/hr Documented by: Insulin Aspart (Insulin Aspart 100 Units/Ml 3 Ml Pen) 0 units SC ACHS [facility]; Protocol Stop: 08/12/20 19:04 Last Admin: 07/14/20 21:34 Dose: Not Given Documented by: Insulin Aspart (Insulin Aspart 100 Units/Ml 3 Ml Pen) 0 units SC 0000,0400 [facility]; Protocol Stop: 07/15/20 04:01 Insulin Human NPH (Insulin Human Nph) 30 units SC DAILY@1800 [facility]; Protocol Stop: 08/13/20 17:59 Last Admin: 07/14/20 18:58 Dose: 30 units Documented by: Lisinopril (Lisinopril 20 Mg Tab) 20 mg PO DAILY [facility] Stop: 08/13/20 08:59 Last Admin: 07/14/20 08:25 Dose: 20 mg Documented by: Miscellaneous (Carbohydrates For Hypoglycemia ) 15 - 30 gm PO UD PRN PRN Reason: Hypoglycemia Protocol Stop: 08/12/20 17:45 Miscellaneous Information (Pharmacy Glycemic Mgmt Consult) 1 ea N/A UD PRN; Protocol PRN Reason: Consult Stop: 08/12/20 18:24 Miscellaneous Information (Pharmacist Discharge Med Rec Consult) 1 ea N/A UD PRN PRN Reason: Consult Stop: 08/12/20 17:45 Multivitamins (Multivitamin Tab) 1 tab PO DAILY [facility] Stop: 08/13/20 08:59 Last Admin: 07/14/20 08:25 Dose: 1 tab Documented by: Sotalol HCl (Sotalol Hcl 80 Mg Tab) 120 mg PO Q12 [facility] Stop: 08/12/20 20:59 Last Admin: 07/14/20 21:33 Dose: 120 mg Documented by: Torsemide (Torsemide 20 Mg Tab) 40 mg PO QAM [facility] Stop: 08/13/20 08:59 Last Admin: 07/14/20 08:26 Dose: 40 mg Documented by: Vitamin D (Cholecalciferol 1,000 Units 25 Mcg Tab) 2,000 units PO DAILY [facility] Stop: 08/13/20 08:59 Last Admin: 07/14/20 08:24 Dose: 2,000 units Documented by: PG Care Time/CCT Total # of Minutes Spent Total Time Spent with Patient: Total time spent is greater than 50% in coordination of care (as documented) at patient's floor/unit and/or counseling patient: Coding Level of Care Code 47290 Subseq Hosp Care Lvl 3 Diagnoses Acute CVA (cerebrovascular accident) I63.9 Aphasia due to acute stroke I63.9; R47.01 Altered mental status R41.82 A-fib I48.21 Atrial fibrillation type: permanent DM2 (diabetes mellitus, type 2) E11.9 Hypertension I10 Hypertension type: essential hypertension Arthritis M19.90 Lymphedema I89.0 Polyneuropathy G62.9 Obstructive sleep apnea G47.33 Hyperlipidemia E78.5 DVT prophylaxis Z29.9 (1) A-fib Atrial fibrillation type: permanent Qualified Code(s): I48.21 - Permanent atrial fibrillation (2) Hypertension Hypertension type: essential hypertension Qualified Code(s): I10 - Essential (primary) hypertension
[2020-07-14 17:45] LABS: Appearance Urine Clear (Clear); Bilirubin Urine Negative (Negative); Blood Urine Negative (Negative); Color Urine Yellow; Glucose Urine UA Negative (Negative); Ketones Urine Negative (Negative); Leukocyte Esterase Urine Negative (Negative); Nitrite Urine Negative (Negative); Protein Urine Negative (Negative); Specific Gravity Urine 1.012 (1.000-1.030); Urobilinogen Urine Negative (Negative)
[2020-07-14] MEDS ORDERED: INSULIN HUMAN NPH SC SCH ×2 (18:00)
[2020-07-15] MEDS: CARBOHYDRATES FOR HYPOGLYCEMIA PO PRN ×2 (00:15→00:32)
[2020-07-15] MEDS: INSULIN ASPART 100 UNITS/ML 3 ML PEN SC SCH ×6 (00:22→21:34)
[2020-07-15 06:35] LABS: Basophils # (auto) 0.01 K/uL (0-0.2); Basophils % (auto) 0.1 %; Eosinophils # (auto) 0.19 K/uL (0-0.5); Hematocrit (blood only) 40.5 % (37-47); Hemoglobin 13.3 g/dL (12.0-16.0); Immature Granulocytes # (auto) 0.02 K/uL (0.00-0.02); Immature Granulocytes % (auto) 0.2 %; Lymphocytes # (auto) 2.25 K/uL (1.2-3.4); Lymphocytes % (auto) 23.5 %; Mean Corpuscular Hemoglobin 28.5 pg (25-34); Mean Corpuscular Hgb Conc 32.8 g/dL (32-36); Mean Corpuscular Volume 86.9 fL (80-100); Mean Platelet Volume 10.2 fL (7.4-10.4); Monocytes # (auto) 0.71 K/uL (0.11-0.59); Monocytes % (auto) 7.4 %; Neutrophils % (auto) 66.8 %; Platelet Count 249 K/uL (130-400); RDW Coefficient of Variation 14.9 % (11.5-14.5); RDW Standard Deviation 47.2 fL (36.4-46.3); Red Blood Count 4.66 M/uL (4.2-5.4); White Blood Count 9.58 K/uL (4.8-10.8)
[2020-07-15 07:11] LABS: BUN Creatinine Ratio 23.5 (10-20); Calcium 9.2 mg/dl (8.5-10.1); Creatinine Clr Calc Pharmacy 75.2 ml/min; Est GFR (African American) 88.6; Est GFR (Non-African American) 76.5; Potassium 3.6 mmol/L (3.5-5.1)
[2020-07-15] MEDS: FLUTICASONE/VILANTEROL 100/25MCG 14 PUFFS/INHALER INH SCH (09:04)
[2020-07-15] MEDS: SOTALOL HCL 80 MG TAB PO SCH ×2 (09:06→21:21)
[2020-07-15] MEDS: TORSEMIDE 20 MG TAB PO SCH (09:06)
[2020-07-15] MEDS: lisinopriL 40 MG TAB PO SCH (09:06)
[2020-07-15] MEDS: ATORVASTATIN 40 MG TAB PO SCH (09:07)
[2020-07-15] MEDS: OMEGA-3 (PURIFIED FISH OIL) 1 GM CAP PO SCH (09:07)
[2020-07-15] MEDS: CHOLECALCIFEROL 1,000 UNITS 25 MCG TAB PO SCH (09:07)
[2020-07-15] MEDS: ASPIRIN 81 MG ECTAB PO SCH (09:07)
[2020-07-15] MEDS: MULTIVITAMIN TAB PO SCH (09:07)
[2020-07-15] MEDS: DIGOXIN 0.125 MG TAB PO SCH (09:07)
[2020-07-15] MEDS: SODIUM CHLORIDE 0.9% 1000ML 1,000 ML IV SCH (10:00)
--- NOTE | 2020-07-15 10:30 | Neurology Progress Note ---
Date of Service July 15, 2020 Assessment & Plan (1) Acute CVA (cerebrovascular accident): (2) Aphasia due to acute stroke: (3) Hypertension: (4) Atrial fibrillation: (5) Diabetes mellitus type 2, uncontrolled: Patient had an acute left posterior parietal stroke July 13 leaving her with an aphasia. She has not have dysarthria and I believe her aphasia is a combination of some receptive and expressive components. It is improving She really does not have any receptive components left. The aphasia gave the impression that her memory was poor but I think her memory is Largely intact. right upper extremity clumsiness of the hand is improved today. She has some weakness in her left shoulder which is old and is likely secondary to a rotator cuff She has a history of atrial fibrillation on Xarelto. She has flipped from sinus rhythm back into atrial fibrillation during this hospitalization She is followed by Dr. Xiong. Echocardiogram was largely unremarkable and unchanged from previous She has risk factors for ischemic stroke including uncontrolled blood pressure, uncontrolled glucose, and dyslipidemia. The etiology of this stroke is likely ischemic although embolic cannot be excluded. Recommendations: 1. agree with 81 milligram aspirin tablet daily. 2. The patient probably needs an anticoagulant, but I would defer to Dr. Xiong to see if she needs to go back on Xarelto or switch to another agent. 4. speech therapy to evaluate the aphasia. 5. Physical and occupational therapy. 6. Control blood pressure aiming for a mean arterial pressure of 100 7. Controlled glucose trying to lower the hemoglobin A1c to less than 8. 8. Continue atorvastatin 40. Her lipid parameters are low enough that I do not believe she is a high dose lipid candidate. Overall, I spent a total of 35 minutes with this case including review of darren rds, direct evaluation the patient at bedside, and discussion of the case with the patient at bedside and Dr. Matrin, including differential diagnosis and treatment options. Admission and Anticipated Discharge Date Admission Date: July 13, 2020 Subjective not in any pain or having headache. She has improved with her movement and has been walking in the halls with physical therapy and a cane or walker. Her speech still has some issues. Echocardiogram was largely unremarkable and unchanged from 2017. Her cardiac monitoring as showed that yesterday she went from normal sinus rhythm and flipped into atrial fibrillation which she has remained in. CBC and Chem profile were unremarkable. Results & Data ([facility]) Vital Signs (Past 12 Hours) Vital Signs Temp Pulse Pulse Resp BP Pulse Ox 07/15/20 09:07 89 07/15/20 08:05 36.6 C 89 18 139/81 97 07/15/20 07:38 85 07/15/20 04:00 36.4 C L 95 H 20 129/78 97 07/14/20 23:16 36.9 C 70 18 147/86 H 95 Exam (Neuro) Physical Exam: She is awake and alert. Speech is not dysarthric and she comprehends well. She does have some word-finding and word substitution problems. She realizes that she has the problem. Extraocular eye muscles are intact without nystagmus. There is no facial droop. Coordination is normal in the arms without tremor or ataxia. She has better facility in the hands bilaterally and her strength is symmetrical except for some decreased strength in the left deltoid and left shoulder rotators. Stance sitting in the bed is and she was walking was poor. PG Care Time/CCT Total # of Minutes Spent Total Time Spent with Patient: Total time spent is greater than 50% in coordination of care (as documented) at patient's floor/unit and/or counseling patient: Coding Level of Care Code 80239 Subseq Hosp Care Lvl 3 Diagnoses Acute CVA (cerebrovascular accident) I63.9 Aphasia due to acute stroke I63.9; R47.01 Hypertension I10 Hypertension type: essential hypertension Atrial fibrillation I48.91 Diabetes mellitus type 2, uncontrolled E11.65 Time Spent (min) 35 (1) Hypertension Hypertension type: essential hypertension Qualified Code(s): I10 - Essential (primary) hypertension
[2020-07-15] MEDS: RIVAROXABAN 20 MG TAB PO SCH (11:16)
--- NOTE | 2020-07-15 12:26 | Pharmacy Report ---
Pharmacy Glycemic Short Note 2 - Date of Service July 15, 2020 - Glycemic Short BSG Results (Last 24 hours): 07/14/20 07/14/20 07/15/20 16:10 21:01 00:09 Glucose POC Glucose 141 H 117 H 58 L* 07/15/20 07/15/20 07/15/20 00:11 00:30 00:31 Glucose POC Glucose 59 L* 69 L* 62 L* 07/15/20 07/15/20 07/15/20 00:48 04:06 05:36 Glucose 80 POC Glucose 112 H 111 H 07/15/20 07/15/20 07:43 11:35 Glucose POC Glucose 72 158 H OUTPATIENT ANTIDIABETIC REGIMEN: * Novolog 70/30 - 42 units with breakfast, 15 with lunch, 50 with dinner - per DM outpatient notes * 10.6% A1c 07/14/20 ASSESSMENT: 07/15 * Patient received total of 51 units of insulin yesterday, fo which 30 were NPH * BSGs dropping overnight into 50-60s, likely related to too much basal insulin. Outpatient records of insulin much higher, unclear if this is what patient was actually taking. Patient with issues with speaking/writing and not able to confirm outpatient regimen * Will decrease NPH dose for today / also loosen CR to prevent hypoglycemia 07/14 * Patient with acute left posterior stroke, now with aphasia. Pharmacy consulted for glycemic management. Patient/family unable to verify home diabetes insulin regimen. Follows Endo outpatient and obtained insulin doses from their records * Fasting BSG this AM w/in range 145 mg/dL - only received 20 units of NPH yes terday * Lunch time BSG trending up as patient now eating - tightened. Will increase NPH to 30 units with dinner as I anticipate needs to increase with insulin. Will add overnight checks. Likely do BID dosing NPH tomorrow PLAN FOR INPATIENT GLYCEMIC CONTROL: * Hold outpatient oral diabetes medications * Basal insulin * NPH 10-20 units with dinner, based upon BSG value * Bolus insulin * NovoLog per scale ACHS or Q6hrs while NPO * Goal Range: Low 110 mg/dL - High 140 mg/dL * Correction Factor: 25 mg/dL/unit * Nutritional / Prandial insulin per carb ratio of 1 unit per 8 grams CHO consumed PLAN FOR DISCHARGE: * Insulin regimen definitely needs to be evaluated prior to discharge. Reported insulin dosing per outpatient DM provider much less than what was listed on medication list on arrival and also inpatient needs thus far. Was unable to confirm outpatient dosing with patient/family. Would make recommendations based upon inpatient insulin needs. Will follow to provide further detailed plan.
[2020-07-15] MEDS: ALBUT/IPRATROP 3MG/0.5MG NEB 3 ML VIAL NEB PRN (15:37)
--- NOTE | 2020-07-15 15:49 | Hospitalist Progress Note ---
Date of Service July 15, 2020 Assessment & Plan (1) Acute CVA (cerebrovascular accident): presented with altered mental status, she had expressive and receptive aphasia MRI brain shows left parietal stroke in MCA territory most likely etiology is ischemic but embolic cannot be ruled out risk factors are uncontrolled HTN, uncontrolled DM, dyslipidemia she takes Xarelto for afib for stroke protection echocardiogram with no intra-cardiac thrombus will ask cardiology tomorrow if Xarelto can be continued aspirin 81mg daily Lipitor 40mg daily, no role for high intensity statin blood pressure control, she is on Lisinopril 20mg at home Lisinopril increased to 40mg, better BP control today better DM control, HbA1c is 10.1, she is prescribed 70/30 Flexpen but it is expensive, she rations insulin to make it last longer will work on getting insulin at [facility] since it is less expensive PT/OT and speech therapy evaluations plan for rehab on discharge, hopeful for [facility] tomorrow (2) Aphasia due to acute stroke: consult speech therapy speech much improved today (3) Altered mental status: due to acute stroke mental status back to normal (4) A-fib: continue Sotalol and digoxin continue Xarelto for anticoagulation etiology of stroke is ischemic rates are controlled (5) DM2 (diabetes mellitus, type 2): needs better control will discuss options with DM educator and pharmacy at home she is on 70/30 flexpen that she says costs $600/month HbA1c is 10.1% (6) Hypertension: BP elevated in setting of acute stroke increase Lisinopril to 40mg, BP better today consider adding Norvasc 5mg daily if mean pressures still > 100 (7) Arthritis: (8) Lymphedema: (9) Polyneuropathy: (10) Obstructive sleep apnea: (11) Hyperlipidemia: (12) DVT prophylaxis: Admission and Anticipated Discharge Date Admission Date: July 15, 2020 Subjective patient is doing a lot better, her speech is much clearer, responses coming on quickly she says it is not 100% better but it is a lot better she is walking better but still weak she agrees to rehab, discussed with CM, might be able to go to [facility] tomorrow make her full admission because if she goes to SNF will need 3 midnights BP is better today, HR was elevated with afib when ambulating but then better labs are stable today Review of Systems Review of Systems: All systems reviewed & are unremarkable except as noted in Subjective Physical Exam Constitutional: WD/WN, vitals as above Eyes: PERRL, conjunctivae normal, anicteric sclerae ENMT: external ear and nose normal, oropharynx normal Neck: trachea midline, no thyromegaly Respiratory: normal respiratory effort, lungs clear to auscultation Cardiovascular: RRR, no murmur, no edema Gastrointestinal (Abdomen): normal bowel sounds, soft, nontender, no hepatosplenomegaly Musculoskeletal: no cyanosis or clubbing, extremities motor strength 5/5 Skin: no rashes, warm and dry Neurologic: CN's II-XI intact bilaterally, deep tendon reflexes 2+ bilaterally, moves all extremities and awake; no focal motor deficits Speech / Cognition: + receptive aphasia Motor/Sensory: no tremor, normal movement and no pronator drift Psychiatric: Orientation: alert and oriented x 3 Lymphatic: no cervical or axillary lymphadenopathy Results & Data Results & Data ([facility]) Vital Signs (Past 12 Hours) Vital Signs Temp Pulse Pulse Resp BP BP Pulse Ox 07/15/20 15:38 65 16 95 07/15/20 15:22 55 L 07/15/20 15:00 36.4 C L 79 20 132/77 99 07/15/20 11:24 36.7 C 94 H 18 143/78 H 97 07/15/20 09:07 89 07/15/20 08:05 36.6 C 89 18 139/81 97 07/15/20 07:38 85 07/15/20 04:00 36.4 C L 95 H 20 129/78 97 Laboratory Results Laboratory Results - last 24 hr 07/14/20 07/15/20 07/15/20 21:01 00:09 00:11 WBC RBC Hgb Hct MCV MCH MCHC RDW Std Deviation RDW Coeff of Amish Plt Count MPV Immature Gran % (Auto) Neut % (Auto) Lymph % (Auto) [place] % (Auto) Eos % (Auto) Baso % (Auto) Neut # (Auto) Lymph # (Auto) [place] # (Auto) Eos # (Auto) Baso # (Auto) Immature Gran # (Auto) Sodium Potassium Chloride Carbon Dioxide Anion Gap BUN Creatinine Est Cr Clr Drug Dosing Est GFR ( Amer) Est GFR (Non-Af Amer) BUN/Creatinine Ratio Glucose POC Glucose 117 H 58 L* 59 L* Calcium 07/15/20 07/15/20 07/15/20 00:30 00:31 00:48 WBC RBC Hgb Hct MCV MCH MCHC RDW Std Deviation RDW Coeff of Amish Plt Count MPV Immature Gran % (Auto) Neut % (Auto) Lymph % (Auto) [place] % (Auto) Eos % (Auto) Baso % (Auto) Neut # (Auto) Lymph # (Auto) [place] # (Auto) Eos # (Auto) Baso # (Auto) Immature Gran # (Auto) Sodium Potassium Chloride Carbon Dioxide Anion Gap BUN Creatinine Est Cr Clr Drug Dosing Est GFR ( Amer) Est GFR (Non-Af Amer) BUN/Creatinine Ratio Glucose POC Glucose 69 L* 62 L* 112 H Calcium 07/15/20 07/15/20 07/15/20 04:06 05:36 05:36 WBC 9.58 RBC 4.66 Hgb 13.3 Hct 40.5 MCV 86.9 MCH 28.5 MCHC 32.8 RDW Std Deviation 47.2 H RDW Coeff of Amish 14.9 H Plt Count 249 MPV 10.2 Immature Gran % (Auto) 0.2 Neut % (Auto) 66.8 Lymph % (Auto) 23.5 [place] % (Auto) 7.4 Eos % (Auto) 2.0 Baso % (Auto) 0.1 Neut # (Auto) 6.40 Lymph # (Auto) 2.25 [place] # (Auto) 0.71 H Eos # (Auto) 0.19 Baso # (Auto) 0.01 Immature Gran # (Auto) 0.02 Sodium 142 Potassium 3.6 Chloride 107 Carbon Dioxide 30 Anion Gap 5.0 BUN 18 Creatinine 0.78 Est Cr Clr Drug Dosing 75.2 Est GFR ( Amer) 88.6 Est GFR (Non-Af Amer) 76.5 BUN/Creatinine Ratio 23.5 H Glucose 80 POC Glucose 111 H Calcium 9.2 07/15/20 07/15/20 07/15/20 07:43 11:35 16:04 WBC RBC Hgb Hct MCV MCH MCHC RDW Std Deviation RDW Coeff of Amish Plt Count MPV Immature Gran % (Auto) Neut % (Auto) Lymph % (Auto) [place] % (Auto) Eos % (Auto) Baso % (Auto) Neut # (Auto) Lymph # (Auto) [place] # (Auto) Eos # (Auto) Baso # (Auto) Immature Gran # (Auto) Sodium Potassium Chloride Carbon Dioxide Anion Gap BUN Creatinine Est Cr Clr Drug Dosing Est GFR ( Amer) Est GFR (Non-Af Amer) BUN/Creatinine Ratio Glucose POC Glucose 72 158 H 237 H Calcium Medications Administered Current Inpatient Medications Acetaminophen (Acetaminophen 325 Mg Tab) 650 mg PO Q4H PRN PRN Reason: Pain or Fever Stop: 08/12/20 17:45 Albuterol (Albut/Ipratrop 3mg/0.5mg Neb 3 Ml Vial) 3 ml NEB Q2R PRN PRN Reason: Dyspnea Stop: 08/13/20 12:07 Last Admin: 07/15/20 15:37 Dose: 3 ml Documented by: Aspirin (Aspirin 81 Mg Ectab) 81 mg PO QAM BONNIE Stop: 08/13/20 08:59 Last Admin: 07/15/20 09:07 Dose: 81 mg Documented by: Atorvastatin Calcium (Atorvastatin 40 Mg Tab) 40 mg PO QAM BONNIE Stop: 08/13/20 08:59 Last Admin: 07/15/20 09:07 Dose: 40 mg Documented by: Dextrose (Dextrose 50% 50 Ml Syringe) 25 - 50 ml IV UD PRN; Protocol PRN Reason: Hypoglycemia Protocol Stop: 08/12/20 17:45 Digoxin (Digoxin 0.125 Mg Tab) 0.125 mg PO DAILY BONNIE Stop: 08/13/20 08:59 Last Admin: 07/15/20 09:07 Dose: 0.125 mg Documented by: Fish Oil ([place]-3 (Purified Fish Oil) 1 Gm Cap) 1 gm PO DAILY BONNIE Stop: 08/13/20 08:59 Last Admin: 07/15/20 09:07 Dose: 1 gm Documented by: Fluticasone/Vilanterol (Fluticasone/Vilanterol 100/25mcg 14 Puffs/Inhaler) 1 puffs INH DAILY BONNIE; Protocol Stop: 08/13/20 08:59 Last Admin: 07/15/20 09:04 Dose: 1 puffs Documented by: Glucagon (Glucagon For Inj 1 Mg Vial) 1 mg SQ UD PRN; Protocol PRN Reason: Hypoglycemia Protocol Stop: 08/12/20 17:45 Glucose (Glucose 10 Tabs/Tube) 4 - 8 tabs PO UD PRN; Protocol PRN Reason: Hypoglycemia Protocol Stop: 08/12/20 17:45 Glucose (Glucose 40% Gel 15 Gm Tube) 15 - 30 gm PO UD PRN; Protocol PRN Reason: Hypoglycemia Protocol Stop: 08/12/20 17:45 Insulin Aspart (Insulin Aspart 100 Units/Ml 3 Ml Pen) 0 units SC ACHS BONNIE; Protocol Stop: 08/12/20 19:04 Last Admin: 07/15/20 17:59 Dose: 7 units Documented by: Insulin Human NPH (Insulin Human Nph) 0 units SC DAILY@1800 BONNIE; Protocol Stop: 08/14/20 17:59 Last Admin: 07/15/20 18:00 Dose: 20 units Documented by: Lisinopril (Lisinopril 40 Mg Tab) 40 mg PO DAILY BONNIE Stop: 08/14/20 08:59 Last Admin: 07/15/20 09:06 Dose: 40 mg Documented by: Miscellaneous (Carbohydrates For Hypoglycemia ) 15 - 30 gm PO UD PRN PRN Reason: Hypoglycemia Protocol Stop: 08/12/20 17:45 Last Admin: 07/15/20 00:32 Dose: 30 gm Documented by: Miscellaneous Information (Pharmacy Glycemic Mgmt Consult) 1 ea N/A UD PRN; Protocol PRN Reason: Consult Stop: 08/12/20 18:24 Miscellaneous Information (Pharmacist Discharge Med Rec Consult) 1 ea N/A UD PRN PRN Reason: Consult Stop: 08/12/20 17:45 Multivitamins (Multivitamin Tab) 1 tab PO DAILY BONNIE Stop: 08/13/20 08:59 Last Admin: 07/15/20 09:07 Dose: 1 tab Documented by: Rivaroxaban (Rivaroxaban 20 Mg Tab) 20 mg PO DAILY BONNIE Stop: 08/14/20 09:59 Last Admin: 07/15/20 11:16 Dose: 20 mg Documented by: Sotalol HCl (Sotalol Hcl 80 Mg Tab) 120 mg PO Q12 BONNIE Stop: 08/12/20 20:59 Last Admin: 07/15/20 09:06 Dose: 120 mg Documented by: Torsemide (Torsemide 20 Mg Tab) 40 mg PO QAM BONNIE Stop: 08/13/20 08:59 Last Admin: 07/15/20 09:06 Dose: 40 mg Documented by: Vitamin D (Cholecalciferol 1,000 Units 25 Mcg Tab) 2,000 units PO DAILY [facility] Stop: 08/13/20 08:59 Last Admin: 07/15/20 09:07 Dose: 2,000 units Documented by: PG Care Time/CCT Total # of Minutes Spent Total Time Spent with Patient: Total time spent is greater than 50% in coordination of care (as documented) at patient's floor/unit and/or counseling patient: Coding Level of Care Code 98941 Subseq Hosp Care Lvl 3 Diagnoses Acute CVA (cerebrovascular accident) I63.9 Aphasia due to acute stroke I63.9; R47.01 Altered mental status R41.82 A-fib I48.21 Atrial fibrillation type: permanent DM2 (diabetes mellitus, type 2) E11.9 Hypertension I10 Hypertension type: essential hypertension Arthritis M19.90 Lymphedema I89.0 Polyneuropathy G62.9 Obstructive sleep apnea G47.33 Hyperlipidemia E78.5 DVT prophylaxis Z29.9 (1) A-fib Atrial fibrillation type: permanent Qualified Code(s): I48.21 - Permanent atrial fibrillation (2) Hypertension Hypertension type: essential hypertension Qualified Code(s): I10 - Essential (primary) hypertension
[2020-07-15] MEDS ORDERED: INSULIN HUMAN NPH SC SCH (18:00)
[2020-07-16] MEDS: ALBUT/IPRATROP 3MG/0.5MG NEB 3 ML VIAL NEB PRN (03:26)
[2020-07-16 06:21] LABS: Basophils # (auto) 0.02 K/uL (0-0.2); Basophils % (auto) 0.2 %; Eosinophils # (auto) 0.22 K/uL (0-0.5); Eosinophils % (auto) 2.6 %; Hematocrit (blood only) 41.6 % (37-47); Hemoglobin 13.3 g/dL (12.0-16.0); Immature Granulocytes # (auto) 0.02 K/uL (0.00-0.02); Immature Granulocytes % (auto) 0.2 %; Lymphocytes # (auto) 2.03 K/uL (1.2-3.4); Lymphocytes % (auto) 24.4 %; Mean Corpuscular Hemoglobin 27.8 pg (25-34); Mean Corpuscular Volume 86.8 fL (80-100); Mean Platelet Volume 10.2 fL (7.4-10.4); Monocytes # (auto) 0.82 K/uL (0.11-0.59); Monocytes % (auto) 9.9 %; Neutrophils # (auto) 5.21 K/uL (1.4-6.5); Neutrophils % (auto) 62.7 %; Platelet Count 273 K/uL (130-400); RDW Coefficient of Variation 14.9 % (11.5-14.5); RDW Standard Deviation 47.6 fL (36.4-46.3); Red Blood Count 4.79 M/uL (4.2-5.4); White Blood Count 8.32 K/uL (4.8-10.8)
[2020-07-16 06:45] LABS: BUN Creatinine Ratio 27.2 (10-20); Calcium 8.9 mg/dl (8.5-10.1); Creatinine Clr Calc Pharmacy 63.1 ml/min; Est GFR (African American) 72.6; Est GFR (Non-African American) 62.6; Potassium 3.7 mmol/L (3.5-5.1)
[2020-07-16] MEDS ORDERED: INSULIN HUMAN NPH SC SCH (08:00)
[2020-07-16] MEDS: INSULIN ASPART 100 UNITS/ML 3 ML PEN SC SCH ×2 (08:11→11:58)
[2020-07-16] MEDS: FLUTICASONE/VILANTEROL 100/25MCG 14 PUFFS/INHALER INH SCH (08:12)
[2020-07-16] MEDS: DIGOXIN 0.125 MG TAB PO SCH (08:13)
[2020-07-16] MEDS: ASPIRIN 81 MG ECTAB PO SCH (08:13)
[2020-07-16] MEDS: ATORVASTATIN 40 MG TAB PO SCH (08:13)
[2020-07-16] MEDS: RIVAROXABAN 20 MG TAB PO SCH (08:13)
[2020-07-16] MEDS: MULTIVITAMIN TAB PO SCH (08:13)
[2020-07-16] MEDS: SOTALOL HCL 80 MG TAB PO SCH (08:13)
[2020-07-16] MEDS: CHOLECALCIFEROL 1,000 UNITS 25 MCG TAB PO SCH (08:13)
[2020-07-16] MEDS: TORSEMIDE 20 MG TAB PO SCH (08:13)
[2020-07-16] MEDS: lisinopriL 40 MG TAB PO SCH (08:13)
[2020-07-16] MEDS: OMEGA-3 (PURIFIED FISH OIL) 1 GM CAP PO SCH (11:27)
--- NOTE | 2020-07-16 13:36 | Pharmacy Report ---
Pharmacy Glycemic Short Note 2 - Date of Service July 16, 2020 - Glycemic Short BSG Results (Last 24 hours): 07/15/20 07/15/20 07/16/20 16:04 20:51 05:45 Glucose 113 H POC Glucose 237 H 230 H 07/16/20 07/16/20 07:20 11:24 Glucose POC Glucose 126 H 131 H OUTPATIENT ANTIDIABETIC REGIMEN: * Novolog 70/30 - 42 units with breakfast, 15 with lunch, 50 with dinner - per DM outpatient notes * 10.6% A1c 07/14/20 ASSESSMENT: 07/16: * Shawna received 36 units of insulin yesterday with poor BSG control * 20 units basal and 16 units of bolus * BSGs became elevated into the mid 200s with dinner and HS * Hyperglycemia later in the day may be due to lack of basal insulin. The patient has been receiving NPH with dinner therefore the effect is wearing off after 12ish hours. I will add an AM dose of NPH to her regimen. * Will keep Novolog parameters the same for now per I expect addition of am NPH to improve BSGs throughout the day. 07/15 * Patient received total of 51 units of insulin yesterday, fo which 30 were NPH * BSGs dropping overnight into 50-60s, likely related to too much basal insulin. Outpatient records of insulin much higher, unclear if this is what patient was actually taking. Patient with issues with speaking/writing and not able to confirm outpatient regimen * Will decrease NPH dose for today / also loosen CR to prevent hypoglycemia 07/14 * Patient with acute left posterior stroke, now with aphasia. Pharmacy consulted for glycemic management. Patient/family unable to verify home diabetes insulin regimen. Follows Endo outpatient and obtained insulin doses from their records * Fasting BSG this AM w/in range 145 mg/dL - only received 20 units of NPH yesterday * Lunch time BSG trending up as patient now eating - tightened. Will increase NPH to 30 units with dinner as I anticipate needs to increase with insulin. Will add overnight checks. Likely do BID dosing NPH tomorrow PLAN FOR INPATIENT GLYCEMIC CONTROL: * Hold outpatient oral diabetes medications * Basal insulin * NPH 10-20 units with dinner, based upon BSG value * Bolus insulin * NovoLog per scale ACHS or Q6hrs while NPO * Goal Range: Low 110 mg/dL - High 140 mg/dL * Correction Factor: 25 mg/dL/unit * Nutritional / Prandial insulin per carb ratio of 1 unit per 8 grams CHO consumed PLAN FOR DISCHARGE: * Alc of 10.6% indicates poor outpatient glycemic control * Possible causes: rationing insulin due to high cost, holding insulin doses when BSG is Less than 140 mg/dL, poor diet at home * It is very difficult to determine outpatient needs since patient has required significantly less insulin while admitted (95 units at home versus 36-51 units here). Dietary differences likely has a big part in this. Since patient is being discharged to rehab, I would recommend starting with doses similar to inpatient needs which can be titrated as needed prior to return to home. * Novolog 70/30 mix: 25 units prior to breakfast and 20 units prior to dinner
[2020-07-16] MEDS ORDERED: STROKE PATIENT DISCHARGE STA (13:53)
--- NOTE | 2020-07-18 21:56 | Discharge Summary ---
Date of Service July 18, 2020 Admission HPI Per Admitting Provider Attending: Dr. Rivera This is a 70-year-old female with a past medical history including atrial fibrillation on chronic anti-coagulants using Xarelto, polyneuropathy, diabetes mellitus type 2 insulin-dependent, SANDRA, nocturnal hypoxemia, hyperlipidemia, lymphedema of bilateral lower extremities, chronic venous insufficiency, polyarthritis, hypertension, history of DVT, obesity. Patient's last known well was 1 PM today. She was taken to her grease and tallow pumper's office and was found to have difficulties with word disassociation, word finding, confusion. Her son Trevin was called by the provider and patient was transported to the emergency department across the parking lot from the office by personal vehicle. Patient was triaged in the emergency department found to have an NIH of 4. She continued with difficulty with word finding. She could not identify a pen. She could not identify a watch. She cannot identify colors. She could not identify gloves. She did know her name and she knew her date of . She knew the town that she lives in with her ZIP Code but did not know her telephone number or her Street number. She was able to give me her son's name but not any other information. He reported that typically she knows his telephone number. She cannot recite that to me. She did follow simple commands but had difficulty following other commands such as [id number], [id number], evaluation for pronator drift. She was able to sit up on command. Strength was found to be equal and appropriate with upper and lower extremities. The patient has significant lower extremity lymphedema without pain. This reportedly is from a prior fracture. The patient denies headache. She denies blurred vision. She denies double vision. Her tongue is midline. She has no facial droop. She seems pleasant and tracks appropriately. The son reports that the patient has had no recent illness. She has not complained of any dysuria or hematuria. She is not complained of fever or ch ills. She has not had any recent travel. She has no contact with any COVID positive patients or visitors from endemic areas. Son was unable to provide more details on her past medical history. I did discuss CODE STATUS with the son inasmuch as the patient was not able to cognitively have this discussion. He called his brother on his cell phone and informed me that they wish that their mother be a DNR/DNI with no heroic measures in the event of cardiopulmonary arrest. Principal Diagnosis Acute ischemic stroke causing expressive and receptive aphasia Discharge Exam Constitutional WD/WN, vitals as above Eyes PERRL, conjunctivae normal, anicteric sclerae ENMT external ear and nose normal, oropharynx normal Neck trachea midline, no thyromegaly Respiratory normal respiratory effort, lungs clear to auscultation Cardiovascular RRR, no murmur, no edema Gastrointestinal (Abdomen) normal bowel sounds, soft, nontender, no hepatosplenomegaly Musculoskeletal no cyanosis or clubbing, extremities motor strength 5/5 Skin no rashes, warm and dry Neurologic CN's II-XI intact bilaterally, deep tendon reflexes 2+ bilaterally, moves all extremities and awake; no focal motor deficits Motor/Sensory: no tremor, normal movement and no pronator drift Psychiatric Orientation: alert and oriented x 3 Lymphatic no cervical or axillary lymphadenopathy Discharge Data Allergies Allergy/AdvReac Type Severity Reaction Status Date / Time meloxicam Allergy Severe MUSCLE Verified 07/13/20 13:31 CRAMPS AND SHAKE AND CANT WALK adhesive Allergy Mild local skin Verified 07/13/20 13:31 irritation carvedilol Allergy Unknown per cardio Verified 07/13/20 13:31 note metoprolol Allergy Unknown per cardio Verified 07/13/20 13:31 note omeprazole Allergy Unknown per cardio Verified 07/13/20 13:31 note Sulfa (Sulfonamide Allergy Unknown per cardio Verified 07/13/20 13:31 Antibiotics) note codeine AdvReac Severe MUSCLE Verified 07/13/20 13:31 SHAKES AND PASSES OUT diltiazem AdvReac Severe MUSCLE Verified 07/13/20 13:31 SHAKES AND CANT WALK metformin AdvReac Intermediate DIARRHEA/ Verified 07/13/20 13:31 HAIR FELL OUT Penicillins AdvReac Intermediate FEVER Verified 07/13/20 13:31 acetaminophen AdvReac Mild stomach Verified 07/13/20 13:31 sick UNKNOWN LOTION AdvReac Intermediate BURNING TO Uncoded 07/13/20 13:31 AREA, SKIN BLISTERED/SLOUGHED OFF LEGS. Consultations 07/13/20 15:51 ED Decision to Admit Stat 07/13/20 17:46 Consult Case Management - Discharge Planning Routine Consult Neurology Routine Ordered Studies 07/13/20 15:11 CT angio head w con Stat CT angio neck with con Stat CT head/brain wo con Stat 07/13/20 17:46 MR brain wo con Stat Diabetes Follow up Diabetes Follow-up Needed for HgbA1c >9% Hospital Course (1) Acute CVA (cerebrovascular accident): presented with altered mental status, she had expressive and receptive aphasia MRI brain shows left parietal stroke in MCA territory most likely etiology is ischemic but embolic cannot be ruled out risk factors are uncontrolled HTN, uncontrolled DM, dyslipidemia she takes Xarelto for afib for stroke protection echocardiogram with no intra-cardiac thrombus continue on Xarelto, this is not considered failure of Xarelto, more likely thrombotic disease in small vessel continue aspirin 81mg daily Lipitor 40mg daily, no role for high intensity statin blood pressure control, she is on Lisinopril 20mg at home Lisinopril increased to 40mg, BP is better controlled better DM control, HbA1c is 10.1, she is prescribed 70/30 Flexpen but it is expensive, she rations insulin to make it last longer will work on getting insulin at [facility] since it is less expensive pharmacy recommends 25 units in morning prior to breakfast and 20 units in evening prior to dinner PT/OT and speech therapy evaluations plan for rehab on discharge, go to [facility] today (2) Aphasia due to acute stroke: consult speech therapy speech much improved the past two days, patient feels it is close to baseline but not quite there (3) Altered mental status: due to acute stroke mental status back to normal for two days in reality, her confusion was more likely her aphasia (4) A-fib: continue Sotalol and digoxin continue Xarelto for anticoagulation etiology of stroke is ischemic rates are controlled note that she sometimes has very brief episodes of RVR but they resolve after about 30 seconds (5) DM2 (diabetes mellitus, type 2): needs better control at home she is on 70/30 flexpen that she says costs $600/month HbA1c is 10.1% DM educator talked with patient about options, she can get 70/30 at [facility] for $40 will discharge on 25 units in the morning, 20 units in the evening, this is conservative, could likely be titrated at [facility] if needed (6) Hypertension: BP elevated in setting of acute stroke increased Lisinopril to 40mg, BP better (7) Arthritis: (8) Lymphedema: (9) Polyneuropathy: (10) Obstructive sleep apnea: (11) Hyperlipidemia: (12) DVT prophylaxis: Total Time Total Time Spent Total Time Spent (In Minutes): 35 minutes Total Time Includes: Examination of the Patient, Discharge Planning, Medication Reconciliation, Communication With Other Providers (Dr. Batista) and Other (discussed insulin regimen with pharmacy) Discharge Plan Discharge Items Patient Disposition: Transfer Inpatient Rehab Fac Reason For Visit: CVA SYMPTOMS Discharge Diagnosis: Left parietal stroke in MCA distribution Receptive and expressive aphasia, improving DM type II, poorly controlled Atrial fibrillation on Xarelto Condition on Discharge: Good Goals: improve speech, strength, mobility improve glucose control Activity: Resume your previous activity Weightbearing: Full weightbearing Non-emergency contact: Primary Care Provider and Neurologist Call non-emergency contact if: you have any medication questions and your symptoms worsen Follow-up/Referrals: Dane Valerio MD [Primary Care Provider] - (one week after discharge from rehab) Aguila Batista MD [Physician] - (6-8 weeks) Diet: Carb Consistent or DM2 and Heart Healthy Addtl Attending Provider Instructions: Medications: - ASPIRIN: 81mg daily for stroke prevention - LIPITOR: 40mg daily for lipid control and stroke prevention - LISINOPRIL: dose INCREASED to 40mg from 20mg for better blood pressure control - INSULIN: 70/30 with 25 units at breakfast and 20 units at dinner Acute left parietal stroke causing altered mental status, aphasia speech much improved cause of stroke most likely small vessel ischemia, she has afib but appropriately anticoagulated on Xarelto neurology recommends aspirin, Lipitor, blood pressure control, diabetes control and continue Xarelto she is rapidly improving, go to [facility] for further rehab Atrial fibrillation: long standing, follows with Dr. Xiong her HR will go up with activity, sometimes up to 140's but very brief and drops back down to normal rates continue Sotalol and Digoxin and continue Xarelto DM type II: poorly controlled, she was rationing her insulin due to cost at [facility], new script will be sent to [facility] since it is affordable pharmacy here at [facility] developed a conservative plan for her insulin that can be further titrated the next week at [facility] will continue 70/30 and will use 25 units prior to breakfast and 20 units prior to dinner if sugars are running high it can be titrated up, please clarify with patient at time of discharge from [facility] and have her follow up with PCP Risk Factors for Stroke: You can reduce your chances of stroke by working with your medical provider to adopt a healthy lifestyle. Some specific ways to lower your chance of stroke are: * If you are a smoker, now is the time to stop smoking cigarettes * If you are diabetic, improve the control of your blood sugars * Avoid excessive amounts of alcohol * Control high blood pressure * Lose weight if you are overweight * Be sure to lead an active lifestyle * Eat a healthy diet low in salt, cholesterol and fat You should know about other risk factors for stroke that you are unable to control. These include: * Age 55 years or older * Male gender * Certain racial groups: , or / * Family History of Stroke, Mini stroke or Heart Attack * Sickle Cell Disease Follow Up: It is important for you to keep your follow up appointments with your medical provider. Who to Call and When: Medical Emergencies: Call 911 immediately if you experience any of the following warning signs and symptoms of Stroke: * Sudden numbness or weakness of the face, arm or leg, especially on one side of the body * Sudden confusion, trouble speaking or understanding * Sudden trouble seeing in one or both eyes * Sudden trouble walking, dizziness, loss of balance or coordination * Sudden severe headache with no cause Do not delay calling 911 if you experience any warning signs or symptoms of a stroke. Delay in seeking medical attention may affect what treatments can be given to you. . Pending Studies at Discharge: No Stand-Alone Forms: My [facility] Skilled Items Patient informed of condition?: Yes DNR: Yes Discharge Level of Care: Acute rehab Communicable Disease: No Discharge Prognosis: Stable Lines: None Urinary Catheter: No Medications and DC Order Prescriptions: New atorvastatin 40 mg Tablet 40 mg PO QAM 30 Days Qty: 30 RF: 3 aspirin 81 mg Tablet,Delayed Release (Dr/Ec) 81 mg PO QAM 30 Days Qty: 30 RF: 3 lisinopril [Zestril] 40 mg Tablet 40 mg PO DAILY 30 Days Qty: 30 RF: 3 insulin asp prt-insulin aspart [Novolog Mix 70-30 U-100 Insuln] 100 unit/mL (70-30) solution 20 unit subcut QPM 30 Days Qty: 6 RF: 3 Continued Xarelto 20 mg tablet 20 mg PO DAILY Qty: 90 RF: 3 nystatin 100,000 unit/gram powder 1 appln topical TID PRN (Reason: infection) Qty: 3 RF: 2 torsemide 20 mg tablet 40 mg PO QAM Qty: 180 RF: 3 budesonide-formoterol [Symbicort] 80-4.5 mcg/actuation HFA aerosol inhaler 2 puffs INH BID Qty: 1 RF: 2 digoxin 125 mcg (0.125 mg) tablet See Rx Instructions .ROUTE .COMPLEX Qty: 90 RF: 3 sotalol 120 mg tablet 120 mg PO Q12H Qty: 180 RF: 3 albuterol sulfate 90 mcg/actuation HFA aerosol inhaler 1 puffs INH QID PRN (Reason: shortness of breath or wheezing) Qty: 8.5 RF: 2 multivitamin tablet 1 tab PO DAILY RF: 0 omega-3 fatty acids 1,000 mg capsule 1,000 mg PO DAILY RF: 0 cholecalciferol (vitamin D3) 2,000 unit capsule 2,000 units PO DAILY RF: 0 Changed insulin asp prt-insulin aspart [Novolog Mix 70-30FlexPen U-100] 100 unit/mL (70-30) Insulin Pen 25 unit SUBCUT QAM 30 Days Qty: 15 RF: 0 Discontinued lisinopril 20 mg tablet 20 mg PO DAILY Qty: 90 RF: 3 Discharge Orders: Discharge Order (Routine); Ordered 07/16/20 Ordered By: Abdifatah Martin Admission Data Admit Date/Time: 07/15/20 11:49 Attending Provider: Abdifatah Martin Admit Provider: Brandt Rivera Primary Care Provider: Dane Valerio Other Providers: Brandt Rivera ; Aguila Batista ; [facility] Other Interventions: Discharge Summary Assessment (RN) Last Done: 07/16/20 13:31 Coding Level of Care Code D/C Day Management >30 mins Diagnoses Acute CVA (cerebrovascular accident) I63.9 Aphasia due to acute stroke I63.9; R47.01 Altered mental status R41.82 A-fib I48.21 Atrial fibrillation type: permanent DM2 (diabetes mellitus, type 2) E11.9 Hypertension I10 Hypertension type: essential hypertension Arthritis M19.90 Lymphedema I89.0 Polyneuropathy G62.9 Obstructive sleep apnea G47.33 Hyperlipidemia E78.5 DVT prophylaxis Z29.9
--- NOTE | 2020-07-26 13:42 | Coding Query ---
CODING QUERY To promote full compliance with coding requirements relating to patient care, provider participation is requested in all cases of orthopaedic nurse uncertainty. Please assist us with the question(s) below: Coding Question(s): There is documentation of history of Atrial Fibrillation that is treated with chronic anti-coagulants. Please specify below, in your clinical opinion, regarding Atrial Fibrillation. ( ) Atrial Fibrillation, Unspecified ( x ) Atrial Fibrillation, Chronic ( ) Atrial Fibrillation, Persistent ( ) Atrial Fibrillation, Permanent ( ) Atrial Fibrillation, Persistent, longstanding ( ) Atrial Fibrillation, Other: Please Specify Physician's Response(s): Thank you Vianca Carter Principal Diagnosis: "that condition established after study, to be chiefly responsible for occasioning the admission of the patient to the hospital for care." Co-Existing Principal Diagnosis: "when two or more diagnoses equally meet the criteria for principal diagnosis as determined by the circumstances of admission, diagnostic work up, and/or therapy provided, and the Alphabetic Index, Tabular List, or another coding guideline does not provide sequencing direction, any one of the diagnoses may be sequenced first." "When the physician has documented what appears to be a current diagnosis in the body of the record, but has not included the diagnosis in the final diagnostic statement, the physician should be asked whether the diagnosis should be added." (Source Coding [facility] 2 QTR90. p3-4) DEANGELO
== END 2020-07-16 13:58 | DRG 65 ==
LOC: ED 14:46 → 2S 14:46 → SUATTDRO 16:58 → 2S 17:18

== ENCOUNTER 2021-08-06 01:43 | Observation (INO) ==
[2021-08-06 02:35] LABS: Basophils # (auto) 0.03 K/uL (0-0.2); Basophils % (auto) 0.3 %; Eosinophils # (auto) 0.17 K/uL (0-0.5); Eosinophils % (auto) 1.8 %; Hematocrit (blood only) 40.5 % (37-47); Hemoglobin 13.4 g/dL (12.0-16.0); Immature Granulocytes # (auto) 0.01 K/uL (0.00-0.02); Immature Granulocytes % (auto) 0.1 %; Lymphocytes # (auto) 1.63 K/uL (1.2-3.4); Lymphocytes % (auto) 17.6 %; Mean Corpuscular Hemoglobin 29.2 pg (25-34); Mean Corpuscular Hgb Conc 33.1 g/dL (32-36); Mean Corpuscular Volume 88.2 fL (80-100); Mean Platelet Volume 10.3 fL (7.4-10.4); Monocytes # (auto) 0.44 K/uL (0.11-0.59); Monocytes % (auto) 4.8 %; Neutrophils # (auto) 6.97 K/uL (1.4-6.5); Neutrophils % (auto) 75.4 %; Platelet Count 245 K/uL (130-400); RDW Coefficient of Variation 14.5 % (11.5-14.5); Red Blood Count 4.59 M/uL (4.2-5.4); White Blood Count 9.25 K/uL (4.8-10.8)
[2021-08-06 02:55] LABS: Alanine Aminotransferase 21 U/L (12-78); Albumin Level 3.2 gm/dl (3.4-5.0); Aspartate Aminotransferase 19 U/L (15-37); BUN Creatinine Ratio 23.9 (10-20); Blood Urea Nitrogen 26 mg/dl (7-18); Calcium 8.9 mg/dl (8.5-10.1); Carbon Dioxide 28 mmol/L (21-32); Chloride 106 mmol/L (98-107); Creatinine Clr Calc Pharmacy 51.4 ml/min; Est GFR (African American) 58.1 ml/min; Est GFR (Non-African American) 50.1 ml/min; Glucose 228 mg/dl (70-99); Potassium 3.8 mmol/L (3.5-5.1); Sodium 139 mmol/L (136-145)
[2021-08-06 02:58] LABS: Albumin Globulin Ratio 0.7 (0.9-2); Alkaline Phosphatase 127 U/L (45-117); Bilirubin,Total 0.4 mg/dl (0.2-1); Globulin 4.3 gm/dl (2.5-4.0); Total Protein 7.5 gm/dl (6.4-8.2); Troponin I < 0.015 ng/ml (0-0.045)
[2021-08-06] MEDS ORDERED: SODIUM CHLORIDE 0.9% 500 ML IV ONE (03:34)
[2021-08-06 04:43] LABS: Appearance Urine Cloudy (Clear); Bacteria Urine Automated 1+ (Negative); Bilirubin Urine Negative (Negative); Blood Urine Negative (Negative); Color Urine Yellow; Epithelial Cell Urine Auto >30 /lpf (0-5); Glucose Urine UA Negative (Negative); Ketones Urine Negative (Negative); Leukocyte Esterase Urine 3+ (Negative); Nitrite Urine Negative (Negative); Protein Urine Negative (Negative); RBC Urine Automated 0-4 /hpf (0-4); Specific Gravity Urine 1.019 (1.000-1.030); Urobilinogen Urine Negative (Negative); WBC Urine Automated >30 /hpf (0-5); pH Urine 5.5 (4.5-7.5)
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
[2021-08-06] MEDS ORDERED: MECLIZINE 12.5 MG TAB PO PRN (06:32)
[2021-08-06] MEDS ORDERED: FAMOTIDINE 20MG IV PUSH 20 MG/5 ML SYR IV STA (06:51)
[2021-08-06] MEDS ORDERED: OPTIRAY 320 125ml IV ONE (06:53)
--- NOTE | 2021-08-06 07:51 | CT Scan Report ---
CT ANGIOGRAPHY OF THE NECK WITH CONTRAST CLINICAL HISTORY: L temp/parietal CVA COMPARISON STUDY: CTA of the neck July 13, 2020. Technique: CT angiography of the carotid and vertebral arteries was obtained using Optiray and 3D rec onstruction on an independent workstation. NASCET criteria was utilized. Automated exposure control was utilized for the study. A dose lowering technique was utilized adhering to the principles of ALA RA. CT DOSE: 611.09 mGy.cm Findings: Visualized portions of the apices are unremarkable. There are several subcentimeter thyroid nodules. No cervical lymphadenopathy. No acute cervical spine fracture is present. There is mild jayla que within the proximal bilateral internal carotid arteries without stenosis. Major vessels of the ne ck are patent. There is no dissection or aneurysm within the neck. IMPRESSION: No stenosis or dissection within the bilateral common carotid, cervical internal carotid or vertebral arteries. ACT 112: Negative or not required by law. Electronically signed by: Juan Jose Gold M.D. 08/06/2021 7:49 AM
--- NOTE | 2021-08-06 08:07 | CT Scan Report ---
CT OF THE HEAD WITHOUT CONTRAST CLINICAL HISTORY: dizziness COMPARISON STUDY: Head CT and MRI of the brain July 13, 2020. CT DOSE: 537.48 mGy.cm TECHNIQUE: Helical axial images of the head were obtained without IV contrast. Automated exposure con trol was utilized for the study. A dose lowering technique was utilized adhering to the principles o f ALARA. FINDINGS: No acute intracranial hemorrhage, midline shift or mass effect is present. Encephalomalacia within the left parietal lobe corresponds to the infarct on MRI June. This represen ts an old infarct. There is associated mild dilatation of the left lateral ventricle. Basal cisterns are patent. There are no extra axial collections. White matter hypodensity suggests small vessel dise ase. There are no significant calvarial abnormalities. There are postoperative findings within the si nuses. IMPRESSION: 1. No acute intracranial findings. 2. Old posterior left MCA infarct as shown on MRI July 13, 2020. This finding will be called/fax ed to the ordering provider at time of dictation. ACT 112: Negative or not required by law. Electronically signed by: Juan Jose Gold M.D. 08/06/2021 8:06 AM
--- NOTE | 2021-08-06 08:13 | CT Scan Report ---
CTA ANGIOGRAPHY OF THE HEAD CLINICAL HISTORY: L temp/parietal CVA COMPARISON STUDY: CTA of the head July 13, 2020. TECHNIQUE: Helical axial images of the head were obtained following uneventful intravenous administr ation of 120 cc of Optiray. Sagittal and coronal reconstructions were viewed as well as maximal inten sity projections on an independent 3-D workstation. Automated exposure control was utilized for the study. A dose lowering technique was utilized adhering to the principles of ALARA. FINDINGS: No acute intracranial hemorrhage, midline shift or mass effect is present. Old posterior le ft MCA infarct is noted. Basal cisterns are patent. There are no extra-axial collections. The postope rative findings within the sinuses. The bilateral M1, M2, A1 and A2 segments are patent. There is no intracranial aneurysm. Left vertebral artery is dominant. There is no intracranial aneurysm. No centr al vessel occlusion is identified. Proximal basilar artery may be fenestrated. This is unchanged. The re is mild plaque within bilateral cavernous carotids. IMPRESSION: 1. No intracranial aneurysm. No central vessel occlusion. 2. Old left posterior MCA distribution infarct. ACT 112: Negative or not required by law. Electronically signed by: Juan Jose Gold M.D. 08/06/2021 8:12 AM
[2021-08-06] MEDS ORDERED: NON-FORMULARY MEDICATION (Multivitamin tablet) PO SCH (10:06)
[2021-08-06] MEDS ORDERED: GLUCOSE 10 TABS/TUBE PO PRN (10:06)
[2021-08-06] MEDS ORDERED: ONDANSETRON INJ 2 MG/ML 2 ML VIAL IV PRN (10:06)
[2021-08-06] MEDS ORDERED: BUDESONIDE/FORMOTEROL FUMARATE 80/4.5 60 PUFFS/INHALER INH SCH (10:06)
[2021-08-06] MEDS ORDERED: NON-FORMULARY MEDICATION (Cholecalciferol (Vitamin D3) 2,000 unit capsule) PO SCH (10:06)
[2021-08-06] MEDS ORDERED: ALBUTEROL HFA 8 GM INHALER INH PRN (10:06)
[2021-08-06] MEDS ORDERED: PHARMACIST DISCHARGE MED REC CONSULT PRN (10:06)
[2021-08-06] MEDS ORDERED: CARBOHYDRATES FOR HYPOGLYCEMIA PO PRN (10:06)
[2021-08-06] MEDS ORDERED: NSS + 20MEQ KCL 20 MEQ/1,000 ML BAG IV SCH (10:06)
[2021-08-06] MEDS ORDERED: DEXTROSE 50% 50 ML SYRINGE IV PRN (10:06)
[2021-08-06] MEDS ORDERED: ACETAMINOPHEN 325 MG TAB PO PRN (10:06)
[2021-08-06] MEDS ORDERED: HEPARIN SOD 5,000 UNIT/0.5 ML VIAL SQ SCH (10:06)
[2021-08-06] MEDS ORDERED: GLUCAGON FOR INJ 1 MG VIAL SQ PRN (10:06)
[2021-08-06] MEDS ORDERED: GLUCOSE 40% GEL 15 GM TUBE PO PRN (10:06)
[2021-08-06] MEDS ORDERED: DIGOXIN 0.125 MG TAB PO SCH (10:06)
[2021-08-06] MEDS: ATORVASTATIN 20 MG TAB PO SCH (10:37)
[2021-08-06] MEDS: SOTALOL HCL 80 MG TAB PO SCH ×2 (10:37→21:17)
[2021-08-06] MEDS: ASPIRIN 81 MG ECTAB PO SCH (10:37)
[2021-08-06] MEDS ORDERED: INSULIN HUMAN NPH SQ SCH (11:00)
[2021-08-06] MEDS: CHOLECALCIFEROL 1,000 UNITS 25 MCG TAB PO SCH (11:39)
[2021-08-06] MEDS: MULTIVITAMIN TAB PO SCH (11:39)
[2021-08-06] MEDS: FLUTICASONE/VILANTEROL 100/25MCG 14 PUFFS/INHALER INH SCH (11:40)
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
[2021-08-06] MEDS: INSULIN HUMAN NPH SQ SCH ×2 (11:50→16:54)
[2021-08-06] MEDS: INSULIN ASPART 100 UNITS/ML 3 ML PEN SC SCH ×4 (11:51→21:17)
--- NOTE | 2021-08-06 15:31 | Magnetic Resonance Report ---
MR brain wo con CLINICAL HISTORY: L temp/parietal CVA on CT TECHNIQUE: Multiplanar and multisequence MR images of the brain were obtained without intravenous con trast. Comparison: Comparison is made to CT head 08/06/2021 and prior MRI brain 06/16/2020 FINDINGS: Interval evolutionary changes are seen in the previously noted acute infarct in the left posterior MC A territory. There is no focal restricted diffusion to suggest acute infarct. Encephalomalacia is not ed at the site of prior infarct. Foci of T2 and FLAIR hyperintensity are noted in the paraventricular areas consistent with chronic small vessel ischemic disease. Ex vacuo ventriculomegaly and sulcal en largement is noted compatible with diffuse encephalomalacia. Hemorrhage No extra axial fluid collecti ons are seen. There are no masses, mass effect, or midline shift. The corpus callosum, pituitary gla nd, and cerebellar tonsils appear grossly unremarkable. Flow voids of the major intracranial arterial vessels are identified. The imaged portions of the para nasal sinuses, mastoid air cells, and orbits are unremarkable. IMPRESSION: No evidence of acute infarct. Interval evolutionary changes of old infarct in the left posterior MCA territory. ACT 112: Negative or not required by law. Electronically signed by: Abdifatah Rios M.D. 08/06/2021 3:30 PM
[2021-08-06] MEDS: DIGOXIN 0.125 MG TAB PO SCH (16:53)
[2021-08-06] MEDS: RIVAROXABAN 20 MG TAB PO SCH (16:53)
--- NOTE | 2021-08-06 17:44 | XCELERA ---
[id number]
--- NOTE | 2021-08-06 19:34 | History & Physical Bridge Note ---
Date of Service August 06, 2021 History & Physical Bridge Note I have examined the patient, reviewed the History & Physical and in the interval since the performance of the History & Physical I have noted the following changes of clinical significance: I discussed her care with Neuro, reviewed the brain MRI-neg for stroke. She says meclizine helped a bit earlier with her dizziness, but it is still present with standing up and sometimes looking to the right. Pt reports she has not been taking her Xarelto for a few months. Initially she reports she had some difficulty with cost, but then felt like she did not really need it. She does report that based on cardiac event monitoring, she is in A. fib 18% of the time which was confirmed by cardiology notes. Discussed the importance of staying on the Xarelto to prevent future stroke. She is doing well otherwise Is eating and drinking, no further nausea or vomiting. Vitals reviewed Gen: AAOx3, NAD HEENT: Anicteric sclerae, EOMI, PERRLA CV: RRR no mgr nl S1S2 Pulm: CTAB no wcr Abd: +BS soft NT ND no masses or hernias Ext: Chronic venous stasis changes of the legs, chronic lymphedema, 2+ DP pulses Skin: No rashes, warm/dry Neuro: Full strength throughout, cranial nerves II through XII intact, no nystagmus Laboratory values and radiology studies reviewed Echocardiogram reviewed-normal LVEF, no regional wall motion abnormalities, mild MR, mild pulmonary hypertension, previous echo reviewed by ged teacher and no obvious right to left interatrial shunt 71-year-old female here with dizziness, nausea, rule out stroke MRI brain with no new stroke, CTA of head and neck negative This is BPPV Appreciate neurology consultation -Okay to restart home lisinopril -Discontinue IV fluids as she is tolerating p.o. -Restarted Xarelto which she is agreeable to taking-we will place referral to nurse navigator to [place] check Xarelto tomorrow to make sure that it is affordable for her after discharge -Meclizine as needed for BPPV -Hopeful that PT can perform Zach maneuvers Awaiting PT/OT consultations-May need rehab placement if vertigo not improving
[2021-08-06] MEDS ORDERED: FAMOTIDINE 20 MG in SYRINGE 3 ML IV SCH (21:00)
[2021-08-07 05:00] LABS: Basophils # (auto) 0.01 K/uL (0-0.2); Basophils % (auto) 0.1 %; Eosinophils # (auto) 0.17 K/uL (0-0.5); Eosinophils % (auto) 1.9 %; Hematocrit (blood only) 36.6 % (37-47); Hemoglobin 12.4 g/dL (12.0-16.0); Immature Granulocytes # (auto) 0.03 K/uL (0.00-0.02); Immature Granulocytes % (auto) 0.3 %; Lymphocytes # (auto) 1.65 K/uL (1.2-3.4); Lymphocytes % (auto) 18.7 %; Mean Corpuscular Hemoglobin 29.9 pg (25-34); Mean Corpuscular Hgb Conc 33.9 g/dL (32-36); Mean Corpuscular Volume 88.2 fL (80-100); Mean Platelet Volume 9.8 fL (7.4-10.4); Monocytes # (auto) 0.68 K/uL (0.11-0.59); Monocytes % (auto) 7.7 %; Neutrophils # (auto) 6.27 K/uL (1.4-6.5); Neutrophils % (auto) 71.3 %; Platelet Count 198 K/uL (130-400); RDW Coefficient of Variation 14.5 % (11.5-14.5); RDW Standard Deviation 46.8 fL (36.4-46.3); Red Blood Count 4.15 M/uL (4.2-5.4); White Blood Count 8.81 K/uL (4.8-10.8)
[2021-08-07 05:43] LABS: Albumin Globulin Ratio 0.7 (0.9-2); Albumin Level 2.7 gm/dl (3.4-5.0); BUN Creatinine Ratio 23.7 (10-20); Bilirubin,Total 0.8 mg/dl (0.2-1); Creatinine Clr Calc Pharmacy 73.6 ml/min; Est GFR (African American) 89.4 ml/min; Est GFR (Non-African American) 77.1 ml/min; Globulin 3.7 gm/dl (2.5-4.0); Total Protein 6.4 gm/dl (6.4-8.2)
--- NOTE | 2021-08-07 05:55 | Electrocardiogram Report ---
Test Reason : Blood Pressure : / mmHG Vent. Rate : 065 BPM Atrial Rate : 065 BPM P-R Int : 176 ms QRS Dur : 096 ms QT Int : 458 ms P-R-T Axes : 070 058 053 degrees QTc Int : 476 ms Sinus rhythm with Premature atrial complexes with Aberrant conduction Otherwise normal ECG When compared with ECG of 13-JUL-2020 15:14, Aberrant conduction is now Present Confirmed by Asif Marcum ([id number]) on 08/07/2021 5:55:21 AM Referred By: REFERRED SELF Confirmed By:Asif Marcum
[2021-08-07 07:07] LABS: Estimated Average Glucose 171 mg/dl; Hemoglobin A1C 7.6 % (4.5-5.6)
[2021-08-07] MEDS: lisinopril 40 MG TAB PO SCH (08:00)
[2021-08-07] MEDS: FLUTICASONE/VILANTEROL 100/25MCG 14 PUFFS/INHALER INH SCH (08:00)
[2021-08-07] MEDS: ASPIRIN 81 MG ECTAB PO SCH (08:00)
[2021-08-07] MEDS: INSULIN HUMAN NPH SQ SCH ×2 (08:00→17:11)
[2021-08-07] MEDS: MULTIVITAMIN TAB PO SCH (08:00)
[2021-08-07] MEDS: ATORVASTATIN 20 MG TAB PO SCH (08:00)
[2021-08-07] MEDS: CHOLECALCIFEROL 1,000 UNITS 25 MCG TAB PO SCH (08:00)
[2021-08-07] MEDS: INSULIN ASPART 100 UNITS/ML 3 ML PEN SC SCH ×4 (08:01→21:16)
[2021-08-07] MEDS: SOTALOL HCL 80 MG TAB PO SCH ×2 (10:06→21:20)
--- NOTE | 2021-08-07 11:46 | Hospitalist Progress Note ---
Date of Service August 07, 2021 Assessment & Plan (1) Dizziness: Plan: Vertigo appears to be peripheral etiology per neurology. PT saw her on 08/07 and felt that BPPV was less likely. Ddx would not include labyrinthitis. - Meclizine 12.5 mg p.o. every 6 hours as needed - Zofran PRN for nausea - PT will follow (2) History of stroke with residual deficit: Plan: History of stroke with residual deficit/aphasia. Per her son, these symptoms primarily occur when she is tired. - No new CVA on MRI this admission. - Continue home ASA, statin (3) Hyperlipidemia: Plan: Fasting lipid panel on 08/07 showed chol 120, LDL 53, HDL 54. - Continue home atorvastatin 20 mg every morning (4) Diabetes mellitus type 2, uncontrolled: Plan: Home regimein is with 70/30. A1c is 7.6% this admission. - Change 70/30 insulin from 20 units at breakfast, 12 units at lunch and in the evening to 12 units subcu twice daily - Placed on Accu-Cheks before meals and at bedtime with NovoLog coverage per scale (5) A-fib: Plan: EKG shows normal sinus rhythm at 65 bpm with occasional PAC. - Continue aspirin, digoxin, sotalol. (6) Hypertension: Plan: BP is 175/65 today. - Continue home lisinopril - Hold home torsemide for now until we follow volume status (7) Ambulatory dysfunction: Plan: - Consulted PT and OT (8) DVT prophylaxis: Plan: Xarelto for afib Admission and Anticipated Discharge Date Admission Date: August 06, 2021 Subjective Still having some nausea and dizziness. Did ok with PT, but reports she's not sure she'd do well at home. Physical Exam Constitutional: WD/WN, vitals as above Eyes: EOM intact bilaterally; no conjunctival abnormality ENMT: external ear and nose normal, oropharynx normal Neck: trachea midline, no thyromegaly normal visual inspection Respiratory: normal respiratory effort, lungs clear to auscultation no respiratory distress Cardiovascular: RRR, no murmur, no edema Gastrointestinal (Abdomen): Inspection/Auscultation: abdomen normal to inspection; abdomen not distended Musculoskeletal: no cyanosis or clubbing, extremities motor strength 5/5 Skin: no rashes, warm and dry Neurologic: moves all extremities and awake Psychiatric: Orientation: alert, oriented to person and cooperative Results & Data Results & Data ([facility]) Vital Signs (Past 12 Hours) Vital Signs Temp Pulse Pulse Resp BP Pulse Ox 08/07/21 09:07 54 L 14 174/65 H 95 08/07/21 03:48 36.8 C 62 14 174/60 H 100 08/07/21 00:00 57 L PG Care Time/CCT Total # of Minutes Spent Total Time Spent with Patient: Total time spent is greater than 50% in coordination of care (as documented) at patient's floor/unit and/or counseling patient: Coding Level of Care Code 63469 Subseq Hosp Care Lvl 3 Diagnoses Dizziness R42 History of stroke with residual deficit I69.30 Hyperlipidemia E78.5 Diabetes mellitus type 2, uncontrolled E11.65 A-fib I48.21 Atrial fibrillation type: permanent Hypertension I10 Hypertension type: essential hypertension Ambulatory dysfunction R26.2 DVT prophylaxis Z29.9 (1) A-fib Atrial fibrillation type: permanent Qualified Code(s): I48.21 - Permanent atrial fibrillation (2) Hypertension Hypertension type: essential hypertension Qualified Code(s): I10 - Essential (primary) hypertension
[2021-08-07] MEDS: DIGOXIN 0.125 MG TAB PO SCH (17:09)
[2021-08-07] MEDS: RIVAROXABAN 20 MG TAB PO SCH (17:09)
[2021-08-08] MEDS: INSULIN ASPART 100 UNITS/ML 3 ML PEN SC SCH ×2 (08:54→12:04)
[2021-08-08] MEDS: INSULIN HUMAN NPH SQ SCH (08:54)
[2021-08-08] MEDS: lisinopril 40 MG TAB PO SCH (08:55)
[2021-08-08] MEDS: MULTIVITAMIN TAB PO SCH (08:55)
[2021-08-08] MEDS: ASPIRIN 81 MG ECTAB PO SCH (08:55)
[2021-08-08] MEDS: CHOLECALCIFEROL 1,000 UNITS 25 MCG TAB PO SCH (08:56)
[2021-08-08] MEDS: FLUTICASONE/VILANTEROL 100/25MCG 14 PUFFS/INHALER INH SCH (08:56)
[2021-08-08] MEDS ORDERED: ATORVASTATIN 20 MG TAB PO SCH (09:00)
[2021-08-08] MEDS: SOTALOL HCL 80 MG TAB PO SCH (10:58)
[2021-08-08] MEDS: DICLOFENAC SOD 1% GEL 100 GM TUBE EXT SCH ×2 (11:00→14:11)
--- NOTE | 2021-08-08 12:02 | Discharge Summary ---
Date of Service August 08, 2021 Admission HPI Per Admitting Provider The patient is a 71-year-old female with a past medical history including previous stroke with residual intermittent speech deficit when tired, aphasia, reactive depression, polyneuropathy, osteopenia, SANDRA, nocturnal hypoxemia, hyperlipidemia, diabetes mellitus, CVI, polyarthritis, long-term anticoagulant use, hypertension, ambulatory dysfunction, lymphedema, cellulitis and atrial fibrillation. The patient presents with symptoms as noted above. Abnormal laboratories: Glucose 228, albumin 3.2. The patient was COVID-19 negative in the ED this evening. CT is scan of head, compared to July 13, 2020: There is an area of intermediate low-attenuation in the left temporoparietal lobe, possibly reflecting an evolving infarction, that is new from the previous study, with some expansion of the left lateral ventricle posterior and temporal horn. Principal Diagnosis Vertigo/dizziness causing nausea -> Not stroke, but more likely peripheral cause Discharge Exam Constitutional WD/WN, vitals as above Eyes EOM intact bilaterally; no conjunctival abnormality ENMT external ear and nose normal, oropharynx normal Neck trachea midline, no thyromegaly normal visual inspection Respiratory normal respiratory effort, lungs clear to auscultation no respiratory distress Cardiovascular RRR, no murmur, no edema Gastrointestinal (Abdomen) Inspection/Auscultation: abdomen normal to inspection; abdomen not distended Musculoskeletal no cyanosis or clubbing, extremities motor strength 5/5 Skin no rashes, warm and dry Neurologic moves all extremities and awake Psychiatric Orientation: alert, oriented to person and cooperative Discharge Data Allergies Allergy/AdvReac Type Severity Reaction Status Date / Time meloxicam Allergy Severe MUSCLE Verified 08/06/21 02:54 CRAMPS AND SHAKE AND CANT WALK adhesive Allergy Mild local skin Verified 08/06/21 02:54 irritation carvedilol Allergy Unknown per cardio Verified 08/06/21 02:54 note metoprolol Allergy Unknown per cardio Verified 08/06/21 02:54 note omeprazole Allergy Unknown per cardio Verified 08/06/21 02:54 note Sulfa (Sulfonamide Allergy Unknown per cardio Verified 08/06/21 02:54 Antibiotics) note codeine AdvReac Severe MUSCLE Verified 08/06/21 02:54 SHAKES AND PASSES OUT diltiazem AdvReac Severe MUSCLE Verified 08/06/21 02:54 SHAKES AND CANT WALK metformin AdvReac Intermediate DIARRHEA/ Verified 08/06/21 02:54 HAIR FELL OUT Penicillins AdvReac Intermediate FEVER Verified 08/06/21 02:54 acetaminophen AdvReac Mild stomach Verified 08/06/21 02:54 sick UNKNOWN LOTION AdvReac Intermediate BURNING TO Uncoded 08/06/21 02:54 AREA, SKIN BLISTERED/SLOUGHED OFF LEGS. Consultations 08/06/21 04:40 ED Decision to Admit Stat 08/06/21 08:32 Consult Neurology Routine 08/06/21 21:25 Consult [facility] blueprinter Routine Ordered Studies 08/06/21 02:14 CT head/brain wo con Urgent 08/06/21 06:29 CT angio head w con Stat CT angio neck with con Stat 08/06/21 12:44 MR brain wo con Routine Hospital Course (1) Dizziness: Vertigo appears to be peripheral etiology per neurology. PT saw her on 08/07 and felt that BPPV was less likely. Ddx would not include labyrinthitis. - Meclizine 12.5 mg p.o. every 6 hours as needed - Zofran PRN for nausea - PT will follow -> Doing well on discharge. - Discharged with meclizine PRN. Her left-sided trapezius MSK neck pain seemed to worsen her dizziness, so she was also sent with Voltaren gel TID PRN. (2) History of stroke with residual deficit: History of stroke with residual deficit/aphasia. Per her son, these symptoms primarily occur when she is tired. - No new CVA on MRI this admission. - Continue home ASA, statin (3) Hyperlipidemia: Fasting lipid panel on 08/07 showed chol 120, LDL 53, HDL 54. - Continue home atorvastatin 20 mg every morning (4) Diabetes mellitus type 2, uncontrolled: Home regimein is with 70/30. A1c is 7.6% this admission. - No change on discharge. (5) A-fib: EKG shows normal sinus rhythm at 65 bpm with occasional PAC. In afib about 18% of the time per cardiology notes. - Continue home aspirin, digoxin, sotalol. (Note: digoxin wasn't on home list, so it looks like a new med, but Dr. Xiong's note from 01/02/2021 indicates this is a chronic med for her.) - Resumed Xarelto which she had previously been on without issue. Coupon card given. (6) Hypertension: BP is 175/65 today. - Continue home lisinopril - Restart home torsemide on dishcarge. (7) Ambulatory dysfunction: - Consulted PT and OT (8) DVT prophylaxis: Xarelto for afib Total Time Total Time Spent Total Time Spent (In Minutes): 35 Discharge Plan Discharge Items Patient Disposition: Home - Self-Care Reason For Visit: DIZZINESS,VOMITING Discharge Diagnosis: Dizziness, vomiting Activity: Resume your previous activity Non-emergency contact: Primary Care Provider Call non-emergency contact if: your symptoms worsen Follow-up/Referrals: Dane Valerio MD [Primary Care Provider] - Diet: Regular Addtl Attending Provider Instructions: Ms. Yates, Fernando were admitted to the hospital with dizziness and vertigo which was causing nausea. You were also having some neck pain that might be contributing. We are sending you home with some meclizine (Antivert) which can be taken as needed for vertigo. You can use the Volaren gel (the orange tube) up to 3 times per day to help calm down the pain and soreness in your neck (which seemed to help with your dizziness). Pending Studies at Discharge: No Stand-Alone Forms: [employer], Smoking Cessation Medications and DC Order Prescriptions: New Xarelto 20 mg Tablet 20 mg PO QDD Qty: 30 RF: 0 diclofenac sodium [Voltaren Arthritis Pain] 1 % Gel 4 g EXT TID PRN (Reason: neck pain) Qty: 100 RF: 0 meclizine 12.5 mg Tablet 12.5 mg PO Q6H PRN (Reason: vertigo) Qty: 30 RF: 0 digoxin [Digitek] 125 mcg (0.125 mg) Tablet 125 mcg PO DAILY@1600 Qty: 30 RF: 0 Continued budesonide-formoterol [Symbicort] 80-4.5 mcg/actuation HFA aerosol inhaler 2 puffs INH BID Qty: 1 RF: 2 lisinopril [Zestril] 40 mg tablet 40 mg PO DAILY Qty: 90 RF: 3 sotalol 120 mg tablet 120 mg PO Q12H Qty: 180 RF: 3 torsemide 20 mg tablet 40 mg PO QAM Qty: 180 RF: 3 (DME) Dexcom G6 Gore Maker Misc See Rx Instructions .ROUTE .MEDSUPPLY Qty: 1 RF: 0 (DME) Dexcom G6 Sensor Device See Rx Instructions .ROUTE .MEDSUPPLY Qty: 9 RF: 3 (DME) Dexcom G6 Transmitter Device See Rx Instructions .ROUTE .MEDSUPPLY Qty: 1 RF: 3 (DME) pen needle, diabetic [BD Ultra-Fine Debbie Pen Needle] 32 gauge x 5/32" needle See Rx Instructions .ROUTE .MEDSUPPLY Qty: 100 RF: 5 atorvastatin 20 mg tablet 20 mg PO QAM 30 Days Qty: 90 RF: 1 (DME) OneTouch Verio test strips Strip See Rx Instructions .ROUTE .MEDSUPPLY RF: 0 albuterol sulfate 90 mcg/actuation HFA aerosol inhaler 1 puffs INH QID PRN (Reason: shortness of breath or wheezing) Qty: 8.5 RF: 2 Novolin 70-30 FlexPen U-100 100 unit/mL (70-30) insulin pen See Rx Instructions .ROUTE .COMPLEX RF: 0 multivitamin tablet 1 tab PO DAILY RF: 0 omega-3 fatty acids 1,000 mg capsule 1,000 mg PO DAILY RF: 0 cholecalciferol (vitamin D3) 2,000 unit capsule 2,000 units PO DAILY RF: 0 aspirin 81 mg Tablet,Delayed Release (Dr/Ec) 81 mg PO QAM 30 Days Qty: 30 RF: 3 Discharge Orders: Discharge Order (Routine); Ordered 08/08/21 Ordered By: Ephraim Coy/Other Patient Handouts: A1C, Managing Type 2 Diabetes Admission Data Admit Date/Time: 08/06/21 05:23 Attending Provider: Ephraim Long Admit Provider: Tim Isaacs Primary Care Provider: Dane Valerio Other Providers: Ephraim Long ; Tim Isaacs ; Haile Mares Coding Level of Care Code D/C DAY MANAGEMENT >30 MINS Diagnoses Dizziness R42 History of stroke with residual deficit I69.30 Hyperlipidemia E78.5 Diabetes mellitus type 2, uncontrolled E11.65 A-fib I48.21 Atrial fibrillation type: permanent Hypertension I10 Hypertension type: essential hypertension Ambulatory dysfunction R26.2 DVT prophylaxis Z29.9
== END 2021-08-08 15:49 | disposition home or self-care (01) ==
LOC: ED 01:43 → INTOOBSV 05:23 → EDINP 05:23 → SUATTDRO 05:23 → EDINP 16:00 → 1E 16:25 → 2N 08-07 11:57

== ENCOUNTER 2022-09-09 08:58 | Inpatient (IN) ==
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
[2022-09-09] MEDS ORDERED: MoRPHine SULFATE 2 MG/ML CARP IV PRN (16:53)
[2022-09-09] MEDS ORDERED: bisacodyL 10 MG SUPP PR PRN (16:53)
[2022-09-09] MEDS ORDERED: NALOXONE HCL 0.4 MG/1 ML VIAL/CARP IV PRN (16:53)
[2022-09-09] MEDS ORDERED: LACTATED RINGER'S 1,000 ML IV SCH (17:00)
[2022-09-09] MEDS ORDERED: Patient's HEIGHT &/or WEIGHT Needed SCH (17:00)
--- NOTE | 2022-09-09 17:04 | XRay Report ---
XR chest 1V portable HISTORY: 72 years-old Female pre-op eval preoperative exam COMPARISON: 07/13/2020 TECHNIQUE: AP view of the chest FINDINGS: Cardiomediastinal and hilar silhouettes are within normal limits. No pneumothorax, pleural effusion, airspace consolidation or overt pulmonary edema. Mild right hemidiaphragmatic elevation. Degenerative changes of the shoulders and spine. IMPRESSION: No acute process. ACT 112: Negative or not required by law. The above report was generated using voice recognition software. It may contain grammatical, syntax o r spelling errors. Electronically signed by: Zach Avelar M.D. 09/09/2022 5:02 PM
[2022-09-09] MEDS ORDERED: DEXTROSE 50% 50 ML SYRINGE IV PRN (17:06)
[2022-09-09] MEDS ORDERED: CARBOHYDRATES FOR HYPOGLYCEMIA PO PRN (17:06)
[2022-09-09] MEDS ORDERED: GLUCAGON FOR INJ 1 MG VIAL SQ PRN (17:06)
[2022-09-09] MEDS ORDERED: PHARMACY GLYCEMIC MGMT CONSULT PRN (17:06)
[2022-09-09] MEDS ORDERED: GLUCOSE 40% GEL 15 GM TUBE PO PRN (17:06)
[2022-09-09] MEDS ORDERED: GLUCOSE 10 TAB/TUBE PO PRN (17:06)
[2022-09-09] MEDS ORDERED: MECLIZINE 12.5 MG TAB PO PRN (17:18)
[2022-09-09] MEDS ORDERED: ALBUTEROL HFA 8 GM INHALER INH PRN (17:18)
[2022-09-09 17:31] LABS: Basophils # (auto) 0.04 K/uL (0-0.2); Basophils % (auto) 0.4 %; Eosinophils # (auto) 0.15 K/uL (0-0.50); Eosinophils % (auto) 1.7 %; Hematocrit (blood only) 34.5 % (34.1-44.9); Hemoglobin 11.3 g/dl (12.0-16.0); Immature Granulocytes # (auto) 0.05 K/uL (0.00-0.02); Immature Granulocytes % (auto) 0.6 %; Lymphocytes # (auto) 1.03 K/uL (1.2-3.4); Lymphocytes % (auto) 11.4 %; Mean Corpuscular Hemoglobin 28.5 pg (25.0-34.0); Mean Corpuscular Hgb Conc 32.8 g/dL (32.0-36.0); Mean Corpuscular Volume 87.1 fL (80.0-100.0); Mean Platelet Volume 10.7 fL (9.4-12.3); Monocytes # (auto) 0.69 K/uL (0.24-0.82); Monocytes % (auto) 7.6 %; Neutrophils # (auto) 7.06 K/uL (1.4-6.5); Neutrophils % (auto) 78.3 %; Platelet Count 236 K/uL (130-400); RDW Coefficient of Variation 14.7 % (11.5-14.5); RDW Standard Deviation 47.4 fL (36.4-46.3); Red Blood Count 3.96 M/uL (3.93-5.22); White Blood Count 9.02 K/ul (4.8-10.8)
[2022-09-09 17:57] LABS: Albumin Globulin Ratio 1.2 (0.9-2); Albumin Level 3.6 gm/dl (3.4-5.0); BUN Creatinine Ratio 25.4 (10-20); Calcium 9.1 mg/dl (8.5-10.1); Creatinine Clr Calc Pharmacy 82.3 ml/min; Est GFR (African American) 97.9 ml/min; Est GFR (Non-African American) 84.5 ml/min; Globulin 2.9 gm/dl (2.5-4.0); Potassium 4.4 mmol/L (3.5-5.1); Total Protein 6.5 gm/dl (6.0-8.3)
[2022-09-09] MEDS: INSULIN ASPART PER UNIT SC SCH ×2 (18:32→21:47)
[2022-09-09] MEDS: SOTALOL HCL 80 MG TAB PO SCH (18:32)
[2022-09-09] MEDS: D5W AND NSS 1,000 ML IV SCH (19:05)
[2022-09-09] MEDS: DOCUSATE SODIUM/SENNA 50/8.6MG TAB PO SCH (20:42)
[2022-09-09] MEDS: ATORVASTATIN 20 MG TAB PO SCH (20:42)
[2022-09-09] MEDS: LANTUS PER UNIT CHARGE SQ SCH (21:47)
[2022-09-09] MEDS: MoRPHine SULFATE 4 MG/ML 1 ML CARP\\VIAL IV PRN (21:48)
[2022-09-09] MEDS: ONDANSETRON 2 MG OD TAB PO PRN (21:48)
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
[2022-09-10] MEDS: D5W AND NSS 1,000 ML IV SCH ×2 (00:14→10:43)
[2022-09-10] MEDS ORDERED: Nursing to Pharmacy Communication SCH (00:15)
[2022-09-10] MEDS: INSULIN ASPART PER UNIT SC SCH ×5 (00:23→22:21)
[2022-09-10] MEDS: MoRPHine SULFATE 4 MG/ML 1 ML CARP\\VIAL IV PRN ×2 (05:22→15:28)
[2022-09-10] MEDS: ONDANSETRON 2 MG OD TAB PO PRN (05:24)
[2022-09-10] MEDS ORDERED: TRANEXAMIC ACID / 0.7% NACL 1,000 MG/100 ML BAG IV SCH ×2 (06:00→06:30)
[2022-09-10] MEDS: SOTALOL HCL 80 MG TAB PO SCH ×2 (06:09→17:46)
[2022-09-10 06:41] LABS: Basophils # (auto) 0.03 K/uL (0-0.2); Basophils % (auto) 0.4 %; Eosinophils # (auto) 0.25 K/uL (0-0.50); Eosinophils % (auto) 3.4 %; Hematocrit (blood only) 30.9 % (34.1-44.9); Hemoglobin 10.2 g/dl (12.0-16.0); Immature Granulocytes # (auto) 0.03 K/uL (0.00-0.02); Immature Granulocytes % (auto) 0.4 %; Lymphocytes # (auto) 1.08 K/uL (1.2-3.4); Lymphocytes % (auto) 14.6 %; Mean Corpuscular Hemoglobin 28.3 pg (25.0-34.0); Mean Corpuscular Volume 85.8 fL (80.0-100.0); Mean Platelet Volume 10.2 fL (9.4-12.3); Monocytes # (auto) 0.75 K/uL (0.24-0.82); Monocytes % (auto) 10.1 %; Neutrophils # (auto) 5.25 K/uL (1.4-6.5); Neutrophils % (auto) 71.1 %; Platelet Count 192 K/uL (130-400); RDW Coefficient of Variation 14.8 % (11.5-14.5); RDW Standard Deviation 46.5 fL (36.4-46.3); White Blood Count 7.39 K/ul (4.8-10.8)
[2022-09-10 07:02] LABS: BUN Creatinine Ratio 23.3 (10-20); Calcium 8.5 mg/dl (8.5-10.1); Creatinine Clr Calc Pharmacy 93.7 ml/min; Est GFR (African American) 104.8 ml/min; Est GFR (Non-African American) 90.4 ml/min; Potassium 3.9 mmol/L (3.5-5.1)
[2022-09-10 07:12] LABS: INR 1.1 (0.9-1.1); Prothrombin Time 11.6 Seconds (9.0-12.0)
[2022-09-10 07:17] LABS: Estimated Average Glucose 189 mg/dl; Hemoglobin A1C 8.2 % (4.5-5.6)
--- NOTE | 2022-09-10 10:17 | Pharmacy Report ---
Pharmacy Glycemic Short Note 2 - Date of Service September 10, 2022 - Glycemic Short BSG Results (Last 24 hours): 09/09/22 09/09/22 09/09/22 17:05 17:11 20:48 Glucose 177 H POC Glucose 170 H 163 H 09/10/22 09/10/22 09/10/22 00:17 05:35 06:08 Glucose 138 H POC Glucose 154 H 131 H OUTPATIENT ANTIDIABETIC REGIMEN: * ReliON brand, Novolin 70/30 flexpen. 20 units with breakfast, 16 units with lunch, and 16 units with dinner. * HbA1c: 8.2% on 09/10/22 ASSESSMENT: * D5NS @80 mL/hr started @ 1905 on 09/09; does not need discontinued as blood sugars have been acceptable. Anticipate discontinuation once diet ordered today. * Patient is currently NPO for potential surgery. * Will initiate low-dose Lantus for NPO status. Will initiate weight-based moderate stress novolog. PLAN FOR INPATIENT GLYCEMIC CONTROL: * Basal insulin * Lantus 9 units SQ BID * Bolus insulin * NovoLog per scale ACHS or Q6hrs while NPO * Goal Range: Low 110 mg/dL - High 140 mg/dL * Correction Factor: 25 mg/dL/unit * Nutritional / Prandial insulin per carb ratio of 1 unit per 8 grams CHO consumed
[2022-09-10] MEDS: LANTUS PER UNIT CHARGE SQ SCH ×2 (10:41→22:21)
[2022-09-10] MEDS: CHOLECALCIFEROL 1,000 UNITS 25 MCG TAB PO SCH (10:41)
[2022-09-10] MEDS: MULTIVITAMIN TAB PO SCH (10:41)
[2022-09-10] MEDS: TORSEMIDE 20 MG TAB PO SCH (10:42)
[2022-09-10] MEDS: OMEGA-3 (PURIFIED FISH OIL) 1 GM CAP PO SCH (10:42)
[2022-09-10] MEDS: ACETAMINOPHEN 1,000 MG/100 ML VIAL IV PRN ×2 (10:45→17:55)
[2022-09-10] MEDS: FLUTICASONE/VILANTEROL 100/25MCG 14 PUFFS/INHALER INH SCH (10:49)
--- NOTE | 2022-09-10 10:50 | Electrocardiogram Report ---
Test Reason : Blood Pressure : / mmHG Vent. Rate : 071 BPM Atrial Rate : 071 BPM P-R Int : 174 ms QRS Dur : 088 ms QT Int : 412 ms P-R-T Axes : 071 054 066 degrees QTc Int : 447 ms Normal sinus rhythm Normal ECG When compared with ECG of 06-AUG-2021 02:07, Aberrant conduction is no longer Present Confirmed by Spencer Suggs ([id number]) on 09/10/2022 10:50:27 AM Referred By: Brandt You Confirmed By:Nolan Suggs
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
[2022-09-10] MEDS: DIGOXIN 0.125 MG TAB PO SCH (17:46)
[2022-09-10] MEDS ORDERED: MAGNESIUM SULFATE / D5W 1 GM/100 ML BAG IV ONE (20:04)
[2022-09-10] MEDS: DOCUSATE SODIUM/SENNA 50/8.6MG TAB PO SCH (20:29)
[2022-09-10] MEDS: ATORVASTATIN 20 MG TAB PO SCH (20:29)
--- NOTE | 2022-09-10 21:39 | Communication Note ---
Date of Service: September 10, 2022 Notified by patient's nurse that she flipped into atrial fibrillation earlier in the evening. Rates primarily between 1 20-1 40s initially, improved after she got her evening sotalol as well as a gram of intravenous magnesium. Notified again at around 2129 that rates had come down to [id number], but unfortunately she was feeling like she was having some palpitations. No lightheaded or dizziness or shortness of breath. No chest pain. Otherwise feels well. Unfortunately, unable to give IV beta-blockade on MedSurg with telemetry at present. Her digoxin level did return today at below 0.3 while she has continued taking 125 mcg daily. Renal function is acceptable. Spoke with pharmacy - will administer 250mcg PO now -> 125mcg in 6 hours and recheck level in the AM. If still symptomatic or rates rising, can consider transfer to PCU for IV agents. Plan communicated to [facility]
[2022-09-10] MEDS ORDERED: DIGOXIN 0.125 MG TAB PO ONE ×2 (21:47→23:45)
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
[2022-09-11] MEDS ORDERED: DIGOXIN 0.125 MG TAB PO ONE (04:00)
[2022-09-11] MEDS: ACETAMINOPHEN 1,000 MG/100 ML VIAL IV PRN (04:07)
[2022-09-11] MEDS: SOTALOL HCL 80 MG TAB PO SCH ×2 (05:27→17:13)
[2022-09-11] MEDS: OMEGA-3 (PURIFIED FISH OIL) 1 GM CAP PO SCH (07:56)
[2022-09-11] MEDS: TORSEMIDE 20 MG TAB PO SCH (07:56)
[2022-09-11] MEDS: MULTIVITAMIN TAB PO SCH (07:56)
[2022-09-11] MEDS: FLUTICASONE/VILANTEROL 100/25MCG 14 PUFFS/INHALER INH SCH (07:56)
[2022-09-11] MEDS: CHOLECALCIFEROL 1,000 UNITS 25 MCG TAB PO SCH (07:56)
[2022-09-11] MEDS ORDERED: MICONAZOLE NITRATE POWDER 43 GM EXT PRN (08:35)
[2022-09-11] MEDS: INSULIN ASPART PER UNIT SC SCH ×4 (08:42→22:21)
[2022-09-11] MEDS ORDERED: LANTUS PER UNIT CHARGE SQ ONE ×2 (09:00→21:00)
[2022-09-11 09:17] LABS: Hemoglobin 11.3 g/dl (12.0-16.0); Mean Corpuscular Hemoglobin 28.1 pg (25.0-34.0); Mean Corpuscular Hgb Conc 33.2 g/dL (32.0-36.0); Mean Corpuscular Volume 84.6 fL (80.0-100.0); Mean Platelet Volume 10.2 fL (9.4-12.3); Platelet Count 176 K/uL (130-400); RDW Coefficient of Variation 14.6 % (11.5-14.5); RDW Standard Deviation 44.8 fL (36.4-46.3); Red Blood Count 4.02 M/uL (3.93-5.22); White Blood Count 7.23 K/ul (4.8-10.8)
[2022-09-11 09:46] LABS: BUN Creatinine Ratio 24.4 (10-20); Calcium 8.4 mg/dl (8.5-10.1); Creatinine Clr Calc Pharmacy 72.2 ml/min; Est GFR (African American) 87.4 ml/min; Est GFR (Non-African American) 75.4 ml/min; Magnesium 1.9 mg/dl (1.7-2.4)
[2022-09-11] MEDS: HYDROCODONE/ACETAMOPHEN 5/325MG TAB PO PRN ×2 (10:32→22:24)
--- NOTE | 2022-09-11 11:28 | Pharmacy Report ---
Pharmacy Glycemic Short Note 2 - Date of Service September 11, 2022 - Glycemic Short BSG Results (Last 24 hours): 09/10/22 09/10/22 09/10/22 11:51 16:47 20:49 Glucose POC Glucose 205 H 172 H 141 H 09/11/22 09/11/22 09/11/22 07:33 08:52 11:22 Glucose 205 H POC Glucose 156 H 190 H OUTPATIENT ANTIDIABETIC REGIMEN: * ReliON brand, Novolin 70/30 flexpen. 20 units with breakfast, 16 units with lunch, and 16 units with dinner. * HbA1c: 8.2% on 09/10/22 ASSESSMENT: 09/11: * Stressors stable * AM fasting above goal, will increase Lantus * Post-prandial elevation noted, will tighten Novolog 09/10 * D5NS @80 mL/hr started @ 1905 on 09/09; does not need discontinued as blood sugars have been acceptable. Anticipate discontinuation once diet ordered today. * Patient is currently NPO for potential surgery. * Will initiate low-dose Lantus for NPO status. Will initiate weight-based moderate stress novolog. PLAN FOR INPATIENT GLYCEMIC CONTROL: * Basal insulin * Lantus 15 units x1, 9-12 units HS * Bolus insulin * NovoLog per scale ACHS or Q6hrs while NPO * Goal Range: Low 110 mg/dL - High 140 mg/dL * Correction Factor: 20 mg/dL/unit * Nutritional / Prandial insulin per carb ratio of 1 unit per 7 grams CHO consumed
--- NOTE | 2022-09-11 13:01 | Progress Notes ---
DATE OF SERVICE: 09/11/2022. SUBJECTIVE: A 72-year-old female admitted with right distal femur fracture around the plate. Nondis placed fracture. She is doing reasonably well. Really not much pain in bed. She has not been out o f bed yet. No new complaints. OBJECTIVE: VITAL SIGNS: Temperature is 37.0. Vital signs are stable. GENERAL: Shows a pleasant, elderly female. She is sitting up in bed and looks comfortable. EXTREMITIES: Examination of the right leg reveals the leg to be well aligned. Dressing is clean, dr gena and intact. She has an Vel bandage on her leg. Knee immobilizer is in place. She is neurological ly intact. ASSESSMENT: A 72-year-old female with a nondisplaced distal femur fracture around the plate. She santamaria s got advanced arthritis. I do not think this warrants surgical intervention. I do not think there is anything we can do that is going to get her weightbearing immobilizer any sooner and the fracture is nondisplaced. PLAN: We are getting a custom brace due to her large size. She is going to be nonweightbearing for the next 4 to 6 weeks. No knee motion. She can be transferred nonweightbearing on right leg. I nee d to see her back in two to three weeks out from injury time. She is okay for discharge any time [facility] stable. I need to see her back in 2-3 weeks. Any orthopedic questions can be directed to me at [phone]. Job ID: [id number]
[2022-09-11] MEDS: MoRPHine SULFATE 2 MG/ML CARP IV PRN ×2 (13:07→17:21)
[2022-09-11] MEDS: RIVAROXABAN 20 MG TAB PO SCH (16:30)
[2022-09-11] MEDS: DIGOXIN 0.125 MG TAB PO SCH (16:31)
--- NOTE | 2022-09-11 17:30 | Hospitalist Progress Note ---
Date of Service September 11, 2022 Assessment & Plan (1) Dawn-prosthetic femoral shaft fracture: Plan: Right femoral shaft fracture distal to internal fixation hardware. Right hip previously replaced in 02/[address] Art Zhong. That surgery was complicated by a periprosthetic femur fracture intra- operatively that required internal fixation at same time. Seen by Dr Zhong's team Again today -- for brace, nonweightbearing, nonoperativesee their notes. She will need to be non-weightbearing on the right leg. Follow up with Dr. Zhong in clinic in approx 2 weeks advised. pain reasonably controlled Check 25-OH vit D level in am. Will need placement for rehab. stable when bed available. (2) Paroxysmal atrial fibrillation: Plan: rate controlled, anticoagulated (3) History of stroke with residual deficit: Plan: History of left parietal stroke in 2019. continue home meds, secondary risk reduction. (4) Obstructive sleep apnea: Plan: CPAP qHS. (5) Hyperlipidemia: Plan: Continue statin. (6) Diabetes mellitus type 2, uncontrolled: Plan: a1c 8.2%. BSGs overall reasonable (7) Chronic venous insufficiency: Plan: b/l LE edema - chronic (8) Hypertension: Plan: blood pressure reasonable, continue to follow (9) DVT prophylaxis: Plan: Xarelto (10) Obesity: Plan: BMI 38.7 Plan for rehab once bed available Admission and Anticipated Discharge Date Admission Date: September 09, 2022 Subjective Feeling decent. Pain under reasonable control. Awaiting rehab. No new complaints. Review of Systems Review of Systems: All systems reviewed & are unremarkable except as noted in HPI & below Physical Exam Physical Exam: General she is awake and alert pleasant no distress. HEENT normocephalic atraumatic mucous membranes moist. Breathing unlabored no accessory muscle use good effort. Skin shows no rashes no pallor or icterus. Neuro without focal deficits. Results & Data Results & Data ([facility]) Vital Signs (Past 12 Hours) Vital Signs Temp Pulse Pulse Resp BP Pulse Ox O2 Del Method 09/11/22 16:31 65 09/11/22 14:48 98.4 F 89 20 105/53 L 93 Room Air 09/11/22 11:10 98.6 F 91 H 20 104/57 L 92 Room Air 09/11/22 07:52 98.1 F 98 H 20 102/59 L 97 Nasal Cannula O2 Flow Rate 09/11/22 16:31 09/11/22 14:48 09/11/22 11:10 09/11/22 07:52 1 PG Care Time/CCT Total # of Minutes Spent Total Time Spent with Patient: Total time spent is greater than 50% in coordination of care (as documented) at patient's floor/unit and/or counseling patient: Coding Level of Care Code 24831 Subseq Hosp Care Lvl 3 Diagnoses Dawn-prosthetic femoral shaft fracture M97.8XXA; Z96.649 Paroxysmal atrial fibrillation I48.0 History of stroke with residual deficit I69.30 Obstructive sleep apnea G47.33 Hyperlipidemia E78.5 Diabetes mellitus type 2, uncontrolled E11.65 Chronic venous insufficiency I87.2 Hypertension I10 Hypertension type: essential hypertension DVT prophylaxis Z29.9 Obesity E66.9 (1) Hypertension Hypertension type: essential hypertension Qualified Code(s): I10 - Essential (primary) hypertension
[2022-09-11] MEDS: DOCUSATE SODIUM/SENNA 50/8.6MG TAB PO SCH (22:21)
[2022-09-11] MEDS: ATORVASTATIN 20 MG TAB PO SCH (22:21)
[2022-09-12] MEDS: SOTALOL HCL 80 MG TAB PO SCH ×2 (05:20→17:36)
[2022-09-12] MEDS: HYDROCODONE/ACETAMOPHEN 5/325MG TAB PO PRN ×3 (05:24→19:34)
[2022-09-12] MEDS: FLUTICASONE/VILANTEROL 100/25MCG 14 PUFFS/INHALER INH SCH (07:28)
[2022-09-12] MEDS: TORSEMIDE 20 MG TAB PO SCH (07:28)
[2022-09-12] MEDS: MULTIVITAMIN TAB PO SCH (07:28)
[2022-09-12] MEDS: CHOLECALCIFEROL 1,000 UNITS 25 MCG TAB PO SCH (07:28)
[2022-09-12] MEDS: MAGNESIUM HYDROXIDE SUSP 30 ML UDC PO PRN (08:18)
[2022-09-12] MEDS: OMEGA-3 (PURIFIED FISH OIL) 1 GM CAP PO SCH (08:18)
[2022-09-12] MEDS: INSULIN ASPART PER UNIT SC SCH ×4 (08:18→20:32)
[2022-09-12] MEDS: LANTUS PER UNIT CHARGE SQ SCH ×2 (08:37→20:32)
--- NOTE | 2022-09-12 14:08 | Pharmacy Report ---
Pharmacy Glycemic Short Note 2 - Date of Service September 12, 2022 - Glycemic Short BSG Results (Last 24 hours): 09/11/22 09/11/22 09/12/22 16:51 20:19 07:51 POC Glucose 124 H 116 H 106 H 09/12/22 11:52 POC Glucose 169 H OUTPATIENT ANTIDIABETIC REGIMEN: * ReliON brand, Novolin 70/30 flexpen. 20 units with breakfast, 16 units with lunch, and 16 units with dinner. * HbA1c: 8.2% on 09/10/22 ASSESSMENT: 09/12: * Patient received 47 units of insulin yesterday of which 24 were basal * Fasting BSG of 106, will continue yesterday's dose of basal insulin in 2 divided doses for even coverage * Continue current Novolog parameters 09/11: * Stressors stable * AM fasting above goal, will increase Lantus * Post-prandial elevation noted, will tighten Novolog 09/10 * D5NS @80 mL/hr started @ 1905 on 09/09; does not need discontinued as blood sugars have been acceptable. Anticipate discontinuation once diet ordered today. * Patient is currently NPO for potential surgery. * Will initiate low-dose Lantus for NPO status. Will initiate weight-based moderate stress novolog. PLAN FOR INPATIENT GLYCEMIC CONTROL: * Basal insulin * Lantus 12 units BID * Bolus insulin * NovoLog per scale ACHS or Q6hrs while NPO * Goal Range: Low 110 mg/dL - High 140 mg/dL * Correction Factor: 20 mg/dL/unit * Nutritional / Prandial insulin per carb ratio of 1 unit per 7 grams CHO consumed
--- NOTE | 2022-09-12 14:09 | Progress Notes ---
DATE OF SERVICE: 09/12/2022 SUBJECTIVE: A 72-year-old female admitted with right distal femur fracture. She did get her knee im mobilizer with a foot extension. They are adjusting it currently. No new complaints. No pain while just lying in bed, but pain with transfers and movement. PHYSICAL EXAMINATION: Right leg reveals the leg to be well aligned. There is no real significant sw elling. She can dorsiflex and plantarflex her foot appropriately. She is neurologically intact. ASSESSMENT: A 72-year-old female with multiple medical comorbidities with right distal femur fractur e around a previously placed plate and total hip replacement. Fracture is nondisplaced. She has got multiple medical comorbidities and I think this will do well with conservative care. I do not think operative intervention adds anything as it does not allow us to mobilize her anymore or allow her to weightbear. PLAN: We are going to continue the knee immobilizer for the next 4 to 6 weeks. She will be strictly nonweightbearing for the next 4 weeks. We did get a foot extension to the knee immobilizer to avoid it from sliding down, which is very likely to happen in this circumferential large soft tissue envel ope. They are adjusting the brace currently. She is okay for discharge any time medically stable. I need to see her back somewhere between 2 and 3 weeks out. Any orthopedic questions can be directed to me at [phone]. Once again, she is strictly nonweightbearing for the next 4 to 6 weeks. She needs to have her brace on whenever out of bed. She does not necessarily have to have it on while lying in bed with no motio n. Job ID: [id number]
--- NOTE | 2022-09-12 16:37 | Hospitalist Progress Note ---
Date of Service September 12, 2022 Assessment & Plan (1) Dawn-prosthetic femoral shaft fracture: Plan: Age-related osteoporosis w current pathologic fracture, right femur distal to internal fixation hardware. Right hip previously replaced in 02/[address] Art Zhong. That surgery was complicated by a periprosthetic femur fracture intra- operatively that required internal fixation at same time. Seen by Dr Zhong's team Again today -- for brace, nonweightbearing, nonoperativesee their notes. She will need to be non-weightbearing on the right leg. Follow up with Dr. Zhong in clinic in approx 2 weeks advised. pain reasonably controlled D level OK @42.6 Will need placement for rehab. stable when bed available. (2) Paroxysmal atrial fibrillation: Plan: rate controlled, anticoagulated (3) History of stroke with residual deficit: Plan: History of left parietal stroke in 2019. continue home meds, secondary risk reduction. (4) Obstructive sleep apnea: Plan: CPAP qHS. (5) Hyperlipidemia: Plan: Continue statin. (6) Diabetes mellitus type 2, uncontrolled: Plan: a1c 8.2%. BSGs overall reasonable (7) Chronic venous insufficiency: Plan: b/l LE edema - chronic (8) Hypertension: Plan: blood pressure reasonable, continue to follow (9) DVT prophylaxis: Plan: Xarelto (10) Obesity: Plan: BMI 38.7 Plan for rehab once bed available Admission and Anticipated Discharge Date Admission Date: September 09, 2022 Subjective working w OT. Notes that she got lightheaded whenever she was sitting up earlier with PT. Still awaiting rehab. Review of Systems Review of Systems: All systems reviewed & are unremarkable except as noted in HPI & below Physical Exam Physical Exam: In general she is awake and alert pleasant no distress. HEENT normocephalic atraumatic mucous membranes moist. Breathing unlabored no accessory muscle use good effort. Skin shows no rashes no pallor or icterus. Neuro without focal deficits. Results & Data Results & Data ([facility]) Vital Signs (Past 12 Hours) Vital Signs Temp Pulse Pulse Resp BP Pulse Ox O2 Del Method 09/12/22 16:00 Nasal Cannula 09/12/22 15:02 96 Room Air 09/12/22 14:56 98.4 F 62 18 117/52 L 91 Room Air 09/12/22 11:16 98.2 F 59 L 20 130/83 96 Nasal Cannula 09/12/22 08:00 Nasal Cannula 09/12/22 07:24 98.2 F 57 L 145/75 H 97 Nasal Cannula 09/12/22 04:37 98.2 F 60 18 127/74 95 Room Air O2 Flow Rate 09/12/22 16:00 2 09/12/22 15:02 09/12/22 14:56 09/12/22 11:16 2 09/12/22 08:00 2 09/12/22 07:24 2 09/12/22 04:37 PG Care Time/CCT Total # of Minutes Spent Total Time Spent with Patient: Total time spent is greater than 50% in coordination of care (as documented) at patient's floor/unit and/or counseling patient: Coding Level of Care Code 27471 Subseq Hosp Care Lvl 1 Diagnoses Dawn-prosthetic femoral shaft fracture M97.8XXA; Z96.649 Paroxysmal atrial fibrillation I48.0 History of stroke with residual deficit I69.30 Obstructive sleep apnea G47.33 Hyperlipidemia E78.5 Diabetes mellitus type 2, uncontrolled E11.65 Chronic venous insufficiency I87.2 Hypertension I10 Hypertension type: essential hypertension DVT prophylaxis Z29.9 Obesity E66.9 (1) Hypertension Hypertension type: essential hypertension Qualified Code(s): I10 - Essential (primary) hypertension
[2022-09-12] MEDS: RIVAROXABAN 20 MG TAB PO SCH (17:00)
[2022-09-12] MEDS: DIGOXIN 0.125 MG TAB PO SCH (17:00)
[2022-09-12] MEDS: ATORVASTATIN 20 MG TAB PO SCH (20:31)
[2022-09-12] MEDS: DOCUSATE SODIUM/SENNA 50/8.6MG TAB PO SCH (20:31)
[2022-09-13] MEDS: MoRPHine SULFATE 2 MG/ML CARP IV PRN (02:52)
[2022-09-13] MEDS: SOTALOL HCL 80 MG TAB PO SCH ×2 (04:46→15:54)
[2022-09-13] MEDS: HYDROCODONE/ACETAMOPHEN 5/325MG TAB PO PRN ×2 (08:32→15:49)
[2022-09-13] MEDS: INSULIN ASPART PER UNIT SC SCH ×4 (08:33→21:23)
[2022-09-13] MEDS: LANTUS PER UNIT CHARGE SQ SCH ×2 (08:33→21:23)
[2022-09-13] MEDS: FLUTICASONE/VILANTEROL 100/25MCG 14 PUFFS/INHALER INH SCH (08:34)
[2022-09-13] MEDS: TORSEMIDE 20 MG TAB PO SCH (08:34)
[2022-09-13] MEDS: MULTIVITAMIN TAB PO SCH (08:34)
[2022-09-13] MEDS: CHOLECALCIFEROL 1,000 UNITS 25 MCG TAB PO SCH (08:34)
[2022-09-13] MEDS: OMEGA-3 (PURIFIED FISH OIL) 1 GM CAP PO SCH (08:34)
[2022-09-13] MEDS: MAGNESIUM HYDROXIDE SUSP 30 ML UDC PO PRN (08:35)
--- NOTE | 2022-09-13 09:04 | Progress Notes ---
DATE OF SERVICE: 09/13/2022 SUBJECTIVE: A 72-year-old female admitted with a right distal femur fracture. She has been fitted w ith a brace. She is doing okay. Really not much pain while lying in bed. No new complaints. OBJECTIVE: VITAL SIGNS: Temperature is 37.0. Vital signs are stable. PHYSICAL EXAMINATION: Shows a pleasant, elderly female. Lying in bed, looks pretty comfortable. Br debbie is in place, looks to be fitting well. Leg is well aligned. She is neurologically intact. ASSESSMENT: A 72-year-old white female with a right distal femur fracture around the plate. It is n ondisplaced. She has got her brace in place. It seems to be fitting well. We need to be very caref ul with heel precautions and preventing sores from the brace itself. PLAN: 1. DVT prophylaxis includes thigh-high TEDs and SCDs and she is on Xarelto. 2. PT/OT. She is strictly nonweightbearing on this right leg for the next 4 to 6 weeks. She does n ot necessarily need the brace while lying in bed, but needs to have it any time she is out of bed and with transfers. We do need to be very careful with heel precautions and avoid the brace from causin g soft tissue irritation. It needs to be checked regularly. 3. Medical management as per the medicine service. 4. Disposition: She is orthopedically okay for discharge any time. I need to see her back in 2 to 3 weeks out from her initial injury time. Any orthopedic questions can be directed to me at . Job ID: [id number]
--- NOTE | 2022-09-13 14:17 | Pharmacy Report ---
Pharmacy Glycemic Short Note 2 - Date of Service September 13, 2022 - Glycemic Short BSG Results (Last 24 hours): 09/12/22 09/12/22 09/13/22 16:21 20:26 02:56 POC Glucose 177 H 179 H 104 H 09/13/22 09/13/22 07:28 11:27 POC Glucose 150 H 222 H OUTPATIENT ANTIDIABETIC REGIMEN: * ReliON brand, Novolin 70/30 flexpen. 20 units with breakfast, 16 units with lunch, and 16 units with dinner. HbA1c: 8.2% on 09/10/22 ASSESSMENT: 09/13: * BSGs ranging 106-179 mg/dL yesterday, received 47 units of insulin (24 units of basal, 23 units of SC bolus) * Fasting BSG increased from yesterday (108 -> 150 mg/dL), will increase basal insulin today 09/12: * Patient received 47 units of insulin yesterday of which 24 were basal * Fasting BSG of 106, will continue yesterday's dose of basal insulin in 2 divided doses for even coverage * Continue current Novolog parameters 09/11: * Stressors stable * AM fasting above goal, will increase Lantus * Post-prandial elevation noted, will tighten Novolog 09/10 * D5NS @80 mL/hr started @ 1905 on 09/09; does not need discontinued as blood sugars have been acceptable. Anticipate discontinuation once diet ordered today. * Patient is currently NPO for potential surgery. * Will initiate low-dose Lantus for NPO status. Will initiate weight-based moderate stress Novolog. PLAN FOR INPATIENT GLYCEMIC CONTROL: * Basal insulin * Lantus 15 units SC BID * Bolus insulin * NovoLog per scale ACHS or Q6hrs while NPO * Goal Range: Low 110 mg/dL - High 140 mg/dL * Correction Factor: 20 mg/dL/unit * Nutritional / Prandial insulin per carb ratio of 1 unit per 7 grams CHO consumed
--- NOTE | 2022-09-13 15:19 | Discharge Summary ---
Date of Service September 13, 2022 Admission HPI Per Admitting Provider Shawna Yates is a 72-year-old female with a past medical history significant for CVA with residual aphasia, paroxysmal A. fib, DM2, hypertension, hyperlipidemia, polyneuropathy, vertigo, SANDRA, depression, and peripheral edema/venous insufficiency/lymphedema who is presenting today as a transfer from [facility] for periprosthetic hip fracture. Patient was ambulating this morning to her bathroom when she experienced a sudden fall to the ground. The event happened so quickly she is not able to say whether she was lightheaded, dizzy, or had any chest pain with the fall, but does not report these, or any palpitations, shortness of breath, or episodes of syncope prior to or after the fall. He is having severe pain at the left hip, has not been able to ambulate since the fall. She is not having any numbness, tingling, or focal weakness of the right leg, or pain out of proportion. Upon presentation, she is hypertensive 179/73, on 2 LNC, normal amount of oxygen at home. Her labs are significant for an elevated glucose of 170, anemia at about baseline, 11.3. No leukocytosis, coag panel within normal limits, platelets 236, no electrolyte abnormalities, renal function at baseline, without transa minitis. Dig level pending. CXR without acute process. Discharge Data Allergies Allergy/AdvReac Type Severity Reaction Status Date / Time meloxicam Allergy Severe MUSCLE Verified 08/15/22 13:11 CRAMPS AND SHAKE AND CANT WALK adhesive Allergy Mild local skin Verified 08/15/22 13:11 irritation carvedilol Allergy Unknown per cardio Verified 08/15/22 13:11 note metoprolol Allergy Unknown per cardio Verified 08/15/22 13:11 note omeprazole Allergy Unknown per cardio Verified 08/15/22 13:11 note Sulfa (Sulfonamide Allergy Unknown per cardio Verified 08/15/22 13:11 Antibiotics) note codeine AdvReac Severe MUSCLE Verified 08/15/22 13:11 SHAKES AND PASSES OUT diltiazem AdvReac Severe MUSCLE Verified 08/15/22 13:11 SHAKES AND CANT WALK metformin AdvReac Intermediate DIARRHEA/ Verified 08/15/22 13:11 HAIR FELL OUT Penicillins AdvReac Intermediate FEVER Verified 08/15/22 13:11 acetaminophen AdvReac Mild stomach Verified 08/15/22 13:11 sick metformin AdvReac Severe Severe Uncoded 08/15/22 13:11 diarrhea and vomiting UNKNOWN LOTION AdvReac Intermediate BURNING TO Uncoded 08/15/22 13:11 AREA, SKIN BLISTERED/SLOUGHED OFF LEGS. Consultations 09/09/22 16:46 Consult Orthopedic Surgery Routine 09/09/22 16:53 Consult Anesthesiology Routine 09/10/22 08:47 Consult Orthopedic Surgery Routine Hospital Course (1) Dawn-prosthetic femoral shaft fracture: Age-related osteoporosis w current pathologic fracture, right femur distal to internal fixation hardware. Right hip previously replaced in 02/[address] Art Zhong. That surgery was complicated by a periprosthetic femur fracture intra- operatively that required internal fixation at same time. Seen by Dr hZong's team Again today -- for brace, nonweightbearing, nonoperativesee their notes. She will need to be non-weightbearing on the right leg. Follow up with Dr. Zhong in clinic in approx 2 weeks advised. pain reasonably controlled D level OK @42.6 Will need placement for rehab. stable when bed available. (2) Paroxysmal atrial fibrillation: rate controlled, anticoagulated (3) History of stroke with residual deficit: History of left parietal stroke in 2020. continue home meds, secondary risk reduction. (4) Obstructive sleep apnea: CPAP qHS. (5) Hyperlipidemia: Continue statin. (6) Diabetes mellitus type 2, uncontrolled: a1c 8.2%. BSGs overall reasonable (7) Chronic venous insufficiency: b/l LE edema - chronic (8) Hypertension: blood pressure reasonable, continue to follow (9) DVT prophylaxis: Xarelto (10) Obesity: BMI 38.7 Plan for rehab once bed available Discharge Plan Discharge Items Patient Disposition: Transfer [facility] Fac Reason For Visit: R FEMUR FX Discharge Diagnosis: Right Distal Femur Fracture Condition on Discharge: Fair Activity: Per Instructions section Activity Comment: Nonweightbearing on right leg for 4-6 weeks. Knee immobilizer when OOB Weightbearing: Right non-weightbearing Weightbearing Comment: Non Weightbearing right leg. Knee immobilizer at all times when mobilized Non-emergency contact: Primary Care Provider and Surgeon Call non-emergency contact if: you have any medication questions, your symptoms worsen and you have a fever Follow-up/Referrals: Dane Valerio MD [Primary Care Provider] - Art Zhong MD [Physician] - (Orthopedic follow-up 2-3 weeks) Diet: Carb Consistent or DM2 and Heart Healthy Addtl Attending Provider Instructions: Knee immobilizer at all times when out of bed Non weightbearing right leg for 4-6 weeks. Heel and ulcer precautions. Need to check leg areas for brace irritations daily. Addtl Pulley Maintainer Provider Instructions: Please discontinue Wang catheter once mobility improves-hopefully in the next 1-2 days. Continue to work on bowel regimen for constipation. Pending Studies at Discharge: No Stand-Alone Forms: My [facility] Skilled Items Patient informed of condition?: Yes DNR: No Discharge Level of Care: Skilled Communicable Disease: No Discharge Prognosis: Improving Lines: None Urinary Catheter: Yes Medications and DC Order Prescriptions: New hydrocodone-acetaminophen 5-325 mg Tablet 1 tab PO Q6H PRN (Reason: moderate-severe pain) Qty: 12 0RF sennosides-docusate sodium [Senokot-S] 8.6-50 mg Tablet 2 tab PO HS Qty: 60 0RF bisacodyl 10 mg Suppository 10 mg [place] DAILY PRN (Reason: constipation) Qty: 7 0RF Continued budesonide-formoterol [Symbicort] 80-4.5 mcg/actuation HFA aerosol inhaler 2 puffs INH BID Qty: 1 2RF (DME) Dexcom G6 Dishwasher Misc See Rx Instructions .ROUTE .MEDSUPPLY Qty: 1 0RF Rx Instructions: As directed (DME) Dexcom G6 Sensor Device See Rx Instructions .ROUTE .MEDSUPPLY Qty: 9 3RF Rx Instructions: change sensor every 10 days (DME) Dexcom G6 Transmitter Device See Rx Instructions .ROUTE .MEDSUPPLY Qty: 1 3RF Rx Instructions: change every 90 days lisinopril [Zestril] 40 mg tablet 40 mg PO DAILY Qty: 90 3RF sotalol 120 mg tablet 120 mg PO Q12H Qty: 180 3RF torsemide 20 mg tablet 40 mg PO QAM Qty: 180 3RF Xarelto 20 mg tablet 20 mg PO QDD Qty: 90 1RF meclizine 12.5 mg tablet 12.5 mg PO Q6H PRN (Reason: vertigo) 30 Days Qty: 120 1RF (DME) OneTouch Verio test strips Strip See Rx Instructions .ROUTE .MEDSUPPLY Rx Instructions: Test blood sugar 1 times daily albuterol sulfate 90 mcg/actuation HFA aerosol inhaler 1 puffs INH QID PRN (Reason: shortness of breath or wheezing) Qty: 8.5 2RF insulin NPH and regular human 100 unit/mL (70-30) insulin pen See Rx Instructions subcut .COMPLEX Rx Instructions: Pt using ReliON insulin; TDD 52 units PER PT SHE TAKES 20 UNITS WITH BREAKFAST, 16 UNITS WITH LUNCH AND 16 UNITS WITH DINNER (DME) Insulin Syringe MicroFine 1 mL 27 gauge x 5/8" syringe See Rx Instructions .ROUTE Label Comments: use with each insulin injection Rx Instructions: As directed multivitamin tablet 1 tab PO DAILY omega-3 fatty acids 1,000 mg capsule 1,000 mg PO DAILY cholecalciferol (vitamin D3) 2,000 unit capsule 2,000 units PO DAILY aspirin 81 mg Tablet,Delayed Release (Dr/Ec) 81 mg PO QAM 30 Days Qty: 30 3RF atorvastatin 20 mg tablet 20 mg PO QPM digoxin [Digitek] 125 mcg (0.125 mg) tablet 125 mcg PO DAILY Discharge Orders: Discharge Order (Routine); Ordered 09/13/22 Ordered By: Chayo Coy/Other Patient Handouts: Managing Type 2 Diabetes Admission Data Admit Date/Time: 09/09/22 16:02 Attending Provider: Chayo Snow Admit Provider: Brandt You Primary Care Provider: Dane Valerio Other Providers: Daniel Ovalles ; Kaelyn Martinez ; Art Zhong ; Hussein Lepe Other Interventions: Discharge Summary Assessment (RN) Last Done: 09/13/22 14:28 Coding Diagnoses Dawn-prosthetic femoral shaft fracture M97.8XXA; Z96.649 Paroxysmal atrial fibrillation I48.0 History of stroke with residual deficit I69.30 Obstructive sleep apnea G47.33 Hyperlipidemia E78.5 Diabetes mellitus type 2, uncontrolled E11.65 Chronic venous insufficiency I87.2 Hypertension I10 Hypertension type: essential hypertension DVT prophylaxis Z29.9 Obesity E66.9
[2022-09-13] MEDS: DIGOXIN 0.125 MG TAB PO SCH (15:53)
[2022-09-13] MEDS: RIVAROXABAN 20 MG TAB PO SCH (15:55)
--- NOTE | 2022-09-13 16:16 | Hospitalist Progress Note ---
Date of Service September 13, 2022 Assessment & Plan (1) Dawn-prosthetic femoral shaft fracture: Plan: Age-related osteoporosis w current pathologic fracture, right femur distal to internal fixation hardware. Right hip previously replaced in 02/[address] Art Zhong. That surgery was complicated by a periprosthetic femur fracture intra- operatively that required internal fixation at same time. Seen by Dr Zhong's team -- for brace, nonweightbearing x4 to 6 weeks, nonoperativesee their notes. Wear brace at all times when out of bed Follow up with Dr. Zhong in clinic in approx 2 weeks advised. pain reasonably controlled Vitamin D level OK @42.6 Will need placement for rehab. stable when bed available. Continue bowel regimen for constipation related to opioids and immobility (2) Paroxysmal atrial fibrillation: Plan: Had some rapid A. fib while here due to not receiving her sotalol but now back in sinus Rate controlled, anticoagulated with Xarelto Continue sotalol Okay to transfer off telemetry (3) History of stroke with residual deficit: Plan: History of left parietal stroke in 2019. continue home meds, secondary risk reduction. (4) Obstructive sleep apnea: Plan: CPAP qHS. (5) Hyperlipidemia: Plan: Continue statin. (6) Diabetes mellitus type 2, uncontrolled: Plan: a1c 8.2%. BSGs overall reasonable (7) Chronic venous insufficiency: Plan: b/l LE edema - chronic (8) Hypertension: Plan: blood pressure elevated Restart home lisinopril which has been on hold (9) DVT prophylaxis: Plan: Xarelto (10) Obesity: Plan: BMI 38.7 Plan Disposition-was to be discharged today but held up due to constipation. She did have bowel movement but then transport could not be found later in the afternoon Plan for discharge to rehab tomorrow Admission and Anticipated Discharge Date Admission Date: September 09, 2022 Subjective Patient feeling well today, has been constipated but finally had a bowel movement in the afternoon. Is hesitant to have her Wang catheter removed until she is more mobile despite being warned of increased risk of UTI. Pain is controlled with pain medication in the thigh. She did stand twice today with physical therapy. Telemetry with normal sinus rhythm with rates in the 60s. Review of Systems Review of Systems: All systems reviewed & are unremarkable except as noted in HPI & below Denies chest pains or shortness of breath, no nausea or lightheadedness, no abdominal pains. Physical Exam Constitutional: WD/WN, vitals as above Eyes: + anicteric sclerae Neck: trachea midline, no thyromegaly Respiratory: normal respiratory effort, lungs clear to auscultation Cardiovascular: RRR, no murmur, no edema Chest (Breasts): Chest: normal inspection of chest Gastrointestinal (Abdomen): normal bowel sounds, soft, nontender, no hepatosplenomegaly Musculoskeletal: Extremities: extremities normal to inspection (Except some edema of the right thigh); no cyanosis and no clubbing Skin: no rashes, warm and dry Neurologic: moves all extremities and awake; no focal motor deficits Psychiatric: A+Ox3, euthymic affect Lymphatic: no lymphedema Results & Data Results & Data ([facility]) Vital Signs (Past 12 Hours) Vital Signs Temp Pulse Pulse Pulse Resp BP BP 09/13/22 16:02 36.9 C 72 16 186/76 H 09/13/22 15:53 72 09/13/22 14:28 37.0 C 56 L 62 18 145/70 H 160/58 H 09/13/22 11:30 37.0 C 62 18 145/70 H 09/13/22 09:52 09/13/22 07:00 57 L 09/13/22 07:23 37.0 C 58 L 16 160/58 H 09/13/22 04:46 56 L Pulse Ox O2 Del Method 09/13/22 16:02 94 Room Air 09/13/22 15:53 09/13/22 14:28 94 09/13/22 11:30 94 Room Air 09/13/22 09:52 Room Air 09/13/22 07:00 09/13/22 07:23 92 Room Air 09/13/22 04:46 Laboratory Results No labs performed today PG Care Time/CCT Total # of Minutes Spent Total Time Spent with Patient: Total time spent is greater than 50% in coordination of care (as documented) at patient's floor/unit and/or counseling patient: Coding Level of Care Code 98429 Subseq Hosp Care Lvl 2 Diagnoses Danw-prosthetic femoral shaft fracture M97.8XXA; Z96.649 Paroxysmal atrial fibrillation I48.0 History of stroke with residual deficit I69.30 Obstructive sleep apnea G47.33 Hyperlipidemia E78.5 Diabetes mellitus type 2, uncontrolled E11.65 Chronic venous insufficiency I87.2 Hypertension I10 Hypertension type: essential hypertension DVT prophylaxis Z29.9 Obesity E66.9 (1) Hypertension Hypertension type: essential hypertension Qualified Code(s): I10 - Essential (primary) hypertension
[2022-09-13] MEDS: lisinopril 40 MG TAB PO SCH (18:43)
[2022-09-13] MEDS ORDERED: oxyCODONE HCL IR 5 MG TAB (IMMEDIATE RELEASE) PO STA (19:15)
[2022-09-13] MEDS: ATORVASTATIN 20 MG TAB PO SCH (21:20)
[2022-09-13] MEDS: DOCUSATE SODIUM/SENNA 50/8.6MG TAB PO SCH (21:21)
[2022-09-14] MEDS: HYDROCODONE/ACETAMOPHEN 5/325MG TAB PO PRN ×3 (01:27→14:31)
[2022-09-14] MEDS: SOTALOL HCL 80 MG TAB PO SCH (05:24)
[2022-09-14] MEDS: INSULIN ASPART PER UNIT SC SCH ×2 (08:04→12:06)
[2022-09-14] MEDS: LANTUS PER UNIT CHARGE SQ SCH (08:05)
[2022-09-14] MEDS: CHOLECALCIFEROL 1,000 UNITS 25 MCG TAB PO SCH (08:35)
[2022-09-14] MEDS: TORSEMIDE 20 MG TAB PO SCH (08:35)
[2022-09-14] MEDS: OMEGA-3 (PURIFIED FISH OIL) 1 GM CAP PO SCH (08:35)
[2022-09-14] MEDS: lisinopril 40 MG TAB PO SCH (08:35)
[2022-09-14] MEDS: MULTIVITAMIN TAB PO SCH (08:35)
[2022-09-14] MEDS: FLUTICASONE/VILANTEROL 100/25MCG 14 PUFFS/INHALER INH SCH ×2 (08:36→09:14)
[2022-09-14] MEDS ORDERED: HYDROCODONE/ACETAMOPHEN 5/325MG TAB PO ONE (10:28)
--- NOTE | 2022-09-14 13:28 | Progress Notes ---
DATE OF PROGRESS NOTE: 09/14/2022 SUBJECTIVE: A 72-year-old female admitted with a right distal femur fracture around the distal plate . She has got the knee immobilizer custom made for and doing reasonably well. Not much pain at all while just lying still, but still quite a bit of discomfort with movement. She is hoping to leave [facility] today. OBJECTIVE: VITAL SIGNS: Temperature is 36.8. Vital signs are stable. GENERAL: Shows a pleasant, elderly female. She is sitting up in bed and looks pretty comfortable. EXTREMITIES: Examination of the right leg reveals the brace to be in place. Leg is well aligned. S he can dorsiflex and plantarflex her foot appropriately. She is neurologically intact. No areas of brace irritation. ASSESSMENT: A 72-year-old female with right nondisplaced distal femur fracture around the plate. He r brace seems to be fitting well. She is reasonably comfortable. PLAN: 1. DVT prophylaxis to include thigh-high TEDs, SCDs, and back on Xarelto. 2. PT/OT. She is strictly nonweightbearing on this right leg for the next 4 to 6 weeks. Brace at a ll times while out of bed. 3. Medical management as per the medicine service. 4. Disposition: She is orthopedically okay for discharge and apparently leaving today as far as she knows. I need to see her back in 2 to 3 weeks out from her injury date. Any orthopedic questions c an be directed to me at [phone]. Job ID: [id number]
--- NOTE | 2022-09-14 14:15 | Discharge Summary ---
Date of Service September 14, 2022 Principal Diagnosis Right periprosthetic femur fracture Discharge Exam Constitutional WD/WN, vitals as above Eyes + anicteric sclerae Neck trachea midline, no thyromegaly Respiratory normal respiratory effort, lungs clear to auscultation Cardiovascular RRR, no murmur, no edema Chest (Breasts) Chest: normal inspection of chest Gastrointestinal (Abdomen) normal bowel sounds, soft, nontender, no hepatosplenomegaly Musculoskeletal Extremities: extremities normal to inspection (Except some edema of the right thigh); no cyanosis and no clubbing Skin no rashes, warm and dry Neurologic moves all extremities and awake; no focal motor deficits Psychiatric A+Ox3, euthymic affect Lymphatic no lymphedema Discharge Data Allergies Allergy/AdvReac Type Severity Reaction Status Date / Time meloxicam Allergy Severe MUSCLE Verified 08/15/22 13:11 CRAMPS AND SHAKE AND CANT WALK adhesive Allergy Mild local skin Verified 08/15/22 13:11 irritation carvedilol Allergy Unknown per cardio Verified 08/15/22 13:11 note metoprolol Allergy Unknown per cardio Verified 08/15/22 13:11 note omeprazole Allergy Unknown per cardio Verified 08/15/22 13:11 note Sulfa (Sulfonamide Allergy Unknown per cardio Verified 08/15/22 13:11 Antibiotics) note codeine AdvReac Severe MUSCLE Verified 08/15/22 13:11 SHAKES AND PASSES OUT diltiazem AdvReac Severe MUSCLE Verified 08/15/22 13:11 SHAKES AND CANT WALK metformin AdvReac Intermediate DIARRHEA/ Verified 08/15/22 13:11 HAIR FELL OUT Penicillins AdvReac Intermediate FEVER Verified 08/15/22 13:11 acetaminophen AdvReac Mild stomach Verified 08/15/22 13:11 sick metformin AdvReac Severe Severe Uncoded 08/15/22 13:11 diarrhea and vomiting UNKNOWN LOTION AdvReac Intermediate BURNING TO Uncoded 08/15/22 13:11 AREA, SKIN BLISTERED/SLOUGHED OFF LEGS. Consultations 09/09/22 16:46 Consult Orthopedic Surgery Routine 09/09/22 16:53 Consult Anesthesiology Routine 09/10/22 08:47 Consult Orthopedic Surgery Routine Hospital Course (1) Dawn-prosthetic femoral shaft fracture: Age-related osteoporosis w current pathologic fracture, right femur distal to internal fixation hardware. Right hip previously replaced in 02/[address] Art Zhong. That surgery was complicated by a periprosthetic femur fracture intra- operatively that required internal fixation at same time. Seen by Dr Zhong's team -- for brace, nonweightbearing x4 to 6 weeks, nonoperativesee their notes. Wear brace at all times when out of bed and watch closely for pressure sores Follow up with Dr. Zhong in clinic in approx 2 weeks advised. pain reasonably controlled with hydrocodone, tylenol Vitamin D level OK @42.6 Will need placement for rehab. stable when bed available. Continue bowel regimen for constipation related to opioids and immobility-did have BM on 09/13 (2) Paroxysmal atrial fibrillation: Had some rapid A. fib while here due to not receiving her sotalol but now back in sinus Rate controlled, anticoagulated with Xarelto Continue sotalol, digoxin (3) History of stroke with residual deficit: History of left parietal stroke in 2019. continue home meds, secondary risk reduction. (4) Obstructive sleep apnea: CPAP qHS. continue SYmbicort and albuterol prn for COPD (5) Hyperlipidemia: Continue statin. (6) Diabetes mellitus type 2, uncontrolled: a1c 8.2%. BSGs overall reasonable continue home insulin regimen (7) Chronic venous insufficiency: b/l LE edema - chronic continue torsemide (8) Hypertension: continue lisinopril, torsemide (9) DVT prophylaxis: Xarelto (10) Obesity: BMI 38.7 Plan Disposition-discharge to rehab today Total Time Total Time Spent Total Time Spent (In Minutes): 35 min Discharge Plan Discharge Items Patient Disposition: Transfer Care Home Fac Reason For Visit: R FEMUR FX Discharge Diagnosis: Right Distal Femur Fracture Condition on Discharge: Fair Activity: Per Instructions section Activity Comment: Nonweightbearing on right leg for 4-6 weeks. Knee immobilizer when OOB Weightbearing: Right non-weightbearing Weightbearing Comment: Non Weightbearing right leg. Knee immobilizer at all times when mobilized Non-emergency contact: Primary Care Provider and Surgeon Call non-emergency contact if: you have any medication questions, your symptoms worsen and you have a fever Follow-up/Referrals: Dane Valerio MD [Primary Care Provider] - Art Zhong MD [Physician] - (Orthopedic follow-up 2-3 weeks) Diet: Carb Consistent or DM2 and Heart Healthy Addtl Attending Provider Instructions: Knee immobilizer at all times when out of bed Non weightbearing right leg for 4-6 weeks. Heel and ulcer precautions. Need to check leg areas for brace irritations daily. Addtl Microelectronics Technician Provider Instructions: Please discontinue Wang catheter once mobility improves-hopefully in the next 1-2 days. Continue to work on bowel regimen for constipation. Pending Studies at Discharge: No Stand-Alone Forms: My [facility] [employer] Skilled Items Patient informed of condition?: Yes DNR: No Discharge Level of Care: Skilled Communicable Disease: No Discharge Prognosis: Improving Lines: None Urinary Catheter: Yes Medications and DC Order Prescriptions: New hydrocodone-acetaminophen 5-325 mg Tablet 1 tab PO Q6H PRN (Reason: moderate-severe pain) Qty: 12 0RF sennosides-docusate sodium [Senokot-S] 8.6-50 mg Tablet 2 tab PO HS Qty: 60 0RF bisacodyl 10 mg Suppository 10 mg [place] DAILY PRN (Reason: constipation) Qty: 7 0RF Continued budesonide-formoterol [Symbicort] 80-4.5 mcg/actuation HFA aerosol inhaler 2 puffs INH BID Qty: 1 2RF (DME) Dexcom G6 Zipper Setter Chainstitch Misc See Rx Instructions .ROUTE .MEDSUPPLY Qty: 1 0RF Rx Instructions: As directed ([facility]) Dexcom G6 Sensor Device See Rx Instructions .ROUTE .MEDSUPPLY Qty: 9 3RF Rx Instructions: change sensor every 10 days ([facility]) Dexcom G6 Transmitter Device See Rx Instructions .ROUTE .MEDSUPPLY Qty: 1 3RF Rx Instructions: change every 90 days lisinopril [Zestril] 40 mg tablet 40 mg PO DAILY Qty: 90 3RF sotalol 120 mg tablet 120 mg PO Q12H Qty: 180 3RF torsemide 20 mg tablet 40 mg PO QAM Qty: 180 3RF Xarelto 20 mg tablet 20 mg PO QDD Qty: 90 1RF meclizine 12.5 mg tablet 12.5 mg PO Q6H PRN (Reason: vertigo) 30 Days Qty: 120 1RF (DME) OneTouch Verio test strips Strip See Rx Instructions .ROUTE .MEDSUPPLY Rx Instructions: Test blood sugar 1 times daily albuterol sulfate 90 mcg/actuation HFA aerosol inhaler 1 puffs INH QID PRN (Reason: shortness of breath or wheezing) Qty: 8.5 2RF insulin NPH and regular human 100 unit/mL (70-30) insulin pen See Rx Instructions subcut .COMPLEX Rx Instructions: Pt using ReliON insulin; TDD 52 units PER PT SHE TAKES 20 UNITS WITH BREAKFAST, 16 UNITS WITH LUNCH AND 16 UNITS WITH DINNER (DME) Insulin Syringe MicroFine 1 mL 27 gauge x 5/8" syringe See Rx Instructions .ROUTE Label Comments: use with each insulin injection Rx Instructions: As directed multivitamin tablet 1 tab PO DAILY omega-3 fatty acids 1,000 mg capsule 1,000 mg PO DAILY cholecalciferol (vitamin D3) 2,000 unit capsule 2,000 units PO DAILY aspirin 81 mg Tablet,Delayed Release (Dr/Ec) 81 mg PO QAM 30 Days Qty: 30 3RF atorvastatin 20 mg tablet 20 mg PO QPM digoxin [Digitek] 125 mcg (0.125 mg) tablet 125 mcg PO DAILY Discharge Orders: Discharge Order (Routine); Ordered 09/14/22 Ordered By: Chayo Coy/Other Patient Handouts: Managing Type 2 Diabetes Admission Data Admit Date/Time: 09/09/22 16:02 Attending Provider: Chayo Snow Admit Provider: Brandt You Primary Care Provider: Dane Valerio Other Providers: Hussein Lepe ; Daniel Ovalles ; Kaelyn Martinez ; Art Zhong Other Interventions: Discharge Summary Assessment (RN) Last Done: 09/13/22 14:28 Coding Level of Care Code D/C DAY MANAGEMENT >30 MINS Diagnoses Dawn-prosthetic femoral shaft fracture M97.8XXA; Z96.649 Paroxysmal atrial fibrillation I48.0 History of stroke with residual deficit I69.30 Obstructive sleep apnea G47.33 Hyperlipidemia E78.5 Diabetes mellitus type 2, uncontrolled E11.65 Chronic venous insufficiency I87.2 Hypertension I10 Hypertension type: essential hypertension DVT prophylaxis Z29.9 Obesity E66.9
== END 2022-09-14 15:21 | DRG 543 ==
LOC: SUATTDRO 16:02 → 2W 16:02